=== PATIENT | female | born 2000 | race Caucasian/White ===

== ENCOUNTER 2020-02-04 19:05 | Emergency (ER) | payer SELFPAY ==
[2020-02-04 19:08] VITALS: BP 131/86; PULSE 113; RESP 16; TEMP 36.6; O2SAT 99
--- NOTE | 2020-02-04 19:27 | W.ED.GENAD ---
Discharge Plan Disposition Patient Disposition: HOME Condition: Good Discharge Details Chief Complaint: Abd Prob Clinical Impression: Constipation Primary Care Provider: Daniel Mendoza ED Provider: Tomasa Oates Home Meds and New Rx's Prescriptions: Continued levalbuterol tartrate [Xopenex HFA] 200 PUFF HFA aerosol inhaler 15 gm Inhalation Q4H PRN Qty: 1 RF: 2 loratadine 10 MG tablet 10 mg PO DAILY PRN Qty: 30 RF: 0 buprenorphine-naloxone 8-2 mg film 2 film sublingual DAILY RF: 0 buspirone 5 mg tablet 5 mg PO BID RF: 0 bupropion HCl 75 mg tablet 75 mg PO BID RF: 0 Discharge Instructions Instructions: Magnesium Citrate (By mouth), Constipation (ED) Additional Instructions: Continue to encourage water intake. You may use half a bottle to entire bottle of magnesium citrate as provided. This should produce bowel movement. I also would like for you to get on a daily regimen to help prevent constipation in the future. Please discuss your current constipation as well as prevention further with your primary care. Please call primary care tomorrow to schedule follow-up appointment. If you develop fever/chills, increased pain, vomiting or other new/worsening symptom please seek care urgently once again Referrals: Daniel Mendoza MD [Primary Care Provider] - Discharge Data Discharge Date/Time-TO BE ENTERED AT DEPARTURE: 02/04/20 21:05 Medical Decision Making Patient is a 19-year-old female, brought in by mother, chief complaint of constipation. She reports last bowel movement was 1 week ago. She reports that she has not been able to pass any flatus or stool. States that she is been using generic stool softeners without success. Did try an enema prior to arrival without success. Mother did state that she was able to pass the enema and without difficulty. No previous abdominal surgeries. Patient was started on Suboxone 2 months ago. States that she is also had difficulty with constipation for most of her adult life. Denies any fevers or chills. There is nausea but no vomiting. On exam, she appears nontoxic. She endorses fairly generalized abdominal discomfort with palpation but no peritoneal findings are noted. No CVA tenderness. Will obtain upright abdominal film to evaluate for obstruction based on patient's history. XR reviewed by radiologist. No evidence of obstruction. Mild colonic stool burden. Discussed with the patient and her mother. We discussed treatment options. Her XR and history does not suggest large stool burden in the rectal vault. We discussed treatment options and she would prefer to cntinue her treatment at home. Seems relieved that she is not obstructed. We discussed treatment options. As stores are closed at this time, will discharge home with magnesium citrate. We discussed further treatment options. We discussed that, as this is likely linked to her recent start of suboxone, anahi davis need a preventative method moving forward. She was given return precautions. Advised close f/u with PCP. All questions and concerns were addressed, she is in agreement with this plan. HPI General Mode of arrival: ambulatory. Date/Time Provider Initiated Documentation: 02/04/20 19:27. Limitations to Documentation: no limitations. Information obtained by: patient, family (mother) and RN notes reviewed. History of Present Illness 19 year old F presents to the emergency department with the chief complaint of diffuse abdominal pain, described as severe and similar to prior episodes (reports long history of recurrent constipation), with intensity rated at 10. Quality is described as aching, and is localized to the abdomen. Patient reports no radiation. Patient started experiencing this week(s) (1) and it has been constant. No relieving factors improve symptom(s), No exacerbating factors reported . Patient notes no other symptoms.. Patient did receive the following treatments prior to arrival, other (OTC stool softener) Related Data Home Medications Medication Instructions Recorded Confirmed levalbuterol tartrate [Xopenex HFA] 15 gm INHALATION Q4H PRN #1 inh 09/12/13 02/04/20 loratadine 10 mg PO DAILY PRN #30 tablet 04/03/14 02/04/20 buprenorphine-naloxone 2 film SUBLINGUAL DAILY 02/04/20 02/04/20 bupropion HCl 75 mg PO BID 02/04/20 02/04/20 buspirone 5 mg PO BID 02/04/20 02/04/20 Previous Rx's Medication Instructions Recorded levalbuterol tartrate [Xopenex HFA] 15 gm INHALATION Q4H PRN #1 inh 09/12/13 loratadine 10 mg PO DAILY PRN #30 tablet 04/03/14 Allergies Allergy/AdvReac Type Severity Reaction Status Date / Time No Known Allergies Allergy Unverified 02/04/20 19:13 General Stated Complaint: Abd Prob ADENIKE: 3 Review of Systems Constitutional Constitutional: Reports as per HPI, Denies chills, Denies fatigue, Denies fever(s) and Denies headache(s) ENT Ears, Nose, Mouth, and Throat: Denies headache(s) Cardiovascular Cardiovascular: Reports as per HPI, Denies chest pain and Denies dyspnea Respiratory Respiratory: Reports as per HPI, Denies cough and Denies dyspnea Gastrointestinal Gastrointestinal: Reports as per HPI Musculoskeletal Musculoskeletal: Reports as per HPI and Denies back pain Integumentary/Breasts Skin/Breast: Reports as per HPI and Denies rash Neurologic Neurologic: Reports as per HPI and Denies headache(s) Endocrine Endocrine: Denies fatigue [facility] Medical History (Updated 02/04/20 @ 20:55 by YUE Pascual) Dysmenorrhea in adolescent onset of sx 12yo. Started OCPs with improvement. 10/2015 wants Mirena IUD for ease of compliance. 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 Surgical History ear surgery L ear. Social History Smoking/Tobacco Use Status: Current every day Alcohol Intake: never Drug use: Daily Substance use type: marijuana Details: smokes marijuana before bed each night Do you feel safe at home: Yes Do you feel safe in your relationship?: Yes Exam Const General: cooperative, healthy appearing, comfortable, no acute distress and well developed Nutritional Appearance: average body habitus and well nourished Orientation: alert and awake HENPA Head: normal to inspection Mouth: moist mucous membranes Resp Effort & Inspection: normal respiratory effort, able to speak in complete sentences and no respiratory distress Auscultation: clear to auscultation bilaterally, no rales, no rhonchi and no wheezes Cardio Rate: regular rate Rhythm: regular rhythm Heart Sounds: S1 normal and S2 normal GI Inspection: normal to inspection, no abdominal wall ecchymosis, non-distended and no visible herniation Palpation: soft, no hepatosplenomegaly, not firm, no guarding, no masses and tender (diffusely tender with no peritoneal findings) Percussion: normal to percussion Auscultation: normal bowel sounds Back/Spine/Pelvis Back: no CVA tenderness Skin General skin exam: no rashes or lesions noted Trauma: no lacerations or abrasions Neuro General: patient alert and patient awake Cognition: normal cognition Speech: speech normal Gait: normal gait Psych Appearance: grossly normal and well kempt Mental Status: mental status grossly normal Speech and Movement: speech and movement normal Course Vital Signs Vital signs: Vital Signs Temperature 36.6 C 02/04/20 19:08 Pulse 113 H 02/04/20 19:08 Respiratory Rate 16 02/04/20 19:08 Blood Pressure 131/86 02/04/20 19:08 Pulse Oximetry 99 02/04/20 19:08 Temperature 36.6 C 02/04/20 19:08 Temperature Source Skin 02/04/20 19:08 Pulse 113 H 02/04/20 19:08 Respiratory Rate 16 02/04/20 19:08 Respiratory Effort 02/04/20 19:16 Blood Pressure 131/86 02/04/20 19:08 Blood Pressure Position Standing 02/04/20 19:08 Pulse Oximetry 99 02/04/20 19:08 Oxygen Delivery Method Room Air 02/04/20 19:08 Oxygen Flow Rate 0 02/04/20 19:08 Pain Level 10 02/04/20 19:08
--- NOTE | 2020-02-04 19:30 | DI.RAD_ITS ---
EXAM: XR ABDOMEN FLAT UPRIGHT CLINICAL HISTORY: abdominal pain, no BM x 1 week, no flatus TECHNIQUE: COMPARISON: CR ABD FLAT UPRIGHT PA CHEST from 04/12/2010 FINDINGS: Three views were obtained. Normal bowel gas pattern noted. No gross organomegaly. IUD noted in kayy ce just to the right of midline in the pelvis. IMPRESSION: No evidence of acute process. RADIATION DOSE DELIVERED: Total DLP
--- NOTE | 2020-02-04 20:13 | DI.VRAD_ITS ---
PROCEDURE INFORMATION: Exam: XR Abdomen, 2 Views Exam date and time: 02/04/2020 7:58 PM Age: 19 years old Clinical indication: Generalized; Patient HX: Abdominal pain, no bm x 1 week, no flatus TECHNIQUE: Imaging protocol: XR of the abdomen. Views: 2 Views. COMPARISON: No relevant prior studies available. FINDINGS: Lungs: Lung bases are clear. Gastrointestinal tract: There is mild gaseous distention of the splenic flexure with remainder of colon otherwise nondistended with air and stool scattered throughout the colon and within the rectum. There is mild stool burden throughout the colon. No focal dilation or scattered air-fluid levels to suggest obstruction. Intraperitoneal space: Normal. No free air. Organs: IUD noted within the pelvis, slightly right of midline. Bones/joints: Unremarkable for age. IMPRESSION: Nonobstructive bowel gas pattern with mild colonic stool burden. Dictated and Authenticated by: Jasbir Lorenz MD. Ordering:JANNET Randolph MD
[2020-02-04 20:51] VITALS: BP 122/66; PULSE 75; RESP 16; TEMP 36.6; O2SAT 99
[2020-02-04] MEDS: Magnesium Citrate 300 ML BTL PO (21:00)
== END 2020-02-04 21:05 | disposition home or self-care (01) ==
PROVIDERS: Emergency Provider Physician Assistant; PCP Internal Medicine
DX: K59.00 Constipation, unspecified (principal); T50.7X5A Adverse effect of analeptics and opioid receptor antagonists, initial encounter; R11.0 Nausea
CPT/HCPCS: 99283; 74019

== ENCOUNTER 2022-04-05 18:32 | Emergency (ER) | payer MEDICAID, SELFPAY ==
[2022-04-05 18:39] VITALS: BP 110/66; PULSE 72; RESP 16; TEMP 36.6; O2SAT 99
--- NOTE | 2022-04-05 18:49 | ED.GENADUL_ITS ---
Discharge Plan Disposition Patient Disposition: HOME Condition: Improving Discharge Details Clinical Impression: Acute bronchitis with bronchospasm Primary Care Provider: Daniel Mendoza ED Provider: Jeremy Doran Home Meds and New Rx's Prescriptions: New amoxicillin-pot clavulanate 875-125 mg tablet 1 tab PO BID 9 Days Qty: 18 0RF No Action levalbuterol tartrate [Xopenex HFA] 200 PUFF HFA aerosol inhaler 15 gm Inhalation Q4H PRN Qty: 1 2RF loratadine 10 MG tablet 10 mg PO DAILY PRN Qty: 30 0RF buprenorphine-naloxone 8-2 mg film 2 film sublingual DAILY Label Comments: PLACE 1 FILM UNT AND ALLOW TO DISSOLVE BID Discharge Instructions Instructions: Acute Bronchitis (ED) Additional Instructions: Continue efforts to decrease tobacco and other inhaled products. Take antibiotics as prescribed. Albuterol as needed every 2-4 hours while ill. Return to the emergency department for any acute concerns. Medical Decision Making This is a 21-year-old female smoker who presents with 10 days of persistent cough. She has run out of her inhaler and continues to smoke. She is oxygenating normally and afebrile. Slight wheeze present on exam. Most consistent with bronchitis and bronchospasm. We will treat with a course of antibiotic and repeat start her inhaler. She is stable for outpatient management will continue to decrease her use of cigarettes. [facility] General Mode of arrival: ambulatory . Date/Time Provider Initiated Documentation: 04/05/22 18:35 . Limitations to Documentation: no limitations . Information obtained by: patient . History of Present Illness 21 year old F presents to the emergency department with the chief complaint of Cough, wheezing, described as moderate and similar to prior episodes, and is lo calized to the chest. Patient reports no radiation. Patient started experiencing this day(s) and it has been intermittent. No relieving factors improve symptom(s), No exacerbating factors reported . Patient notes cough and fever/chills; denies chest pain, shortness of breath and syncope. Patient did receive the following treatments prior to arrival, none Related Data Home Medications Medication Instructions Recorded Confirmed levalbuterol tartrate 45 15 gm inhalation Q4H PRN #1 inh 09/12/13 04/05/22 mcg/actuation aerosol inhaler (Xopenex HFA) loratadine 10 mg tablet 10 mg PO DAILY PRN ##30 04/03/14 02/04/20 buprenorphine 8 mg-naloxone 2 mg 2 film sublingual DAILY 02/04/20 04/05/22 sublingual film amoxicillin 875 mg-potassium 1 tab PO BID 9 days #18 tabs 04/05/22 clavulanate 125 mg tablet Previous Rx's Medication Instructions Recorded levalbuterol tartrate 45 15 gm inhalation Q4H PRN #1 inh 09/12/13 mcg/actuation aerosol inhaler (Xopenex HFA) loratadine 10 mg tablet 10 mg PO DAILY PRN ##30 04/03/14 amoxicillin 875 mg-potassium 1 tab PO BID 9 days #18 tabs 04/05/22 clavulanate 125 mg tablet Allergies Allergy/AdvReac Type Severity Reaction Status Date / Time No Known Allergies Allergy Unverified 04/05/22 18:42 General Stated Complaint: RespSymp ADENIKE: 4 Review of Systems Narrative: No chest pain, no difficulty breathing. Ran out of her inhaler, continues to smoke half pack of cigarettes per day. PFSH All Active Problems (Updated 04/05/22 @ 18:54 by Jeremy Doran MD) Ear pain, right (Acute) Acute bronchitis with bronchospasm (Acute) Medical History Dysmenorrhea in adolescent onset of sx 12yo. Started OCPs with improvement. 10/2015 wants Mirena IUD for ease of compliance. 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 Surgical History ear surgery L ear. Social History Smoking/Tobacco Use Status: Current every day Tobacco Type: cigarettes Smoking packs per day: 0.5 Smoking cigarettes per day: 10.0 Smoking risk assessment performed?: Yes Alcohol Intake: never Drug use: Daily Substance use type: marijuana Details: smokes marijuana before bed each night Do you feel safe at home: Yes Do you feel safe in your relationship?: Yes Exam Narrative Exam Narrative: GEN: awake, alert, oriented 3. Pleasant, well groomed, interactive. HEAD: Normocephalic, atraumatic ENT: Mucous membranes moist, oropharynx unremarkable, External ear exam unremarkable EYES: PERRL, EOMI NECK: Full ROM, no JACLYN, no menigismus CHEST/RESP: Nontender, subtle end expiratory wheeze bilaterally CARDIOVASCULAR: RRR, no murmur, rub kenneth. 2+ Rad pulse bilateral ABDOMEN: Soft, nontender, no mass. +Bowel sounds EXT: Full ROM, no edema, no rash Neuro: Grossly normal neurologic exam, conversant, interactive. Psych: Speech fluent, thoughts congruent, affect normal Course Vital Signs Vital signs: Vital Signs Temperature 36.6 C 04/05/22 18:39 Pulse 72 04/05/22 18:39 Respiratory Rate 16 04/05/22 18:39 Blood Pressure 110/66 04/05/22 18:39 Pulse Oximetry 99 04/05/22 18:39 Temperature 36.6 C 04/05/22 18:39 Temperature Source Tympanic 04/05/22 18:39 Pulse 72 04/05/22 18:39 Respiratory Rate 16 04/05/22 18:39 Respiratory Effort 04/05/22 18:39 Blood Pressure 110/66 04/05/22 18:39 Blood Pressure Position Sitting 04/05/22 18:39 Pulse Oximetry 99 04/05/22 18:39 Oxygen Delivery Method Room Air 04/05/22 18:39 Oxygen Flow Rate 0 04/05/22 18:39 Pain Level 0 04/05/22 18:39
[2022-04-05] MEDS: Albuterol HFA 8 GM 60 PUFF INH IH (19:00)
[2022-04-05] MEDS: Inhaler, Assist Device 1 EACH MC (19:00)
[2022-04-05] MEDS: Amox. 875/Clav. 125, 2 TABS/BTL 1 TAB PO (19:00)
== END 2022-04-05 18:59 | disposition home or self-care (01) ==
PROVIDERS: Emergency Provider Emergency Medicine; PCP Internal Medicine
DX: J20.9 Acute bronchitis, unspecified (principal); F17.210 Nicotine dependence, cigarettes, uncomplicated
CPT/HCPCS: 99283

== ENCOUNTER 2022-05-17 00:17 | Emergency (ER) | payer MEDICAID, SELFPAY ==
--- NOTE | 2022-05-17 00:15 | RT.EKG_ITS ---
APPROVED REPORT Exam: Resting ECG Reason for Exam: chest pain Patient Location: E HR:69 bpm ECG Measurements Heart Rate 69 AXIS OR 157 P 54 QRSd 74 QRS 68 QT 374 T 52 QTc 401 Conclusion Sinus rhythm...normal P axis, V-rate 60- 99 Physician: no stemi
[2022-05-17 00:21] VITALS: BP 165/76; PULSE 85; RESP 18; TEMP 36.6; O2SAT 96
[2022-05-17 00:45] LABS: Abs Immature Grans 0.06 10^3/uL (0.0-0.06); Absolute Basophil Count 0.03 10^3/uL (0.0-0.2); Absolute Eosinophil Count 0.12 10^3/uL (0.0-0.7); Absolute Lymphocyte Count 2.18 10^3/uL (1.2-3.4); Absolute Monocyte Count 0.84 10^3/uL (0.1-0.8); Absolute Neutrophil Count 6.05 10^3/uL (1.2-6.7); Basophils % 0.3; Eosinophils % 1.3; HCT 37.9 % (36.0-46.0); HGB 12.3 g/dL (11.2-15.7); Immature Grans % 0.6; Lymphocytes % 23.5; MCH 28.7 pg (27.0-33.0); MCHC 32.5 % (32.0-36.0); MCV 89 fL (80-95); MPV 8.3 fL (8.0-11.0); Monocytes % 9.1; Neutrophils % 65.2; Platelet Count 396 10^3/uL (130-400); RBC 4.28 10^6/uL (3.93-5.22); RDW 12.7 % (11.7-14.6); RDW-SD 41.1 fL; WBC 9.28 10^3/uL (4.4-10.8)
[2022-05-17 00:46] LABS: ESR 35 mm/hr (0-20)
--- NOTE | 2022-05-17 00:54 | W.ED.GENAD ---
Discharge Plan Disposition Patient Disposition: Home Condition: Good Discharge Details Clinical Impression: Chest pain, Withdrawal from opioids, Cellulitis of arm, right Primary Care Provider: Daniel Mendoza ED Provider: Akil Bryant Home Meds and New Rx's Prescriptions: New clindamycin HCl 150 mg capsule 450 mg PO Q6H 7 Days Qty: 84 0RF No Action levalbuterol tartrate [Xopenex HFA] 200 PUFF HFA aerosol inhaler 15 gm Inhalation Q4H PRN Qty: 1 2RF loratadine 10 MG tablet 10 mg PO DAILY PRN Qty: 30 0RF buprenorphine-naloxone 8-2 mg film 2 film sublingual DAILY Label Comments: PLACE 1 FILM UNT AND ALLOW TO DISSOLVE BID Discharge Instructions Instructions: Chest Pain (ED) Additional Instructions: Please take the antibiotics for your cellulitis. I have been sent to your pharmacy on file. At this time your CAT scan shows no evidence of blood clot or problems with your major vessels. Your laboratory work-up shows no major problems with your heart. Your symptoms may be related to mild pericarditis or withdrawal. Please do not take heroin or opiate related substances. Please take Tylenol and Motrin and follow-up closely with your primary care provider at your appointment this afternoon. If you notice any worsening of your symptoms, or any new symptoms such as vomiting, diarrhea, fever, chills, shortness of breath, chest pain, numbness, weakness, or fainting , please return immediately to the emergency department for reevaluation. Please follow up with your primary care provider as soon as possible for reassessment and reevaluation. As always, it was a pleasure participating in your medical care today. Referrals: Daniel Mendoza MD [Primary Care Provider] - Medical Decision Making This is a 21-year-old female with a past medical history of IV drug abuse, including recent heroin use who presents today for chest pain. Patient states that she has been using for the last few weeks, last time she used was about 10 hours ago. Since then she has developed mild chest achiness for the last 2 hours. She states that this is how she felt last time she was withdrawing. She denies fever or chills. She does admit to some redness on her right arm. She denies pleuritic chest pain. She denies any history of blood clots. Grandparents did have blood clots but she has never had any. She denies any other complaints. Symptoms are made worse when she lies flat, improves when she sits upright comparatively. No other modifying factors. Exam demonstrates well-appearing female, no reproducible chest wall tenderness. No murmur on auscultation. Mild redness on right arm. Differential is highest for mild pericarditis, ACS is unlikely. Screening EKG is unremarkable. Differential also does include PE. We will get a D-dimer. Myocarditis and endocarditis less likely with the absence of any murmur, or fever or chills. Will give Toradol to help with the pain, give clonidine patch to help with the withdrawal symptoms, monitor closely and reassess. 3 AM CTA shows no evidence of pulmonary embolism. Laboratory work-up shows no white count or bandemia. D-dimer elevated but CTA was negative for PE. ESR minimally elevated, CRP mildly elevated. Renal function excellent. Patient does demonstrate cellulitis for right upper extremity. Clindamycin was given here and a prescription will be given for home use. Repeat auscultation shows no evidence of cardiac murmur whatsoever. Janeway lesions or Osler nodes are not present. Symptoms inconsistent with acute myocarditis. Symptoms inconsistent with dissection or PE. Suspect mild pericarditis. Patient had minimal improvement with Toradol and Ofirmev. Clonidine was given. Did offer additional help for counseling for the patient but it was refused. Patient states that she does have resources already and has a follow-up appointment with her PCP for Suboxone/methadone at noon. Patient's symptoms are inconsistent with ACS. Patient stable for discharge. I have extensively reviewed the treatment plan and discharge instructions with the patient. I have addressed all patient concerns at this time. The patient was made aware of what symptoms to monitor for that would warrant a return to the emergency department. Discussed the plan with the patient, they demonstrate verbal understanding and agreement with our assessment and plan at this time. The documentation in this chart was dictated using [employer] dictation software. Please excuse any dictation errors. FINDINGS: Pulmonary arteries: No pulmonary emboli. Aorta: Unremarkable. No aortic aneurysm. No aortic dissection. Lungs: Unremarkable. No consolidation. No masses. Pleural spaces: Unremarkable. No pneumothorax. No pleural effusion. Heart: Unremarkable. No cardiomegaly. No pericardial effusion. Lymph nodes: Unremarkable. No enlarged lymph nodes. Bones/joints: Unremarkable. No acute fracture. Soft tissues: Unremarkable. IMPRESSION No acute findings. No pulmonary emboli observed Thank you for allowing us to participate in the care of your patient. Dictated and Authenticated by: Abraham Bashir MD 05/17/2022 2:44 AM Eastern Time ([place] & [place]) Sign Out No HPI General Date/Time Provider Initiated Documentation: 05/17/22 00:18. HPI Narrative: This is a 21-year-old female with a past medical history of IV drug abuse, including recent heroin use who presents today for chest pain. Patient states that she has been using for the last few weeks, last time she used was about 10 hours ago. Since then she has developed mild chest achiness for the last 2 hours. She states that this is how she felt last time she was withdrawing. She denies fever or chills. She does admit to some redness on her right arm. She denies pleuritic chest pain. She denies any history of blood clots. Grandparents did have blood clots but she has never had any. She denies any other complaints. Symptoms are made worse when she lies flat, improves when she sits upright comparatively. No other modifying factors. Related Data Home Medications Medication Instructions Recorded Confirmed levalbuterol tartrate 45 15 gm inhalation Q4H PRN #1 inh 09/12/13 04/05/22 mcg/actuation aerosol inhaler (Xopenex HFA) loratadine 10 mg tablet 10 mg PO DAILY PRN ##30 04/03/14 02/04/20 buprenorphine 8 mg-naloxone 2 mg 2 film sublingual DAILY 02/04/20 04/05/22 sublingual film clindamycin HCl 150 mg capsule 450 mg PO Q6H 7 days #84 caps 05/17/22 Previous Rx's Medication Instructions Recorded levalbuterol tartrate 45 15 gm inhalation Q4H PRN #1 inh 09/12/13 mcg/actuation aerosol inhaler (Xopenex HFA) loratadine 10 mg tablet 10 mg PO DAILY PRN ##30 04/03/14 clindamycin HCl 150 mg capsule 450 mg PO Q6H 7 days #84 caps 05/17/22 Allergies Allergy/AdvReac Type Severity Reaction Status Date / Time No Known Allergies Allergy Unverified 04/05/22 18:42 General Stated Complaint: Chest Pain ADENIKE: 3 Review of Systems All systems reviewed & are unremarkable except as noted in HPI and below PFSH All Active Problems (Updated 05/17/22 @ 03:06 by Akil Bryant DO) Ear pain, right (Acute) Chest pain (Acute) Withdrawal from opioids (Acute) Cellulitis of arm, right (Acute) Medical History Dysmenorrhea in adolescent onset of sx 12yo. Started OCPs with improvement. 10/2015 wants Mirena IUD for ease of compliance. 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 Surgical History ear surgery L ear. Social History Smoking/Tobacco Use Status: Current every day Tobacco Type: cigarettes Smoking packs per day: 0.5 Smoking cigarettes per day: 10.0 Smoking risk assessment performed?: Yes Alcohol Intake: never Drug use: Daily Substance use type: marijuana and heroin Details: smokes marijuana before bed each night Do you feel safe at home: Yes Do you feel safe in your relationship?: Yes Exam Narrative Exam Narrative: 1.Const: Well-nourished, Well-developed, appearing stated age 2.Eyes: PERRL, no conjunctival injection, and symmetrical lids. 3.ENT: Atraumatic external nose and ears. Moist MM. Neck: Symmetric, trachea midline, No thyromegaly. 4.CVS: +S1/S2, No murmurs or gallops. Peripheral pulses 2+ and equal in all extremities. Brisk capillary refill in all extremities. 5.RESP: Unlabored respiratory effort. Clear to auscultation bilaterally. No wheezes rales or rhonchi 6.GI: Soft, Nontender/Nondistended, No hepatosplenomegaly. No guarding or rebound. 7.MSK: Normocephalic/Atraumatic, Extremities w/o deformity or ttp No cyanosis or clubbing, Normal movement of all extremities 8.Skin: Warm, Dry. No rashes or lesions. Right arm demonstrates some mild area of light light erythema over the antecubital region. No palpable abscess. 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 Sensation grossly intact, no focal neurologic deficits. 10.Psych: (AAO) x3. Appropriate mood and affect Course Vital Signs Vital signs: Vital Signs Temperature 36.6 C 05/17/22 00:21 Pulse 85 05/17/22 00:21 Respiratory Rate 18 05/17/22 00:21 Blood Pressure 165/76 H 05/17/22 00:21 Pulse Oximetry 96 05/17/22 00:21 Temperature 36.6 C 05/17/22 00:21 Pulse 85 05/17/22 00:21 Respiratory Rate 18 05/17/22 00:21 Respiratory Effort 05/17/22 00:25 Blood Pressure 165/76 H 05/17/22 00:21 Blood Pressure Position Sitting 05/17/22 00:21 Pulse Oximetry 96 05/17/22 00:21 Oxygen Delivery Method Room Air 05/17/22 00:21 Oxygen Flow Rate 0 05/17/22 00:21 Pain Level 7 05/17/22 00:21 Lab/Test Results Lab/Test Results: Laboratory Tests Range/Units 05/17/22 05/17/22 00:36 00:36 WBC (4.4-10.8) 10^3/uL 9.28 RBC (3.93-5.22) 10^6/uL 4.28 Hgb (11.2-15.7) g/dL 12.3 Hct (36.0-46.0) % 37.9 MCV (80-95) fL 89 MCH (27.0-33.0) pg 28.7 MCHC (32.0-36.0) % 32.5 RDW (11.7-14.6) % 12.7 Plt Count (130-400) 10^3/uL 396 MPV (8.0-11.0) fL 8.3 Immature Gran % 0.6 Neutrophils % 65.2 Lymphocytes % 23.5 Monocytes % 9.1 Eosinophils % 1.3 Basophils % 0.3 Nucleated RBC % (0.0-0.3) % 0.0 Absolute Neutrophils (1.2-6.7) 10^3/uL 6.05 Absolute Lymphocytes (1.2-3.4) 10^3/uL 2.18 Absolute Monocytes (0.1-0.8) 10^3/uL 0.84 H Absolute Eosinophils (0.0-0.7) 10^3/uL 0.12 Absolute Basophils (0.0-0.2) 10^3/uL 0.03 ESR (0-20) mm/hr 35 H
[2022-05-17] MEDS: CLINDAMYCIN 600 MG/50 ML BAG 100 MG IVPB (01:02)
[2022-05-17 01:03] LABS: ALT 15 U/L (14-59); AST 10 U/L (15-37); Albumin 3.3 g/dL (3.4-5.0); Alkaline Phosphatase 55 U/L (46-116); Anion Gap 8.7 mmol/L (3-11); BUN 10 mg/dL (7-18); Bilirubin, Total 0.4 mg/dL (0.2-1.0); CO2 29.3 mmol/L (21.0-32.0); CREATININE 0.8 mg/dL (0.55-1.02); Calcium 9.5 mg/dL (8.5-10.1); Chloride 105 mmol/L (98-107); Estimated GFR 106.11 (mL/min/1.73m2); Glucose 109 mg/dL (74-106); Sodium 143 mmol/L (136-145); Total Protein 7.3 g/dL (6.4-8.2); Troponin I < 50 ng/L (<or=60)
[2022-05-17] MEDS: Ketorolac 15 MG/ML VIAL IVP (01:03)
[2022-05-17] MEDS: Normal Saline 1,000 ML 1000 ML IV (01:04)
[2022-05-17 01:15] LABS: D-Dimer 587 ng/mlFEU (<500)
--- NOTE | 2022-05-17 01:30 | DI.CT_ITS ---
Exam(s) CT CHEST PE CTA EXAM: CT CHEST PE CTA CLINICAL HISTORY: IVDU, CP, SOB, elevated dimer, r/o clot. TECHNIQUE: Imaging Protocol: Axial CT angiography was performed with multi-slice acquisition and mu lti-planar reconstructions as well as axial, coronal and sagittal MIP reconstructions. CONTRAST MATERIAL: Intravenous: Omnipaque 350 Contrast volume:65 ml COMPARISON: No exams were available for comparison FINDINGS: Pulmonary Arteries: No evidence of filling defect to suggest pulmonary emboli. Tracheobronchial tree: Patent where visualized. Mediastinum and Lillian: No dominant adenopathy or fluid collection. Pulmonary parenchyma: No consolidation or dominant measurable mass. Pleura: No effusion or pneumothorax. Heart: The heart is not dilated. No coronary artery calcifications are seen. Aorta: Thoracic aorta non-dilated. No aneurysm. No dissection. Upper abdomen: Unremarkable. Bones: Unremarkable for age. IMPRESSION: No evidence of pulmonary embolism or other acute abnormality.. RADIATION DOSE DELIVERED: 295.6mGy.cm Total DLP DATA REPOSITORY: All CT scans at this facility are submitted to the National Radiology Data Registry (NRDR) Dose Index Registry (DIR) with the [employer] (ACR). RADIATION OPTIMIZATION: All CT scans at this facility use at least one of these dose optimization te chniques: automated exposure control; mA and/or kV adjustment per patient size (includes targeted exa ms where dose is matched to clinical indication); or iterative reconstruction.
[2022-05-17] MEDS: Normal Saline - Diluent 50 ML VIAL IJ (01:44)
[2022-05-17] MEDS: Omnipaque 350 MG/ML 100 ML BTL IJ (01:44)
[2022-05-17] MEDS: Normal Saline Flush 10 ML SYR IVP (01:44)
[2022-05-17 01:51] VITALS: BP 116/81
[2022-05-17] MEDS: ACETAMINOPHEN 1,000 MG/100 ML BTL 400 MG IVPB (02:19)
--- NOTE | 2022-05-17 02:44 | DI.VRAD_ITS ---
PROCEDURE INFORMATION: Exam: CTA Chest With Contrast Exam date and time: 05/17/2022 1:56 AM Age: 21 years old Clinical indication: Pain; Chest pressure; Patient HX: Ivdu, cp, SOB, elevated d-dimer, R/O clot TECHNIQUE: Imaging protocol: Computed tomographic angiography of the chest with contrast. 3D rendering (Not supervised by radiologist): MIP and/or 3D reconstructed images were created by the technologist. Radiation optimization: All CT scans at this facility use at least one of these dose optimization techniques: automated exposure control; mA and/or kV adjustment per patient size (includes targeted exams where dose is matched to clinical indication); or iterative reconstruction. Contrast material: OMNIPAQUE 350; Contrast volume: 65 ml; Contrast route: INTRAVENOUS (IV); COMPARISON: CR CHEST 2 VIEWS PA,LAT 09/19/2016 8:03 PM FINDINGS: Pulmonary arteries: No pulmonary emboli. Aorta: Unremarkable. No aortic aneurysm. No aortic dissection. Lungs: Unremarkable. No consolidation. No masses. Pleural spaces: Unremarkable. No pneumothorax. No pleural effusion. Heart: Unremarkable. No cardiomegaly. No pericardial effusion. Lymph nodes: Unremarkable. No enlarged lymph nodes. Bones/joints: Unremarkable. No acute fracture. Soft tissues: Unremarkable. IMPRESSION: No acute findings. No pulmonary emboli observed Dictated and Authenticated by: Abraham Bashir MD. Ordering:JURGEN Barnard MD
[2022-05-17] MEDS: Lidocaine 5% Patch 1 PATCH TP (03:42)
[2022-05-17 03:43] VITALS: BP 124/76; PULSE 91
== END 2022-05-17 03:46 | disposition home or self-care (01) ==
PROVIDERS: Emergency Provider Student in an Organized Health Care Education/Training Program; PCP Internal Medicine
DX: F11.23 Opioid dependence with withdrawal (principal); R07.9 Chest pain, unspecified; L03.113 Cellulitis of right upper limb; R79.89 Other specified abnormal findings of blood chemistry; R70.0 Elevated erythrocyte sedimentation rate; R79.82 Elevated C-reactive protein (CRP)
CPT/HCPCS: 71275; 80053; 81025; 85652; 93005; 96361; 96365; 96375; 99285; 84484; 85025; 85379; 86140; 93010; J0131; J1885; J3490

== ENCOUNTER 2022-05-23 07:26 | Emergency (ER) | payer MEDICAID, SELFPAY ==
[2022-05-23 07:30] VITALS: BP 110/70; PULSE 86; RESP 16; TEMP 36.2; O2SAT 100
--- NOTE | 2022-05-23 08:25 | ED.GENADUL_ITS ---
Discharge Plan Disposition Patient Disposition: Home Condition: Serious Discharge Details Clinical Impression: Cellulitis of skin with lymphangitis, History of intravenous drug abuse Primary Care Provider: Daniel Mendoza ED Provider: Fern Matta Home Meds and New Rx's Prescriptions: New cefdinir 300 mg capsule 300 mg PO BID Qty: 20 0RF Saccharomyces boulardii [Florastor] 250 mg capsule 250 mg PO BID Qty: 20 0RF Continued levalbuterol tartrate [Xopenex HFA] 200 PUFF HFA aerosol inhaler 15 gm Inhalation Q4H PRN Qty: 1 2RF loratadine 10 MG tablet 10 mg PO DAILY PRN Qty: 30 0RF Discharge Instructions Instructions: Cellulitis (ED) Additional Instructions: Take antibiotic as prescribed Yogurt daily while on antibiotic Take the Florastor as prescribed Am recommending admission to the hospital for IV antibiotics at this time, you have declined I recommend 24 to 48-hour recheck Take both the clindamycin and cefdinir, begin the cefdinir today, have sent it to your pharmacy Elevate your hand is much as possible and apply warm compresses 10 minutes/hr Please call recovery: Stand Alone Forms: Work Release Referrals: Daniel Mendoza MD [Primary Care Provider] - 1 day Discharge Data Discharge Date/Time-TO BE ENTERED AT DEPARTURE: 05/23/22 08:40 Medical Decision Making This 21-year-old female IV drug user presents for return visit secondary to worsening of cellulitis on current antibiotics Concern is that patient has failed outpatient treatments, recommendation for admission, patient has declined, she is alert, oriented, of decisional capacity and her mother is in the room I spoke with the pharmacist regarding appropriate management outpatient and she recommended adding a third generation cephalosporin to her clindamycin which I added cefdinir to her regimen I recommended [facility] cholo, to talk to patient, she has adamantly declined as they are searching for detox today With splint was applied, will continue on clindamycin and cefdinir Recheck in 48 hours recommended and early return at her earliest availability Medical Records Medical records reviewed: Yes I reviewed the patient's medical records. Sign Out No HPI General Date/Time Provider Initiated Documentation: 05/23/22 07:30 . HPI Narrative: 21-year-old female presents with recurrent infection on her right arm. She states she has been on antibiotics for the past 6 days and was initially improving but now worse. She states she does use IV drugs, she last used this morning. Denies known fever or chills. Denies chance of . Related Data Home Medications Medication Instructions Recorded Confirmed levalbuterol tartrate 45 15 gm inhalation Q4H PRN #1 inh 09/12/13 05/23/22 mcg/actuation aerosol inhaler (Xopenex HFA) loratadine 10 mg tablet 10 mg PO DAILY PRN ##30 04/03/14 05/23/22 Saccharomyces boulardii 250 mg 250 mg PO BID #20 caps 05/23/22 capsule (Florastor) cefdinir 300 mg capsule 300 mg PO BID #20 caps 05/23/22 Previous Rx's Medication Instructions Recorded levalbuterol tartrate 45 15 gm inhalation Q4H PRN #1 inh 09/12/13 mcg/actuation aerosol inhaler (Xopenex HFA) loratadine 10 mg tablet 10 mg PO DAILY PRN ##30 04/03/14 Saccharomyces boulardii 250 mg 250 mg PO BID #20 caps 05/23/22 capsule (Florastor) cefdinir 300 mg capsule 300 mg PO BID #20 caps 05/23/22 Allergies Allergy/AdvReac Type Severity Reaction Status Date / Time No Known Allergies Allergy Unverified 05/23/22 07:35 General Stated Complaint: RashLesion ADENIKE: 4 Review of Systems All systems reviewed & are unremarkable except as noted in HPI and below PFSH All Active Problems Ear pain, right (Acute) Chest pain (Acute) Withdrawal from opioids (Acute) Cellulitis of arm, right (Acute) Cellulitis of skin with lymphangitis (Acute) History of intravenous drug abuse (Acute) Medical History Dysmenorrhea in adolescent onset of sx 12yo. Started OCPs with improvement. 10/2015 wants Mirena IUD for ease of compliance. 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 Surgical History ear surgery L ear. Social History Smoking/Tobacco Use Status: Current every day Tobacco Type: cigarettes Smoking packs per day: 0.5 Smoking cigarettes per day: 10.0 Smoking risk assessment performed?: Yes Alcohol Intake: never Drug use: Daily Substance use type: marijuana and heroin Details: smokes marijuana before bed each night Do you feel safe at home: Yes Do you feel safe in your relationship?: Yes Exam Const General: cooperative, comfortable and no acute distress Resp Effort & Inspection: normal respiratory effort Cardio Rate: regular rate Skin Full body images: 1. Cellulitis noted, no obvious abscess palpated, lymphangitis noted 2. Neuro General: patient alert and patient oriented x3 Course Vital Signs Vital signs: Vital Signs Temperature 36.2 C L 05/23/22 07:30 Pulse 86 05/23/22 07:30 Respiratory Rate 16 05/23/22 07:30 Blood Pressure 110/70 05/23/22 07:30 Pulse Oximetry 100 05/23/22 07:30 Temperature 36.2 C L 05/23/22 07:30 Temperature Source Temporal Artery Scan 05/23/22 07:30 Pulse 86 05/23/22 07:30 Respiratory Rate 16 05/23/22 07:30 Respiratory Effort Non-Labored 05/23/22 07:33 Blood Pressure 110/70 05/23/22 07:30 Blood Pressure Position Sitting 05/23/22 07:30 Pulse Oximetry 100 05/23/22 07:30 Oxygen Delivery Method Nasal Cannula 05/23/22 07:30 Pain Level 7 05/23/22 07:30
--- NOTE | 2022-05-23 12:32 | NUR.NOTE ---
Nursing Note: Referral faxed to PCP for IV drug abuse, cellulitis for TuesdayMay 24
== END 2022-05-23 08:40 | disposition home or self-care (01) ==
PROVIDERS: Emergency Provider Physician Assistant; PCP Internal Medicine
DX: L03.113 Cellulitis of right upper limb (principal); L03.123 Acute lymphangitis of right upper limb
CPT/HCPCS: 99283

== ENCOUNTER 2022-07-15 16:10 | Outpatient (REF) | payer MEDICAID, SELFPAY ==
[2022-07-15 14:53] LABS: TSH (W/Ref FT4) 0.83 uIU/mL (0.36-3.74)
== END 2022-07-15 16:11 | disposition home or self-care (01) ==
LOC: NCHCN 16:10
PROVIDERS: PCP Internal Medicine; Visit Provider Family Medicine
DX: G47.00 Insomnia, unspecified (principal); F11.21 Opioid dependence, in remission; F41.9 Anxiety disorder, unspecified; M79.642 Pain in left hand
CPT/HCPCS: 84443

== ENCOUNTER 2022-09-23 10:55 | Outpatient (REF) | payer MEDICAID, SELFPAY ==
--- NOTE | 2022-09-23 10:10 | PAPFT_PTH ---
PATIENT: Rosaura Ingram LOC: [facility]#:[id number] AGE/SX: 22/F ROOM: RE09/23/[address]: Elyssa Lynn : 2000 BED: DIS: 09/23/2022 SPEC #: [id number] RECD: 09/23/22 18:35 STATUS: MARGA REQ #: [id number] JOSELO: 09/23/22 10:[address]: Elyssa Lynn DEPT: [facility] Cytology RECD BY: Fern Castro ENTERED: 09/23/22 18:36 SP TYPE: PAPFT OTHR DR: Daniel Mendoza Tissues: 1 - CX/ENDOCX FOR PAP SMEARS Procedures: PAP THIN PREP/[facility] Screening Comments: [id number] (CHLAMYDIA/GC)
--- OUTSIDE RECORDS SUMMARY | 2022-09-23 10:58 | XMS_ITS ---
Author Name Sebastián Connell Address [address], [place] [id number] Organization [facility] Address [address], [place] [id number] Care Team Providers Care Surveyor Helper Rod Name Role Phone Sebastián Connell Unavailable [phone] PROBLEMS Type Condition ICD9-CM Code KRK79-CF Code Onset Dates Condition Status SNOMED Code Problem Major depressive disorder, recurrent episode, mild with anxious distress F33.0 Active 28488659 Problem JORGE (generalized anxiety disorder) F41.1 Active 87033594 Problem Opioid dependence F11.20 Active 870958 00 Problem Cannabis use disorder, mild, abuse F12.10 Active 95466293 Problem Opioid dependence, uncomplicated F11.20 Active Problem Moderately severe recurrent major depression F33.2 Active 436976114 Problem Nicotine use disorder F17.200 Active 979697573 Problem Opioid use disorder, moderate, in early remission, on maintenance therapy F11.21 Active 610965596 Problem Major depressive disorder, recurrent, in full remission with anxious distress F33.42 Active 20206734 ALLERGIES No Known Allergies ENCOUNTERS Encounter Location Date Diagnosis [facility] [address] [id number] Mar, [facility] [address] [id number] Feb, Opioid dependence, uncomplicated F11.20 [facility] [address] [id number] Jan, Opioid dependence, uncomplicated F11.20 [facility] [address] [id number] Jan,2 Opioid use disorder, moderate, in early remission, on maintenance therapy F11.21 ; Cannabis use disorder, mild, abuse F12.10 ; JORGE (generalized anxiety disorder) F41.1 and Nicotine use disorder F17.200 [facility] [address] [id number] 08 Jan, 2022 Opioid dependence, uncomplicated F11.[address] [place] [address] [id number] 12 Dec, 2021 [facility] [address] [id number] 11 Dec, 2021 Opioid dependence, uncomplicated F11.20 [facility] [address] [id number] 13 Nov, 2021 Opioid use disorder, moderate, in early remission, on maintenance therapy F11.21 ; Cannabis use disorder, mild, abuse F12.10 ; Nicotine use disorder F17.200 and JORGE (generalized anxiety disorder) F41.1 [facility] [address] [id number] 13 Nov, 2021 Opioid dependence, uncomplicated F11.20 [facility] [address] [place] [address] [id number] 07 Nov, 2021 [facility] [address] [id number] October, Opioid dependence, uncomplicated F11.20 [facility] [address] [id number] Sep, Opioid dependence, uncomplicated F11.20 [facility] [address] [id number] Aug, Opioid dependence, uncomplicated F11.20 [facility] [address] [id number] Aug, Opioid use disorder, moderate, in early remission, on maintenance therapy F11.21 ; Cannabis use disorder, mild, abuse F12.10 ; JORGE (generalized anxiety disorder) F41.1 and Nicotine use disorder F17.200 [facility] [address] [id number] Aug, Opioid dependence, uncomplicated F11.20 [address] [address] [place] [address] [id number] Jul, [facility] [address] [id number] Jul, Opioid use disorder, moderate, in early remission, on maintenance therapy F11.21 ; Cannabis use disorder, mild, abuse F12.10 ; Nicotine use disorder F17.200 and JORGE (generalized anxiety disorder) F41.1 [facility] [address] [id number] Jul, Opioid dependence, uncomplicated F11.20 [facility] [address] [id number] Jul, Opioid dependence, uncomplicated F11.20 [facility] [address] [id number] Jun, [facility] [address] [id number] Jun, Gastroenterology [address] [place] [address] [id number] Jun, [facility] [address] [id number] Jun, Opioid dependence, uncomplicated F11.20 [facility] [address] [id number] Jun, Opioid use disorder, moderate, in early remission, on maintenance therapy F11.21 ; JORGE (generalized anxiety disorder) F41.1 ; Cannabis use disorder, mild, abuse F12.10 and Nicotine use disorder F17.200 [facility] [address] [id number] 27 May, 2021 Opioid dependence, uncomplicated F11.20 [facility] [address] [place] [address] [id number] 22 May, 2021 [facility] [address] [id number] 14 May, 2021 [facility] [address] [id number] 14 May, 2021 Opioid dependence, uncomplicated F11.20 [facility] [address] [place] [address] [id number] 14 May, 2021 [facility] [address] [id number] 13 May, [address] [place] [address] [id number] 08 May, 2021 [facility] [address] [id number] 15 Apr, 2021 Opioid use disorder, moderate, in early remission, on maintenance therapy F11.21 ; Cannabis use disorder, mild, abuse F12.10 ; Nicotine use disorder F17.200 and JORGE (generalized anxiety disorder) F41.1 [facility] [address] [id number] 15 Apr, 2021 Opioid dependence, uncomplicated F11.20 and Opioid dependence F11.20 [facility] [address] [id number] Mar, Opioid dependence, uncomplicated F11.20 and Opioid dependence F11.20 [facility] [address] [id number] Mar, [facility] [address] [id number] Mar, Opioid dependence, uncomplicated F11.20 and Opioid dependence F11.20 [facility] [address] [id number] 20 Feb, 2021 Opioid use disorder, moderate, in early remission, on maintenance therapy F11.21 ; Cannabis use disorder, mild, abuse F12.10 and Nicotine use disorder F17.200 [facility] [address] [id number] 20 Feb, 2021 Opioid dependence, uncomplicated F11.20 and Opioid dependence F11.20 [facility] [address] [id number] Feb, [facility] [address] [id number] Feb, Opioid dependence, uncomplicated F11.20 [facility] [address] [id number] Jan, [facility] [address] [id number] Jan, Opioid dependence, uncomplicated F11.20 and Opioid dependence F11.20 [facility] [address] [id number] Jan, [facility] [address] [id number] Jan, [facility] [address] [id number] Dec, Opioid dependence, uncomplicated F11.20 and Opioid dependence F11.20 [facility] [address] [id number] Dec, Opioid dependence F11.20 and Opioid dependence, uncomplicated F11.20 [facility] [address] [id number] 06 Dec, 2020 Hepatitis C virus infection without hepatic coma, unspecified chronicity B19.20 [facility] [address] [id number] 29 Nov, 2020 Hepatitis C virus infection without hepatic coma, unspecified chronicity B19.20 and Non-intractable vomiting with nausea, unspecified vomiting type R11.2 [facility] [address] [id number] 22 Nov, 2020 [facility] [address] [id number] 15 Nov, 2020 [facility] [address] [id number] 14 Nov, 2020 Opioid use disorder, moderate, in early remission, on maintenance therapy F11.21 ; Cannabis use disorder, mild, abuse F12.10 and Nicotine use disorder F17.200 [facility] [address] [id number] 14 Nov, 2020 Opioid dependence, uncomplicated F11.20 [facility] [address] [id number] 17 Oct, 2020 Opioid dependence, uncomplicated F11.20 [facility] [address] [id number] 03 Oct, 2020 Opioid dependence, uncomplicated F11.20 [facility] [address] [id number] 12 Sep, 2020 Opioid dependence, uncomplicated F11.20 [facility] [address] [id number] 15 Aug, 2020 Opioid use disorder, moderate, in early remission, on maintenance therapy F11.21 ; Cannabis use disorder, mild, abuse F12.10 and Nicotine use disorder F17.200 [facility] [address] [id number] 15 Aug, 2020 Opioid dependence, uncomplicated F11.20 [facility] [address] [id number] 22 Jul, 2020 Opioid dependence, uncomplicated F11.20 [facility] [address] [id number] 22 Jul, 2020 Opioid dependence, uncomplicated F11.20 [facility] [address] [id number] 03 Jul, 2020 Opioid dependence, uncomplicated F11.20 [facility] [address] [id number] Jul, Opioid dependence, uncomplicated F11.20 [facility] [address] [id number] 18 Jun, 2020 Opioid dependence, uncomplicated F11.20 [facility] [address] [id number] 14 Jun, 2020 [facility] [address] [id number] 13 Jun, 2020 Opioid dependence, uncomplicated F11.20 [facility] [address] [id number] 13 Jun, 2020 [facility] [address] [id number] 13 Jun, 2020 Opioid use disorder, moderate, in early remission, on maintenance therapy F11.21 ; Cannabis use disorder, mild, abuse F12.10 and Nicotine use disorder F17.200 [facility] [address] [id number] Jun, Major depressive disorder, recurrent episode, mild with anxious distress F33.0 [facility] [address] [id number] Jun, Opioid dependence, uncomplicated F11.20 [facility] [address] [id number] May, Opioid dependence, uncomplicated F11.20 [facility] [address] [id number] May, Opioid dependence, uncomplicated F11.20 [facility] [address] [id number] May, [facility] [address] [id number] May, Major depressive disorder, recurrent episode, mild with anxious distress F33.0 [facility] [address] [id number] May, Opioid use disorder, moderate, in early remission, on maintenance therapy F11.21 ; Cannabis use disorder, mild, abuse F12.10 and Nicotine use disorder F17.200 [facility] [address] [id number] 16 May, 2020 Opioid dependence, uncomplicated F11.20 and Major depressive disorder, recurrent episode, mild with anxious distress F33.0 [facility] [address] [id number] 16 May, 2020 Opioid dependence, uncomplicated F11.20 [facility] [address] [id number] May, Opioid dependence, uncomplicated F11.20 and Major depressive disorder, recurrent episode, mild with anxious distress F33.0 [facility] [address] [id number] May, Opioid dependence, uncomplicated F11.20 [facility] [address] [id number] Apr, Major depressive disorder, recurrent episode, mild with anxious distress F33.0 [facility] [address] [id number] 18 Apr, 2020 Opioid dependence, uncomplicated F11.20 [facility] [address] [id number] 18 Apr, 2020 Major depressive disorder, recurrent episode, mild with anxious distress F33.0 and Opioid dependence, uncomplicated F11.20 [facility] [address] [id number] 18 Apr, 2020 Opioid use disorder, moderate, in early remission, on maintenance therapy F11.21 ; Cannabis use disorder, mild, abuse F12.10 and Nicotine use disorder F17.200 [facility] [address] [id number] Mar, Opioid dependence, uncomplicated F11.20 and Major depressive disorder, recurrent episode, mild with anxious distress F33.0 [facility] [address] [id number] Mar, Opioid use disorder, moderate, in early remission, on maintenance therapy F11.21 ; Cannabis use disorder, mild, abuse F12.10 and Nicotine use disorder F17.200 [facility] [address] [id number] Mar, Opioid use disorder, moderate, in early remission, on maintenance therapy F11.21 [facility] [address] [id number] Mar, Opioid use disorder, moderate, in early remission, on maintenance therapy F11.21 ; Cannabis use disorder, mild, abuse F12.10 and Nicotine use disorder F17.200 [facility] [address] [id number] 16 Feb, 2020 Opioid use disorder, moderate, in early remission, on maintenance therapy F11.21 and Major depressive disorder, recurrent episode, mild with anxious distress F33.0 [facility] [address] [id number] 16 Feb, 2020 Opioid use disorder, moderate, in early remission, on maintenance therapy F11.21 ; Nicotine use disorder F17.200 and Cannabis use disorder, mild, abuse F12.10 [facility] [address] [id number] Feb, Opioid use disorder, moderate, in early remission, on maintenance therapy F11.21 ; Nicotine use disorder F17.200 and Cannabis use disorder, mild, abuse F12.10 [facility] [address] [id number] Feb, Opioid dependence F11.20 and Major depressive disorder, recurrent episode, mild with anxious distress F33.[address] [id number] Jan, [facility] [address] [id number] Jan, Opioid use disorder, moderate, in early remission, on maintenance therapy, dependence F11.21 and Nicotine use disorder F17.200 [facility] [address] [id number] Jan, Opioid use disorder, moderate, in early remission, on maintenance therapy F11.21 and Major depressive disorder, recurrent episode, mild with anxious distress F33.0 [facility] [address] [id number] Jan, Opioid dependence F11.20 and Major depressive disorder, recurrent episode, mild with anxious distress F33.0 [facility] [address] [id number] Dec, Opioid dependence F11.20 and Nicotine use disorder F17.200 [facility] [address] [id number] Dec, Opioid use disorder, moderate, in early remission, on maintenance therapy, dependence F11.21 [facility] [address] [id number] Dec, Opioid use disorder, moderate, in early remission, on maintenance therapy, dependence F11.21 and Moderately severe recurrent major depression F33.2 [facility] [address] [id number] 14 Dec, 2019 Opioid use disorder, moderate, in early remission, on maintenance therapy, dependence F11.21 and Major depressive disorder, recurrent episode, mild with anxious distress F33.0 [facility] [address] [id number] 07 Dec, 2019 Opioid dependence F11.20 and JORGE (generalized anxiety disorder) F41.1 IMMUNIZATIONS Vaccine Route Administration Date Status Flu (adult) IM Intramuscular May 26, 2021 Administere d Twinrix IM Intramuscular May 26, 2021 Administere d Twinrix IM Intramuscular December 22, 2020 Administer ed Twinrix IM Intramuscular November 24, 2020 Administer ed Tdap - Adult IM Intramuscular November 24, 2020 Administer ed SOCIAL HISTORY Qualifiers Date Current Smoker REASON FOR REFERRAL FUNCTIONAL STATUS PLAN OF CARE Activity Details VITAL SIGNS Height 67 in 2022-02-08 Height 67 in 2022-01-18 Height 67 in 2021-12-21 Height 67 in 2021-11-23 Height 67 in 2021-09-28 Height 67 in 2021-09-07 Height 67 in 2021-08-31 Height 67 in 2021-07-15 Height 67 in 2021-07-06 Height 67 in 2021-06-08 Height 67 in 2021-04-27 Height 67 in 2021-04-06 Height 67 in 2021-03-23 Height 67 in 2021-03-02 Height 67 in 2021-02-17 Height 67 in 2021-02-02 Height 67 in 2021-01-05 Height 67 in 2020-12-22 Height 67 in 2020-12-09 Height 67 in 2020-11-24 Height 67 in 2020-10-27 Height 67 in 2020-09-22 Height 67 in 2020-08-25 Height 67 in 2020-08-04 Height 67 in 2020-07-14 Height 67 in 2020-06-30 Height 67 in 2020-03-19 Height 67 in 2020-02-27 Height 67 in 2020-02-12 Height 67 in 2020-01-29 Height 67 in 2020-01-15 Height 67 in 2020-01-08 Height 67 in 2020-01-01 Height 67 in 2019-12-25 Weight 169 lb 6 oz lbs 2022-02-08 Weight 175 lb 6 oz lbs 2022-01-18 Weight 178 lb 4 oz lbs 2021-12-21 Weight 176 lbs 2021-11-23 Weight 176.8 lbs 2021-09-28 Weight 178.8 lbs 2021-09-07 Weight 172.2 lbs 2021-08-31 Weight 186.8 lbs 2021-07-06 Weight 189.6 lbs 2021-06-08 Weight 186.6 lbs 2021-04-27 Weight 184.8 lbs 2021-04-06 Weight 178.4 lbs 2021-03-23 Weight 177.0 lbs 2021-03-02 Weight 181.2 lbs 2021-02-17 Weight 171.2 lbs 2021-02-02 Weight 181.2 lbs 2021-01-05 Weight 184.0 lbs 2020-12-22 Weight 193.0 lbs 2020-12-09 Weight 194.0 lbs 2020-11-24 Weight 191.8 lbs 2020-10-27 Weight 193.0 lbs 2020-09-22 Weight 189.0 lbs 2020-08-25 Weight 188.4 lbs 2020-08-04 Weight 187.8 lbs 2020-07-14 Weight 186.0 lbs 2020-06-30 Weight 189.2 lbs 2020-02-27 Weight 179.6 lbs 2020-02-12 Weight 183 lbs 2020-01-29 Weight 188 lbs 2020-01-15 Weight 181 lbs 2020-01-08 Weight 182 lbs 2020-01-01 Weight 184 lbs 2019-12-25 Temperature 97.4 degrees Fahrenheit Temperature 97.0 degrees Fahrenheit Temperature 97.5 degrees Fahrenheit Temperature 97.4 degrees Fahrenheit Temperature 97.3 degrees Fahrenheit Temperature 97.4 degrees Fahrenheit Temperature 97.3 degrees Fahrenheit Temperature 97.9 degrees Fahrenheit Temperature 97.4 degrees Fahrenheit Temperature 97.2 degrees Fahrenheit Temperature 97.8 degrees Fahrenheit Temperature 98.5 degrees Fahrenheit Temperature 98.5 degrees Fahrenheit Temperature 98.4 degrees Fahrenheit Temperature 98.1 degrees Fahrenheit Temperature 97.9 degrees Fahrenheit Temperature 98.2 degrees Fahrenheit Heart Rate 79 /min 2022-02-08 Heart Rate 104 /min 2022-01-18 Heart Rate 107 /min 2021-12-21 Heart Rate 105 /min 2021-11-23 Heart Rate 64 /min 2021-09-28 Heart Rate 107 /min 2021-09-07 Heart Rate 107 /min 2021-08-31 Heart Rate 109 /min 2021-07-06 Heart Rate 93 /min 2021-06-08 Heart Rate 82 /min 2021-04-27 Heart Rate 78 /min 2021-04-06 Heart Rate 101 /min 2021-03-23 Heart Rate 99 /min 2021-03-02 Heart Rate 105 /min 2021-02-17 Heart Rate 113 /min 2021-02-02 Heart Rate 110 /min 2021-01-05 Heart Rate 122 /min 2020-12-22 Heart Rate 74 /min 2020-12-09 Heart Rate 66 /min 2020-11-24 Heart Rate 105 /min 2020-10-27 Heart Rate 110 /min 2020-09-22 Heart Rate 91 /min 2020-08-25 Heart Rate 110 /min 2020-08-04 Heart Rate 118 /min 2020-07-14 Heart Rate 97 /min 2020-06-30 Heart Rate 75 /min 2020-03-19 Heart Rate 105 /min 2020-02-27 Heart Rate 88 /min 2020-02-12 Heart Rate 85 /min 2020-01-29 Heart Rate 95 /min 2020-01-15 Heart Rate 63 /min 2020-01-08 Heart Rate 88 /min 2020-01-01 Heart Rate 90 /min 2019-12-25 Oximetry 99 2022-02-08 Oximetry 99 2022-01-18 Oximetry 95 2021-12-21 Oximetry 98 2021-11-23 Oximetry 97 2021-09-28 Oximetry 98 2021-09-07 Oximetry 98 2021-08-31 Oximetry 98 2021-07-06 Oximetry 99 2021-06-08 Oximetry 98 2021-04-27 Oximetry 98 2021-04-06 Oximetry 99 2021-03-23 Oximetry 99 2021-03-02 Oximetry 99 2021-02-17 Oximetry 99 2021-02-02 Oximetry 99 2021-01-05 Oximetry 99 2020-12-22 Oximetry 99 2020-12-09 Oximetry 98 2020-11-24 Oximetry 98 2020-10-27 Oximetry 98 2020-09-22 Oximetry 99 2020-08-25 Oximetry 98 2020-08-04 Oximetry 98 2020-07-14 Oximetry 98 2020-03-19 Oximetry 98 2020-02-27 Oximetry 98 2020-02-12 Oximetry 94 2020-01-29 Oximetry 97 2020-01-15 Oximetry 96 2020-01-08 Oximetry 98 2020-01-01 Oximetry 99 2019-12-25 BMI 27.69 kg/m2 2021-09-28 BMI 28.00 kg/m2 2021-09-07 BMI 26.97 kg/m2 2021-08-31 BMI 29.25 kg/m2 2021-07-06 BMI 29.69 kg/m2 2021-06-08 BMI 29.22 kg/m2 2021-04-27 BMI 28.94 kg/m2 2021-04-06 BMI 27.94 kg/m2 2021-03-23 BMI 27.72 kg/m2 2021-03-02 BMI 28.38 kg/m2 2021-02-17 BMI 26.81 kg/m2 2021-02-02 BMI 28.38 kg/m2 2021-01-05 BMI 28.82 kg/m2 2020-12-22 BMI 30.22 kg/m2 2020-12-09 BMI 30.38 kg/m2 2020-11-24 BMI 30.04 kg/m2 2020-10-27 BMI 30.22 kg/m2 2020-09-22 BMI 29.60 kg/m2 2020-08-25 BMI 29.50 kg/m2 2020-08-04 BMI 29.41 kg/m2 2020-07-14 BMI 29.13 kg/m2 2020-06-30 BMI 29.63 kg/m2 2020-02-27 BMI 28.13 kg/m2 2020-02-12 BMI 28.66 kg/m2 2020-01-29 BMI 29.44 kg/m2 2020-01-15 BMI 28.35 kg/m2 2020-01-08 BMI 28.50 kg/m2 2020-01-01 BMI 28.82 kg/m2 2019-12-25 Blood pressure systolic 121 mm Hg Blood pressure diastolic 71 mm Hg 2022-01 MEDICATIONS Medication Instructions Dosage Frequency Start Date End Date Duration Status Suboxone 8-2 MG Sublingual BID 1 film under the tongue and allow to dissolve 12h 21 Feb, 2022 Active PROCEDURES Procedure Date Ordered Result Body Site DW - DRUG TEST PRSMV DIR OPT OBS Apr 06, 2021 DW - URINALYSIS AUTO W/O SCOPE August 25, 2020 State Supplied HEP A/HEP B VACC ADULT IM December 22, 2020 DW - DRUG TEST PRSMV DIR OPT OBS Mar 02, 2021 State Supplied HEP A/HEP B VACC ADULT IM May 26, 2021 DW - DRUG TEST PRSMV DIR OPT OBS Feb 08, 2022 DW - DRUG TEST PRSMV DIR OPT OBS August 31, 2021 DW - URINALYSIS AUTO W/O SCOPE Jul 14, 2020 DW - URINALYSIS AUTO W/O SCOPE Jun 25, 2020 DW - DRUG TEST PRSMV DIR OPT OBS January 05, 2021 DW - DRUG TEST PRSMV DIR OPT OBS Aug 04, 2020 DW - Alcohol / Drug counseling 45 min Jun 11, 2020 DW - DRUG TEST PRSMV DIR OPT OBS December 25, 2019 DW - DRUG TEST PRSMV DIR OPT OBS May 14, 2020 DW - URINALYSIS AUTO W/O SCOPE May 28, 2020 DW - DRUG TEST PRSMV DIR OPT OBS September 07, 2021 DW - Alcohol / Drug counseling 30 min Apr 09, 2020 DW - Alcohol / Drug counseling 45 min November 23, 2021 DW - DRUG TEST PRSMV DIR OPT OBS August 25, 2020 DW - DRUG TEST PRSMV DIR OPT OBS October 27, 2020 DW - DRUG TEST PRSMV DIR OPT OBS Feb 27, 2020 DW - DRUG TEST PRSMV DIR OPT OBS Feb 02, 2021 DW - DRUG TEST PRSMV DIR OPT OBS November 24, 2020 DW - DRUG TEST PRSMV DIR OPT OBS Feb 17, 2021 DW - DRUG TEST PRSMV DIR OPT OBS Jun 30, 2020 DW - DRUG TEST PRSMV DIR OPT OBS Feb 12, 2020 DW - Alcohol / Drug counseling 30 min Feb 27, 2020 DW - DRUG TEST PRSMV DIR OPT OBS Aug 03, 2021 DW - Alcohol / Drug counseling 30 min Apr 27, 2021 DW - URINALYSIS AUTO W/O SCOPE September 22, 2020 IMMUNIZATION ADMINISTRATION November 24, 2020 IMMUNIZATION ADMINISTRATION December 22, 2020 IMMUNIZATION ADMINISTRATION May 26, 2021 Flu VACC 6 MONTHS > May 26, 2021 State Supplied HEP A/HEP B VACC ADULT IM November 24, 2020 DW - DRUG TEST PRSMV DIR OPT OBS Mar 23, 2021 DW - DRUG TEST PRSMV DIR OPT OBS September 22, 2020 DW - URINALYSIS AUTO W/O SCOPE Jun 30, 2020 DW - URINALYSIS AUTO W/O SCOPE Aug 04, 2020 DW - URINALYSIS AUTO W/O SCOPE May 14, 2020 DW - DRUG TEST PRSMV DIR OPT OBS May 28, 2020 DW - DRUG TEST PRSMV DIR OPT OBS September 28, 2021 DW - Alcohol / Drug counseling 30 min January 08, 2020 DW - DRUG TEST PRSMV DIR OPT OBS Jul 14, 2020 DW - URINALYSIS AUTO W/O SCOPE Apr 30, 2020 DW - DRUG TEST PRSMV DIR OPT OBS Jul 15, 2021 DW - Alcohol / Drug counseling 30 min August 25, 2020 DW - Alcohol / Drug counseling 45 min Aug 03, 2021 DW - Alcohol / Drug counseling 60 min Mar 02, 2021 DW - DRUG TEST PRSMV DIR OPT OBS Jun 11, 2020 DW - DRUG TEST PRSMV DIR OPT OBS October 26, 2021 DW - DRUG TEST PRSMV DIR OPT OBS January 01, 2020 DW - DRUG TEST PRSMV DIR OPT OBS Jun 25, 2020 DW - URINALYSIS AUTO W/O SCOPE Jun 11, 2020 DW - URINALYSIS AUTO W/O SCOPE Jun 18, 2020 DW - DRUG TEST PRSMV DIR OPT OBS May 26, 2021 DW - URINALYSIS AUTO W/O SCOPE Apr 09, 2020 DW - Alcohol / Drug counseling 45 min Jul 06, 2021 DW - DRUG TEST PRSMV DIR OPT OBS November 23, 2021 DW - DRUG TEST PRSMV DIR OPT OBS January 08, 2020 State Supplied TDAP VACCINE 7 YRS/>IM November 24, 2020 DW - Alcohol / Drug counseling 30 min Mar 19, 2020 DW - Alcohol / Drug counseling 30 min Feb 12, 2020 DW - DRUG TEST PRSMV DIR OPT OBS Jun 08, 2021 DW - Alcohol / Drug counseling 30 min Jan 29, 2020 DW - DRUG TEST PRSMV DIR OPT OBS Jul 06, 2021 DW - Alcohol / Drug counseling 30 min November 24, 2020 DW - DRUG TEST PRSMV DIR OPT OBS Apr 30, 2020 DW - DRUG TEST PRSMV DIR OPT OBS Jan 15, 2020 DW - DRUG TEST PRSMV DIR OPT OBS Jan 18, 2022 DW - DRUG TEST PRSMV DIR OPT OBS Jun 18, 2020 DW - DRUG TEST PRSMV DIR OPT OBS December 21, 2021 DW - DRUG TEST PRSMV DIR OPT OBS Apr 09, 2020 DW - Alcohol / Drug counseling 45 min Jan 18, 2022 DW - Alcohol / Drug counseling 30 min Apr 30, 2020 DW - DRUG TEST PRSMV DIR OPT OBS Jan 29, 2020 DW - DRUG TEST PRSMV DIR OPT OBS December 18, 2019 DW - Alcohol / Drug counseling 30 min August 31, 2021 DW - DRUG TEST PRSMV DIR OPT OBS Apr 27, 2021 DW - Alcohol / Drug counseling 45 min Jun 25, 2020 DW - DRUG TEST PRSMV DIR OPT OBS December 22, 2020 RESULTS Name Result Date Reference Range DRUGS OF ABUSE SCREEN (URINE) 2022-02-08 THC POS BUP POS BAR NEG BZO NEG MTD NEG AMP NEG MOP NEG OXY NEG MDMA NEG CAROLYN NEG PCP NEG MET NEG DRUGS OF ABUSE SCREEN (URINE) 2022-01-18 THC POS BUP POS BAR NEG BZO NEG MTD NEG AMP NEG MOP NEG OXY NEG MDMA NEG CAROLYN NEG PCP NEG MET NEG DRUGS OF ABUSE SCREEN (URINE) 2021-12-21 THC POS BUP POS BAR NEG BZO NEG MTD NEG AMP NEG MOP NEG OXY NEG MDMA NEG CAROLYN NEG PCP NEG MET NEG DRUGS OF ABUSE SCREEN (URINE) 2021-11-23 THC POS BUP POS BAR NEG BZO NEG MTD NEG AMP NEG MOP NEG OXY NEG MDMA NEG CAROLYN NEG PCP NEG MET NEG DRUGS OF ABUSE SCREEN (URINE) 2021-10-26 THC POS BUP POS BAR NEG BZO NEG MTD NEG AMP NEG MOP NEG OXY NEG MDMA NEG CAROLYN NEG PCP NEG MET NEG DRUGS OF ABUSE SCREEN (URINE) 2021-09-28 THC NEG BUP POS BAR NEG BZO NEG MTD NEG AMP NEG MOP NEG OXY NEG MDMA NEG CAROLYN NEG PCP NEG MET NEG DRUGS OF ABUSE SCREEN (URINE) 2021-09-07 THC POS BUP POS BAR NEG BZO NEG MTD NEG AMP NEG MOP NEG OXY NEG MDMA NEG CAROLYN NEG PCP NEG MET NEG DRUGS OF ABUSE SCREEN (URINE) 2021-08-31 THC POS BUP POS BAR NEG BZO NEG MTD NEG AMP NEG MOP NEG OXY NEG MDMA NEG CAROLYN NEG PCP NEG MET NEG DRUGS OF ABUSE SCREEN (URINE) 2021-08-03 THC POS BUP POS BAR NEG BZO NEG MTD NEG AMP NEG MOP NEG OXY NEG MDMA NEG CAROLYN NEG PCP NEG MET NEG DRUGS OF ABUSE SCREEN (URINE) THC POS BUP POS BAR NEG BZO NEG MTD NEG AMP NEG MOP NEG OXY NEG MDMA NEG CAROLYN NEG PCP NEG MET NEG DRUGS OF ABUSE SCREEN (URINE) THC POS BUP POS BAR NEG BZO NEG MTD NEG AMP NEG MOP NEG OXY NEG MDMA NEG CAROLYN NEG PCP NEG MET NEG DRUGS OF ABUSE SCREEN (URINE) THC POS BUP POS BAR NEG BZO NEG MTD NEG AMP NEG MOP NEG OXY NEG MDMA NEG CAROLYN NEG PCP NEG MET NEG DRUGS OF ABUSE SCREEN (URINE) THC POS BUP POS BAR NEG BZO NEG MTD NEG AMP NEG MOP NEG OXY NEG MDMA NEG CAROLYN NEG PCP NEG MET NEG DRUGS OF ABUSE SCREEN (URINE) THC POS BUP POS BAR NEG BZO NEG MTD NEG AMP NEG MOP NEG OXY NEG MDMA NEG CAROLYN NEG PCP NEG MET NEG DRUGS OF ABUSE SCREEN (URINE) THC POS BUP POS BAR NEG BZO NEG MTD NEG AMP NEG MOP NEG OXY NEG MDMA NEG CAROLYN NEG PCP NEG MET NEG HCG SCREEN, SERUM 2021-03-23 HCG SERUM NEGATIVE NEGATIVE DRUGS OF ABUSE SCREEN (URINE) THC POS BUP POS BAR NEG BZO NEG MTD NEG AMP NEG MOP NEG OXY NEG MDMA NEG CAROLYN NEG PCP NEG MET NEG DRUGS OF ABUSE SCREEN (URINE) THC POS BUP POS BAR NEG BZO NEG MTD NEG AMP NEG MOP NEG OXY NEG MDMA NEG CAROLYN NEG PCP NEG MET NEG DRUGS OF ABUSE SCREEN (URINE) THC POS BUP POS BAR NEG BZO NEG MTD NEG AMP NEG MOP NEG OXY NEG MDMA NEG CAROLYN NEG PCP NEG MET NEG FENTANYL URINE CONFIRMATION ([id number]) 2020 Fentanyl/Norfentanyl Positive Fentanyl Positive Fentanyl Confirm [id number] Sdvtkk=197 Norfentanyl Positive Norfentanyl Confirm >[id number] Cutoff=5 00 Please note: Comment BENZODIAZEPINES CONFIRMATION UR-OCCUPATIONAL ([id number]) 2021-02-02 DRUGS OF ABUSE SCREEN (URINE) THC POS BUP POS BAR NEG BZO NEG MTD NEG AMP NEG MOP NEG OXY NEG MDMA NEG CAROLYN NEG PCP NEG MET NEG DRUGS OF ABUSE SCREEN (URINE) THC POS BUP POS BAR NEG BZO NEG MTD NEG AMP NEG MOP NEG OXY NEG MDMA NEG CAROLYN NEG PCP NEG MET NEG DRUGS OF ABUSE SCREEN (URINE) THC POS BUP POS BAR NEG BZO NEG MTD NEG AMP NEG MOP NEG OXY NEG MDMA NEG CAROLYN NEG PCP NEG MET NEG HCV GENOTYPE ([id number]) 2020-12-09 Hepatitis C Genotype 3 Please note: Comment HCV FIBROSURE ([id number]) 2020-12-09 Fibrosis Score 0.16 0.00-0.21 Fibrosis Stage Comment Necroinflammat Activity Score 0.07 0.00-0.17 Necroinflammat Activity Grade A0-No activity Alpha 2-Macroglobulins, Qn 326 1 10-276 Haptoglobin 126 33-278 Apolipoprotein A-1 124 116-209 Bilirubin, Total 0.4 0.0-1.2 GGT 12 0-60 ALT (SGPT) P5P 21 0-40 Interpretations: Comment Fibrosis Scoring: Comment Necroinflamm Activity Scoring: Comment Limitations: Comment Comment Comment CBC, NO DIFF 2020-11-24 WBC 8.5 4.8-10.8 RBC 4.96 4.20-5.40 HGB 14.5 12.0-16.0 HCT 44.4 37.0-47.0 MCV 89.5 81.0-99.0 MCH 29.2 27.0-31.0 MCHC 32.7 32.0-37.0 RDW-CV 12.4 11.5-14.5 PLT 263 130-400 COMPREHENSIVE METABOLIC PROFILE 2020-11-11 4 SODIUM 136 134-143 POTASSIUM 4.3 3.5-5.1 CHLORIDE 100 98-111 CO2 28 22-32 CALCIUM 9.7 8.9-10.3 BUN 13 8-26 CREATININE 0.72 0.44-1.00 TOTAL BILIRUBIN 0.5 0.3-1.2 TOTAL PROTEIN 7.3 6.5-8.1 ALBUMIN 4.4 3.5-5.0 ALKALINE PHOS 39 32-92 AST 25 15-41 ALT 30 14-54 A/GAP 8.0 3.0-12.0 B/CR 18.1 8.0-20.0 OSMOLARITY 272 275-295 GLOBULIN 2.9 2.3-3.5 A/G 1.5 1.0-2.5 HEPATITIS PANEL (Hep C Ab, B Ag, B Core IGM, A IGM) 2020-11-24 HEP A IGM ANTIBODY NON-REACTIVE NON-REACT RAMSEY HEP B CORE IgM Ab NON-REACTIVE NON-REACTI VE HEP C IgG ANTIBODY REACTIVE NON-REACT RAMSEY HEP B SURFACE AG NON-REACTIVE NON-REACTIV E HIV 1/0/2 ANTIBODIES 2020-11-24 HIV1/O/2 Abs,P24Ag NON-REACTIVE NON-REACT RAMSEY FENTANYL URINE CONFIRMATION ([id number]) 2020 Fentanyl/Norfentanyl Negative Cutoff= 500 Please note: Comment DRUGS OF ABUSE SCREEN (URINE) THC POS BUP POS BAR NEG BZO NEG MTD NEG AMP NEG MOP NEG OXY NEG MDMA NEG CAROLYN NEG PCP NEG MET NEG HCV RT-PCR, QUANT (NON GRAPH) ([id number]) 01-12-13 Hepatitis C Quantitation 820 HCV log10 2.914 FENTANYL URINE CONFIRMATION ([id number]) 2020 Fentanyl/Norfentanyl Negative Cutoff= 500 Please note: Comment DRUGS OF ABUSE SCREEN (URINE) 2020-10-27 THC POS BUP POS BAR NEG BZO NEG MTD NEG AMP NEG MOP NEG OXY NEG MDMA NEG CAROLYN NEG PCP NEG MET NEG FENTANYL URINE DIP 2020-09-22 Fentanyl NEG DRUGS OF ABUSE SCREEN (URINE) 2020-09-22 THC POS BUP POS BAR NEG BZO NEG MTD NEG AMP NEG MOP NEG OXY NEG MDMA NEG CAROLYN NEG PCP NEG MET NEG FENTANYL URINE DIP 2020-08-25 Fentanyl NEG DRUGS OF ABUSE SCREEN (URINE) 2020-08-25 THC POS BUP POS BAR NEG BZO NEG MTD NEG AMP NEG MOP NEG OXY NEG MDMA NEG CAROLYN NEG PCP NEG MET NEG BUPRENORPHINE CONFIRM, URINE ([id number]) 06-14-21 Buprenorphine Positive Buprenorphine Negative Cutoff=10 Norbuprenorphine Positive Norbuprenorphine Confirm 18 Cut off=10 FENTANYL URINE DIP 2020-08-04 Fentanyl NEG DRUGS OF ABUSE SCREEN (URINE) 2020-08-04 THC POS BUP NEG BAR NEG BZO NEG MTD NEG AMP NEG MOP NEG OXY NEG MDMA NEG CAROLYN NEG PCP NEG MET NEG FENTANYL URINE DIP 2020-07-14 Fentanyl neg DRUGS OF ABUSE SCREEN (URINE) 2020-07-14 THC POS BUP POS BAR neg BZO neg MTD neg AMP neg MOP neg OXY neg MDMA neg CAROLYN neg PCP neg MET neg FENTANYL URINE DIP 2020-06-30 Fentanyl NEG DRUGS OF ABUSE SCREEN (URINE) 2020-06-30 THC POS BUP POS BAR NEG BZO NEG MTD NEG AMP NEG MOP NEG OXY NEG MDMA NEG CAROLYN NEG PCP NEG MET NEG FENTANYL URINE DIP 2020-06-25 Fentanyl NEG DRUGS OF ABUSE SCREEN (URINE) 2020-06-25 THC POS BUP POS BAR NEG BZO NEG MTD NEG AMP NEG MOP NEG OXY NEG MDMA NEG CAROLYN NEG PCP NEG MET NEG FENTANYL URINE DIP 2020-06-18 Fentanyl NEG DRUGS OF ABUSE SCREEN (URINE) 2020-06-18 THC POS BUP POS BAR NEG BZO NEG MTD NEG AMP NEG MOP NEG OXY NEG MDMA NEG CAROLYN NEG PCP NEG MET NEG FENTANYL URINE CONFIRMATION ([id number]) 2019 Fentanyl/Norfentanyl Positive Fentanyl Positive Fentanyl Confirm 4180 Fztbia=209 Norfentanyl Positive Norfentanyl Confirm >65100 Cutoff=5 00 Please note: Comment FENTANYL URINE DIP 2020-06-11 Fentanyl POS DRUGS OF ABUSE SCREEN (URINE) 2020-06-11 THC POS BUP POS BAR NEG BZO NEG MTD NEG AMP NEG MOP NEG OXY NEG MDMA NEG CAROLYN NEG PCP NEG MET NEG FENTANYL URINE DIP 2020-05-28 Fentanyl NEG DRUGS OF ABUSE SCREEN (URINE) 2020-05-28 THC POS BUP POS BAR NEG BZO NEG MTD NEG AMP NEG MOP NEG OXY NEG MDMA NEG CAROLYN NEG PCP NEG MET NEG FENTANYL URINE DIP 2020-05-14 Fentanyl POS DRUGS OF ABUSE SCREEN (URINE) 2020-05-14 THC POS BUP POS BAR NEG BZO NEG MTD NEG AMP NEG MOP NEG OXY NEG MDMA NEG CAROLYN NEG PCP NEG MET NEG FENTANYL URINE DIP 2020-04-30 Fentanyl POS DRUGS OF ABUSE SCREEN (URINE) 2020-04-30 THC POS BUP POS BAR NEG BZO NEG MTD NEG AMP NEG MOP NEG OXY NEG MDMA NEG CAROLYN NEG PCP NEG MET NEG FENTANYL URINE DIP 2020-04-09 Fentanyl POS DRUGS OF ABUSE SCREEN (URINE) 2020-04-09 THC POS BUP POS BAR NEG BZO NEG MTD NEG AMP NEG MOP NEG OXY NEG MDMA NEG CAROLYN NEG PCP NEG MET POS FENTANYL URINE DIP 2020-02-27 Fentanyl NEG DRUGS OF ABUSE SCREEN (URINE) 2020-02-27 THC POS BUP POS BAR NEG BZO NEG MTD NEG AMP NEG MOP NEG OXY NEG MDMA NEG CAROLYN NEG PCP NEG MET NEG FENTANYL URINE DIP 2020-02-12 Fentanyl neg DRUGS OF ABUSE SCREEN (URINE) 2020-02-12 THC POS BUP POS BAR neg BZO neg MTD neg AMP neg MOP neg OXY neg MDMA neg CAROLYN neg PCP neg MET POS FENTANYL URINE DIP 2020-01-29 Fentanyl neg DRUGS OF ABUSE SCREEN (URINE) 2020-01-29 THC POS BUP POS BAR neg BZO neg MTD neg AMP neg MOP neg OXY neg MDMA neg CAROLYN neg PCP neg MET neg FENTANYL URINE DIP 2020-01-15 Fentanyl neg DRUGS OF ABUSE SCREEN (URINE) 2020-01-15 THC POS BUP POS BAR neg BZO neg MTD neg AMP neg MOP neg OXY neg MDMA neg CAROLYN neg PCP neg MET neg FENTANYL URINE DIP 2020-01-08 Fentanyl neg DRUGS OF ABUSE SCREEN (URINE) 2020-01-08 THC POS BUP POS BAR neg BZO neg MTD neg AMP neg MOP neg OXY neg MDMA neg CAROLYN neg PCP neg MET POS FENTANYL URINE DIP 2020-01-01 Fentanyl neg DRUGS OF ABUSE SCREEN (URINE) 2020-01-01 THC pos BUP pos BAR neg BZO neg MTD neg AMP neg MOP neg OXY neg MDMA neg CAROLYN neg PCP neg MET neg FENTANYL URINE DIP 2019-12-25 Fentanyl pos DRUGS OF ABUSE SCREEN (URINE) 2019-12-25 THC pos BUP pos BAR neg BZO neg MTD neg AMP neg MOP neg OXY neg MDMA neg CAROLYN neg PCP neg MET neg FENTANYL URINE DIP 2019-12-18 Fentanyl pos DRUGS OF ABUSE SCREEN (URINE) 2019-12-18 THC pos BUP pos BAR neg BZO neg MTD neg AMP neg MOP neg OXY neg MDMA neg CAROLYN neg PCP neg MET neg REASON FOR VISIT DW P- Week 1 MAT Follow Up, DW P- Week 1 Therapy Follow Up, RESCHEDULE, DW P- Week 1 MAT Follow Up,DW P- Week 1 Therapy Follow Up, DW P- Week 1 MAT Follow Up, DW P- Week 1 MAT Follow Up, P- Week 1 MAT Follow Up, Sched F/u// VM Full 11/18, GI-f/u, DW P- Week 1 Therapy Follow Up, DW P- Week 1 MATFollow Up, DW P- Week 1 MAT Follow Up, DW P- Week 1 Therapy Follow Up, DW P- Week 1 MAT Follow Up, DW P- Week 1 Therapy Follow Up, DW P- Week 1 MAT Follow Up, Sched 2 mos f/u, DW P- Week 1 Therapy Follow Up, DW P- Week 1 MAT Follow Up, Random UDS Per Dr. Connell, lock encounter, [facility] Approved, DW P- Week 1 MAT Follow Up, DW P- Week 1 MAT Follow Up, DW P- Week 1 Therapy Follow Up, DW P- Week 1 MAT Follow Up, Visit took place during Covid 19 pandemic, via telephone. Total time 15 minutes, including pre-visit prep, greater than 50% counseling, [facility] pharmacy, DW P- Opiod related, UDS & Twinrix, Follow up , Minnie TURNER, Missed appt, DW P- Week 1 Therapy Follow Up, DW P- Opiod related, Twinrix # 3, YUE- Susi, SYED P- Opiod related, 1 month f/u, DW P- Week 1 MAT Follow Up, DW P- Week 1 Therapy Follow Up, DW P- Week 1 MAT Follow Up, S, DW P- Week 1 MAT Follow Up, DW P- Week 1 Therapy Follow Up, DW P- Week 1 MAT Follow Up, DW P- Week 1 MAT Follow Up, DW P- Week 1 MAT Follow Up, DW P- Week 1 MAT Follow Up, [facility], DW P- Week 1 Therapy Follow Up, DW P- Week 1 MAT Follow Up, Missed appt, DW P- Week 1 Therapy Follow Up, UDS missed on 01/05, DW P- Week 1 MAT Follow Up, [facility], DW P- Week 1 Therapy Follow Up, DW P- Week 1 MAT Follow Up & Twinrix#2, [facility], PA Hep C treatment, GI- HEP C, DW P- Week 1 MAT Follow Up, DW P- Week 1Therapy Follow Up, DW P- Week 1 MAT Follow Up, DW P- Week 1 Therapy Follow Up, DW P- Week 1 MAT Follow Up, [facility], DW P- Week 1 MAT Follow Up, [facility], DW P- Week 1 Therapy Follow Up, DW P- Week 1 MAT Follow Up, [facility], UA confirmation, DW P- Week 1 MAT Follow Up, [facility], Refill Request, DW P- Week 1 MAT Follow Up, [facility], DW UA / [facility] Script, DW P- Week 1 Therapy Follow Up, DW P- MAT Intake, [facility], question regarding bridge, DW UA / [facility] Script, [facility], Bridge, DW P- Week 1 Therapy Follow Up, Bridge, DW UA / [facility] Script, [facility], Lab order, DW UA / [facility] Script, [facility], Treatment planning, [facility] Script and Refills, DW P- Week 1 Therapy Follow Up, [facility], Treatment planning, DW UA / [facility] Script, [facility], [facility], Treatment Planning, DW UA / [facility] Script, [facility], DW P- Week 1 MAT Follow Up, Med refill,DW CM Insurance, [facility] Script , DW P- Week 1 MAT Follow Up, DW P- Week 1 Therapy Follow Up, DW Week 1 MAT Follow Up, DW Week 1 Therapy Follow Up, DW Week 1 MAT Follow Up, DW Week 1 Therapy Follow Up, DW Week 1 MAT Follow Up, DW P- Week 1 Therapy Follow Up, DW Week 1 Therapy Follow Up, DW Week 1 MAT Follow Up, DW Week 1 Therapy Follow Up, DW Week 1 MAT Follow Up, DW Week 1 MAT Follow Up, DW Therap y Intake, DW Week 1 MAT Follow Up, DW Week 1 MAT Follow Up, Needs housing; mom broke up with boyfriend and they need to move , feeling blah; like there is a hole , DW Therapy Intake, DW Week 1 MAT Follow Up, DW MAT Intake, DW CM UA / [facility] Script, DW CM Intake, [employer] new patient/ control options, [employer] new patient/ control options Insurance Providers Health Insurance Type Health Plan Insurance Address Health Plan Insurance Phone Health Plan Insurance Name Health Plan Coverage Dates Member ID Patient Relationship to Subscriber Patient Address Patient Phone Patient Name Patient Date of Subscriber ID Subscriber Name Subscriber Date of Group No [place] [address] [facility] [id number] [place] self Rosaura Juan Jose [id number]
[2022-09-24 13:24] LABS: Chlamydia Result Negative (Negative); GC Result Negative (Negative)
[2022-09-27 11:04] LABS: HBs Antibody, Quant 14.6 mIU/mL (See Note); Hepatitis B Surface Ab Positive (See Note)
[2022-09-27 11:15] LABS: Hepatitis B Surface Ag Negative (Negative)
[2022-09-27 11:57] LABS: Hep B Core Antibody Negative (Negative)
[2022-09-27 12:10] LABS: HIV-1/2 Ag & Ab Screen Negative (Negative)
== END 2022-09-23 10:56 | disposition home or self-care (01) ==
LOC: NCHCN 10:55
PROVIDERS: PCP Internal Medicine; Visit Provider Family Medicine
DX: B19.20 Unspecified viral hepatitis C without hepatic coma (principal); N91.0 Primary amenorrhea; Z11.4 Encounter for screening for human immunodeficiency virus [HIV]; Z12.72 Encounter for screening for malignant neoplasm of vagina
CPT/HCPCS: 86704; 86706; 86803; 87340; 87389; 87491; 87522; 87591; 88142; 87521

== ENCOUNTER 2022-09-27 15:17 | Outpatient (REF) | payer MEDICAID, SELFPAY ==
[2022-09-28 21:05] LABS: Hepatitis C Ab w Rflx HCV PCR Reactive (Negative)
[2022-09-29 17:10] LABS: HCV RNA Qualitative Undetected (Undetected)
[2022-09-30 17:55] LABS: HCV Genotype Undetected (Undetected)
[2022-10-01 09:59] LABS: ALT 11 U/L (7-45); ActiTest Grade A0; ActiTest Interpretation no activity; ActiTest Score 0.02; Alpha-2-Macroglobulin 342 mg/dL (100 - 280); Apoliprotein A1 167 mg/dL (>=140); Bilirubin, Total 0.3 mg/dL (<=1.2); FibroTest Interpretation no fibrosis; FibroTest Stage F0; GGT 10 U/L (5 - 36); Haptoglobin 92 mg/dL (30 - 200)
== END 2022-09-27 15:18 | disposition home or self-care (01) ==
LOC: NCHCN 15:17
PROVIDERS: PCP Internal Medicine; Visit Provider Family Medicine
DX: B19.20 Unspecified viral hepatitis C without hepatic coma (principal); R63.4 Abnormal weight loss; E66.8 Other obesity
CPT/HCPCS: 81596; 86803; 87522; 87521

== ENCOUNTER 2023-06-18 09:21 | Emergency (ER) | payer MEDICAID, SELFPAY ==
[2023-06-18 09:27] VITALS: BP 130/78; PULSE 101; RESP 16; TEMP 37.1; O2SAT 100
[2023-06-18 09:35] VITALS: RESP 16
[2023-06-18 09:39] VITALS: BP 130/78; PULSE 101; RESP 16; TEMP 37.1; O2SAT 100
--- NOTE | 2023-06-18 09:51 | ED.GENADUL_ITS ---
HPI General Stated Complaint: GenMedical Mode of arrival: ambulatory. ADENIKE: 3 Date/Time Provider Initiated Documentation: 06/18/23 09:30. Limitations to Documentation: no limitations. Information obtained by: patient and RN notes reviewed. History of Present Illness Cough cold body ache runny nose moderate day(s) (3) constant No relieving factors improve symptom(s), No exacerbating factors reported none Related Data Home Medications Medication Instructions Recorded Confirmed levalbuterol tartrate 45 15 gm inhalation Q4H PRN #1 inh 09/12/13 06/18/23 mcg/actuation aerosol inhaler (Xopenex HFA) loratadine 10 mg tablet 10 mg PO DAILY PRN ##30 04/03/14 06/18/23 Saccharomyces boulardii 250 mg 250 mg PO BID #20 caps 05/23/22 06/18/23 capsule (Florastor) cefdinir 300 mg capsule 300 mg PO BID #20 caps 05/23/22 06/18/23 methadone 10 mg/5 mL oral solution 130 mg PO Q3H 06/18/23 06/18/23 Previous Rx's Medication Instructions Recorded levalbuterol tartrate 45 15 gm inhalation Q4H PRN #1 inh 09/12/13 mcg/actuation aerosol inhaler (Xopenex HFA) loratadine 10 mg tablet 10 mg PO DAILY PRN ##30 04/03/14 Saccharomyces boulardii 250 mg 250 mg PO BID #20 caps 05/23/22 capsule (Florastor) cefdinir 300 mg capsule 300 mg PO BID #20 caps 05/23/22 Allergies Allergy/AdvReac Type Severity Reaction Status Date / Time No Known Allergies Allergy Unverified 06/18/23 09:30 Review of Systems Constitutional Constitutional: Reports body ache(s), Reports chills, Denies fever(s), Reports headache(s) and Reports malaise Eyes Eyes: Denies eye discharge ENT Ears, Nose, Mouth, and Throat: Reports as per HPI, Denies ear discharge, Denies otalgia, Reports headache(s), Reports nasal congestion, Reports nasal discharge, Denies neck pain, Reports sore throat and Denies throat swelling Cardiovascular Cardiovascular: Denies chest pain and Denies dyspnea Respiratory Respiratory: Reports cough and Denies dyspnea Musculoskeletal Musculoskeletal: Denies joint swelling and Denies neck pain Integumentary/Breasts Skin/Breast: Denies rash Neurologic Neurologic: Reports headache(s) Allergic/Immunologic Allergic/Immunologic: Denies throat swelling PFSH All Active Problems (Updated 06/18/23 @ 09:58 by Obinna Lopez NP) Influenza A (Acute) Ear pain, right (Acute) Medical History Hearing loss, left (10/22/15) Dysmenorrhea in adolescent onset of sx 12yo. Started OCPs with improvement. 10/2015 wants Mirena IUD for ease of compliance. 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 Surgical History ear surgery L ear. Social History Smoking/Tobacco Use Status: Current every day Tobacco Type: cigarettes Smoking packs per day: 0.5 Smoking cigarettes per day: 10.0 Smoking risk assessment performed?: Yes Alcohol Intake: never Drug use: Daily Substance use type: marijuana and heroin Details: smokes marijuana before bed each night Do you feel safe at home: Yes Do you feel safe in your relationship?: Yes Exam Const General: cooperative, comfortable and no acute distress Orientation: alert and awake [facility] Head: normal to inspection, normocephalic and atraumatic Ears: hearing grossly normal bilaterally and TM abnormal with fluid behind the TM and scarred bilaterally; not erythematous and with no loss of landmarks General nose exam: external nose normal Face and sinus: no erythema Mouth: oral mucosae normal, no drooling, no muffled voice and no trismus Throat: posterior oropharynx normal Neck Neck: normal visual inspection, full ROM, no lymphadenopathy, no meningeal signs, trachea midline and supple Resp Effort & Inspection: normal respiratory effort, able to speak in complete sen tences and cough Quality of cough: dry Auscultation: clear to auscultation bilaterally Cardio Rate: regular rate Rhythm: regular rhythm Heart Sounds: S1 normal, S2 normal, normal S1 and S2, no click, no gallops, no murmurs and no rubs Skin General skin exam: no rashes or lesions noted and dry skin (warm) Neuro General: patient alert, patient awake, patient oriented x3, gait normal and moves all extremities Cognition: normal cognition Speech: speech normal Course Vital Signs Vital signs: Vital Signs Temperature 37.1 C 06/18/23 09:27 Pulse 101 H 06/18/23 09:27 Respiratory Rate 16 06/18/23 09:27 Blood Pressure 130/78 06/18/23 09:27 Pulse Oximetry 100 06/18/23 09:27 Temperature 37.1 C 06/18/23 09:39 Temperature Source Temporal Artery Scan 06/18/23 09:39 Pulse 101 H 06/18/23 09:39 Respiratory Rate 16 06/18/23 09:39 Respiratory Effort Normal, Non-Labored 06/18/23 09:35 Respiratory Depth Normal 06/18/23 09:35 Respiratory Pattern Normal 06/18/23 09:35 Blood Pressure 130/78 06/18/23 09:39 Blood Pressure Position Sitting 06/18/23 09:39 Pulse Oximetry 100 06/18/23 09:39 Oxygen Delivery Method Room Air 06/18/23 09:39 Oxygen Flow Rate 0 06/18/23 09:39 Medical Decision Making Patient presenting to the clinic for chief complaint of cold symptoms. Patient reports symptoms have been going on for the past 3 days. reports headache, cough, nasal congestion, and sore throat. Physical exam shows normal posterior pharynx , no anterior cervical lymphadenopathy, mild tachycardia noted on checking vital signs but none during my exam appreciated, otherwise clear lung sounds and otherwise unremarkable exam. Patient has no signs of meningitis, peritonsillar abscess, retropharyngeal abscess, Shan's angina, or life- threatening Airway infection. Rapid antigen testing was performed and patient is positive for influenza A. Given patient's nontoxic appearance I do believe that conservative management is appropriate. Conservative management discussed along with follow-up and return precautions. After discussion of diagnosis and plan of care patient has no fur ther needs, questions, or concerns and states clear understanding to return to the emergency department for any worsening symptoms. This documentation was generated using [employer] dictation system, please disregard any oddities of phrase or misspellings. Lab Data Lab results reviewed: Yes I reviewed the patient's lab results. Quality:SDOH Health Related Social Needs: No Data to Display Discharge Plan Disposition Patient Disposition: Home Discharge Details Clinical Impression: Influenza A Primary Care Provider: Daniel Mendoza ED Provider: Obinna Lopez Home Meds and New Rx's Prescriptions: Continued levalbuterol tartrate [Xopenex HFA] 200 PUFF HFA aerosol inhaler 15 gm Inhalation Q4H PRN Qty: 1 2RF loratadine 10 MG tablet 10 mg PO DAILY PRN Qty: 30 0RF cefdinir 300 mg capsule 300 mg PO BID Qty: 20 0RF Saccharomyces boulardii [Florastor] 250 mg capsule 250 mg PO BID Qty: 20 0RF methadone 10 mg/5 mL solution 130 mg PO Q3H Discharge Instructions Instructions: Influenza (ED) Additional Instructions: You may continue to take [id number] medications that are appropriate for your symptoms. Please take as directed on packaging. Please stay well-hydrated and get plenty of rest during illness. Return to the emergency department or follow-up with urgent care or primary care for any new or significant worsening of symptoms. Stand Alone Forms: Work Release Referrals: Daniel Mendoza MD [Primary Care Provider] - (As needed for reassessment) Discharge Data Discharge Date/Time-TO BE ENTERED AT DEPARTURE: 06/18/23 10:09
[2023-06-18 10:07] VITALS: PULSE 71; O2SAT 98
== END 2023-06-18 10:09 | disposition home or self-care (01) ==
PROVIDERS: Emergency Provider Nurse Practitioner Family; PCP Internal Medicine
DX: J10.1 Influenza due to other identified influenza virus with other respiratory manifestations (principal); R51.9 Headache, unspecified; R07.0 Pain in throat; R05.1 Acute cough
CPT/HCPCS: 99282; 99283

== ENCOUNTER 2023-08-12 02:51 | Outpatient (CLI) | payer MEDICAID, SELFPAY ==
[2023-08-12 15:55] LABS: Abs Immature Grans 0.04 10^3/uL (0.0-0.06); Absolute Basophil Count 0.02 10^3/uL (0.0-0.2); Absolute Eosinophil Count 0.14 10^3/uL (0.0-0.7); Absolute Lymphocyte Count 2.42 10^3/uL (1.2-3.4); Absolute Monocyte Count 0.43 10^3/uL (0.1-0.8); Basophils % 0.2; Eosinophils % 1.6; Glucose,1 Hr (Glucola) 95 mg/dL (80-140); HCT 36.7 % (36.0-46.0); HGB 11.9 g/dL (11.2-15.7); Immature Grans % 0.5; MCH 28.3 pg (27.0-33.0); MCHC 32.4 % (32.0-36.0); MCV 87 fL (80-95); MPV 9.9 fL (8.0-11.0); Neutrophils % 64.7; Platelet Count 253 10^3/uL (130-400); RBC 4.21 10^6/uL (3.93-5.22); RDW 14.6 % (11.7-14.6); WBC 8.65 10^3/uL (4.4-10.8)
[2023-08-12 16:07] LABS: Panorama Kit Sent via Fed Ex
[2023-08-12 16:28] LABS: ALT 16 U/L (14-59); AST 10 U/L (15-37); Albumin 3.6 g/dL (3.4-5.0); Alkaline Phosphatase 42 U/L (46-116); Anion Gap 9.5 mmol/L (3-11); BUN 8 mg/dL (7-18); Bilirubin, Total 0.2 mg/dL (0.2-1.0); CO2 26.5 mmol/L (21.0-32.0); CREATININE 0.7 mg/dL (0.55-1.02); Calcium 9.1 mg/dL (8.5-10.1); Chloride 103 mmol/L (98-107); Estimated GFR 123.01 (mL/min/1.73m2); Glucose 92 mg/dL (74-106); Potassium 3.6 mmol/L (3.5-5.1); Sodium 139 mmol/L (136-145); Total Protein 6.7 g/dL (6.4-8.2)
[2023-08-12 22:09] LABS: Hepatitis B Surface Ag Negative (Negative)
[2023-08-12 22:51] LABS: Hepatitis C Ab w Rflx HCV PCR Reactive (Negative)
[2023-08-12 22:52] LABS: HIV-1/2 Ag & Ab Screen Negative (Negative)
[2023-08-14 15:32] LABS: Syphilis IgG w/Reflex Nonreactive (Nonreactive)
[2023-08-15 11:12] LABS: Varicella IgG Antibody Positive (See Note)
[2023-08-15 11:19] LABS: Rubella IgG Ab (UVM) Positive (See Note)
[2023-08-15 11:49] LABS: HCV RNA Qualitative Undetected (Undetected)
== END 2023-08-12 02:52 | disposition home or self-care (01) ==
LOC: LBO 02:52
PROVIDERS: Advanced Practice Midwife; PCP Family Medicine; Visit Provider Advanced Practice Midwife
DX: Z34.91 Encounter for supervision of normal pregnancy, unspecified, first trimester (principal)
CPT/HCPCS: 36415; 80053; 82950; 86787; 86803; 86850; 86900; 86901; 87340; 87389; 87522; 85025; 86762; 86780

== ENCOUNTER 2023-08-12 14:41 | Outpatient (REF) | payer MEDICAID, SELFPAY ==
[2023-08-12 20:05] LABS: *AMPHETAMINES SCREEN URINE Negative (Negative); *BARBITURATES SCREEN URINE Negative (Negative); *BENZODIAZEPINES SCREEN URINE Negative (Negative); Cannabinoids THC Positive (Negative); Cocaine Screen,Urine Negative (Negative); METHADONE URINE SCREEN Positive (Negative); OPIATES URINE SCREEN Negative (Negative)
[2023-08-12 20:08] LABS: Tricyclic Antidepressants Negative (Negative)
[2023-08-15 11:29] LABS: Fentanyl Scr w/Rfx Confirm Negative ng/mL (<1)
[2023-08-15 15:07] LABS: Chlamydia Result Negative (Negative); GC Result Negative (Negative)
[2023-08-18 16:00] LABS: Buprenorphine Negative ng/mL (Cutoff: 5.0); Norbuprenorphine Negative ng/mL (Cutoff: 2.5)
== END 2023-08-12 14:42 | disposition home or self-care (01) ==
LOC: LBN 14:41
PROVIDERS: PCP Family Medicine; Visit Provider Advanced Practice Midwife
DX: Z34.91 Encounter for supervision of normal pregnancy, unspecified, first trimester (principal)
CPT/HCPCS: 80307; 80348; 87491; 87591; 87086; 87480; 87510; 87660

== ENCOUNTER 2023-12-08 01:20 | Outpatient (CLI) | payer MEDICAID, SELFPAY ==
[2023-12-08 10:02] LABS: HCT 38.2 % (36.0-46.0); HGB 12.4 g/dL (11.2-15.7); MCH 29.4 pg (27.0-33.0); MCHC 32.5 % (32.0-36.0); MCV 91 fL (80-95); MPV 11.4 fL (8.0-11.0); Platelet Count 152 10^3/uL (130-400); RBC 4.22 10^6/uL (3.93-5.22); RDW 13.2 % (11.7-14.6); RDW-SD 43.4 fL
[2023-12-08 10:25] LABS: Glucose,1 Hr (Glucola) 84 mg/dL (80-140)
== END 2023-12-08 01:21 | disposition home or self-care (01) ==
LOC: LBO 01:20
PROVIDERS: PCP Family Medicine; Visit Provider Advanced Practice Midwife
DX: Z34.92 Encounter for supervision of normal pregnancy, unspecified, second trimester (principal)
CPT/HCPCS: 36415; 82950; 85027

== ENCOUNTER 2023-12-26 15:06 | Outpatient (REF) | payer MEDICAID, SELFPAY ==
[2023-12-26 17:49] LABS: *AMPHETAMINES SCREEN URINE Negative (Negative); *BARBITURATES SCREEN URINE Negative (Negative); *BENZODIAZEPINES SCREEN URINE Negative (Negative); Cannabinoids THC Positive (Negative); Cocaine Screen,Urine Negative (Negative); METHADONE URINE SCREEN Positive (Negative); OPIATES URINE SCREEN Negative (Negative)
[2023-12-26 17:51] LABS: Tricyclic Antidepressants Negative (Negative)
[2023-12-28 12:12] LABS: Fentanyl Scr w/Rfx Confirm Negative ng/mL (<1)
[2024-01-03 12:38] LABS: Buprenorphine Negative ng/mL (Cutoff: 5.0); Norbuprenorphine Negative ng/mL (Cutoff: 2.5)
== END 2023-12-26 15:07 | disposition home or self-care (01) ==
LOC: LBN 15:06
PROVIDERS: PCP Family Medicine; Visit Provider Advanced Practice Midwife
DX: Z34.90 Encounter for supervision of normal pregnancy, unspecified, unspecified trimester (principal)
CPT/HCPCS: 80307; 80348

== ENCOUNTER → 2024-01-05 00:11 | Outpatient (CLI) | payer MEDICAID, SELFPAY ==
--- OUTSIDE RECORDS SUMMARY | 2024-01-05 00:13 | XMS_ITS | Encounter Summary ---
Author Organization Formerly [facility], [facility] Address [facility] [place] [address] Care Team Providers Care Industrial Tractor Driver Name Role Phone Annamaria Pedraza MD Primary Care Provider [phone] Encounter Details Date Type Department Care Team (Latest Contact Info) Description 10/28/2023 8:30 AM EDT - 10/28/2023 11:59 PM EDT Hospital [place] [phone] John De La Paz MD [facility] DR OBSTETRICS [place] [address] Obesity affecting in second trimester, unspecified obesity type; Short cervix during in second trimester Discharge Disposition: Home Social History Tobacco Use Types Packs/Day Years Used Date Smoking Tobacco: Every Day Cigarettes Smokeless Tobacco: Never Estimated Date of Delivery Comme nts Yes 02/27/2024 Sex and Gender Information Value Date Recorded Sex Assigned at Not on file Gender Identity Not on file Sexual Orientation Not on file documented as of this encounter Medications at Time of Discharge Medication Sig Dispensed Refills Start Date End Date albuteroL (Ventolin HFA) 90 mcg/actuation inhaler (HFA) Inhale 2 puffs into the lungs Every 6 hours as needed. aspirin EC 81 mg EC (DR) tablet TAKE ONE TABLET BY MOUTH EVERY OTHER DAY; ALTERNATE WITH 2 TABLETS EVERY OTHER DAY 08/13/2023 FeroSuL 325 mg (65 mg iron) tablet Take 1 tablet by mouth Daily at Noon. 08/13/2023 ondansetron (Zofran) 4 mg tablet take 1 tablet by mouth every 6 hours as needed for nausea and vomiting 09/19/2023 M- Plus 27 mg iron- 1 mg Tablet Take 1 tablet by mouth Daily at Noon. 08/13/2023 methadone (Dolophine) 10 mg/mL oral concentrate Take 140 mg by mouth. proGESTerone (Prometrium) 100 mg capsule Take 1 capsule by mouth daily. 30 capsule 6 10/11/2023 documented as of this encounter Plan of Treatment Not on file documented as of this encounter Procedures Procedure Name Priority Date/Time Associated Diagnosis Comments US OB FOLLOW UP Routine 10/28/2023 9:31 AM EDT Obesity affecting in second trimester, unspecified obesity type Short cervix during in second trimester documented in this encounter Results * US OB Follow Up (10/28/2023 9:31 AM EDT) Photo[employer] WORKSTATION ID [id number] DH RAD Anatomical Region Laterality Modality Pelvis, Abdomen Ultrasound 10/28/2023 9:08 AM EDT Impressions 10/28/2023 10:07 AM EDT 2nd Trimester Summary Single intrauterine with a gestational age of 22w 4d based on Early Ultrasound ??(07/15/23) Composite age based on the current ultrasound alone is 22w 4d. Current growth parameters are consistent with prior dating indicating normal growth Amniotic fluid volume is subjectively normal for gestational age. Transvaginal ultrasound done for cervical length. Cervix is 3.1 cm, no change with pressure. anatomic evaluation was performed to complete anatomical survey. Stomach appears small on today's exam but was previously seen. Thank you for letting us participate in the care of this patient. If you are a health care provider and have any questions regarding this report, please contact the number above. For patients who have questions, please contact the health rn progressive care unit that requested your imaging first. ?Tamia Mackay, Staff Physician Electronically Signed Final Report ?? 10/28/2023 10:06 am Narrative 10/28/2023 10:07 AM EDT OBSTETRICS REPORT ?(Signed Final 10/28/2023 10:06 am) PATIENT INFO: ID #: ? [id number] ?: ??[birth year] (23 yrs)(F) Name: ? DANNA INGRAM ?Visit Date: 10/28/2023 09:08 am PERFORMED BY: Performed By: ? Daisy Bourne RDMS Attending: ?Thompson GAMA, aTmia Arndt Referred By: ?John DE LA PAZ Location: ? [place] SERVICE(S) PROVIDED: UOBFOL - Efw - Growth ??- Mancuso - [id number] ?[id number] UOBTVCER - Transvaginal ??2nd Trimester - ?25857 Cervical Length - [id number] INDICATIONS: 22 weeks gestation of ?Z3A.22 anatomy completion; short cervix; cervical length TECHNIQUE/SCAN QUALITY: Technique: ?? Transducer ID#:1 VITAL SIGNS: Weight (lb): 202.0 Height: ?5'6 ? BMI: ? 32.6 EVALUATION: Num Of Fetuses: ? 1 Heart Rate(bpm): ??125 Cardiac Activity: ? Observed, normal rhythm Presentation: ? Breech Placenta: ? Posterior P. Cord Insertion: ?Within Normal Limits Amniotic Fluid DANIEL FV: ?Subjectively normal for gestational age --------- BIOMETRY: --------- BPD: ?51.7 ??mm ? G.Age: ?? 21w 5d OFD: ?71.7 ??mm HC: ?198.0 ??mm ? G.Age: ?? 22w 0d AC: ?187.7 ??mm ? G.Age: ?? 23w 4d FL: ? 40.1 ??mm ? G.Age: ?? 23w 0d HUM: ?39.5 ??mm ? G.Age: ?? 24w 1d CER: ?23.3 ??mm ? G.Age: ?? 21w 5d LV: ?6.1 ??mm CM: ?6.3 ??mm CI: ?72.1 ??% ? 70 - 86 FL/HC: ? 20.3 ??% ? 19.2 - 20.8 HC/AC: ? 1.05 ?1.05 - 1.21 FL/BPD: ?77.6 ??% ? 71 - 87 FL/AC: ? 21.4 ??% ? Est. FW: ? 560 ??gm ?1 lb 4 oz OB HISTORY: : ?1 GESTATIONAL AGE: LMP: ? 23w 3d ?Date: ??05/17/23 ? KAUR: ?? 02/21/24 U/S Today: ? 22w 4d ?KAUR: ?? 02/27/24 Best: ?22w 4d ?? Det. By: ??Early ?KAUR: ?? 02/27/24 ? Ultrasound ? (07/15/23) TARGETED ANATOMY: Spine Cervical: ?Visualized Thoracic: ?Visualized Lumbar: ?Visualized Sacral: ?Visualized Shape/Curvature: ? Visualized Thorax 4 Chamber View: ?4- chamber view nikki Cardiac Activity: ?Observed, normal rh Rt Outflow Tract: ?Visualized Lt Outflow Tract: ?Visualized Aortic Arch: ? Visualized Ductal Arch: ? Visualized SVC: ? Visualized 3 Vessel View: ? Visualized 3 V Trachea View: ?Visualized IVC: ? Visualized Crossing: ?Visualized Extremities Lt Foot: ? Visualized Rt Foot: ? Visualized CERVIX UTERUS ADNEXA: Cervix Length: ?3.1 ??cm. No change with fundal pressure Right Ovary Not visualized Left Ovary Not visualized Procedure Note Tamia Mackay MD - 10/28/2023 OBSTETRICS REPORT (Signed Final 10/28/2023 10:06 am) PATIENT INFO: ID #: [id number] : [birth year] (23 yrs)(F) Name: DANNA INGRAM Visit Date: 10/28/2023 09:08 am PERFORMED BY: Performed By: Daisy Bourne RDMS Attending: Tamia Mackay MD Referred By: John GAN PSCHIRRER Location: [place] SERVICE(S) PROVIDED: UOBFOL - Efw - Growth - Mancuso - [id number] UOBTVCER - Transvaginal 2nd Trimester - 58670 Cervical Length - [id number] INDICATIONS: 22 weeks gestation of Z3A.22 anatomy completion; short cervix; cervical length TECHNIQUE/SCAN QUALITY: Technique: Transducer ID#:1 VITAL SIGNS: Weight (lb): 202.0 Height: 5'6 BMI: 32.6 EVALUATION: Num Of Fetuses: 1 Heart Rate(bpm): 125 Cardiac Activity: Observed, normal rhythm Presentation: Breech Placenta: Posterior P. Cord Insertion: Within Normal Limits Amniotic Fluid DANIEL FV: Subjectively normal for gestational age --------- BIOMETRY: --------- BPD: 51.7 mm G.Age: 21w 5d OFD: 71.7 mm HC: 198.0 mm G.Age: 22w 0d AC: 187.7 mm G.Age: 23w 4d FL: 40.1 mm G.Age: 23w 0d HUM: 39.5 mm G.Age: 24w 1d CER: 23.3 mm G.Age: 21w 5d LV: 6.1 mm CM: 6.3 mm CI: 72.1 % 70 - 86 FL/HC: 20.3 % 19.2 - 20.8 HC/AC: 1.05 1.05 - 1.21 FL/BPD: 77.6 % 71 - 87 FL/AC: 21.4 % - Est. FW: 560 gm 1 lb 4 oz OB HISTORY: : 1 GESTATIONAL AGE: LMP: 23w 3d Date: 05/17/23 KAUR: 02/21/24 U/S Today: 22w 4d KAUR: 02/27/24 Best: 22w 4d Det. By: Early KAUR: 02/27/24 Ultrasound (07/15/23) TARGETED ANATOMY: Spine Cervical: Visualized Thoracic: Visualized Lumbar: Visualized Sacral: Visualized Shape/Curvature: Visualized Thorax 4 Chamber View: 4- chamber view nikki Cardiac Activity: Observed, normal rh Rt Outflow Tract: Visualized Lt Outflow Tract: Visualized Aortic Arch: Visualized Ductal Arch: Visualized SVC: Visualized 3 Vessel View: Visualized 3 V Trachea View: Visualized IVC: Visualized Crossing: Visualized Extremities Lt Foot: Visualized Rt Foot: Visualized CERVIX UTERUS ADNEXA: Cervix Length: 3.1 cm. No change with fundal pressure Right Ovary Not visualized Left Ovary Not visualized IMPRESSION 2nd Trimester Summary Single intrauterine with a gestational age of 22w 4d based on Early Ultrasound (07/15/23) Composite age based on the current ultrasound alone is 22w 4d. Current growth parameters are consistent with prior dating indicating normal growth Amniotic fluid volume is subjectively normal for gestational age. Transvaginal ultrasound done for cervical length. Cervix is 3.1 cm, no change with pressure. anatomic evaluation was performed to complete anatomical survey. Stomach appears small on today's exam but was previously seen. Thank you for letting us participate in the care of this patient. If you are a health care provider and have any questions regarding this report, please contact the number above. For patients who have questions, please contact the health rn progressive care unit that requested your imaging first. Tamia Mackay, Staff Physician Electronically Signed Final Report 10/28/2023 10:06 am E Yeimy De La Paz MD IMG OB ORDERAB LES documented in this encounter Visit Diagnoses Diagnosis Obesity affecting in second trimester, unspecified obesity type Short cervix during in second trimester documented in this encounter Care Teams Industrial Tractor Driver Relationship Specialty Start Date End Date Annamaria Pedraza MD [address] [place] [address] PCP - General Family Medicine 09/06/23 documented as of this encounter
--- OUTSIDE RECORDS SUMMARY | 2024-01-05 00:13 | XMS_ITS | Encounter Summary ---
[place] [address] Care Team Providers Care Web Ui Designer Name Role Phone Annamaria Pedraza MD Primary Care Provider [phone] Encounter Details Date Type Department Care Team (Latest Contact Info) Description 10/28/2023 Travel Social History Tobacco Use Types Packs/Day Years Used Date Smoking Tobacco: Every Day Cigarettes Smokeless Tobacco: Never Estimated Date of Delivery Comme nts Yes 02/27/2024 Sex and Gender Information Value Date Recorded Sex Assigned at Not on file Gender Identity Not on file Sexual Orientation Not on file documented as of this encounter Plan of Treatment Not on file documented as of this encounter Visit Diagnoses Not on filedocumented in this encounter Care Teams Web Ui Designer Relationship Specialty Start Date End Date Annamaria ePdraza MD [address] [place] [address] PCP - General Family Medicine 09/06/23 documented as of this encounter
--- OUTSIDE RECORDS SUMMARY | 2024-01-05 00:13 | XMS_ITS | Encounter Summary ---
Author Organization [facility] Address [address] [place] [address] Care Team Providers Care Raymond Mill Operator Name Role Phone Daniel Mendoza MD Primary Care Provider Reason for Visit * Reason Comments Other keloid eval Encounter Details Date Type Department Care Team (Late st Contact Info) Description 09/18/2015 11:15 EDT Office Visit [facility] ENT- [address] [id number] Ninfa Arroyo MD [address] [facility], [address] [place] [address] Incisional pain (Primary Dx) Discharge Disposition: Auto Discharge Social History Tobacco Use Types Packs/Day Years Used Date Smoking Tobacco: Never Sex and Gender Information Value Date Recorded Sex Assigned at Not on file Gender Identity Not on file Sexual Orientation Not on file documented as of this encounter Discharge Diagnoses Diagnosis H72.91 Unspecified perforation of tympanic membrane, right ear-H72.91[ICD-10-CM] documented in this encounter Discharge Disposition Disposition Code Departure Means Destination Auto Discharge documented in this encounter Progress Notes * Ninfa Arroyo MD - 09/18/2015 1132 EDT Rosaura is a 15-year-old young woman who is a patient of Dr Pablo who has had previous surgery with him. She had left ear surgery, tympanoplasty in 01/2014. She had an uneventful postoperative course. She noted pain in the superior part of her postauricular incision, which has persisted up untilnow. She has discomfort in the superior part of the incision only when it is touched or palpated. Other than that, it does not bother her. She has had no other problems. It does cause some difficultywearing glasses. She has not had any drainage from the area. She has not had any crusting. Dr Pablo had recently seen her and did a Kenalog injection 0.2 mL of Kenalog 10 without any change. PHYSICAL EXAM: Generally, she is in no distress. She is well groomed. She is here today with her mom. Her ears are examined. First looking at the right ear, she has a small superior incision above her auricle from, I would assume, obtaining a graft for surgery. This has healed up well. She has no problems with it. On the left side, she has a standard postauricular incision. To inspection it is totally normal appearing. There is no hypertrophic scar. There is no drainage. There is no crusting orother problems. She feels some discomfort or tenderness when I palpate the superior part, but it ismild. There are no palpable abnormalities in this area. I do not palpate anything unusual. ASSESSMENT: I am suspicious that she has some nerve inflammation that has caused some prolonged postoperative incisional discomfort in the left ear. I have seen this in other areas. I think with timethis will gradually get better for her. It is a minor inconvenience at this point. I would not recommend any other medical treatment. She has been massaging the area, which seems reasonable to do. She will continue with that. She will be seeing Dr Pablo in followup in 6 months. documented in this encounter Plan of Treatment Not on file documented as of this encounter Visit Diagnoses Diagnosis Incisional pain- Primary Disturbance of skin sensation documented in this encounter Discontinued Medications Medication Sig Discontinue Reason Start Date End Da te ofloxacin (FLOXIN) 0.3 % otic solution Use for any sign of ear discharge by placing 5 drops into the affected ear(s) twice daily for seven days. 01/27/2015 09/18/2015 documented as of this encounter Care Teams Raymond Mill Operator Relationship Specialty Start Date End Date Daniel Mendoza MD [address] [place] [address] PCP - General 12/12/08 documented as of this encounter
--- OUTSIDE RECORDS SUMMARY | 2024-01-05 00:13 | XMS_ITS | Encounter Summary ---
[place] [address] Care Team Providers Care Sail Lay Out Worker Name Role Phone Annamaria Pedraza MD Primary Care Provider Reason for Visit * Reason Comments Establish Care * Consultation (Routine) - Authorized Specialty Diagnoses / Procedures Referred By Contac t Referred To Contact Obstetrics and Gynecology Diagnoses Hepatitis C virus infection without hepatic coma, unspecified chronicity Family history of genetic disorder Prisca Manuel, [facility] [address] [place] [address] [place] [address] [facility] Suggestion Clerk [address] [place] [address] Referral ID Status Reason Start Date Expiration Date Visits Requested Visits Authorized [id number] Authorized Consult, Test & Treat PCP Updated and/or Approved 09/06/2023 09/05/2024 6 6 Encounter Details Date Type Department Care Team (Late st Contact Info) Description 10/11/2023 3:00 PM EDT Office Visit Obstetrics [place] [address] Yuniel De La Paz MD [facility] DR OBSTETRICS & [place] [address] Obesity affecting in second trimester, unspecified obesity type; Short cervix during in second trimester Social History Tobacco Use Types Packs/Day Years Used Date Smoking Tobacco: Every Day Cigarettes Smokeless Tobacco: Never Tobacco Cessation:Ready to Q uit: Not Asked; Counseling Given: Not Answered Estimated Date of Delivery Comme nts Yes 02/27/2024 Sex and Gender Information Value Date Recorded Sex Assigned at Not on file Gender Identity Not on file Sexual Orientation Not on file documented as of this encounter Last Filed Vital Signs Vital Sign Reading Time Taken Comments Blood Pressure 114/57 10/11/2023 1:40 PM EDT Pulse 67 10/11/2023 1:40 PM EDT Temperature 36.3 ??C (97.3 ??F) 10/11/2023 1:40 PM ED T Respiratory Rate 16 10/11/2023 1:40 PM EDT Oxygen Saturation 100% 10/11/2023 1:40 PM EDT Inhaled Oxygen Concentration - - Weight 91.9 kg (202 lb 11.2 oz) 10/11/2023 1:40 PM EDT Height 167.6 cm (5' 6) 10/11/2023 1:40 PM EDT Body Mass Index 32.72 10/11/2023 1:40 PM EDT documented in this encounter Progress Notes * Yuniel De La Paz MD - 10/11/2023 3:00 PM EDT Diagnosis/Maternal Medicine Consult Note Danna Ingram is a 23 y.o. year old female who is at 20w1d gestation. She is seen in consultation at the request of Prisca Manuel CNM for evaluation of anatomy due to family history of gene variant in the FOB's child with a different partner. She was seen today for maternal-fetalmedicine consultation, ultrasound evaluation and genetic counseling with Van Ball MS. Review of Systems Constitutional:feels well Movement: normal Contractions: none Leaking: None Bleeding: None Patient Active Problem List Diagnosis Date Noted Obesity affecting in second trimester 10/11/2023 Conductive hearing loss, middle ear 09/03/2010 Past Medical History: Diagnosis Date Asthma Hepatitis C antibody test positive IVDU (intravenous drug user) Obesity (BMI 30-39.9) Poor dentition Substance use disorder Tobacco use Past Surgical History: Procedure Laterality Date TYMPANOPLASTY TYMPANOSTOMY TUBE PLACEMENT No family history on file. Social History Occupational History Not on file Tobacco Use Smoking status: Every Day Types: Cigarettes Smokeless tobacco: Never Vaping Use Vaping Use: Never used Substance and Sexual Activity Alcohol use: Not on file Drug use: Not on file Sexual activity: Not on file OB History 1 Para Term AB Living SAB IAB Ectopic Multiple Live Births # Outc Date GA Lbr Kavon/2nd Wgt Sex Del Anes PTL Lv 1 Current Current Outpatient Medications Medication Sig Dispense Refill albuteroL (Ventolin HFA) 90 mcg/actuation inhaler (HFA) Inhale 2 puffs into the lungs Every 6 hoursas needed. aspirin EC 81 mg EC (DR) tablet TAKE ONE TABLET BY MOUTH EVERY OTHER DAY; ALTERNATE WITH 2 TABLETS EVERY OTHER DAY FeroSuL 325 mg (65 mg iron) tablet Take 1 tablet by mouth Daily at Noon. ondansetron (Zofran) 4 mg tablet take 1 tablet by mouth every 6 hours as needed for nausea and vomiting M-Sasha Plus 27 mg iron- 1 mg Tablet Take 1 tablet by mouth Daily at Noon. methadone (Dolophine) 10 mg/mL oral concentrate Take 140 mg by mouth. proGESTerone (Prometrium) 100 mg capsule Take 1 capsule by mouth daily. 30 capsule 6 No current facility-administered medications for this visit. No Known Allergies Ultrasound Date: 10/11/2023 Amniotic fluid volume normal Presentation breech Placenta posterior, Growth appropriate for gestational age anatomy limited by position; no anomalies appreciated however survey is not complete. Cervix: 2.4cm; no dynamic change; no funneling Physical Exam BP 114/57 Pulse 67 Temp 36.3 ??C (97.3 ??F) (Temporal) Resp 16 Ht 167.6 cm (5' 6) Wt 91.9 kg (202 lb 11.2 oz) LMP 05/17/2023 SpO2 100% BMI 32.72 kg/m?? General: alert, well appearing, in no apparent distress, oriented to person, place and time HEENT: normocephalic, atraumatic Abdomen: Soft, gravid, non-tender Neurologic:alert, oriented, normal speech, no focal findings or movement disorder noted Psychiatric: Affect is Appropriate. Assessment and Recommendations: 23 y.o. year old female at 20w1d weeks gestation, referred for counseling regarding anatomy, which was limited by position. Incidental finding of a short cervix (<2.5cm) without history of prior delivery. Vaginal progesterone has been shown to decrease the likelihood of a delivery, which in turn decreases the likelihood of morbidity and mortality, decreased NICU admission. I recommend daily progesterone suppository, from now until 34 - 36 weeks. I also recommend f/u ultrasound in 2 weeks, both to complete the anatomy evaluation, as well as to measure cervical length again. I appreciate the opportunity to be involved in this patients care, and am available if further questions should arise. Yuniel DE LA PAZ MD 10/11/2023 Cc: Prisca Manuel, [address] [place] [address] , with copy of ultrasound report 45 minutes were spent on date of visit, including non-face to face time. documented in this encounter Plan of Treatment Not on file documented as of this encounter Results * US OB Follow Up (10/28/2023 9:31 AM EDT) WORKSTATION ID [id number] DH RAD Anatomical Region Laterality Modality [...] who have questions, please contact the health home health care case manager that requested your imaging first. ?Tamia Mackay, Staff Physician Electronically Signed Final Report ?? 10/28/2023 10:06 am Narrative 10/28/2023 10:07 AM EDT OBSTETRICS REPORT ?(Signed Final 10/28/2023 10:06 am) PATIENT INFO: ID #: ? [id number] ?: ??[birth year] (23 yrs)(F) Name: ? DANNAAVELINO INGRAM ?Visit Date: 10/28/2023 09:08 am PERFORMED BY: Performed By: ? Daisy Bourne RDMS Attending: ?Thompson GAMA, Tamia Arndt Referred By: ?Yuniel DE LA PAZ Location: ? [place] SERVICE(S) PROVIDED: UOBFOL - Efw - Growth ??- [place]ancuso - [id number] ?[id number] UOBTVCER - Transvaginal ??2nd Trimester - ?61586 Cervical Length - [id number] INDICATIONS: 22 weeks gestation of ?Z3A.22 anatomy [...] 10/28/2023 10:06 am) PATIENT INFO: ID #: [id number] : [birth year] (23 yrs)(F) Name: DANNA INGRAM Visit Date: 10/28/2023 09:08 am PERFORMED BY: Performed By: Daisy Bourne RDMS Attending: Tamia Mackay MD Referred By: Yuniel DE LA PAZ Location: [place] SERVICE(S) PROVIDED: UOBFOL - Efw - Growth - Mancuso - [id number] UOBTVCER - Transvaginal 2nd Trimester - [id number] Cervical Length - [id number] INDICATIONS: 22 weeks gestation of Z3A.22 anatomy [...] % 71 - 87 FL/AC: 21.4 % 20 - 24 Est. FW: 560 gm 1 lb 4 [...] who have questions, please contact the health home health care case manager that requested your imaging first. Tamia Mackay, Staff Physician Electronically Signed Final Report 10/28/2023 10:06 am E Yeimy De La Paz MD IMG OB ORDERAB LES documented in this encounter Visit Diagnoses Diagnosis Obesity affecting in second trimester, unspecified obesity type Short cervix during in second trimester Obesity affecting in second trimester, unspecified obesity type Short cervix during in second trimester documented in this encounter Care Teams Sail Lay Out Worker Relationship Specialty Start Date End Date Annamaria Pedraza MD [address] [place] [id number] PCP - General Family Medicine 09/06/23 documented as of this encounter
--- OUTSIDE RECORDS SUMMARY | 2024-01-05 00:13 | XMS_ITS | Encounter Summary ---
Author Organization [facility] Address [address] [place] [address] Care Team Providers Care Calcine Furnace Loader Name Role Phone Daniel Mendoza MD Primary Care Provider [phone] Encounter Details Date Type Department Care Team (Late st Contact Info) Description 08/13/2023 Lab Requisition [facility]ology & Laboratory Medicine - [address] [id number] Outr Resulting Lab, Provider Social History Tobacco Use Types Packs/Day Years Used Date Smoking Tobacco: Never Sex and Gender Information Value Date Recorded Sex Assigned at Not on file Gender Identity Not on file Sexual Orientation Not on file documented as of this encounter Plan of Treatment Not on file documented as of this encounter Procedures Procedure Name Priority Date/Time Associated Diagnosis Comments FENTANYL SCREEN WITH REFLEX TO CONFIRMATION, U Routine 08/12/2023 14:30 EST documented in this encounter Results * FENTANYL SCREEN WITH REFLEX TO CONFIRMATION, U (08/12/2023 14:30 EST) Fentanyl Screen with Reflex to Confirmation, U Negative <1 ng/mL 08/15/2023 11:24 EST [facility] Urine URINE / Unknown 08/12/2023 1 4:30 EST 08/13/2023 21:12 EST Narrative [facility] - 08/15/2023 11:24 EST Testing performed by: [facility] [address] [place] [address], [address] [address] Medical Record Technician: Bubba Mesa MD; CLIA # [id number] Provider Outr Resulting Lab URINALYSIS O RDERABLES [facility] [address] [facility], [address] [place] [address], [facility] [phone] documented in this encounter Visit Diagnoses Not on filedocumented in this encounter Care Teams Calcine Furnace Loader Relationship Specialty Start Date End Date Daniel Mendoza MD [address] [place] [address] PCP - General 12/12/08 documented as of this encounter
--- OUTSIDE RECORDS SUMMARY | 2024-01-05 00:13 | XMS_ITS | Clinical Summary ---
Author Organization [facility] Address [facility] [place] [address] Care Team Providers Care Tenant Relations Coordinator Name Role Phone Annamaria Pedraza MD Primary Care Provider [phone] Allergies No known active allergies Medications Medication Sig Dispensed Refills Start Date End Date Status albuteroL (Ventolin HFA) 90 mcg/actuation inhaler (HFA) Inhale 2 puffs into the lungs Every 6 hours as needed. Active aspirin EC 81 mg EC (DR) tablet TAKE ONE TABLET BY MOUTH EVERY OTHER DAY; ALTERNATE WITH 2 TABLETS EVERY OTHER DAY 08/13/2023 Active FeroSuL 325 mg (65 mg iron) tablet Take 1 tablet by mouth Daily at Noon. 08/13/2023 Active ondansetron (Zofran) 4 mg tablet take 1 tablet by mouth every 6 hours as needed for nausea and vomiting 09/19/2023 Active M- Plus 27 mg iron- 1 mg Tablet Take 1 tablet by mouth Daily at Noon. 08/13/2023 Active methadone (Dolophine) 10 mg/mL oral concentrate Take 140 mg by mouth. Active proGESTerone (Prometrium) 100 mg capsule Take 1 capsule by mouth daily. 30 capsule 6 10/11/2023 Active Active Problems Problem Noted Date Diagnosed Date Short cervix affecting 11/11/2023 Obesity affecting in second trimester 10/11/2023 Conductive hearing loss, middle ear 09/03/2010 Estimated Date of Delivery Comme nts Yes 02/27/2024 Encounters Date Type Department Care Team Description 10/28/2023 10:00 AM EDT Office Visit Obstetrics [place] [address] Tamia Mackay MD Short cervix during in second trimester 10/28/2023 8:30 AM EDT - 10/28/2023 11:59 PM EDT Hospital Encounter Radiology at [place] [id number] Yuniel De La Paz MD Obesity affecting in second trimester, unspecified obesity type; Short cervix during in second trimester Discharge Disposition: Home 10/28/2023 Travel 10/11/2023 3:00 PM EDT Office Visit Obstetrics [place] [address] Yuniel De La Paz MD Obesity affecting in second trimester, unspecified obesity type; Short cervix during in second trimester 10/11/2023 1:00 PM EDT Office Visit Obstetrics [place] [address] [place], [facility] 10/11/2023 12:19 PM EDT - 10/11/2023 11:59 PM EDT Hospital Encounter Radiology at [place] [id number] Prisca Manuel CNM Family hx-allergic disease; , unspecified gestational age; Antepartum drug dependence; Hepatitis C virus infection without hepatic coma, unspecified chronicity; Marijuana smoker; Tobacco use disorder; Body mass index 32.0-32.9, adult Discharge Disposition: Home 10/11/2023 Travel from Last 3 Months Social History Tobacco Use Types Packs/Day Years Used Date Smoking Tobacco: Every Day Cigarettes Smokeless Tobacco: Never Tobacco Cessation:Ready to Q uit: Not Asked; Counseling Given: Not Answered Estimated Date of Delivery Comme nts Yes 02/27/2024 Sex and Gender Information Value Date Recorded Sex Assigned at Not on file Gender Identity Not on file Sexual Orientation Not on file Last Filed Vital Signs Vital Sign Reading Time Taken Comments Blood Pressure 108/66 10/28/2023 10:13 AM EDT Pulse 67 10/11/2023 1:40 PM EDT Temperature 36.3 ??C (97.3 ??F) 10/11/2023 1:40 PM ED T Respiratory Rate 16 10/11/2023 1:40 PM EDT Oxygen Saturation 100% 10/11/2023 1:40 PM EDT Inhaled Oxygen Concentration - - Weight 92.9 kg (204 lb 11.2 oz) 024 10:13 AM EDT Height 167.6 cm (5' 6) 10/11/2023 1:40 PM EDT Body Mass Index 33.04 10/11/2023 1:40 PM EDT Plan of Treatment Health Maintenance Due Date Last Done Comments Pneumococcal Vaccine: At-Risk 5-64yrs (1 of 2 - PCV) 0 2004 Chlamydia Screening 2013 HPV vaccine (1 - 3-dose series) 2013 HIV screen 2016 Hepatitis C Screening 2016 Lipid Screening 2016 Hepatitis B vaccine (0-59 yrs) (1) 2017 Tdap adult 2017 Tetanus vaccine 2017 PAP Smear 2019 Covid-19 Vaccine ( - 2022-24 season) 2023 Influenza (Flu) vaccine (1 o f 1 - Influenza standard series) 02/12/2024 Procedures Procedure Name Priority Date/Time Associated Diagnosis Comments US OB FOLLOW UP Routine 10/28/2023 9:31 AM EDT Obesity affecting in second trimester, unspecified obesity type Short cervix during in second trimester US OB DETAILED MORPHOLOGY Routine 10/11/2023 2:58 PM EDT Family hx-allergic disease , unspecified gestational age Antepartum drug dependence Hepatitis C virus infection without hepatic coma, unspecified chronicity Marijuana smoker Tobacco use disorder Body mass index 32.0-32.9, adult from Last 3 Months Results * US OB Follow Up (10/28/2023 9:31 AM EDT) Enhan[employer] Signature WORKSTATION ID [id number] RAD Anatomical Region Laterality Modality [...] who have questions, please contact the health intensive care unit registered nurse that requested your imaging first. ?Tamia Mackay, Staff Physician Electronically Signed Final Report ?? 10/28/2023 10:06 am Narrative 10/28/2023 10:07 AM EDT OBSTETRICS REPORT ?(Signed Final 10/28/2023 10:06 am) PATIENT INFO: ID #: ? [id number] ?: ??[birth year] (23 yrs)(F) Name: ? DANNA INGRAM ?Visit Date: 10/28/2023 09:08 am PERFORMED BY: Performed By: ? Daisy Bourne RDMS Attending: ?Thompson GAMA, Tamia Arndt Referred By: ?Yuniel DE LA PAZ Location: ? [place] SERVICE(S) PROVIDED: UOBFOL - Efw - Growth ??- [place] - [id number] ?[id number] UOBTVCER - Transvaginal ??2nd Trimester - ?55538 Cervical Length - [id number] INDICATIONS: 22 weeks gestation of ?Z3A.22 anatomy [...] - 87 FL/AC: ? 21.4 ??% ? 20 - 24 Est. FW: ? 560 ??gm ?1 lb [...] 10/28/2023 10:06 am) PATIENT INFO: ID #: [id number] : [birth year] (23 yrs)(F) Name: DANNA INGRAM Visit Date: 10/28/2023 09:08 am PERFORMED BY: Performed By: Daisy Bourne RDMS Attending: Tamia Mackay MD Referred By: Yuniel DE LA PAZ Location: [place] SERVICE(S) PROVIDED: UOBFOL - Efw - Growth - [place] - [id number] UOBTVCER - Transvaginal 2nd Trimester - 04074 Cervical Length - [id number] INDICATIONS: 22 weeks gestation of Z3A.22 anatomy [...] 3d Date: 05/17/23 KAUR: 02/21/24 U/S Today: w 4d KAUR: 02/27/24 Best: 22w 4d Det. [...] who have questions, please contact the health intensive care unit registered nurse that requested your imaging first. Tamia Mackay, Staff Physician Electronically Signed Final Report 10/28/2023 10:06 am E Yeimy De La Paz MD IMG US OB ORDERAB LES * US OB Detailed Morphology (10/11/2023 2:58 PM EDT) [employer] WORKSTATION ID [id number] RAD Anatomical Region Laterality Modality Pelvis, Abdomen Ultrasound 10/11/2023 2:45 PM EDT Impressions 10/11/2023 3:15 PM EDT 2nd Trimester - Detailed Morphology - Summary Single intrauterine with a gestational age of 20w 1d based on Early Ultrasound ??(07/15/23) Composite age based on the current ultrasound alone is 20w 1d. Current growth parameters are consistent with prior dating indicating normal growth. Amniotic fluid volume is subjectively normal for gestational age Transvaginal ultrasound done to evaluate anatomy not seen abdominally and for cervical length. Cervix is short measuring 2.4 cm. No changes with fundal pressure. ??Detailed anatomic evaluation was performed and no structural abnormalities are noted where visualized. Limited exam due to position. Thank you for letting us participate in the care of this patient. If you are a health care provider and have any questions regarding this report, please contact the number above. For patients who have questions, please contact the health intensive care unit registered nurse that requested your imaging first. ? Chadwick De La Paz, Staff Physician Electronically Signed Final Report ?? 10/11/2023 03:15 pm Narrative 10/11/2023 3:15 PM EDT OBSTETRICS REPORT ?(Signed Final 10/11/2023 03:15 pm) PATIENT INFO: ID #: ? [id number] ?: ??[birth year] (23 yrs)(F) Name: ? DANNA INGRAM ?Visit Date: 10/11/2023 02:45 pm PERFORMED BY: Performed By: ? Daisy Bourne RDMS Attending: ?Chadwick De La Paz MD Referred By: ?PRISCA MANUEL Location: ? [place] SERVICE(S) PROVIDED: [facility] - Detailed Morphology - [id number] ? [id number] UOBTVCER - Transvaginal ??2nd Trimester - ?13058 Cervical Length - [id number] INDICATIONS: 20 weeks gestation of ?Z3A.20 Fob MYT1L - Daughter, undetectable level TECHNIQUE/SCAN QUALITY: Technique: ?? Transducer ID#[id number] Scan ? Challenging due to position Quality: VITAL SIGNS: Weight (lb): 203.0 Height: ?5'6 ? BMI: ? 32.76 EVALUATION: Num Of Fetuses: ? 1 Heart Rate(bpm): ??137 Cardiac Activity: ? Observed, normal rhythm Presentation: ? Breech Placenta: ? Posterior P. Cord Insertion: ?Eccentric Amniotic Fluid DANIEL FV: ?Subjectively normal for gestational age --------- BIOMETRY: --------- BPD: ?43.3 ??mm ? G.Age: ?? 19w 1d OFD: ?61.4 ??mm HC: ?169.2 ??mm ? G.Age: ?? 19w 4d AC: ?158.3 ??mm ? G.Age: ?? 21w 0d FL: ? 34.0 ??mm ? G.Age: ?? 20w 5d HUM: ?34.0 ??mm ? G.Age: ?? 21w 4d CER: ?21.7 ??mm ? G.Age: ?? 20w 5d NFT: ?3.98 ??mm NB: ?4.5 ??mm LV: ?6.6 ??mm CM: ?4.6 ??mm CI: ?70.5 ??% ? 70 - 86 FL/HC: ? 20.1 ??% ? 16.8 - 19.8 HC/AC: ? 1.07 ?1. - .39 FL/BPD: ?78.5 ??% FL/AC: ? 21.5 ??% ? Est. FW: ? 367 ??gm ?0 lb 13 oz OB HISTORY: : ?1 GESTATIONAL AGE: LMP: ? 21w 0d ?Date: ??05/17/23 ? KAUR: ?? 02/21/24 U/S Today: ? 20w 1d ?KAUR: ?? 02/27/24 Best: ?20w 1d ?? Det. By: ??Early ?KAUR: ?? 02/27/24 ? Ultrasound ? (07/15/23) TARGETED ANATOMY: Central Nervous System Calvarium/Cranial V.: ??Within Normal Limits Intracranial Pratibha: ? Within Normal Limits Cavum: ? Within Normal Limits Parenchyma: ?Within Normal Limits Lateral Ventricles: ?Within Normal Limits Choroid Plexus: ?Within Normal Limits Cereb./Vermis: ? Within Normal Limits Cisterna Magna: ?Within Normal Limits Midline Falx: ?Within Normal Limits Spine Cervical: ?Limited Views Thoracic: ?Limited Views Lumbar: ?Limited Views Sacral: ?Limited Views Shape/Curvature: ? Limited Views Head/Neck Face: ?Within Normal Limits Lips: ?Within Normal Limits Neck: ?Within Normal Limits Nuchal Fold: ? Within Normal Limits Nasal Bone: ?Present Profile: ? Visualized Orbits/Eyes: ? Visualized Mandible: ?Visualized Maxilla: ? Visualized Thorax Thoracic Contour: ?Within Normal Limits Lungs: ? Visualized 4 Chamber View: ?Within Normal Limits Cardiac Activity: ?Normal Rhythm Rt Outflow Tract: ?Not Visualized Lt Outflow Tract: ?Not Visualized Aortic Arch: ? Not Visualized Ductal Arch: ? Not Visualized SVC: ? Not Visualized Cardiac Clinton: ?Visualized Diaphragm: ? Visualized 3 Vessel View: ? Visualized 3 V Trachea View: ?Not Visualized IVC: ? Not Visualized Crossing: ?Not Visualized Abdomen Ventral Wall: ?Visualized Cord Insertion: ?Visualized Situs: ? Not visualized Stomach: ? Visualized Liver: ? Visualized Lt Kidney: ? Visualized Rt Kidney: ? Visualized Bladder: ? Visualized Bowel: ? Visualized Extremities Lt Humerus: ?Within Nomal Limits Rt Humerus: ?Within Normal Limits Lt Forearm: ?Within Normal Limits Rt Forearm: ?Within Normal Limits Lt Hand: ? Within Normal Limits Rt Hand: ? Within Normal Limits Lt Femur: ?Within Normal Limits Rt Femur: ?Within Normal Limits Lt Lower Leg: ?Within Normal Limits Rt Lower Leg: ?Within Normal Limits Lt Foot: ? Limited Views Rt Foot: ? Limited Views Other Umbilical Cord: ?3 vessel cord Genitalia: ? Male CERVIX UTERUS ADNEXA: Cervix Length: ?2.4 ??cm. Shortened- See Comments Below Right Ovary Size(cm) ? 2.6 ??x ?? 2.0 ?x ??1.7 ? Vol(ml): 4.6 Visualized Left Ovary Not visualized Procedure Note Yuniel De La Paz MD - 10/11/2023 OBSTETRICS REPORT (Signed Final 10/11/2023 03:15 pm) PATIENT INFO: ID #: [id number] : [birth year] (23 yrs)(F) Name: DANNA INGRAM Visit Date: 10/11/2023 02:45 pm PERFORMED BY: Performed By: Daisy Bourne RDMS Attending: Chadwick De La Paz MD Referred By: PRISCA MANUEL Location: [place] SERVICE(S) PROVIDED: [facility] - Detailed Morphology - [id number] UOBTVCER - Transvaginal 2nd Trimester - 79116 Cervical Length - [id number] INDICATIONS: 20 weeks gestation of Z3A.20 Fob MYT1L - Daughter, undetectable level TECHNIQUE/SCAN QUALITY: Technique: Transducer ID#[id number] Scan Challenging due to position Quality: VITAL SIGNS: Weight (lb): 203.0 Height: 5'6 BMI: 32.76 EVALUATION: Num Of Fetuses: 1 Heart Rate(bpm): 137 Cardiac Activity: Observed, normal rhythm Presentation: Breech Placenta: Posterior P. Cord Insertion: Eccentric Amniotic Fluid DANIEL FV: Subjectively normal for gestational age --------- BIOMETRY: --------- BPD: 43.3 mm G.Age: 19w 1d OFD: 61.4 mm HC: 169.2 mm G.Age: 19w 4d AC: 158.3 mm G.Age: 21w 0d FL: 34.0 mm G.Age: 20w 5d HUM: 34.0 mm G.Age: 21w 4d CER: 21.7 mm G.Age: 20w 5d NFT: 3.98 mm NB: 4.5 mm LV: 6.6 mm CM: 4.6 mm CI: 70.5 % 70 - 86 FL/HC: 20.1 % 16.8 - 19.8 HC/AC: 1.07 1.09 - 1.39 FL/BPD: 78.5 % FL/AC: 21.5 % 20 - 24 Est. FW: 367 gm 0 lb 13 oz OB HISTORY: : 1 GESTATIONAL AGE: LMP: 21w 0d Date: 05/17/23 KAUR: 02/21/24 U/S Today: 20w 1d KAUR: 02/27/24 Best: 20w 1d Det. By: Early KAUR: 02/27/24 Ultrasound (07/15/23) TARGETED ANATOMY: Central Nervous System Calvarium/Cranial V.: Within Normal Limits Intracranial Pratibha: Within Normal Limits Cavum: Within Normal Limits Parenchyma: Within Normal Limits Lateral Ventricles: Within Normal Limits Choroid Plexus: Within Normal Limits Cereb./Vermis: Within Normal Limits Cisterna Magna: Within Normal Limits Midline Falx: Within Normal Limits Spine Cervical: Limited Views Thoracic: Limited Views Lumbar: Limited Views Sacral: Limited Views Shape/Curvature: Limited Views Head/Neck Face: Within Normal Limits Lips: Within Normal Limits Neck: Within Normal Limits Nuchal Fold: Within Normal Limits Nasal Bone: Present Profile: Visualized Orbits/Eyes: Visualized Mandible: Visualized Maxilla: Visualized Thorax Thoracic Contour: Within Normal Limits Lungs: Visualized 4 Chamber View: Within Normal Limits Cardiac Activity: Normal Rhythm Rt Outflow Tract: Not Visualized Lt Outflow Tract: Not Visualized Aortic Arch: Not Visualized Ductal Arch: Not Visualized SVC: Not Visualized Cardiac Clinton: Visualized Diaphragm: Visualized 3 Vessel View: Visualized 3 V Trachea View: Not Visualized IVC: Not Visualized Crossing: Not Visualized Abdomen Ventral Wall: Visualized Cord Insertion: Visualized Situs: Not visualized Stomach: Visualized Liver: Visualized Lt Kidney: Visualized Rt Kidney: Visualized Bladder: Visualized Bowel: Visualized Extremities Lt Humerus: Within Nomal Limits Rt Humerus: Within Normal Limits Lt Forearm: Within Normal Limits Rt Forearm: Within Normal Limits Lt Hand: Within Normal Limits Rt Hand: Within Normal Limits Lt Femur: Within Normal Limits Rt Femur: Within Normal Limits Lt Lower Leg: Within Normal Limits Rt Lower Leg: Within Normal Limits Lt Foot: Limited Views Rt Foot: Limited Views Other Umbilical Cord: 3 vessel cord Genitalia: Male CERVIX UTERUS ADNEXA: Cervix Length: 2.4 cm. Shortened- See Comments Below Right Ovary Size(cm) 2.6 x 2.0 x 1.7 Vol(ml): 4.6 Visualized Left Ovary Not visualized IMPRESSION 2nd Trimester - Detailed Morphology - Summary Single intrauterine with a gestational age of 20w 1d based on Early Ultrasound (07/15/23) Composite age based on the current ultrasound alone is 20w 1d. Current growth parameters are consistent with prior dating indicating normal growth. Amniotic fluid volume is subjectively normal for gestational age Transvaginal ultrasound done to evaluate anatomy not seen abdominally and for cervical length. Cervix is short measuring 2.4 cm. No changes with fundal pressure. Detailed anatomic evaluation was performed and no structural abnormalities are noted where visualized. Limited exam due to position. Thank you for letting us participate in the care of this patient. If you are a health care provider and have any questions regarding this report, please contact the number above. For patients who have questions, please contact the health intensive care unit registered nurse that requested your imaging first. Chadwick De La Paz, Staff Physician Electronically Signed Final Report 10/11/2023 03:15 pm Prisca Manuel CNM IM US OB ORDERABLE S from Last 3 Months Care Teams Tenant Relations Coordinator Relationship Specialty Start Date End Date Annamaria Pedraza MD [address] [place] [address] PCP - General Family Medicine 09/06/23
--- OUTSIDE RECORDS SUMMARY | 2024-01-05 00:13 | XMS_ITS | Encounter Summary ---
Author Organization [facility] Address [address] [place] [address] Care Team Providers Care Marriage Counselor Name Role Phone Daniel Mendoza MD Primary Care Provider [phone] Encounter Details Date Type Department Care Team (Late st Contact Info) Description 01/27/2015 5:35 EDT - 01/27/2015 8:52 EDT Hospital Encounter [facility] Perioperative Services- [address] [address] Kirk Pablo MD [address] [place] [address] [place] [phone] Discharge Disposition: Home or Self Care Social History Tobacco Use Types Packs/Day Years Used Date Smoking Tobacco: Never Sex and Gender Information Value Date Recorded Sex Assigned at Not on file Gender Identity Not on file Sexual Orientation Not on file documented as of this encounter Last Filed Vital Signs Vital Sign Reading Time Taken Comments Blood Pressure 115/74 01/27/2015 0845 EDT Pulse - - Temperature 36.4 ??C (97.5 ??F) 01/27/2015 0845 EDT Respiratory Rate 16 01/27/2015 0845 EDT Oxygen Saturation 94% 01/27/2015 0845 EDT Inhaled Oxygen Concentration - - Weight 108.9 kg (240 lb) 01/20/2015 1626 EDT Height 170.2 cm (5' 7) 01/20/2015 1626 EDT Body Mass Index 37.59 01/20/2015 1626 EDT Body Mass Index Percentile 98.93% 01/20/2015 162 6 EDT Growth Chart: CDC (Girls, 2- 20 Years) documented in this encounter Medications at Time of Discharge Medication Sig Dispensed Refills Start Date End Date albuterol (PROVENTIL, VENTOLIN) 90 mcg/Actuation inhaler Inhale 2 Puffs as directed every 6 hours as needed. Multivitamins with Minerals tablet Take 1 Tab by mouth daily ofloxacin (FLOXIN) 0.3 % otic solution Use for any sign of ear discharge by placing 5 drops into the affected ear(s) twice daily for seven days. 1 Bottle 11 01/27/2015 09/18/2015 documented as of this encounter Ordered Prescriptions Prescription Sig Dispensed Refills Start Date End Da te ofloxacin (FLOXIN) 0.3 % otic solution Use for any sign of ear discharge by placing 5 drops into the affected ear(s) twice daily for seven days. 1 Bottle 11 01/27/2015 09/18/2015 documented in this encounter Discharge Disposition Disposition Code Departure Means Destination Home or Self Care documented in this encounter Progress Notes * Deja Kent RN - 01/20/2015 1626 EDT Rosaura Lin Juan Jose has been instructed as follows regarding medication administration for the day ofthe scheduled procedure. Date of Surgery: 01/27/15 Instructions for Taking Medications Day of Surgery Medication Sig Last Dose Hold DOS Take DOS albuterol (PROVENTIL, VENTOLIN) 90 mcg/Actuation inhaler Inhale 2 Puffs as directed every 6 hours as needed. Yes/prn Multivitamins with Minerals tablet Take 1 Tab by mouth daily 01/20/15 yes No asa/nsaids preop/ is aware may have tylenol po prn. documented in this encounter H&P Notes * Angel Magana MD - 01/27/2015 0658 EDT The preoperative history and physical which was performed within 30 days of this procedure has been reviewed and the clinically appropriate elements of the physical examination have been repeated. There are no changes to the documented history and physical or if so such changes are documented below Angel Magana MD 01/27/2015 6:59 Source Note - Kirk Pablo MD - 01/07/2015 19:52 EDT DIVISION OF OTOLARYNGOLOGY H/P 01/07/2015 CHIEF COMPLAINT: recurring right ear infections. HPI: The patient is a 14-year-old white female, who is status post bilateral tympanoplasties, who was last seen by myself in April 2014 for a steroid injection into the left postauricular incisional keloid. The patient reports having 8 episodes of acute otitis media manifested by right-sided pain since June of this year. She has been treated with oral antibiotics on 8 occasions, generally eitheramoxicillin or Augmentin. The most recent course of antibiotics was finished 2 days ago. She continues to report that the right ear feels blocked. Past Medical History Diagnosis Date ??? Depression ??? RAD (reactive airway disease) ??? Obesity ??? Seizure 1998 Past Surgical History Procedure Laterality Date ??? Tympanoplasty Right 02/26/2011 transcanal underlay ??? Tympanoplasty Left 12/25/2012 postauricular underlay graft ??? Tympanoplasty Left 01/25/2014 lateral graft tympanoplasty, removal of hypertrophic scar BMT, Adenoidectomy Current Outpatient Prescriptions Medication Sig Dispense Refill ??? albuterol (PROVENTIL, VENTOLIN) 90 mcg/Actuation inhaler Inhale 2 Puffs as directed every 6 hours as needed. ??? FA NON-FORMULARY MEDICATION, DO NOT ORDER, bcp ??? sertraline (ZOLOFT) 50 mg tablet Take 50 mg by mouth daily. No current facility-administered medications for this visit. No Known Allergies History reviewed. No pertinent family history. History Social History ??? Marital Status: Single Spouse Name: N/A Number of Children: N/A ??? Years of Education: N/A Occupational History ??? student Social History Main Topics ??? Smoking status: Never Smoker ??? Smokeless tobacco: Not on file ??? Alcohol Use: Not on file ??? Drug Use: Not on file ??? Sexual Activity: Not on file Review of systems: Negative for heart, liver, kidney, GI, bleeding disorder. Department of Otolaryngology PHYSICAL EXAMINATION CONSTITUTIONAL: APPEARANCE: The patient appears alert, cooperative, and comfortable. ABILITY TO COMMUNICATE / VOICE: Normal HEAD AND FACE: FACIAL STRENGTH: Intact and symmetrical bilaterally EARS, NOSE, MOUTH AND THROAT: OTOSCOPY: Right external auditory canal: patent and non-inflamed Left external auditory canal: patent and non-inflamed Right tympanic membrane: retracted with effusion. Left tympanic membrane: intact but thickened Left postauricular incision without evidence of keloid. Heart: RRR, no murmur Lungs: CTA, no wheeze AUDIOGRAM: I have reviewed the audiogram performed today by our audiology staff on Rosaura Ingram and it demonstrates: On the right, there is a borderline normal flat hearing loss with word recognition score of 100 %. On the left, there is a mild flat conductive hearing loss with word recognition score of 96 %. Right MYRINGOTOMY Pre-procedure diagnosis: right Chronic serous OM Post-procedure diagnosis: same. Anesthesia: Topical Phenol. Procedure: right Myringotomy. Narrative: After informed consent was obtained and the proper patient and ear were verified, the right tympanic membrane was anesthetized using topical anesthesia. After an adequate time a(n) malia-inferior myringotomy was made. Thin fluid was suctioned from the middle ear space(s). The tympanic membrane was retracted. No PE tube was placed. Disposition: The patient tolerated the procedure well, there were no complications, the patient experienced no change in hearing after the procedure. ASSESSMENT: Encounter Diagnoses Name Primary? OME (otitis media with effusion), right Yes ??? CHL (conductive hearing loss) History of bilateral tympanoplasties. PLAN: The examination findings and audiometric test results were reviewed with the patient and her mother. I attempted to place a Right myringotomy tube today, however, I was unable to place the tube due topatient discomfort. I recommended Right T-tube placement in light of the recurring Right AOM. Consent has been obtained. If she develops another infection prior to tube placement, I will prescribe Omnicef for 10-14 days. Kirk Pablo MD CC: Daniel Mendoza MD (General) documented in this encounter OR Notes * OR Surgeon - Kirk Pablo MD - 01/27/2015 0659 EDT PROCEDURE REPORT PT TYPE: OPPROC SERVICE DATE: 01/27/2015 SURGEON: Kirk Pablo MD GENERATOR MAN: Angel Magana MD PREOPERATIVE DIAGNOSIS Recurrent otitis media POSTOPERATIVE DIAGNOSIS Recurrent otitis media PROCEDURE Right pressure equalization tube(T-tube) placement. ANESTHESIA General. FINDINGS Right anterior-inferior 1-2mm TM perforation with surrounding crusting, no evidence of cholesteatoma. NARRATIVE After induction of adequate general anesthesia with LMA, the patient's right ear was examined underthe operating microscope and an appropriate sized speculum. Cerumen was debrided from the external auditory canal. The tympanic membrane was visualized and a right anterior-inferior 2mm TM perforation with surrounding crusting was noted. After removal of crusting, there was no evidence of cholesteatoma. The existing perforation was freshened with a myringotomy blade and a Estephanie-T PE tube was placed. A small amount of bleeding was caused on the anterior canal wall, therefore, floxin drops were placed to prevent crusting and a cotton ball was placed in the external canal. The patient was awakened by anesthesia and returned to the recovery room in stable condition. There were no complications to the case. Dr Pablo was present throughout the entire procedure. Unless otherwise noted, there were no complications, no blood loss, cultures obtained, specimens removed, or drains retained. ESTIMATED BLOOD LOSS None. FLUIDS 400cc LR. URINE OUTPUT Not recorded. SPECIMENS None. CULTURES None. DRAINS/PACKS/FOREIGN MATERIALS Right Ugrsx-[id number]-[id number] pressure equalization tubes. COMPLICATIONS None. CONDITION Good to PACU. documented in this encounter Miscellaneous Notes * Anesthesia Post-Amaya Cruz - 01/27/2015 0854 EDT Post Anesthesia Evaluation Note Date of Service: 01/27/2015 Rosaura Ingram, a 14 y.o. year old female has received General Anesthesia today. She has been evaluated, assessed and discharged from anesthesia care with stable cardiorespiratory function and alert mental status. The last set of recorded vital signs and pain rating were reviewed: Temp: 37.3 ??C (99.1 ??F) (01/27/15806), Heart Rate: 62 BPM (01/27/1515), BP: 104/60 mmHg (08/17/15 0830), Resp: 17 (01/27/15 0815), SpO2: 96 % (01/27/15 0830),Numeric Pain Level (Scale 1-10): 0 Rosaura Ingram participated in this evaluation unless otherwise noted. Her pain, nausea and vomiting have been managed and her body temperature and fluid balance have been restored. Additional monitoring and assessment needs have been addressed. If present, any postoperative events are documented below. Amaya Lawson DO 01/27/2015 8:54 documented in this encounter Plan of Treatment Not on file documented as of this encounter Procedures Procedure Name Priority Date/Time Associated Diagnosis Comments IMPLANT RECORD - SCANNED 01/30/2015 8:05 EDT ECG REPORT - SCANNED 01/30/2015 8:05 EDT TEST, URINE STAT 01/27/2015 6:10 EDT documented in this encounter Results * ECG REPORT - SCANNED (01/30/2015 8:05 EDT) 01/30/2015 8:05 EDT Scan 2 Testing Machine Operator PROCEDURE/MINOR BEBA GICAL ORDERABLES * IMPLANT RECORD - SCANNED (01/30/2015 8:05 EDT) 01/30/2015 8:05 EDT Scan 2 Testing Machine Operator PROCEDURE/MINOR BEBA GICAL ORDERABLES * TEST, URINE (01/27/2015 6:10 EDT) Result- Test, Ur Neg Neg 01/27/2015 6:59 EDT [facility] Comment: NOTE: False negative results may occur in women who are beyond 5-8 weeks gestation. Diagnosis of should be based on a correlation of test results with typical clinical signs and symptoms. Urine specimen (specimen) URINE / Unknown 01/27/2015 6:10 EDT 01/27/2015 6:44 EDT Donell Segal MD URINALYSIS ORDERABLE S [facility] [address] [place] [address] documented in this encounter Visit Diagnoses Not on filedocumented in this encounter Administered Medications Inactive Administered Medications - up to 3 most recent administrations Medication Order MAR Action Action Date Dose Rate Site lactated ringers (LR) infusion at 25 mL/hr, intravenous, CONTINUOUS, Starting on Tue01/27/15 at 0715, Until Tue01/27/15 at 1058, Routine, Pre Op Day of Surgery New Bag 01/27/2015 6:53 EDT 25 mL/hr lactated ringers (LR) infusion at 75 mL/hr, intravenous, CONTINUOUS, Starting on Tue01/27/15 at 0830, Until Tue01/27/15 at 1058, Routine, Recovery (only) Rate Documented 01/27/2015 8:24 EDT 75 mL/hr documented in this encounter Discontinued Medications Medication Sig Discontinue Reason Start Date End Da te sertraline (ZOLOFT) 50 mg tablet Take 50 mg by mouth daily. Therapy completed 01/20/2015 FA NON-FORMULARY MEDICATION, DO NOT ORDER, bcp Therapy completed 01/11 documented as of this encounter Historical Medications * This list may reflect changes made after this encounter. Medication Sig Dispensed Refills Start Date End Date Multivitamins with Minerals tablet Take 1 Tab by mouth daily added in this encounter Active and Recently Administered Medications Times are shown in EDT. Continuous Medication Order 01/25/2015 01/26/2015 01/27/2015 lactated ringers (LR) infusion (CANCELED) at 25 mL/hr, intravenous, CONTINUOUS, Starting on Tue01/27/15 at 0715, Until Tue01/27/15 at 1058, Routine, Pre Op Day of Surgery 0653 (New Bag - Prov ider: Marti Gonsales RN) lactated ringers (LR) infusion (CANCELED) at 75 mL/hr, intravenous, CONTINUOUS, Starting on Tue01/27/15 at 0830, Until Tue01/27/15 at 1058, Routine, Recovery (only) 0824 (Rate Documente d - Provider: Luz Angulo RN)0830 (Canceled Entry - Provider: Batch Job User Admin - Comment: Automatically canceled at discontinue of medication order) documented in this encounter Orders Medications Ordered That Jose A ht Not Have Been Administered Count Last Ordered Date First Ordered Date acetaminophen (TYLENOL) tablet 325 mg 1 atropine 0.1 mg/mL syringe 0.5 mg 1 015 diphenhydrAMINE (BENADRYL) i njection 6.25 mg 1 01/27/2015 nalOXone (NARCAN) injection 0.2 mg 1 2014 Diet Count Last Ordered Date First Orde red Date DISCHARGE DIET 1 01/27/2015 Nursing Count Last Ordered Date First Orde red Date INSERT PERIPHERAL IV 1 01/27/2015 Transfer Count Last Ordered Date First Orde red Date NOTIFY PPS PACU PATIENT DISCHARGE 1 015 NOTIFY PPS PATIENT ARRIVAL IN PACU 1 2014 Discharge Count Last Ordered Date First Orde red Date DISCHARGE PATIENT 1 01/27/2015 Legal Count Last Ordered Date First Orde red Date MISCELLANEOUS DISCHARGE INSTRUCTIONS 6 01/11 documented in this encounter Care Teams Marriage Counselor Relationship Specialty Start Date End Date Daniel Mendoza MD [address] [place] [address] PCP - General 12/12/08 documented as of this encounter
--- OUTSIDE RECORDS SUMMARY | 2024-01-05 00:13 | XMS_ITS | Encounter Summary ---
Author Organization [facility] Address [address] [place] [address] Care Team Providers Care Probation Counselor Name Role Phone Daniel Mendoza MD Primary Care Provider [phone] Encounter Details Date Type Department Care Team (Late st Contact Info) Description 12/27/2023 Lab Requisition [facility] Pathology & Laboratory Medicine - [address] [phone] Outr Resulting Lab, Provider Social History Tobacco [...] SCREEN WITH REFLEX TO CONFIRMATION, U Routine 12/26/2023 15:15 EDT documented in this encounter Results * FENTANYL SCREEN WITH REFLEX TO CONFIRMATION, U (12/26/2023 15:15 EDT) Fentanyl Screen with Reflex to Confirmation, U Negative <1 ng/mL 12/28/2023 12:[address] [facility] Urine URINE / Unknown 12/26/2023 1 5:15 EDT 12/27/2023 17:26 EDT Narrative [facility] - 12/28/2023 12:07 EDT Testing performed by: [facility] [address] [place] [address], [address], [place] [address] Draw Bench Operator Helper: Bubba Mesa MD; CLIA # [id number] Provider Outr Resulting Lab URINALYSIS O RDERABLES [facility] [address] [facility] [address], [address] [place] [address], [facility] [phone] documented in this encounter Visit Diagnoses Not on filedocumented in this encounter Care Teams Probation Counselor Relationship Specialty Start Date End Date Daniel Mendoza MD [address] [place] [id number] PCP - General 12/12/08 documented as of this encounter
--- OUTSIDE RECORDS SUMMARY | 2024-01-05 00:13 | XMS_ITS | Encounter Summary ---
[place] [address] Care Team Providers Care Timber Framer Helper Name Role Phone Annamaria Pedraza MD Primary Care Provider [phone] Reason for Referral * Consultation (Routine) - Authorized Specialty Diagnoses / Procedures Referred By Vipin figueredo Referred To Contact Obstetrics and Gynecology Diagnoses Hepatitis C virus infection without hepatic coma, unspecified chronicity Family history of genetic disorder [facility] [address] [place] [address] [facility] [employer] [address] [address] Referral ID Status Reason Start Date Expiration Date Visits Requested Visits Authorized [id number] Authorized Consult, Test & Treat PCP Updated and/or Approved 09/06/2023 09/05/2024 6 6 Encounter Details Date Type Department Care Team (Late st Contact Info) Description 09/06/2023 Transcribe Orders eDH Incoming Referrals [phone] [facility] [address] [place], [place] [phone] Hepatitis C virus infection without hepatic coma, unspecified chronicity; Family history of genetic disorder Social History Tobacco Use Types Packs/Day Years Used Date Smoking Tobacco: Never Assessed Sex and Gender Information Value Date Recorded Sex Assigned at Not on file Gender Identity Not on file Sexual Orientation Not on file documented as of this encounter Plan of Treatment Scheduled Referrals Name Type Priority Associated Diagnoses Orde r Schedule Referral to Maternal Medicine Outpatient Referral Routine Hepatitis C virus infection without hepatic coma, unspecified chronicity Family history of genetic disorder Ordered: 09/06/2023 documented as of this encounter Visit Diagnoses Diagnosis Hepatitis C virus infection without hepatic coma, unspecified chronicity Family history of genetic disorder Family history of other condition documented in this encounter Care Teams Timber Framer Helper Relationship Specialty Start Date End Date Annamaria Pedraza MD [address] [place] [id number] PCP - General Family Medicine 09/06/23 documented as of this encounter
--- OUTSIDE RECORDS SUMMARY | 2024-01-05 00:13 | XMS_ITS | Encounter Summary ---
Author Organization [facility] Address [address] [place] [address] Care Team Providers Care Burr Bench Hand Name Role Phone Daniel Mendoza MD Primary Care Provider [phone] Encounter Details Date Type Department Care Team (Late st Contact Info) Description 08/12/2023 Lab Requisition [facility] Pathology & Laboratory Medicine - [address] [phone] Outr Resulting Lab, Provider Social History Tobacco Use Types Packs/Day Years Used Date Smoking Tobacco: Never Sex and Gender Information Value Date Recorded Sex Assigned at Not on file Gender Identity Not on file Sexual Orientation Not on file documented as of this encounter Plan of Treatment Not on file documented as of this encounter Procedures Procedure Name Priority Date/Time Associated Diagnosis Comments HIV 1/2 ANTIGEN AND ANTIBODY, 4TH GENERATION Routine 08/12/2023 15:25 EST documented in this encounter Results * HIV 1/2 ANTIGEN AND ANTIBODY, 4TH GENERATION (08/12/2023 15:25 EST) HIV 1 and 2 Antibody/p24 Antigen, 4th Generation Negative Negative 08/12/2023 22:48 EST [facility] Comment:If acute HIV-1 infec tion is suspected in a high risk patient, submit plasma specimen for HIV-1 RNA quantitation test. Blood VENOUS BLOOD / Unknown 08/12/2023 15:25 EST 08/12/2023 21:03 EST Narrative [facility] - 08/12/2023 22:48 EST Fourth Generation assay performed on the Siemens Centaur XPT. Provider Outr Resulting Lab IMMUNOLOGY A ND SEROLOGY ORDERABLES [facility] [address] [place], [place] [phone] documented in this encounter Visit Diagnoses Not on filedocumented in this encounter Care Teams Burr Bench Hand Relationship Specialty Start Date End Date Daniel Mendoza MD [address] [place] [id number] PCP - General 12/12/08 documented as of this encounter
--- OUTSIDE RECORDS SUMMARY | 2024-01-05 00:13 | XMS_ITS | Encounter Summary ---
Author Organization [facility] Address [address] [place] [address] Care Team Providers Care Teaching Aide Name Role Phone Daniel Mendoza MD Primary Care Provider [phone] Reason for Visit * Reason Onset Date Comments Requesting Sooner Appointment 05/21/2016 Ear Problem 05/21/2016 Encounter Details Date Type Department Care Team (Late st Contact Info) Description 05/21/2016 Telephone [facility] ENT- [address] [address] Kirk Pablo MD [address] [place] [address] [place] [phone] Requesting Sooner Appointment; Ear Problem Social History Tobacco Use Types Packs/Day Years Used Date Smoking Tobacco: Never Sex and Gender Information Value Date Recorded Sex Assigned at Not on file Gender Identity Not on file Sexual Orientation Not on file documented as of this encounter Miscellaneous Notes * Telephone Encounter - Donell Connell RN - 05/21/2016 1025 EST Per discussion with Dr. Pablo he will see her while patient is actively having sx, apt made for Tuesday * Telephone Encounter - Donell Connell RN - 05/21/2016 1012 EST One week of pressure causing pain, not recently or currently sick, no drainage no aggravating exposures or traumas. Will discuss with Dr. Pablo. * Telephone Encounter - Mckenna Narvaez - 05/21/2016 1000 EST Mom would like to speak with a nurse about Rosaura's ears. She said Dr. Pablo hasn't wanted her to take antiobiotics in the past. She is scheduled for 07/[address] Barone and there isn't a sooner appointment. Please advise. She's been been having a lot of ear pain in the right ear. documented in this encounter Plan of Treatment Not on file documented as of this encounter Visit Diagnoses Not on filedocumented in this encounter Care Teams Teaching Aide Relationship Specialty Start Date End Date Daniel Mendoza MD [address] [place] [address] PCP - General 12/12/08 documented as of this encounter
--- OUTSIDE RECORDS SUMMARY | 2024-01-05 00:13 | XMS_ITS | Encounter Summary ---
Author Organization [facility] Address [address] [place] [id number] Care Team Providers Care Repair Specialist Name Role Phone Daniel Mendoza MD Primary Care Provider [phone] Encounter Details Date Type Department Care Team (Late st Contact Info) Description 08/13/2023 Lab Requisition [facility] Pathology & Laboratory Medicine - [address] [phone] Outr Resulting Lab, Provider Social History Tobacco Use Types Packs/Day Years Used Date Smoking Tobacco: Never Sex and Gender Information Value Date Recorded Sex Assigned at Not on file Gender Identity Not on file Sexual Orientation Not on file documented as of this encounter Plan of Treatment Not on file documented as of this encounter Procedures Procedure Name Priority Date/Time Associated Diagnosis Comments CHLAMYDIA/N. GONORRHOEAE AMPLIFIED NUCLEIC ACID Routine 08/12/2023 14:30 EST documented in this encounter Results * CHLAMYDIA/N. GONORRHOEAE AMPLIFIED RNA (08/12/2023 14:30 EST) Neisseria gonorrhoeae Result Negative Negative 08/15/2023 15:03 EST [facility] Chlamydia trachomatis Result Negative Negative 08/15/2023 15:03 EST [facility] Swab ENDOCERVICAL STRUCTURE / Unknown 08/12/2023 14:30 EST 08/14/2023 16:53 EST Provider Outr Resulting Lab MICROBIOLOGY - GENERAL ORDERABLES [facility] [address] [place], [place] [phone] documented in this encounter Visit Diagnoses Not on filedocumented in this encounter Care Teams Repair Specialist Relationship Specialty Start Date End Date Daniel Mendoza MD [address] [place] [address] PCP - General 12/12/08 documented as of this encounter
--- OUTSIDE RECORDS SUMMARY | 2024-01-05 00:13 | XMS_ITS | Encounter Summary ---
Author Organization [facility] Address [address] [place] [address] Care Team Providers Care Census Enumerator Name Role Phone Daniel Mendoza MD Primary Care Provider [phone] Encounter Details Date Type Department Care Team (Late st Contact Info) Description 09/28/2022 Lab Requisition [facility] Pathology & Laboratory Medicine - [address] [id number] Outr Resulting Lab, Provider Social History Tobacco Use Types Packs/Day Years Used Date Smoking Tobacco: Never Sex and Gender Information Value Date Recorded Sex Assigned at Not on file Gender Identity Not on file Sexual Orientation Not on file documented as of this encounter Plan of Treatment Not on file documented as of this encounter Procedures Procedure Name Priority Date/Time Associated Diagnosis Comments HCV RNA DETECT QUANT Today 09/27/2022 14:20 EDT HEPATITIS C AB W REFLEX TO HCV RNA BY PCR Routine 09/27/2022 14:20 EDT documented in this encounter Results * HCV RNA DETECT QUANT (09/27/2022 14:20 EDT) HCV RNA Qualitative Undetected Undetected 09/29/2022 12:03 EDT [facility] Blood VENOUS BLOOD / Unknown 09/27/2022 14:20 EDT 09/28/2022 17:36 EDT Narrative [facility] - 09/29/2022 12:03 EDT The quantification range of this assay is 15 IU/mL to 100,000,000 IU/mL. Testing was performed using the Vanessa HCV test ([employer] with the vanessa [id number] System. Provider Outr Resulting Lab CHEMISTRY & BLOOD GAS ORDERABLES Performing Organization Address [facility] Co de Phone Number [facility] [address] [place] [address] * (ABNORMAL) HEPATITIS C AB W REFLEX TO HCV RNA BY PCR (09/27/2022 14:20 EDT) Hep C Antibody Reactive(A ) Negative 09/28/2022 21:00 EDT [facility] Comment: Supplemental testing for HCV RNA is ordered to rule out active HCV infection. Blood VENOUS BLOOD / Unknown 09/27/2022 14:20 EDT 09/28/2022 17:36 EDT Provider Outr Resulting Lab CHEMISTRY & BLOOD GAS ORDERABLES Performing Organization Address [facility] Co de Phone Number [facility] [address] [place] [address] documented in this encounter Visit Diagnoses Not on filedocumented in this encounter Care Teams Census Enumerator Relationship Specialty Start Date End Date Daniel Mendoza MD [address] [place] [id number] PCP - General 12/12/08 documented as of this encounter
--- OUTSIDE RECORDS SUMMARY | 2024-01-05 00:13 | XMS_ITS | Encounter Summary ---
Author Organization [facility] Address [facility] [place] [address] Care Team Providers Care Drafting Teacher Name Role Phone Annamaria Pedraza MD Primary Care Provider [phone] Reason for Visit * Reason Comments Follow-up Encounter Details Date Type Department Care Team (Late st Contact Info) Description 10/28/2023 10:00 AM EDT Office Visit Obstetrics [place] [address] Larry Collins MD [facility] OBSTETRICS & [place] [address] Short cervix during in second trimester Social [...] Pressure 108/66 10/28/2023 10:13 AM EDT Pulse - - Temperature - - Respiratory Rate - - Oxygen Saturation - - Inhaled Oxygen Concentration - - Weight 92.9 kg (204 lb 11.2 oz) 024 10:13 AM EDT Height - - Body Mass Index 33.04 10/11/2023 1:40 PM EDT documented in this encounter Progress Notes * Larry Collins MD - 10/28/2023 10:00 AM EDT Gestational age: 22w4d, returns for follow-up ultrasound and limited MFM consult for follow incomplete anatomy and short cervix. US normal anatomy and cervix length. FM felt, no LOF, no bleeding or ron. On vaginal progesterone with out concern. Patient Active Problem List Diagnosis Date Noted Obesity affecting in second trimester 10/11/2023 Conductive hearing loss, middle ear 09/03/2010 Resolved Hospital Problems No resolved problems to display. Ultrasound Date: 10/28/2023 Growth not assessed Amniotic fluid volume normal Presentation breech Placenta posterior anatomy unremarakable TVCL 3.1cm Physical Exam BP 108/66 Wt 92.9 kg (204 lb 11.2 oz) LMP 05/17/2023 BMI 33.04 kg/m?? General: alert, well appearing, in no apparent distress HEENT: normocephalic, atraumatic Abdomen: Gravid, soft, nontender Neurologic:alert, oriented, normal speech, no focal findings or movement disorder noted Psychiatric: Affect is Appropriate. Assessment and Recommendations: 23 y.o. year old female at 22w4d weeks gestation short cervix and incomplete morphology We reviewed the ultrasound findings and limitations of ultrasound in detecting anomalies and aneuploidy. The anatomy appears unremarkable. The TVCL measures 3.1cm and appears normal. Given the previous short cervix and the increased risk for delivery, I recommend continuing the the vaginal progesterone. I appreciate the opportunity to be involved in this patients care, and am available if further questions should arise. LARRY COLLINS MD 10/28/2023 Cc: No ref. provider found, with copy of ultrasound report documented in this encounter Plan of Treatment Not on file documented as of this encounter Visit Diagnoses Diagnosis Short cervix during in second trimester documented in this encounter Care Teams Drafting Teacher Relationship Specialty Start Date End Date Annamaria Pedraza MD [address] [place] [address] PCP - General Family Medicine 09/06/23 documented as of this encounter
--- OUTSIDE RECORDS SUMMARY | 2024-01-05 00:13 | XMS_ITS | Encounter Summary ---
Author Organization [facility] Address [address] [place] [address] Care Team Providers Care Bowling Pin Refinisher Name Role Phone Daniel Mendoza MD Primary Care Provider [phone] Reason for Visit * Reason Comments Follow-up Encounter Details Date Type Department Care Team (Late st Contact Info) Description 07/03/2015 9:00 EST Office Visit [facility] ENT- Main [place] [address] [place] [phone] Kirk Pablo MD [address] [place] [address] [place]UE KIRK [phone] Keloid (Primary Dx); Perforation of tympanic membrane, right Social History Tobacco Use Types Packs/Day Years Used Date Smoking Tobacco: Never Sex and Gender Information Value Date Recorded Sex Assigned at Not on file Gender Identity Not on file Sexual Orientation Not on file documented as of this encounter Progress Notes * Kirk Pablo MD - 07/03/2015 0922 EST Otolaryngology Progress note 07/03/2015 CC: HPI: The patient is a 14 y.o. white female who is seen in follow up s/p Right myringotomy and T-tube placement. She has noted occasional pain in the Right ear. There is no c/o otorrhea. She also has noted Left post-auricular incisional pain. Past Surgical History Procedure Laterality Date ??? Tympanoplasty Right 02/26/2011 transcanal underlay ??? Tympanoplasty Left 12/25/2012 postauricular underlay graft ??? Tympanoplasty Left 01/25/2014 lateral graft tympanoplasty, removal of hypertrophic scar PE: General: pleasant cooperative female in no distress EARS: OTOSCOPY: Right external auditory canal: patent and non-inflamed Left external auditory canal: patent and non-inflamed Right tympanic membrane: tympanostomy tube patent and in proper position, there is no evidence of retraction, there is no granulation, thereis a 3-4 mm perforation noted inferior to the tube. The middle ear mucosa is healthy. Left tympanic membrane: Intact but thickened. and crinkles with pneumatic otoscopy Facial nerve function is normal and symmetric. The Left post-auricular incision is well healed. There are no visible keloids, however, there is tenderness to palpation along the mid portion of the incision. AUDIOGRAM: I have reviewed the audiogram performed today by our audiology staff on Rosaura Ingram and it demonstrates: On the right, there is a mild flat conductive hearing loss with word recognition score of 100 %. On the left, there is a mild to moderate flat conductive hearing loss with word recognition score of 100 %. Steroid injection ?? Title of Procedure: Steroid injection into Left postauricular incisional keloid ?? Date Performed: 07/03/2015 Performed By: Kirk Pablo MD ?? Indications and/or Provisional Diagnosis: Left postauricular incisional keloid. ?? Consent: Consent was obtained from the patient following discussion of the risks, benefits, and alternatives. ?? Local anesthesia: None ?? Unless otherwise noted, there were no complications, no blood loss, cultures obtained, or drains retained. ?? Time Out: A time-out was completed prior to the procedure verifying correct patient, procedure, site, positioning, and special equipment if applicable. ?? Procedure Technique/Description of Procedure: The site was prepped with alcohol. The keloid was injected with 0. 2 mL of Kenalog 10. ( in the superior portion and mid-portion of the incision.) ?? Post Procedure Diagnosis and Preliminary Findings: Same as pre-procedure diagnosis. ?? Imp: S/p Right T-tube placed 01/27/2015 which removed today due to a surrounding perforation and history of intermittent otalgia. Left OME History of bilateral tympanoplasties Left post-auricular keloid treated surgically and with subsequent Kenalog injections. Plan: The examination findings and audiometric test results were reviewed with the patient. The Right myringotomy tube was removed today due to a surrounding perforation and history of intermittent otalgia. The evidence of a perforation was discussed. I would like to allow time for possible spontaneous closure. The Left post-auricular incision was injected with Kenalog today. RTC [address] Arroyo for discussion regarding the Left post- auricular keloid. She may require tube insertion on the Left for OME. This may be performed in clinic. A swim mold was fashioned for the Right ear previously Kirk Pablo MD 07/03/2015 9:22 CC: Daniel Mendoza documented in this encounter Plan of Treatment Scheduled Orders Name Type Priority Associated Diagnoses Orde r Schedule HEARING EVALUATION Audiology Routine Keloid Perforation of tympanic membrane, right Ordered: 07/03/2015 documented as of this encounter Procedures Procedure Name Priority Date/Time Associated Diagnosis Comments AUDIOGRAM - SCANNED 07/08/2015 14:18 EST documented in this encounter Results * AUDIOGRAM - SCANNED (07/08/2015 14:18 EST) 07/08/2015 14:1 8 EST Scan 2 Electronic Page Makeup System Operator PROCEDURE/MINOR BEBA GICAL ORDERABLES documented in this encounter Visit Diagnoses Diagnosis Keloid- Primary Keloid scar Perforation of tympanic membrane, right documented in this encounter Care Teams Bowling Pin Refinisher Relationship Specialty Start Date End Date Daniel Mendoza MD [address] [place] [address] PCP - General 12/12/08 documented as of this encounter
--- OUTSIDE RECORDS SUMMARY | 2024-01-05 00:13 | XMS_ITS | Encounter Summary ---
Author Organization [facility] Address [address] [place] [address] Care Team Providers Care Histopath Tech Name Role Phone Daniel Mendoza MD Primary Care Provider [phone] Encounter Details Date Type Department Care Team (Late st Contact Info) Description 08/12/2023 Lab Requisition [facility] Pathology & Laboratory Medicine - [address] [phone] Outr Resulting Lab, Provider Social History Tobacco [...] Diagnosis Comments HCV RNA DETECT QUANT Today 08/12/2023 15:25 EST HEPATITIS C AB W REFLEX TO HCV RNA BY PCR Routine 08/12/2023 15:25 EST HEPATITIS B SURFACE ANTIGEN Routine 08/12/2023 15:25 EST documented in this encounter Results * HCV RNA DETECT QUANT (08/12/2023 15:25 EST) HCV RNA Qualitative Undetected Undetected 08/15/2023 11:44 EST [facility] Blood VENOUS BLOOD / Unknown 08/12/2023 15:25 EST 08/12/2023 21:03 EST Narrative [facility] - 08/15/2023 11:44 EST The quantification range of this assay is 15 IU/mL to 100,000,000 IU/mL. Testing was performed using the Vanessa HCV test ([employer] with the vanessa [id number] System. Provider Outr Resulting Lab CHEMISTRY & BLOOD GAS ORDERABLES Performing Organization Address [facility] Co de Phone Number [facility] [address] [place], [place] [phone] * HEPATITIS B SURFACE ANTIGEN (08/12/2023 15:25 EST) Hep B Surface Ag Negative Negative 08/12/2023 22:04 EST [facility] Blood VENOUS BLOOD / Unknown 08/12/2023 15:25 EST 08/12/2023 21:03 EST Provider Outr Resulting Lab CHEMISTRY & BLOOD GAS ORDERABLES Performing Organization Address [facility] Co de Phone Number [facility] [address] [place] [phone] * (ABNORMAL) HEPATITIS C AB W REFLEX TO HCV RNA BY PCR (08/12/2023 15:25 EST) Hep C Antibody Reactive(A ) Negative 08/12/2023 22:46 EST [facility] Comment: Supplemental testing for HCV RNA is ordered to rule out active HCV infection. Blood VENOUS BLOOD / Unknown 08/12/2023 15:25 EST 08/12/2023 21:03 EST Provider Outr Resulting Lab CHEMISTRY & BLOOD GAS ORDERABLES Performing Organization Address [facility] Co de Phone Number [facility] [address] [place] [phone] documented in this encounter Visit Diagnoses Not on filedocumented in this encounter Care Teams Histopath Tech Relationship Specialty Start Date End Date Daniel Mendoza MD [address] [place] [address] PCP - General 12/12/08 documented as of this encounter
--- OUTSIDE RECORDS SUMMARY | 2024-01-05 00:13 | XMS_ITS | Encounter Summary ---
Author Organization [facility] Address [address] [place] [address] Care Team Providers Care Core Baker Name Role Phone Daniel Mendoza MD Primary Care Provider [phone] Encounter Details Date Type Department Care Team (Late st Contact Info) Description 09/24/2022 Lab Requisition [facility] Pathology & Laboratory Medicine - [address] [phone] Outr Resulting Lab, Provider Social History Tobacco [...] Procedure Name Priority Date/Time Associated Diagnosis Comments HEPATITIS B CORE ANTIBODY (TOTAL) Routine 09/23/2022 10:10 EDT HEPATITIS B SURFACE ANTIBODY Routine 09/23/2022 10:10 EDT HEPATITIS B SURFACE ANTIGEN Routine 09/23/2022 10:10 EDT documented in this encounter Results * HEPATITIS B SURFACE ANTIBODY (09/23/2022 10:10 EDT) Hep B Surface Ab, Quantitative 14.6 See Note mIU/mL 09/27/2022 10:59 EDT [facility] Comment: Reference Range for Hep B Surface Ab, Quant: Positive: >= 10.0 mIU/mL Negative: ??< 10.0 mIU/mL Patient is presumed to be immune to infection with Hepatitis B Virus. Hep B Surface Ab, Qualitative Positive See Note 09/27/2022 10:59 EDT [facility] Comment: Reference Range for Hep B Surface Ab, Qual: Unvaccinated: ??Negative Vaccinated: ??Positive Blood VENOUS BLOOD / Unknown 09/23/2022 10:10 EDT 09/24/2022 17:58 EDT Provider Outr Resulting Lab CHEMISTRY & BLOOD GAS ORDERABLES Performing Organization Address [facility] Co de Phone Number [facility] [address] [place] [address] * HEPATITIS B CORE ANTIBODY (TOTAL) (09/23/2022 10:10 EDT) Hepatitis B Core Ab, Total Negative Negative 09/27/2022 11:52 EDT [facility] Blood VENOUS BLOOD / Unknown 09/23/2022 10:10 EDT 09/24/2022 17:58 EDT Provider Outr Resulting Lab CHEMISTRY & BLOOD GAS ORDERABLES Performing Organization Address City/[facility] Co de Phone Number [facility] [address] [place] [phone] * HEPATITIS B SURFACE ANTIGEN (09/23/2022 10:10 EDT) Hep B Surface Ag Negative Negative 09/27/2022 11:10 EDT [facility] Blood VENOUS BLOOD / Unknown 09/23/2022 10:10 EDT 09/24/2022 17:58 EDT Provider Outr Resulting Lab CHEMISTRY & BLOOD GAS ORDERABLES Performing Organization Address [facility] Co de Phone Number [facility] [address] [place] [address] documented in this encounter Visit Diagnoses Not on filedocumented in this encounter Care Teams Core Baker Relationship Specialty Start Date End Date Daniel Mendoza MD [address] [place] [address] PCP - General 12/12/08 documented as of this encounter
--- OUTSIDE RECORDS SUMMARY | 2024-01-05 00:13 | XMS_ITS | Encounter Summary ---
Author Organization [facility] Address [address] [place] [address] Care Team Providers Care Flat Bed Operator Name Role Phone Daniel Mendoza MD Primary Care Provider [phone] Reason for Visit * Reason Comments Post-OP Follow Up Encounter Details Date Type Department Care Team (Late st Contact Info) Description 03/20/2015 15:15 EDT Office Visit [facility] ENT- Main [address] [phone] Kirk Pablo MD [address] [place] [address] [place] [phone] OME (otitis media with effusion), right (Primary Dx) Discharge Disposition: Auto Discharge Social History Tobacco Use Types Packs/Day Years Used Date Smoking Tobacco: Never Sex and Gender Information Value Date Recorded Sex Assigned at Not on file Gender Identity Not on file Sexual Orientation Not on file documented as of this encounter Discharge Diagnoses Diagnosis H65.91 Unspecified nonsuppurative otitis media, right ear-H65.91[ICD-10-CM] documented in this encounter Discharge Disposition Disposition Code Departure Means Destination Auto Discharge documented in this encounter Progress Notes * Kirk Pablo MD - 03/20/2015 8918 EDT Otolaryngology Progress note 03/20/2015 CC: HPI: The patient is a 14 y.o. white female who is seen in follow up s/p Right myringotomy and T-tube placement. She was seen in the local ER two nights ago for bloody otorrhea. She was provided a prescription for PO antibiotics, however, has deferred taking them until this visit. She has had URI symptoms over the past 2-3 days and has also noted Right ear pain. The right ear continues to feel blocked. Past Surgical History Procedure Laterality Date ??? [...] retraction, there is no granulation, thereis a 3mm perforation noted inferior to the tube. The middleear mucosa is healthy. Left tympanic membrane: Intact but thickened. Facial nerve function is normal and symmetric. Imp: S/p Right T-tube placed 01/27/2015 Resolved recent bloody otorrhea. Recent Right otalgia related to either dry crusts of blood or recent URI, there is no current evidence of infection History of bilateral tympanoplasties Plan: The examination findings were reviewed with the patient. I recommedned use of mineral oil for the Right ear pain. There is no current need for antibiotics, however, I recommended use of antibiotic gtts if the bloody drainage recurs. The evidence of a perforation just inferior to the PE tube was discussed. This may be contributing to the blocked sensation on the Right. RTC 3 months with plans to obtain audiometric testing at that time. A swim mold was fashioned for the Right ear today. Kirk Pablo MD 03/20/2015 14:45 CC: Daniel Mendoza documented in this encounter Plan of Treatment Not on file documented as of this encounter Visit Diagnoses Diagnosis OME (otitis media with effusion), right- Primary documented in this encounter Care Teams Flat Bed Operator Relationship Specialty Start Date End Date Daniel Mendoza MD [address] [place] [phone] PCP - General 12/12/08 documented as of this encounter
--- OUTSIDE RECORDS SUMMARY | 2024-01-05 00:13 | XMS_ITS | Encounter Summary ---
Author Organization [facility] Address [address] [place] [address] Care Team Providers Care Pipe Fitter Ammonia Name Role Phone Daniel Mendoza MD Primary Care Provider [phone] Reason for Visit * Reason Comments Follow-up Encounter Details Date Type Department Care Team (Late st Contact Info) Description 09/18/2015 10:30 EDT Office Visit [facility] ENT- Main [place] [address] [place] [phone] Kirk Pablo MD [address] [place] [address] [place] [phone] Perforation of tympanic membrane, right (Primary Dx) Social History Tobacco Use Types Packs/Day Years Used Date Smoking Tobacco: Never Sex and Gender Information Value Date Recorded Sex Assigned at Not on file Gender Identity Not on file Sexual Orientation Not on file documented as of this encounter Progress Notes * Kirk Pablo MD - 09/18/2015 1023 EDT Otolaryngology Progress note 09/18/2015 CC: Left incisional pain and right otalgia HPI: The patient is a 15 y.o. white female who is seen in follow up s/p Right T-tube removal. She has noted occasional pain in the Right ear. There is no c/o otorrhea. She also has noted continued to report Left post-auricular incisional pain. There was no change in the Left incisional pain after steroid injection. Past Surgical History Procedure Laterality Date ??? Tympanoplasty Right 02/26/2011 transcanal underlay ??? Tympanoplasty Left 12/25/2012 postauricular underlay graft ??? Tympanoplasty Left 01/25/2014 lateral graft tympanoplasty, removal of hypertrophic scar PE: General: pleasant cooperative female in no distress EARS: OTOSCOPY: Right external auditory canal: patent and non-inflamed, thin crusts noted on the posterior superiorcanal Left external auditory canal: patent and non-inflamed Right tympanic membrane: there is no evidence of retraction, there is no granulation, there is a 30% anterior and inferior perforation. The middle ear mucosa is healthy. Left tympanic membrane: Intact but thickened. there is no evidence of effusion. Facial nerve function is normal and symmetric. The Left post-auricular incision is well healed. There are no visible keloids, however, there is tenderness to palpation along the mid portion of the incision. Imp: S/p Right T-tube placed 01/27/2015 which removed 07/03/2015 due to a surrounding perforation and history of intermittent otalgia. Resolved Left OME History of bilateral tympanoplasties Left post-auricular keloid treated surgically and with subsequent Kenalog injections. Plan: The examination findings were reviewed with the patient. Use of mineral oil for the intermittent right ear pain was recommended. The evidence of the persistent right perforation was discussed. I would like to allow time for possible spontaneous closure. RTC 6 months Kirk Pablo MD 09/18/2015 10:24 documented in this encounter Plan of Treatment Not on file documented as of this encounter Visit Diagnoses Diagnosis Perforation of tympanic membrane, right- Primary documented in this encounter Care Teams Pipe Fitter Ammonia Relationship Specialty Start Date End Date Daniel Mendoza MD [address] [place] [address] PCP - General 12/12/08 documented as of this encounter
--- OUTSIDE RECORDS SUMMARY | 2024-01-05 00:13 | XMS_ITS | Encounter Summary ---
[place] [address] Care Team Providers Care Muffler Hand Name Role Phone Annamaria Pedraza MD Primary Care Provider [phone] Encounter Details Date Type Department Care Team (Latest Contact Info) Description 10/11/2023 Travel Social History Tobacco Use Types Packs/Day [...] on filedocumented in this encounter Care Teams Muffler Hand Relationship Specialty Start Date End Date Annamaria Pedraza MD [address] [place] [address] PCP - General Family Medicine 09/06/23 documented as of this encounter
--- OUTSIDE RECORDS SUMMARY | 2024-01-05 00:13 | XMS_ITS | Encounter Summary ---
Author Organization [facility] Address [address] [place] [address] Care Team Providers Care Bow Stapler Name Role Phone Daniel Mendoza MD Primary Care Provider [phone] Reason for Visit * Reason Onset Date Comments Ear Drainage 04/07/2015 Otalgia 04/07/2015 Encounter Details Date Type Department Care Team (Late st Contact Info) Description 04/07/2015 Telephone [facility] ENT- Main [address] [address] Kirk Pablo MD [address] [place] [address] [place] [id number] Ear Drainage; Otalgia Social History Tobacco Use Types Packs/Day Years Used Date Smoking Tobacco: Never Sex and Gender Information Value Date Recorded Sex Assigned at Not on file Gender Identity Not on file Sexual Orientation Not on file documented as of this encounter Miscellaneous Notes * Telephone Encounter - Donell Connell RN - 04/07/2015 1224 EDT Started drops yesterday but has only had one dose, will use BID for 7 to 10 days and let me know ifno improvement after 3 full days. * Telephone Encounter - Mckenna Narvaez - 04/07/2015 1111 EDT Mom wants to talk to someone about Rosaura's recent ear drainage and severe ear pain. documented in this encounter Plan of Treatment Not on file documented as of this encounter Visit Diagnoses Not on filedocumented in this encounter Care Teams Bow Stapler Relationship Specialty Start Date End Date Daniel Mendoza MD [address] [place] [address] PCP - General 12/12/08 documented as of this encounter
--- OUTSIDE RECORDS SUMMARY | 2024-01-05 00:13 | XMS_ITS | Encounter Summary ---
Author Organization [facility] Address [address] [place] [address] Care Team Providers Care Feeder/Folder Name Role Phone Daniel Mendoza MD Primary Care Provider [phone] Reason for Visit * Reason Comments Follow-up Encounter Details Date Type Department Care Team (Late st Contact Info) Description 03/18/2016 9:[address] [facility] ENT- Main [place] [address] [place] [id number] Kirk Pablo MD [address] [place] [address] [place] [phone] Perforation of tympanic membrane, right (Primary Dx) Social History Tobacco Use Types Packs/Day Years Used Date Smoking Tobacco: Never Sex and Gender Information Value Date Recorded Sex Assigned at Not on file Gender Identity Not on file Sexual Orientation Not on file documented as of this encounter Progress Notes * Kirk Pablo MD - 03/18/2016 0900 EDT Otolaryngology Progress note 03/18/2016 CC: Left incisional pain and right otalgia HPI: The patient is a 15 y.o. white female who is seen in follow up s/p Right T-tube removal. She has noted pain in the Right ear over the past two weeks related to coughing/ URI. There is no c/o otorrhea. Past Surgical History Procedure Laterality Date ??? [...] Imp: S/p Right T-tube placed 01/27/2015 which was removed 07/03/2015 due to a surrounding perforation and history of intermittent otalgia. Resolved Left OME History of bilateral tympanoplasties Left post-auricular keloid treated surgically and with subsequent Kenalog injections. Plan: The examination findings were reviewed with the patient and her mother. The right tympanic membraneperforation is clean and dry. She is in the process of seeking an oral surgeon for third molar extractions, which may help alleviate her right otalgia. The family inquired regarding lateral graft tympanoplasty for the right ear as this helped resolve recurring infections on the left side. I am hesitant to recommend surgery as she developed a right serous otitis after the underlay graft tympanoplasty which required a PE tube which then led to a recurrent perforation. The patient is strongly interested in pursuing lateral graft tympanoplasty for the right ear, however. I recommended delaying any surgical intervention in order to determine how she does this winter. She had recurring infectionslast winter and I recommended reevaluation this winter without a myringotomy tube present. The patient is tentatively scheduled for followup in 4 months and will be seen earlier as needed. Kirk Pablo MD 03/18/2016 10:06 documented in this encounter Plan of Treatment Not on file documented as of this encounter Visit Diagnoses Diagnosis Perforation of tympanic membrane, right- Primary documented in this encounter Care Teams Feeder/Folder Relationship Specialty Start Date End Date Daniel Mendoza MD [address] [place] [address] PCP - General 12/12/08 documented as of this encounter
--- OUTSIDE RECORDS SUMMARY | 2024-01-05 00:13 | XMS_ITS | Encounter Summary ---
Author Organization [facility] Address [address] [place] [address] Care Team Providers Care Public Health Aides Teacher Name Role Phone Daniel Mendoza MD Primary Care Provider [phone] Encounter Details Date Type Department Care Team (Late st Contact Info) Description 09/24/2022 Lab Requisition [facility] Pathology & Laboratory Medicine - [address] [phone] Outr Resulting Lab, Provider Social History Tobacco [...] 1/2 ANTIGEN AND ANTIBODY, 4TH GENERATION Routine 09/23/2022 10:10 EDT documented in this encounter Results * HIV 1/2 ANTIGEN AND ANTIBODY, 4TH GENERATION (09/23/2022 10:10 EDT) HIV 1 and 2 Antibody/p24 Antigen, 4th Generation Negative Negative 09/27/2022 12:05 EDT [facility] Comment:If acute HIV-1 infec tion is suspected in a high risk patient, submit plasma specimen for HIV-1 RNA quantitation test. Blood VENOUS BLOOD / Unknown 09/23/2022 10:10 EDT 09/24/2022 17:41 EDT Narrative [facility] - 09/27/2022 12:05 EDT Fourth Generation assay performed on the Siemens Centaur XPT. Provider Outr Resulting Lab IMMUNOLOGY A ND SEROLOGY ORDERABLES [facility] [address] [place] [address] documented in this encounter Visit Diagnoses Not on filedocumented in this encounter Care Teams Public Health Aides Teacher Relationship Specialty Start Date End Date Daniel Mendoza MD [address] [place] [id number] PCP - General 12/12/08 documented as of this encounter
--- OUTSIDE RECORDS SUMMARY | 2024-01-05 00:13 | XMS_ITS | Clinical Summary ---
Author Organization [facility] Address [address] [place] [address] Care Team Providers Care Horticultural Manager Name Role Phone Daniel Mendoza MD Primary Care Provider [phone] Allergies No known active allergies Medications Medication Sig Dispensed Refills Start Date End Date Status albuterol (PROVENTIL, VENTOLIN) 90 mcg/Actuation inhaler Inhale 2 Puffs as directed every 6 hours as needed. Active Multivitamins with Minerals tablet Take 1 Tab by mouth daily Active Active Problems Problem Noted Date Diagnosed Date Conductive hearing loss, middle ear 09/03/2010 Simple chronic serous otitis media 07/23/2010 Overview: ICD10 Update Auto Replacement Otitis media 08/21/2009 Resolved Problems Problem Noted Date Diagnosed Date Resolved Date Hypertrophy of tonsils alone 12/16/2011 02/22/2012 Obstructive sleep apnea 12/16/201102/11 Overview: ICD10 Update Auto Replacement Encounters Date Type Department Care Team Description 12/27/2023 Lab Requisition [facility] Pathology & Laboratory Medicine - [facility] [address] [place] [address] Outr Resulting Lab, Provider from Last 3 Months Surgical History Surgery Date Site/Laterality Comments TYMPANOPLASTY 02/26/2011 Right transcanal underlay TYMPANOPLASTY 12/25/2012 Left postauricular underlay graft TYMPANOPLASTY 01/25/2014 Left lateral graft tympanoplasty, removal of hypertrophic scar Medical History Medical History Date Comments Asthma Depression RAD (reactive airway disease) Obesity Seizure ([facility]) Seizure ([facility]) 1998 Social History Tobacco Use Types Packs/Day Years Used Date Smoking Tobacco: Never Sex and Gender Information Value Date Recorded Sex Assigned at Not on file Gender Identity Not on file Sexual Orientation Not on file Obstetrics History Last Filed Vital Signs Vital Sign Reading Time Taken Comments Blood Pressure 115/74 01/27/2015 0845 EDT Pulse 98 01/24/2009 1515 EDT Temperature 36.4 ??C (97.5 ??F) 01/27/2015 0845 EDT Respiratory Rate 16 01/27/2015 0845 EDT Oxygen Saturation 94% 01/27/2015 0845 EDT Inhaled Oxygen Concentration - - Weight 108.9 kg (240 lb) 01/20/2015 1626 EDT Height 170.2 cm (5' 7) 01/20/2015 1626 EDT Body Mass Index 37.59 01/20/2015 1626 EDT Plan of Treatment Health Maintenance Due Date Last Done Comments Hepatitis B Vaccine (1 of 3 - 19+ 3-dose series) 2017 COVID-19 Vaccine (2022-2 4 season) 2023 Hepatitis C Screen Completed 08/12/2023, 0 08/12/2023, 09/27/2022, Additional history exists Procedures Procedure Name Priority Date/Time Associated Diagnosis Comments FENTANYL SCREEN WITH REFLEX TO CONFIRMATION, U Routine 12/26/2023 15:15 EDT HEPATITIS C AB W REFLEX TO HCV RNA BY PCR Routine 08/12/2023 15:25 EST from Last 3 Months or Most Recently Relevant to Health Maintenance Results * FENTANYL SCREEN WITH REFLEX TO CONFIRMATION, U (12/26/2023 15:15 EDT) Fentanyl Screen with Reflex to Confirmation, U Negative <1 ng/mL 12/28/2023 12:[address] [facility] Urine URINE / Unknown 12/26/2023 1 5:15 EDT 12/27/2023 17:26 EDT Narrative [facility] - 12/28/2023 12:07 EDT [facility] performed [facility]: [facility] [address] [place] [address], [address] [address] Aircraft Electronics Technical Officer: Bubba Mesa MD; CLIA # [id number] Provider Outr Resulting Lab URINALYSIS O RDERABLES [facility] [address] [place] [address], [address] [phone] * (ABNORMAL) HEPATITIS C AB W REFLEX TO HCV RNA BY PCR (08/12/2023 15:25 EST) Hep C Antibody Reactive(A ) Negative 08/12/2023 22:46 EST [facility] Comment: Supplemental testing for HCV RNA is ordered to rule out active HCV infection. Blood VENOUS BLOOD / Unknown 08/12/2023 15:25 EST 08/12/2023 21:03 EST Provider Outr Resulting Lab CHEMISTRY & BLOOD GAS ORDERABLES [facility] [address] [place] [id number] from Last 3 Months or Most Recently Relevant to Health Maintenance Care Teams Horticultural Manager Relationship Specialty Start Date End Date Daniel Mendoza MD [address] [place] [address] PCP - General 12/12/08
--- OUTSIDE RECORDS SUMMARY | 2024-01-05 00:13 | XMS_ITS | Encounter Summary ---
[place] [address] Care Team Providers Care National Recruiter Name Role Phone Annamaria Pedraza MD Primary Care Provider [phone] Reason for Visit * Reason Comments Family History Milad (the father of Mile's fetus) has a child with [id number] developmental disorder. * Consultation (Routine) - Authorized Specialty Diagnoses / Procedures Referred By Contwhitney t Referred To Contact Obstetrics and Gynecology Diagnoses Hepatitis C virus infection without hepatic coma, unspecified chronicity Family history of genetic disorder Prisca Manuel, [employer] [address] [place] [address] [place] [address] [facility] Broommaking Supervisor [address] [place] [address] Referral ID Status Reason Start Date Expiration Date Visits Requested Visits Authorized [id number] Authorized Consult, Test & Treat PCP Updated and/or Approved 09/06/2023 09/05/2024 6 6 Encounter Details Date Type Department Care Team (Late st Contact Info) Description 10/11/2023 1:00 PM EDT Office Visit Obstetrics [place] [address] [place], [facility] OBSTETRICS [place] [address] Social History Tobacco Use Types Packs/Day Years [...] on filedocumented in this encounter Care Teams National Recruiter Relationship Specialty Start Date End Date Annamaria Pedraza MD [address] [place] [address] PCP - General Family Medicine 09/06/23 documented as of this encounter
--- OUTSIDE RECORDS SUMMARY | 2024-01-05 00:13 | XMS_ITS | Referral Summary ---
Author Organization [facility] Address [address] [place] [address] Care Team Providers Care Auto Body Painter Name Role Phone Daniel Mendoza MD Primary Care Provider [phone] Encounters Date Type Department Care Team Description 12/27/2023 Lab Requisition [facility] Pathology & Laboratory Medicine - [address] [address] Outr Resulting Lab, Provider from Last 3 Months Allergies No known active allergies Medications Medication [...] apnea 12/16/201102/11 Overview: ICD10 Update Auto Replacement Social History Tobacco Use Types Packs/Day Years [...] 37.59 01/20/2015 1626 EDT Plan of Treatment Not on file Procedures Procedure Name Priority Date/Time Associated Diagnosis [...] U Negative <1 ng/mL 12/28/2023 12:07 EDT [facility] Urine URINE / Unknown 12/26/2023 1 5:15 EDT 12/27/2023 17:26 EDT Narrative [facility] - 12/28/2023 12:07 EDT [facility] performed by: [facility] [address] [place] [address], [address], [place] [address] Veterinarian: Bubba Mesa MD; CLIA # [id number] Provider Outr Resulting Lab URINALYSIS O RDERABLES [facility] [address] [place] [address], [address] [place] [address], [facility] [phone] * (ABNORMAL) HEPATITIS C AB W REFLEX TO HCV RNA BY PCR (08/12/2023 15:25 EST) Hep C Antibody Reactive(A ) Negative 08/12/2023 22:46 EST [facility] Comment: Supplemental testing for HCV RNA is ordered to rule out active HCV infection. Blood VENOUS BLOOD / Unknown 08/12/2023 15:25 EST 08/12/2023 21:03 EST Provider Outr Resulting Lab CHEMISTRY & BLOOD GAS ORDERABLES [facility] [address] [place] [address] from Last 3 Months or Most Recently Relevant to Health Maintenance Care Teams Auto Body Painter Relationship Specialty Start Date End Date Daniel Mendoza MD [address] [place] [id number] PCP - General 12/12/08
--- OUTSIDE RECORDS SUMMARY | 2024-01-05 00:13 | XMS_ITS | Encounter Summary ---
Author Organization [facility] Address [address] [place] [address] Care Team Providers Care Maintenance Custodian Name Role Phone Daniel Mendoza MD Primary Care Provider [phone] Encounter Details Date Type Department Care Team (Late st Contact Info) Description 09/23/2022 Lab Requisition [facility] Pathology & Laboratory Medicine - [address] [address] Elyssa Lynn MD [address] [place] [phone] Amenorrhea, unspecified Social History Tobacco Use Types Packs/Day Years Used Date Smoking Tobacco: Never Assessed Sex and Gender Information Value Date Recorded Sex Assigned at Not on file Gender Identity Not on file Sexual Orientation Not on file documented as of this encounter Plan of Treatment Not on file documented as of this encounter Procedures Procedure Name Priority Date/Time Associated Diagnosis Comments PAP TEST Today 09/23/2022 10:10 EDT Amenorrhea, unspecified CHLAMYDIA/N. GONORRHOEAE AMPLIFIED NUCLEIC ACID, THINPREP Today 09/23/2022 10:10 EDT documented in this encounter Results * PAP TEST (09/23/2022 10:10 EDT) Specimens A. Vagina , ThinPrep Imaging System with Manual Evaluation 10/04/2022 15:[address] [facility] Specimen Adequacy Satisfactory for Evaluation - transformation zone component present 10/04/2022 15:[address] [facility] General Categorization Negative for intraepithelial lesion or malignancy 10/04/2022 15:[address] [facility] Descriptive Diagnosis Shift in nigel present suggestive of bacterial vaginosis. 10/04/2022 15:[address] [facility] Attestation . 10/04/2022 15:[address] [facility] at 1512 Clinical History See below 10/05/19 15:[address] [facility] Performing Lab [facility] 10/04/2022 15:[address] [facility] Scanned Images 10/04/2022 15:[address] [facility] Papanicolaou smear specimen (specimen) ENTIRE VAGINA / Unknown 09/23/2022 10:10 EDT 09/24/2022 14:26 EDT Elyssa Lynn MD PATHOLOGY ORDERABLES [facility] [address] [place] [address] * CHLAMYDIA/N. GONORRHOEAE AMPLIFIED RNA, THINPREP (09/23/2022 10:10 EDT) Neisseria gonorrhoeae Result Negative Negative 09/24/2022 13:[address] [facility] Chlamydia trachomatis Result Negative Negative 09/24/2022 13:[address] [facility] Papanicolaou smear specimen (specimen) CERVIX UTERI STRUCTURE / Unknown 09/23/2022 10:10 EDT 09/24/2022 7:37 EDT Elyssa Lynn MD MICROBIOLOGY - GENER AL ORDERABLES [facility] [address] [place] [address] documented in this encounter Visit Diagnoses Diagnosis Amenorrhea, unspecified documented in this encounter Care Teams Maintenance Custodian Relationship Specialty Start Date End Date Daniel Mendoza MD [address] [place] [address] PCP - General 12/12/08 documented as of this encounter
--- OUTSIDE RECORDS SUMMARY | 2024-01-05 00:13 | XMS_ITS | Encounter Summary ---
Author Organization [facility] Address [address] [place] [address] Care Team Providers Care Med Surg Nurse Name Role Phone Daniel Mendoza MD Primary Care Provider [phone] Encounter Details Date Type Department Care Team (Late st Contact Info) Description 08/12/2023 Lab Requisition [facility] Pathology & Laboratory Medicine - [address] [phone] Outr Resulting Lab, Provider Social History Tobacco Use Types Packs/Day Years Used Date Smoking Tobacco: Never Sex and Gender Information Value Date Recorded Sex Assigned at Not on file Gender Identity Not on file Sexual Orientation Not on file documented as of this encounter Plan of Treatment Not on file documented as of this encounter Procedures Procedure Name Priority Date/Time Associated Diagnosis Comments RUBELLA IGG ANTIBODY Routine 08/12/2023 15:25 EST VARICELLA IGG ANTIBODY Routine 08/12/2023 15:25 EST documented in this encounter Results * VARICELLA IGG ANTIBODY (08/12/2023 15:25 EST) Varicella IgG Ab Positive See Note 08/15/2023 11:07 EST [facility] Comment:Presence of detectab le Varicella Zoster virus IgG antibodies. Blood VENOUS BLOOD / Unknown 08/12/2023 15:25 EST 08/12/2023 21:03 EST Provider Outr Resulting Lab IMMUNOLOGY A ND SEROLOGY ORDERABLES Performing Organization Address [facility] Co de Phone Number [facility] [address] [place], [place] [phone] * RUBELLA IGG ANTIBODY (08/12/2023 15:25 EST) Rubella IgG Ab Positive See Note 08/15/2023 11:14 EST [facility] Comment:Positive for IgG ant ibodies to Rubella virus. Blood VENOUS BLOOD / Unknown 08/12/2023 15:25 EST 08/12/2023 21:03 EST Provider Outr Resulting Lab CHEMISTRY & BLOOD GAS ORDERABLES Performing Organization Address [facility] de Phone Number [facility] [address] [place] [address] documented in this encounter Visit Diagnoses Not on filedocumented in this encounter Care Teams Med Surg Nurse Relationship Specialty Start Date End Date Daniel Mendoza MD [address] [place] [id number] PCP - General 12/12/08 documented as of this encounter
--- OUTSIDE RECORDS SUMMARY | 2024-01-05 00:13 | XMS_ITS | Encounter Summary ---
[place] [address] Care Team Providers Care Rubber Goods Cutter Finisher Name Role Phone Annamaria Pedraza MD Primary Care Provider [phone] Reason for Referral * Diagnostic Test (Routine) - Closed Specialty Diagnoses / Procedures Referred By Contac t Referred To Contact Radiology Diagnoses Family hx-allergic disease , unspecified gestational age Antepartum drug dependence Hepatitis C virus infection without hepatic coma, unspecified chronicity Marijuana smoker Tobacco use disorder Body mass index 32.0-32.9, adult Procedures US OB Detailed Morphology Prisca Manuel CNM [address] [place] [address] [address] [place] [address] [place] [address] Referral ID Status Reason Start Date Expiration Date V isits Requested Visits Authorized [id number] Closed Specialty Service Requested 09/07/2023 03/09/2025 1 1 Reason for Visit * Diagnostic Test (Routine) - Closed Specialty Diagnoses / Procedures Referred By Contac t Referred To Contact Radiology Diagnoses Family hx-allergic disease , unspecified gestational age Antepartum drug dependence Hepatitis C virus infection without hepatic coma, unspecified chronicity Marijuana smoker Tobacco use disorder Body mass index 32.0-32.9, adult Procedures US OB Detailed Morphology Prisca Manuel CNM [address] [place] [address] [address] [place] [address] [facility] [place] [address] Referral ID Status Reason Start Date Expiration Date V isits Requested Visits Authorized [id number] Closed Specialty Service Requested 09/07/2023 03/09/2025 1 1 Encounter Details Date Type Department Care Team (Latest Contact Info) Description 10/11/2023 12:19 PM EDT - 10/11/2023 11:59 PM EDT Hospital En[place] [address] Prisca Manuel [address] [place], [place] [id number] Family hx-allergic disease; , unspecified gestational age; Antepartum drug dependence; Hepatitis C virus infection without hepatic coma, unspecified chronicity; Marijuana smoker; Tobacco use disorder; Body mass index 32.0-32.9, adult Discharge Disposition: Home Social History Tobacco Use [...] Priority Date/Time Associated Diagnosis Comments US OB DETAILED MORPHOLOGY Routine 10/11/2023 2:58 PM EDT Family hx-allergic disease , unspecified gestational age Antepartum drug dependence Hepatitis C virus infection without hepatic coma, unspecified chronicity Marijuana smoker Tobacco use disorder Body mass index 32.0-32.9, adult documented in this encounter Results * US OB Detailed Morphology (10/11/2023 2:58 PM EDT) WORKSTATION ID [id number] RAD Anatomical Region Laterality Modality Pelvis, Abdomen [...] who have questions, please contact the health manager long term care that requested your imaging first. ? Chadwick De La Paz, Staff Physician Electronically Signed Final Report ?? 10/11/2023 03:15 pm Narrative 10/11/2023 3:15 PM EDT OBSTETRICS REPORT ?(Signed Final 10/11/2023 03:15 pm) PATIENT INFO: ID #: ? [id number] ?: ??[id number] (23 yrs)(F) Name: ? DANNA Riley CHOUT ?Visit Date: 10/11/2023 02:45 pm PERFORMED BY: Performed By: ? Daisy Bourne RDMS Attending: ?Chadwick De La Paz MD Referred By: ?PRISCA MANUEL Location: ? [place] SERVICE(S) PROVIDED: [facility] - Detailed Morphology - [id number] ? 92321 UOBTVCER - Transvaginal ??2nd Trimester - ?27755 Cervical Length - [id number] INDICATIONS: 20 weeks gestation of ?Z3A.20 Fob [...] ? 16.8 - 19.8 HC/AC: ? 1.07 ?1.09 - 1.39 FL/BPD: ?78.5 ??% FL/AC: ? 21.5 ??% [...] Not Visualized SVC: ? Not Visualized Cardiac [place]: ?Visualized Diaphragm: ? Visualized 3 Vessel View: [...] 10/11/2023 03:15 pm) PATIENT INFO: ID #: [id number] : [id number] (23 yrs)(F) Name: DANNA INGRAM Visit Date: 10/11/2023 02:45 pm PERFORMED BY: Performed By: Daisy Bourne RDMS Attending: Chadwick De La Paz MD Referred By: PRISCA MANUEL Location: [place] SERVICE(S) PROVIDED: [facility] - Detailed Morphology - [id number] UOBTVCER - Transvaginal 2nd Trimester - 67535 Cervical Length - [id number] INDICATIONS: 20 weeks gestation of Z3A.20 Fob [...] Arch: Not Visualized SVC: Not Visualized Cardiac [place]: Visualized Diaphragm: Visualized 3 Vessel View: Visualized [...] who have questions, please contact the health manager long term care that requested your imaging first. Chadwick De La Paz, Staff Physician Electronically Signed Final Report 10/11/2023 03:15 pm Prisca Manuel CNM IMG US OB ORDERABLE S documented in this encounter Visit Diagnoses Diagnosis Family hx-allergic disease Family history of allergic disorders , unspecified gestational age Antepartum drug dependence Drug dependence, antepartum Hepatitis C virus infection without hepatic coma, unspecified chronicity Marijuana smoker Cannabis abuse, unspecified Tobacco use disorder Body mass index 32.0-32.9, adult Body Mass Index 32.0-32.9, adult documented in this encounter Care Teams Rubber Goods Cutter Finisher Relationship Specialty Start Date End Date Annamaria Pedraza MD [address] [place] [address] PCP - General Family Medicine 09/06/23 documented as of this encounter
--- OUTSIDE RECORDS SUMMARY | 2024-01-05 00:14 | XMS_ITS | Encounter Summary ---
Author Organization [facility] Address [address] [place] [address] Care Team Providers Care Straddle Buggy Operator Name Role Phone Dainel Mendoza MD Primary Care Provider [phone] Encounter Details Date Type Department Care Team (Late st Contact Info) Description 04/04/2008 Before PRISM Converted Visit (Maple) [facility] - Maple conversion [address], [place] [address] Jeremy Walker MD [address] [facility], [address] [place] [address] Social History Tobacco Use Types Packs/Day Years Used Date Smoking Tobacco: Never Assessed Sex and Gender Information Value Date Recorded Sex Assigned at Not on file Gender Identity Not on file Sexual Orientation Not on file documented as of this encounter Progress Notes * Jeremy Walker MD - 01/02/2009 1912 EDT DIVISION OF OTOLARYNGOLOGY PROGRESS/FOLLOWUP NOTE - 04/04/2008 CHIEF COMPLAINT Recurrent otitis media, serous otitis media. SUBJECTIVE Mother reports that Rosaura is hearing better. She has had no more ear infections. In good health otherwise. OBJECTIVE Healthy, alert, cooperative female in no distress. There is fluid in both middle ear spaces. Tympanograms flat on the right, minus 295 on the left. Oral cavity reveals 3+ cryptic tonsils. Palpation of the neck reveals no adenopathy. Nasal exam is normal today; midline septum, normal turbinates without discharge. ASSESSMENT Serous otitis media with mother reports normal hearing. PLAN Follow up six weeks. Signed by Jeremy Walker MD 04/08/2008 15:24 Jeremy Walker MD - Jeremy Walker MD - [facility] Job ID: [id number] Doc ID: [id number] cc: Daniel Mendoza MD documented in this encounter Plan of Treatment Not on file documented as of this encounter Visit Diagnoses Not on filedocumented in this encounter Care Teams Straddle Buggy Operator Relationship Specialty Start Date End Date Daniel Mendoza MD [address] [place] [address] PCP - General 12/12/08 documented as of this encounter
--- OUTSIDE RECORDS SUMMARY | 2024-01-05 00:14 | XMS_ITS | Encounter Summary ---
Author Organization [facility] Address [address] [place] [address] Care Team Providers Care Team Physician Name Role Phone Daniel Mendoza MD Primary Care Provider [phone] Reason for Visit * Reason Comments Follow-up Encounter Details Date Type Department Care Team (Late st Contact Info) Description 05/03/2014 15:15 EST Office Visit [facility] ENT- Main [place] [address] [place] [phone] Kirk Pablo MD [address] [place] [address] [place] [phone] Keloid (Primary Dx); Perforation of tympanic membrane, unspecified Social History Tobacco Use Types Packs/Day Years Used Date Smoking Tobacco: Never Assessed Sex and Gender Information Value Date Recorded Sex Assigned at Not on file Gender Identity Not on file Sexual Orientation Not on file documented as of this encounter Progress Notes * Kirk Pablo MD - 05/03/2014 1447 EST Otolaryngology Progress note 05/03/2014 CC: Recent ear infections HPI: The patient is a 13 y.o. white female who is seen in follow up s/p Left tympanoplasty. She continues to have pain over the post-auricular incision. She had 2 episodes of otitis on the right over the past month presenting with otalgia. There was noassociated otorrhea. PE: General: pleasant cooperative white female in no distress EARS: OTOSCOPY: Right external auditory canal: Patent and not inflamed Left external auditory canal: Patent and not inflamed Right tympanic membrane: Intact and mobile but mildly atrophic. Retracted onto the promontory and incus. There is no evidence of effusion. A crust is noted on the posterior superior TM. Left tympanic membrane: Intact and mobile but thickened. The Left postauricular incision has regions of hypertrophic scar. Facial nerve function is normal and symmetric. AUDIOGRAM: I have reviewed the audiogram performed today by our audiology staff on Rosaura I Juan Jose. Steroid injection Title of Procedure: Steroid injection into Left postauricular incisional keloid Date Performed: 05/03/2014 Performed By: Kirk Pablo MD Indications and/or Provisional Diagnosis: Left postauricular incisional keloid. Consent: Consent was obtained from the patient following discussion of the risks, benefits, and alternatives. Local anesthesia: None Unless otherwise noted, there were no complications, no blood loss, cultures obtained, or drains retained. Time Out: A time-out was completed prior to the procedure verifying correct patient, procedure, site, positioning, and special equipment if applicable. Procedure Technique/Description of Procedure: The site was prepped with alcohol. The keloid was injected with 0.3 mL of Kenalog 10. ( Both superiorly and in the inferior portion of the incision.) Post Procedure Diagnosis and Preliminary Findings: Same as pre-procedure diagnosis. RTC one month for repeat evaluation. Imp: S/p Left revision postauricular lateral graft tympanoplasty and removal of hypertrophic scar performed 01/25/2014 Kenalog injection treatment of Left post-auricular hypertrophic scar performed today s/p Left postauricular underlay graft tympanoplasty performed 12/25/2012 s/p Right transcanal underlay graft tympanoplasty performed 02-26-2011 Plan: The examination findings and audiometric test results were reviewed with the patient and her mother. Her hearing has improved compared to prior testing performed in December. Use of mineral oil on the Right in order to soften the crust was discussed( the crusting is likely contributing to the Right otalgia) RTC 4 weeks for consideration of repeat Kenalog injection. Kirk Pablo MD 05/03/2014 14:49 CC: Daniel Mendoza MD documented in this encounter Plan of Treatment Not on file documented as of this encounter Visit Diagnoses Diagnosis Keloid- Primary Keloid scar Perforation of tympanic membrane, unspecified documented in this encounter Care Teams Team Physician Relationship Specialty Start Date End Date Daniel Mendoza MD [address] [place] [address] PCP - General 12/12/08 documented as of this encounter
--- OUTSIDE RECORDS SUMMARY | 2024-01-05 00:14 | XMS_ITS | Encounter Summary ---
Author Organization [facility] Address [address] [place] [address] Care Team Providers Care Postpartum Rn Name Role Phone Unavailable Primary Care Provider Unavailabl e Encounter Details Date Type Department Care Team (Late st Contact Info) Description 05/17/2008 11:32 EST - 05/17/2008 11:59 EST Hospital Encounter [facility] Perioperative Services- [address] [address] Jeremy Walker MD [address] [facility], [address] [place] [phone] Discharge Disposition: Home or Self Care Social History Tobacco Use Types Packs/Day Years Used Date Smoking Tobacco: Never Assessed Sex and Gender Information Value Date Recorded Sex Assigned at Not on file Gender Identity Not on file Sexual Orientation Not on file documented as of this encounter Discharge Disposition Disposition Code Departure Means Destination Home or Self Care documented in this encounter Plan of Treatment Not on file documented as of this encounter Visit Diagnoses Not on filedocumented in this encounter
--- OUTSIDE RECORDS SUMMARY | 2024-01-05 00:14 | XMS_ITS | Encounter Summary ---
Author Organization [facility] Address [address] [place] [address] Care Team Providers Care Service Worker Name Role Phone Unavailable Primary Care Provider Unavailabl e Encounter Details Date Type Department Care Team (Late st Contact Info) Description 06/11/2008 16:09 [facility] Hospital Encounter [address] [address] Jeremy Walker MD [address] [place] [address], [address] [place] [phone] Discharge Disposition: Auto Discharge Social History Tobacco Use Types Packs/Day Years Used Date Smoking Tobacco: Never Assessed Sex and Gender Information Value Date Recorded Sex Assigned at Not on file Gender Identity Not on file Sexual Orientation Not on file documented as of this encounter Discharge Disposition Disposition Code Departure Means Destination Auto Discharge documented in this encounter Plan of Treatment Not on file documented as of this encounter Visit Diagnoses Not on filedocumented in this encounter
--- OUTSIDE RECORDS SUMMARY | 2024-01-05 00:14 | XMS_ITS | Encounter Summary ---
Author Organization [facility] Address [address] [place] [address] Care Team Providers Care Manager Of Medical Name Role Phone Unavailable Primary Care Provider Unavailabl e Encounter Details Date Type Department Care Team (Late st Contact Info) Description 01/25/2007 10:55 EDT Hospital Encounter [address] [address] Jeremy Walker MD [address] [place] [address], [address] [place] [address] Social History Tobacco Use Types [...]
--- OUTSIDE RECORDS SUMMARY | 2024-01-05 00:14 | XMS_ITS | Encounter Summary ---
Author Organization [facility] Address [address] [place] [address] Care Team Providers Care Installer Interior Assemblies Name Role Phone Unavailable Primary Care Provider Unavailabl e Encounter Details Date Type Department Care Team (Late st Contact Info) Description 12/22/2007 10:32 EDT Hospital Encounter [address] [address] Jeremy Walker MD [address] [place] [address], [address] [place] [address] Social History Tobacco Use Types [...]
--- OUTSIDE RECORDS SUMMARY | 2024-01-05 00:14 | XMS_ITS | Encounter Summary ---
Author Organization [facility] Address [address] [place] [address] Care Team Providers Care Construction Framer Name Role Phone Daniel Mendoza MD Primary Care Provider [phone] Reason for Visit * Reason Comments Follow-up Encounter Details Date Type Department Care Team (Late st Contact Info) Description 02/21/2014 16:15 EDT Office Visit [facility] ENT- Main [place] [address] [place] [phone] Kirk Pablo MD [address] [place] [address] [place] [phone] Perforation of tympanic membrane, unspecified (Primary Dx) Social History Tobacco Use Types Packs/Day Years Used Date Smoking Tobacco: Never Assessed Sex and Gender Information Value Date Recorded Sex Assigned at Not on file Gender Identity Not on file Sexual Orientation Not on file documented as of this encounter Progress Notes * Kirk Pablo MD - 02/21/2014 1638 EDT Otolaryngology Progress note 02/21/2014 CC: Recent ear infections HPI: The patient is a 13 y.o. white female who is seen in follow up s/p Left tympanoplasty. She has used the gtts as instructed. There is no current c/o pain. PE: General: pleasant cooperative white female in no distress EARS: OTOSCOPY: Right external auditory canal: Patent and not inflamed Left external auditory canal: Filled with moist debris medially. There is a focal area of edema on the anterior bony canal wall. Right tympanic membrane: Intact and mobile but mildly atrophic. Retracted onto the promontory and incus. There is no evidence of effusion. Left tympanic membrane: Intact and mobile but thickened. The Left postauricular incision is healing well. Facial nerve function is normal and symmetric. Imp: S/p Left revision postauricular lateral graft tympanoplasty and removal of hypertrophic scar performed 01/25/2014 s/p Left postauricular underlay graft tympanoplasty performed 12/25/2012 s/p Right transcanal underlay graft tympanoplasty performed 02-26-2011 Plan: The examination findings were reviewed with the patient and her mother. Water precautions for the Left ear were discussed. To use floxin gtts for 5 more days RTC 3-4 weeks. Kirk Pablo MD 02/21/2014 16:38 documented in this encounter Plan of Treatment Not on file documented as of this encounter Visit Diagnoses Diagnosis Perforation of tympanic membrane, unspecified- Primary documented in this encounter Discontinued Medications Medication Sig Discontinue Reason Start Date End Da te oxyCODONE (ROXICODONE) 5 mg immediate release tabletIndications:Perfor ation of tympanic membrane, unspecified Take 1 Tab by mouth every 4 hours as needed for Pain. Earliest Fill Date: 01/31/14 01/31/2014 02/21/2014 documented as of this encounter Care Teams Construction Framer Relationship Specialty Start Date End Date Daniel Mendoza MD [address] [place] [address] PCP - General 12/12/08 documented as of this encounter
--- OUTSIDE RECORDS SUMMARY | 2024-01-05 00:14 | XMS_ITS | Encounter Summary ---
Author Organization [facility] Address [address] [place] [address] Care Team Providers Care Communications Field Technician Name Role Phone Unavailable Primary Care Provider Unavailabl e Encounter Details Date Type Department Care Team (Late st Contact Info) Description 02/29/2008 13:19 EDT Hospital Encounter [address] [address] Jeremy Walker MD [address] [place] [address], [address] [place] [address] Social History Tobacco Use Types [...]
--- OUTSIDE RECORDS SUMMARY | 2024-01-05 00:14 | XMS_ITS | Encounter Summary ---
Author Organization [facility] Address [address] [place] [address] Care Team Providers Care Career Guidance Technician Name Role Phone Daniel Mendoza MD Primary Care Provider [phone] Reason for Referral * (Routine/Next Available) - Closed Specialty Diagnoses / Procedures Referred By Contac t Referred To Contact Diagnoses Perforation of tympanic membrane, unspecified Procedures HEARING EVALUATION Kirk Pablo MD [address] [place] [address] [place] [phone] Referral ID Status Reason Start Date Expiration Date Visits Re quested Visits Authorized [id number] Closed 04/26/2013 1 1 Reason for Visit * Reason Comments Follow-up Encounter Details Date Type Department Care Team (Late st Contact Info) Description 04/26/2013 16:00 EST Office Visit [facility] ENT- Main [place] [address] [place] [id number] Kirk Pablo MD [address] [place] [address] [place] [phone] Perforation of tympanic membrane, unspecified (Primary Dx) Social History Tobacco Use Types Packs/Day Years Used Date Smoking Tobacco: Never Assessed Sex and Gender Information Value Date Recorded Sex Assigned at Not on file Gender Identity Not on file Sexual Orientation Not on file documented as of this encounter Progress Notes * Kirk Pablo MD - 04/26/2013 1914 EST Otolaryngology Progress note 04/26/2013 CC: follow up Left tympanoplasty HPI: The patient is a 12 y.o. white female who is seen in follow up s/p Left tympanoplasty. She is without c/o otorrhea. She has noted tenderness to palpation over the superior aspect of the Left postauricular scar. PE: General: pleasant cooperative white female in no distress EARS: OTOSCOPY: Right external auditory canal: Patent and not inflamed Left external auditory canal: Patent and not inflamed Right tympanic membrane: Intact and mobile but mildly atrophic. There is no evidence of retraction,perforation or effusion. Left tympanic membrane: Atrophic regions noted centrally and inferiorly. There is a pinpoint perforation noted in the inferior atrophic region of the tympanic membrane. The right postauricular incision is healing well. There is a region of hypertrophic scar noted in the upper middle portion of the incision. Facial nerve function is normal and symmetric. AUDIOGRAM: I have reviewed the audiogram performed today by our audiology staff on Rosaura Riley Ingram and it demonstrates: On the right, the hearing thresholds are in the normal range with word recognition score of 100 %. On the left, there is a mild low-frequency, high-frequency hearing loss with word recognition scoreof 100 %. Imp: s/p Left postauricular underlay graft tympanoplasty performed 12/25/2012 s/p Right transcanal underlay graft tympanoplasty performed 02-26-2011 Plan: The examination findings and audiometric test results were reviewed with the patient and her father. Water precautions for the Left ear were discussed. I discussed consideration of paper patch graft if this perforation persists. I recommended use of vit E or cocoa butter to soften the hypertrophic scar. I also discussed use ofa Kenalog injection. RTC 6 months. Kirk Pablo MD 04/26/2013 19:14 CC: DANIEL MENDOZA MD documented in this encounter Plan of Treatment Scheduled Orders Name Type Priority Associated Diagnoses Orde r Schedule HEARING EVALUATION Audiology Routine Perforation of tympanic membrane, unspecified Ordered: 04/26/2013 documented as of this encounter Procedures Procedure Name Priority Date/Time Associated Diagnosis Comments AUDIOGRAM - SCANNED 05/08/2013 12:20 EST documented in this encounter Results * AUDIOGRAM - SCANNED (05/08/2013 12:20 EST) 05/08/2013 12:2 0 EST Scan 2 Pipe Liner PROCEDURE/MINOR BEBA GICAL ORDERABLES documented in this encounter Visit Diagnoses Diagnosis Perforation of tympanic membrane, unspecified- Primary documented in this encounter Care Teams Career Guidance Technician Relationship Specialty Start Date End Date Daniel Mendoza MD [address] [place] [address] PCP - General 12/12/08 documented as of this encounter
--- OUTSIDE RECORDS SUMMARY | 2024-01-05 00:14 | XMS_ITS | Encounter Summary ---
Author Organization [facility] Address [address] [place] [address] Care Team Providers Care Educational Diagnostician Name Role Phone Daniel Mendoza MD Primary Care Provider [phone] Reason for Visit * Reason Comments Otalgia Encounter Details Date Type Department Care Team (Late st Contact Info) Description 01/07/2015 15:15 EDT Office Visit [facility] ENT- [place] [address] [place] [address] [phone] Kirk Pablo MD [address] [place] [address] [place] [phone] OME (otitis media with effusion), right (Primary Dx); CHL (conductive hearing loss) Social History Tobacco Use Types Packs/Day Years Used Date Smoking Tobacco: Never Sex and Gender Information Value Date Recorded Sex Assigned at Not on file Gender Identity Not on file Sexual Orientation Not on file documented as of this encounter Progress Notes * Kirk Pablo MD - 01/07/20151951 EDT DIVISION OF OTOLARYNGOLOGY H/P 01/07/2015 CHIEF [...] Mendoza MD (General) documented in this encounter Plan of Treatment Scheduled Orders Name Type Priority Associated Diagnoses Orde r Schedule HEARING EVALUATION Audiology Routine CHL (conductive hearing loss) Ordered: 01/07/2015 documented as of this encounter Procedures Procedure Name Priority Date/Time Associated Diagnosis Comments AUDIOGRAM - SCANNED 01/09/2015 14:15 EDT documented in this encounter Results * AUDIOGRAM - SCANNED (01/09/2015 14:15 EDT) 01/09/2015 14:1 5 EDT Scan 2 Machine Shop Apprentice PROCEDURE/MINOR BEBA GICAL ORDERABLES documented in this encounter Visit Diagnoses Diagnosis OME (otitis media with effusion), right- Primary CHL (conductive hearing loss) Unspecified conductive hearing loss documented in this encounter Care Teams Educational Diagnostician Relationship Specialty Start Date End Date Daniel Mendoza MD [address] [place] [address] PCP - General 12/12/08 documented as of this encounter
--- OUTSIDE RECORDS SUMMARY | 2024-01-05 00:14 | XMS_ITS | Encounter Summary ---
Author Organization [facility] Address [address] [place] [address] Care Team Providers Care Environmental Solutions Engineer Name Role Phone Daniel Mendoza MD Primary Care Provider [phone] Encounter Details Date Type Department Care Team (Late st Contact Info) Description 12/24/2011 9:08 EDT - 12/24/2011 12:31 EDT Hospital Encounter [facility] Perioperative Services- [address] [address] Jeremy Walker MD [address] [place] [address], [address] [place] [address] Discharge Disposition: Home or Self Care Social History Tobacco Use Types Packs/Day Years Used Date Smoking Tobacco: Never Assessed Sex and Gender Information Value Date Recorded Sex Assigned at Not on file Gender Identity Not on file Sexual Orientation Not on file documented as of this encounter Last Filed Vital Signs Vital Sign Reading Time Taken Comments Blood Pressure 122/76 12/24/2011 1017 EDT Pulse - - Temperature 36.2 ??C (97.2 ??F) 12/24/2011 1215 EDT Respiratory Rate 24 12/24/2011 1145 EDT Oxygen Saturation 100% 12/24/2011 1145 EDT Inhaled Oxygen Concentration - - Weight 103.6 kg (228 lb 6.3 oz) 12/24/2011 1016 EDT Height 167.6 cm (5' 6) 12/24/2011 1016 EDT Body Mass Index 36.86 12/24/2011 1016 EDT Body Mass Index Percentile 99.64% 12/24/2011 101 6 EDT Growth Chart: [facility] (Girls, 2- 20 Years) documented in this encounter Discharge Instructions * Discharge Instructions* Jeremy Walker MD - 12/24/2011 10:59 EDT Post-operative Instructions for Tonsillectomy Most children recover from a tonsillectomy in 7-14 days. Some feel better in just a few days, but some may take as many as 14 days to recover. Most children have a great deal of pain after surgery. They may complain of throat, jaw, neck, tongue or ear pain. You may give your child Motrin or Advil every 4-6 hours as directed on the packaging for your child's weight. You will also receive a prescription for pain medication that can be used for breakthrough pain, particularly at bedtime. Children often experience nausea or vomiting after general anesthesia and sometimes when taking narcotic pain medication. This is usually limited to the first 6 hours after surgery. If nausea and vomiting persists, please call the office. A low-grade fever is possible for 72 hours after surgery and should be treated with acetaminophen or acetaminophen with codeine. You should offer your child a soft diet after surgery. If he/she is uninterested in eating solid foods, this is ok as long as he is taking fluids. Encourage fluid intake. If your child no longer has tears when he cries, has a dry mouth, or stops urinating, please call the office. You should follow-up with Dr. Walker in 3-4 weeks after surgery. To schedule an appointment or reach the clinic, please call [phone]. If you need to reach the office due to a post surgical urgent issue, please call [phone]. documented in this encounter Medications at Time of Discharge Medication Sig Dispensed Refills Start Date End Date albuterol (PROVENTIL, VENTOLIN) 90 mcg/Actuation inhaler Inhale 2 Puffs as directed every 6 hours as needed. ACETAMINOPHEN WITH CODEINE (ACETAMINOPHEN-CODEINE) 120-12 mg/5 mL solution Take 10 mL by mouth every 6 hours as needed for Pain. 240 mL 1 12/24/2011 12/20/2012 Ascorbic Acid (VITAMIN C) 500 mg Chew Take 1 Tab by mouth daily. 12/20/2012 ferrous sulfate 324 mg (65 mg iron) TbEC Take 324 mg by mouth daily with breakfast. 12/20/2012 documented as of this encounter Ordered Prescriptions Prescription Sig Dispensed Refills Start Date End Da te ACETAMINOPHEN WITH CODEINE (ACETAMINOPHEN-CODEINE) 120-12 mg/5 mL solution Take 10 mL by mouth every 6 hours as needed for Pain. 240 mL 1 12/24/2011 12/20/2012 documented in this encounter Discharge Disposition Disposition Code Departure Means Destination Home or Self Care documented in this encounter Progress Notes * Deja Kent RN - 12/23/2011 1617 EDT Rosauraadan Ingram has been instructed as follows regarding medication administration for the day ofthe scheduled procedure. Date of Surgery: 12/24/11 Instructions for Taking Medications Day of Surgery Medication Last Dose Hold DOS Take DOS ferrous sulfate 324 mg (65 mg iron) TbEC yes Ascorbic Acid (VITAMIN C) 500 mg Chew yes ciprofloxacin-dexamethasone (CIPRODEX) otic suspension Yes albuterol (PROVENTIL, VENTOLIN) 90 mcg/Actuation inhaler Yes PRn/ bring dos Will avoid motrin preop/ had one tablet 12/20/11. May use tylenol prn. documented in this encounter H&P Notes * RUG CLEANING SUPERVISOR, YUMIKO 2 - 12/29/2011 0923 EDT * Jeremy Walker MD - 12/24/2011 0927 EDT The preoperative history and physical which was performed within 30 days of this procedure has been reviewed and the clinically appropriate elements of the physical examination have been repeated. There are no changes to the documented history and physical or if so such changes are documented below JEREMY WALKER MD 12/24/2011 9:27 documented in this encounter Nursing Notes * RUG CLEANING SUPERVISOR, YUMIKO 2 - 12/29/2011 0923 EDT documented in this encounter OR Notes * OR PreOp - RUG CLEANING SUPERVISOR, SCAN 2 - 12/29/2011 0923 EDT * Anesthesia Procedure Notes - RUG CLEANING SUPERVISOR, SCAN 2 - 12/24/2011 1114 EDT * OR Surgeon - Jeremy Walker MD - 12/24/2011 1100 EDT PROCEDURE REPORT PT TYPE: OPPROC SERVICE DATE: 12/24/2011 SURGEON: Jeremy Walker MD SALES VENDOR: None PREOPERATIVE DIAGNOSIS Obstructive sleep apnea POSTOPERATIVE DIAGNOSIS Same PROCEDURE Tonsillectomy (CPT 89184 ) ANESTHESIA General. FINDINGS Cryptic hypertrophic tonsils bilaterally NARRATIVE The patient was brought to the operating room and anesthesia was induced with general anesthesia. The patient was then positioned in the Brittney position and a Mickey-Serg mouth gag was then inserted. Ared rubber catheter was then placed in the patient???s right nostril and grasped at the posterior pharynx with a pair of Kellys. A straight Allis clamp was used to grasp the patient's left tonsil andwith electrocautery set at 25 whittaker coag, the left tonsil was removed from the tonsillar fossa. Thepatient's right tonsil was then removed in a similar fashion. Hemostasis was obtained with suction cautery set at 25 whittaker. Once hemostasis was obtained, the Mickey-Serg mouth gag was then temporarily released and then re-expanded to assure adequate hemostasis. The red rubber catheter was then usedto suction the posterior pharynx as well as the nasal cavities. The Mickey-Serg mouth gag was then removed. The patient was extubated and taken to the recovery room in stable condition. There were nocomplications to the case. Unless otherwise noted, there were no complications, no blood loss, cultures obtained, specimens removed, or drains retained. ESTIMATED BLOOD LOSS < 10 ml FLUIDS 500 ml R/L URINE OUTPUT Not recorded. SPECIMENS None. CULTURES None. DRAINS/PACKS/FOREIGN MATERIALS None COMPLICATIONS None. CONDITION Good to PACU. * Anesthesia Preprocedure Evaluation - RUG CLEANING SUPERVISOR, SCAN 2 - 12/24/2011 1012 EDT documented in this encounter Miscellaneous Notes * Scanned Note-Null - RUG CLEANING SUPERVISOR, SCAN 2 - 12/29/2011 0923 EDT * Scanned Note-Null - RUG CLEANING SUPERVISOR, SCAN 2 - 12/29/2011 0923 EDT * [facility]esthesia [facility] - [facility] Caroline - 12/24/2011 1141 EDT Post Anesthesia Evaluation Note Date of Service: 12/24/2011 Rosaura Ingram, a 11 y.o. year old female has received General Anesthesia today. She has been evaluated, assessed and discharged from anesthesia care with stable cardiorespiratory function and alert mental status. The last set of recorded vital signs and pain rating were reviewed: Height: 167.6 cm (66) (12/24/11 1016), Weight : 103.6 kg (228 lb 6.3 oz) (12/24/11 1016), BSA (Calculated - sq m): 2.2 sq meters (12/24/11 1016), Temp: 36.7 ??C (98.1 ??F) (12/24/11 1112), Heart Rate: 88 BPM (12/24/11 1130), BP: (waived per Anesth) (12/24/11 1112), Resp: 20 (12/24/11 1130), SpO2: 100 % (12/24/11 1130),Numeric Pain Level (Scale 1-10): 4 Total: 2 Rosaura Ingram participated in this evaluation unless otherwise noted. Her pain, nausea and vomiting have been managed and her body temperature and fluid balance have been restored. Additional monitoring and assessment needs have been addressed. If present, any postoperative events are documented below. Caroline Dominique CRNA 12/24/2011 11:41 documented in this encounter Plan of Treatment Not on file documented as of this encounter Visit Diagnoses Not on filedocumented in this encounter Administered Medications Inactive Administered Medications - up to 3 most recent administrations Medication Order MAR Action Action Date Dose Rate Site acetaminophen-codeine 120-12 mg/5 mL solution 10 mL 10 mL, oral, ONCE PRN, 1 dose, Starting on Tue12/24/11 at 1151, Until Tue12/24/11 at 1143, Pain, Pediatric Anesthesia PACU Order, Routine, Recovery (only) Given 12/24/2011 11:43 EDT 10 mL acetaminophen-codeine 120-12 mg/5 mL solution 1 dose, Starting on Tue12/24/11 at 1136, Until Tue12/24/11 at 1143 lactated ringers (LR) infusion at 25 mL/hr, intravenous, CONTINUOUS, Starting on Tue12/24/11 at 1045, Until Tue12/24/11 at 1437, Routine, Pre-Op DOS Rx Approved Rate Documented 12/24/2011 11:30 EDT 25 mL/h r New Bag 12/24/2011 10:19 EDT 25 mL/hr metoCLOPramide (REGLAN) 5 mg/mL injection 1 dose, Starting on Tue12/24/11 at 1217, Until Tue12/24/11 at 1218 metoCLOPramide (REGLAN) injection 10 mg 10 mg, intravenous, PRN, 1 dose, Starting on Tue12/24/11 at 1215, Until Tue12/24/11 at 1218, Nausea, Routine, Recovery (only) Given 12/24/2011 12:18 EDT 10 mg documented in this encounter Discontinued Medications Medication Sig Discontinue Reason Start Date End Da te fluticasone (FLOVENT HFA) 110 mcg/Actuation inhaler Inhale as directed every 12 hours. Error 12/23/2011 documented as of this encounter Historical Medications * This list may reflect changes made after this encounter. Medication Sig Dispensed Refills Start Date End Date Ascorbic Acid (VITAMIN C) 500 mg Chew Take 1 Tab by mouth daily. 12/20/2012 ferrous sulfate 324 mg (65 mg iron) TbEC Take 324 mg by mouth daily with breakfast. 12/20/2012 added in this encounter Active and Recently Administered Medications Times are shown in EDT. Continuous Medication Order 12/22/2011 12/23/2011 12/24/2011 lactated ringers (LR) infusion (CANCELED) at 25 mL/hr, intravenous, CONTINUOUS, Starting on Tue12/24/11 at 1045, Until Tue12/24/11 at 1437, Routine, Pre-Op DOS Rx Approved 1019 (New Bag - Prov ider: Marti Gonsales RN)1130 (Rate Documented - Provider: Holly Nelson RN) PRN Medication Order 12/22/2011 12/23/2011 12/24/2011 acetaminophen-codeine 120-12 mg/5 mL solution 10 mL (COMPLETED) 10 mL, oral, ONCE PRN, 1 dose, Starting on Tue12/24/11 at 1151, Until Tue12/24/11 at 1143, Pain, Pediatric Anesthesia PACU Order, Routine, Recovery (only) 1143 (Given - Provid er: Holly Nelson RN) metoCLOPramide (REGLAN) injection 10 mg (COMPLETED) 10 mg, intravenous, PRN, 1 dose, Starting on Tue12/24/11 at 1215, Until Tue12/24/11 at 1218, Nausea, Routine, Recovery (only) 1218 (Given - Provid er: Denys Gamino RN) documented in this encounter Orders Medications Ordered That Jose A ht Not Have Been Administered Count Last Ordered Date First Ordered Date atropine 0.1 mg/mL 10 mL syringe 0.5 mg 1 0 12/24/2011 fentanyl citrate (PF) 50 mcg /mL injection 25-100 mcg 1 12/24/2011 naloxone (NARCAN) injection 0.2 mg 1 2011 Transfer Count Last Ordered Date First Orde red Date NOTIFY PPS PACU PATIENT DISCHARGE 1 012 NOTIFY PPS PATIENT ARRIVAL IN PACU 1 2011 Discharge Count Last Ordered Date First Orde red Date DISCHARGE PATIENT 1 12/24/2011 documented in this encounter Care Teams Environmental Solutions Engineer Relationship Specialty Start Date End Date Daniel Mendoza MD [address] [place] [address] PCP - General 12/12/08 documented as of this encounter
--- OUTSIDE RECORDS SUMMARY | 2024-01-05 00:14 | XMS_ITS | Encounter Summary ---
Author Organization [facility] Address [address] [place] [address] Care Team Providers Care Slice Plug Cutter Operator Name Role Phone Unavailable Primary Care Provider Unavailabl e Encounter Details Date Type Department Care Team (Late st Contact Info) Description 04/27/2006 9:23 [facility] Hospital Encounter [address] [address] Jeremy Walker MD [address] [place] [address], [address] [place] [address] Social History Tobacco Use Types [...]
--- OUTSIDE RECORDS SUMMARY | 2024-01-05 00:14 | XMS_ITS | Encounter Summary ---
Author Organization [facility] Address [address] [place] [address] Care Team Providers Care Casino Controller Name Role Phone Daniel Mendoza MD Primary Care Provider [phone] Encounter Details Date Type Department Care Team (Late st Contact Info) Description 12/22/2007 Before PRISM Converted Visit (Maple) [facility] - Maple conversion [address] [place], [place] [address] Jeremy Walker MD [address] [facility], [address] [place] [address] Social History Tobacco Use Types Packs/Day Years Used Date Smoking Tobacco: Never Assessed Sex and Gender Information Value Date Recorded Sex Assigned at Not on file Gender Identity Not on file Sexual Orientation Not on file documented as of this encounter Progress Notes * Jeremy Walker MD - 03/14/2009 1049 EDT DIVISION OF OTOLARYNGOLOGY Daniel Mendoza MD [facility] [address] [place] [address] DOS 12/22/[address] Mendoza: Rosaura Ingram was reevaluated in my office on December 22, 2007. Examination at that time revealed a normal ENT exam with normal hearing. A copy of that test is enclosed. I think right now since she isseeing some resolve of her middle-ear effusions, I would just get her back in the office as needed. Sincerely, Signed by Jeremy Walker MD 12/25/2007 13:53 Jeremy Walker MD - Jeremy Walker MD - [facility] Job ID: [id number] Doc ID: [id number] Enclosure (audio) cc: Daniel Mendoza MD* * Jeremy Walker MD - 03/14/2009 1049 EDT DIVISION OF OTOLARYNGOLOGY PROGRESS/FOLLOWUP NOTE - 12/22/2007 CHIEF COMPLAINT Serous otitis media, recurrent otitis media. SUBJECTIVE Patient has had no troubles since last visit. Hearing seems better. No ear pain or drainage. OBJECTIVE Healthy, alert, cooperative female in no distress. Both eardrums look normal. Tympanograms are -210on the right side and normal on the left side. Audiogram is normal today. Oral cavity reveals 2-3+ cryptic tonsils. Palpation of the neck reveals no adenopathy. Nasal exam is normal today with a midline septum and normal turbinates without discharge. ASSESSMENT Resolved serous otitis media. PLAN Follow up p.r.n. Signed by Jeremy Walker MD 12/25/2007 13:53 Jeremy Walker MD - Jeremy Walker MD - [facility] Job ID: [id number] Doc ID: [id number] cc: documented in this encounter Plan of Treatment Not on file documented as of this encounter Visit Diagnoses Not on filedocumented in this encounter Care Teams Casino Controller Relationship Specialty Start Date End Date Daniel Mendoza MD [address] [place] [id number] PCP - General 12/12/08 documented as of this encounter
--- OUTSIDE RECORDS SUMMARY | 2024-01-05 00:14 | XMS_ITS | Encounter Summary ---
Author Organization [facility] Address [address] [place] [address] Care Team Providers Care Mathematics Academic Chair Name Role Phone Unavailable Primary Care Provider Unavailabl e Encounter Details Date Type Department Care Team (Late st Contact Info) Description 09/12/2007 10:42 EDT Hospital Encounter [address] [address] Jeremy Walker MD [address] [place] [address], [address] [place] [address] Social History Tobacco Use Types [...]
--- OUTSIDE RECORDS SUMMARY | 2024-01-05 00:14 | XMS_ITS | Encounter Summary ---
Author Organization [facility] Address [address] [place] [address] Care Team Providers Care Netezza Developer Name Role Phone Daniel Mendoza MD Primary Care Provider [phone] Encounter Details Date Type Department Care Team (Late st Contact Info) Description 06/11/2008 Before PRISM Converted Visit (Maple) [facility] - Maple conversion [address] [place] [address] Jeremy Walker MD [address] [facility], [address] [place] [address] Social History Tobacco Use Types Packs/Day Years Used Date Smoking Tobacco: Never Assessed Sex and Gender Information Value Date Recorded Sex Assigned at Not on file Gender Identity Not on file Sexual Orientation Not on file documented as of this encounter Progress Notes * Jeremy Walker MD - 01/04/2009 0617 EDT DIVISION OF OTOLARYNGOLOGY PROGRESS/FOLLOWUP NOTE - 06/11/2008 CHIEF COMPLAINT Chronic serous otitis media, recurrent otitis media. SUBJECTIVE The patient has had no troubles since surgery. Hearing seems better. Good health otherwise. OBJECTIVE Healthy, alert, cooperative female in no distress. Both tubes are in place without infection or drainage. The ear canal is normal. Middle-ear spaces are clear. An audiogram was normal today. Speech office manager receptionist thresholds (SRT) are at 15 decibels on the right side and 10 decibels on the left side. Testing was done by Andriy Caraballo. ASSESSMENT Normal tube check, normal hearing. PLAN Follow up in six months. Signed by Jeremy Walker MD 06/20/2008 07:19 Jeremy Walker MD - Alan Walker MD - [facility] Job ID: [id number] Doc ID: [id number] cc: Daniel Mendoza MD - Jeremy Walker MD - p Job ID: [id number] Doc ID: [id number] cc: Daniel Mendoza MD documented in this encounter Plan of Treatment Not on file documented as of this encounter Visit Diagnoses Not on filedocumented in this encounter Care Teams Netezza Developer Relationship Specialty Start Date End Date Daniel Mendoza MD [address] [place] [id number] PCP - General 12/12/08 documented as of this encounter
--- OUTSIDE RECORDS SUMMARY | 2024-01-05 00:14 | XMS_ITS | Encounter Summary ---
Author Organization [facility] Address [address] [place] [address] Care Team Providers Care Gas Maker Name Role Phone Unavailable Primary Care Provider Unavailabl e Encounter Details Date Type Department Care Team (Late st Contact Info) Description 05/07/2008 14:31 [facility] Hospital Encounter [address] [address] Jeremy Walker MD [address] [place] [address], [address] [place] [id number] Discharge Disposition: Auto Discharge Social History Tobacco [...]
--- OUTSIDE RECORDS SUMMARY | 2024-01-05 00:14 | XMS_ITS | Encounter Summary ---
Author Organization [facility] Address [address] [place] [address] Care Team Providers Care Crew Mess Attendant Name Role Phone Daniel Mendoza MD Primary Care Provider [phone] Reason for Visit * Reason Comments Follow-up Encounter Details Date Type Department Care Team (Late st Contact Info) Description 12/18/2013 16:00 EDT Office Visit [facility] ENT- Main [place] [address] [place] [address] [id number] Kirk Pablo MD [address] [place] [address] [place] [phone] Perforation of tympanic membrane, unspecified (Primary Dx); SNHL (sensorineural hearing loss) Social History Tobacco Use Types Packs/Day Years Used Date Smoking Tobacco: Never Assessed Sex and Gender Information Value Date Recorded Sex Assigned at Not on file Gender Identity Not on file Sexual Orientation Not on file documented as of this encounter Progress Notes * Kirk Pablo MD - 12/18/2013 5839 EDT Otolaryngology Progress note 12/18/2013 CC: Recent ear infections HPI: The patient is a 13 y.o. white female who is seen in follow up s/p Left tympanoplasty. She was seen in the ER on 11/09 for AOM. She again had otorrhea related to a URI in November. She continues to notice tenderness to palpation over the superior aspect of the Left postauricular scar. PE: General: pleasant cooperative white female in no distress EARS: OTOSCOPY: Right external auditory canal: Patent and not inflamed Left external auditory canal: Patent and not inflamed Right tympanic membrane: Intact and mobile but mildly atrophic. There is a trail sign of a crust noted on the posterior TM, however, there is no current evidence of iperforation. Left tympanic membrane: A 4 mm perforation is noted anterior inferiorly. There is a 2 mm perforation noted in the inferior atrophic region of the tympanic membrane. The TM remnant is atrophic. The middle ear mucosa is healthy The right postauricular incision is healing well. There is a region of hypertrophic scar noted in the upper middle portion of the incision. Facial nerve function is normal and symmetric. AUDIOGRAM: I have reviewed the audiogram performed today by our audiology staff on Rosaura Ingram and it demonstrates: On the right, there is a moderate low-frequency hearing loss affecting 250 Hz only with word recognition score of 100 %. On the left, there is a mild to moderate upsloping sensorineural hearing loss with word recognitionscore of 100 %. Imp: Persistent Left TM perforation s/p Left postauricular underlay graft tympanoplasty performed 12/25/2012 s/p Right transcanal underlay graft tympanoplasty performed 02-26-2011 Plan: The examination findings and audiometric test results were reviewed with the patient and her mother. Water precautions for the Left ear were discussed. I offered Left postauricular lateral graft tympanoplasty with EUA Right ear. The options were discussed, however, the patient and her mother are interested in pursuing Left tympanoplasty. The hearing loss appears to be sensorineural on audiometric testing today, however, I suspect that the loss is a conductive loss related to the perforation. The nature of surgery and expected convalescence were reviewed. The risks of surgery including hearing loss, dizziness, change in taste, and facial nerve injury were reviewed. I discussed that surgery would be postponed if there is any evidence of infection or drainage leading up to the day of surgery. I will consider removal of portion of the hypertrophic scar. I recommended use of cocoa butter at this time in order to soften the hypertrophic scar. Kirk Pablo MD 12/18/2013 21:19 CC: Daniel Mendoza MD documented in this encounter Plan of Treatment Not on file documented as of this encounter Procedures Procedure Name Priority Date/Time Associated Diagnosis Comments AUDIOGRAM - SCANNED 01/25/2014 14:37 EDT documented in this encounter Results * AUDIOGRAM - SCANNED (01/25/2014 14:37 EDT) 01/25/2014 14:3 7 EDT Scan 2 Timber Inspector PROCEDURE/MINOR BEBA GICAL ORDERABLES documented in this encounter Visit Diagnoses Diagnosis Perforation of tympanic membrane, unspecified- Primary SNHL (sensorineural hearing loss) Sensorineural hearing loss, unspecified documented in this encounter Discontinued Medications Medication Sig Discontinue Reason Start Date End Da te acetaminophen-codeine (TYLENOL #3) 300-30 mg per tablet Take 1 Tab by mouth every 4 hours as needed for Pain. 12/25/2012 12/18/2013 documented as of this encounter Care Teams Crew Mess Attendant Relationship Specialty Start Date End Date Daniel Mendoza MD [address] [place] [address] PCP - General 12/12/08 documented as of this encounter
--- OUTSIDE RECORDS SUMMARY | 2024-01-05 00:14 | XMS_ITS | Encounter Summary ---
Author Organization [facility] Address [address] [place] [address] Care Team Providers Care Terrazzo Worker Apprentice Name Role Phone Daniel Mendoza MD Primary Care Provider [phone] Reason for Visit * Reason Comments Post-OP Follow Up Encounter Details Date Type Department Care Team (Late st Contact Info) Description 01/31/2014 10:15 EDT Office Visit [facility] ENT- Main [address] [phone] Kirk Pablo MD [address] [place] [address] [place] [phone] Perforation of tympanic membrane, unspecified (Primary Dx) Social History Tobacco Use Types Packs/Day Years Used Date Smoking Tobacco: Never Assessed Sex and Gender Information Value Date Recorded Sex Assigned at Not on file Gender Identity Not on file Sexual Orientation Not on file documented as of this encounter Ordered Prescriptions Prescription Sig Dispensed Refills Start Date End Da te ofloxacin (FLOXIN) 0.3 % otic solutionIndications:Perf oration of tympanic membrane, unspecified Place 4 Drops into the left ear 2 times daily for 7 days. 1 Bottle 3 01/31/2014 02/07/2014 oxyCODONE (ROXICODONE) 5 mg immediate release tabletIndications:Perfor ation of tympanic membrane, unspecified Take 1 Tab by mouth every 4 hours as needed for Pain. Earliest Fill Date: 01/31/14 25 Tab 0 01/31/2014 02/21/2014 documented in this encounter Progress Notes * Kirk Pablo MD - 01/31/2014 0949 EDT Otolaryngology Progress note 01/31/2014 CC: Recent ear infections HPI: The patient is a 13 y.o. white female who is seen in follow up s/p Left tympanoplasty. She finished the prescribed narcotic but continues to c/o pain which is preventing her from sleeping. There is mild otorrhea. PE: General: pleasant cooperative white female in no distress EARS: OTOSCOPY: Right external auditory canal: Patent and not inflamed Left external auditory canal: Filled with gelfoam Right tympanic membrane: Intact and mobile but mildly atrophic. Retracted onto the promontory and incus. Left tympanic membrane: Could not see The Left postauricular incision is healing well. [...] were discussed. To use floxin gtts for one week prior to follow up in three weeks. A prescription for oxycodone was provided as well as a prescription for floxin gtts. Kirk Pablo MD 01/31/2014 9:49 CC: Daniel Mendoza MD documented in this encounter Plan of Treatment Not on file documented as of this encounter Visit Diagnoses Diagnosis Perforation of tympanic membrane, unspecified- Primary documented in this encounter Discontinued Medications Medication Sig Discontinue Reason Start Date End Da te oxyCODONE (ROXICODONE) 5 mg immediate release tablet Take 1 Tab by mouth every 6 hours as needed for Pain. Earliest Fill Date: 01/25/14 Reorder 01/25/2014 01/31/2014 documented as of this encounter Care Teams Terrazzo Worker Apprentice Relationship Specialty Start Date End Date Daniel Mendoza MD [address] [place] [address] PCP - General 12/12/08 documented as of this encounter
--- OUTSIDE RECORDS SUMMARY | 2024-01-05 00:14 | XMS_ITS | Encounter Summary ---
Author Organization [facility] Address [address] [place] [address] Care Team Providers Care Jewelry Mold Maker Name Role Phone Daniel Mendoza MD Primary Care Provider [phone] Reason for Visit * Reason Comments Post-OP Follow Up Encounter Details Date Type Department Care Team (Late st Contact Info) Description 02/22/2012 8:55 EDT Office Visit [facility] ENT- [address] [phone] Jeremy Walker MD [address] [place] [address], [address] [place] [address] Hypertrophy of tonsils alone; Obstructive sleep apnea (adult) (pediatric) Social History Tobacco Use Types Packs/Day Years Used Date Smoking Tobacco: Never Assessed Sex and Gender Information Value Date Recorded Sex Assigned at Not on file Gender Identity Not on file Sexual Orientation Not on file documented as of this encounter Progress Notes * Jeremy Walker MD - 02/22/2012 0848 EDT CHIEF COMPLAINT: Obstructive sleep apnea. HISTORY OF PRESENT ILLNESS: The patient had no troubles after her surgery. She had no postop bleeding. It took her 2 weeks to get better. Her snoring seemed to resolve as has her apnea. OBJECTIVE: Alert, cooperative 11-year-old, well nourished, in no distress. The oral cavity reveals healed tonsillar fossae. ASSESSMENT: Status post adenotonsillectomy for obstructive sleep apnea, normal postop course. PLAN: Followup p.r.n. documented in this encounter Plan of Treatment Not on file documented as of this encounter Visit Diagnoses Diagnosis Hypertrophy of tonsils alone Obstructive sleep apnea (adult) (pediatric) documented in this encounter Care Teams Jewelry Mold Maker Relationship Specialty Start Date End Date Daniel Mendoza MD [address] [place] [address] PCP - General 12/12/08 documented as of this encounter
--- OUTSIDE RECORDS SUMMARY | 2024-01-05 00:14 | XMS_ITS | Encounter Summary ---
Author Organization [facility] Address [address] [place] [address] Care Team Providers Care Freight Router Name Role Phone Daniel Mendoza MD Primary Care Provider Reason for Visit * Reason Comments Follow-up Encounter Details Date Type Department Care Team (Late st Contact Info) Description 05/20/2011 11:30 EST Office Visit [facility] ENT- Main [place] [address] [place] [address] [phone] Kirk Pablo MD [address] [place] [address] [place] [phone] Perforation of tympanic membrane, unspecified (Primary Dx) Discharge Disposition: Auto Discharge Social [...] Progress Notes * Kirk Pablo MD - 05/20/2011 1044 EST Otolaryngology Progress note 05/20/2011 CC: follow up right tympanoplasty HPI: The patient is a 10 y.o. white female who is seen in follow up s/p right tympanoplasty. She is currently without otalgia or otorrhea. The right ear has felt plugged recently. PE: General: pleasant cooperative white female in no distress EARS: OTOSCOPY: Right external auditory canal: Patent and not inflamed, with hard dry crust lining the ear canal which was partially removed Left external auditory canal: Patent and not inflamed Right tympanic membrane: Intact and mobile with dry crust noted on the posterior TM. Left tympanic membrane: Large near total TM perforation with healthy middle ear mucosa. The tip of the malleus is exposed through the perforation The right supra-auricular incision is well healed. Imp: Doing well s/p right type I tympanoplasty performed 02-26-2011 Left near total TM perforation Plan: The examination findings were reviewed with the patient and her father There is no current need for water precautions for the right ear To use mineral oil 2 gtts at night over the next month RTC 3 months with plans to obtain audiogram at that time. The family prefers to delay intervention for the left ear. Kirk Pablo MD 05/20/2011 10:44 CC: Daniel Mendoza MD documented in this encounter Plan of Treatment Not on file documented as of this encounter Visit Diagnoses Diagnosis Perforation of tympanic membrane, unspecified- Primary documented in this encounter Discontinued Medications Medication Sig Discontinue Reason Start Date End Da te acetaminophen-codeine (TYLENOL #3) 300-30 mg per tablet Take 1 Tab by mouth every 4 hours as needed for Pain. 02/26/2011 05/20/2011 documented as of this encounter Care Teams Freight Router Relationship Specialty Start Date End Date Daniel Mendoza MD [address] [place] [address] PCP - General 12/12/08 documented as of this encounter
--- OUTSIDE RECORDS SUMMARY | 2024-01-05 00:14 | XMS_ITS | Encounter Summary ---
Author Organization [facility] Address [address] [place] [address] Care Team Providers Care Venue Manager Name Role Phone Daniel Mendoza MD Primary Care Provider [phone] Reason for Visit * Reason Comments Post-OP Follow Up Encounter Details Date Type Department Care Team (Late st Contact Info) Description 01/02/2013 14:30 EDT Office Visit [facility] ENT- [address] [phone] Edilma Vaz MD [address] [place] [address], [address] [place] [address] Perforation of tympanic membrane, unspecified (Primary Dx) Social History Tobacco Use Types Packs/Day Years Used Date Smoking Tobacco: Never Assessed Sex and Gender Information Value Date Recorded Sex Assigned at Not on file Gender Identity Not on file Sexual Orientation Not on file documented as of this encounter Ordered Prescriptions Prescription Sig Dispensed Refills Start Date End Da te ciprofloxacin-dexamethason e (CIPRODEX) otic suspension Place 4 Drops into the left ear 2 times daily for 7 days. 1 Bottle 0 01/02/2013 01/09/2013 documented in this encounter Progress Notes * Edilma Vaz MD - 01/02/2013 1514 EDT Progress Note Division of Otolaryngology, Head and Neck Surgery Date of Service: 01/02/2013 Provider: EDILMA VAZ MD CHIEF COMPLAINT: Chief Complaint Patient presents with ??? Post-OP Follow Up HISTORY OF PRESENT ILLNESS: SUBJECTIVE: Rosaura Ingram is a 12 y.o. year old female that comes in today in follow up after tympanoplasty for TM perforation. She has done well since surgery. She is tapering off her pain medication. OBJECTIVE: Department of Otolaryngology PHYSICAL EXAMINATION NAD Steri-strips in place post-auricularly, removed revealing healing incision without signs of infection L EAC filled with gelfoam, TM not visualized ASSESMENT: 12 yo female s/p tympanoplasty, doing well. PLAN: - f/u [address] Pablo. Use otic gtt 1 week prior to visit EDILMA VAZ MD documented in this encounter Plan of Treatment Not on file documented as of this encounter Visit Diagnoses Diagnosis Perforation of tympanic membrane, unspecified- Primary documented in this encounter Care Teams Venue Manager Relationship Specialty Start Date End Date Daniel Mendoza MD [address] [place] [address] PCP - General 12/12/08 documented as of this encounter
--- OUTSIDE RECORDS SUMMARY | 2024-01-05 00:14 | XMS_ITS | Encounter Summary ---
Author Organization [facility] Address [address] [place] [address] Care Team Providers Care Rubber Tubing Backer Name Role Phone Daniel Mendoza MD Primary Care Provider [phone] Encounter Details Date Type Department Care Team (Late st Contact Info) Description 12/25/2012 11:54 EDT - 12/25/2012 20:17 EDT Hospital Encounter [facility] Perioperative Services- [address] [address] Kirk Pablo MD [address] [place] [address] [place] [phone] Discharge Disposition: Home or Self Care Social History Tobacco Use Types Packs/Day Years Used Date Smoking Tobacco: Never Assessed Sex and Gender Information Value Date Recorded Sex Assigned at Not on file Gender Identity Not on file Sexual Orientation Not on file documented as of this encounter Last Filed Vital Signs Vital Sign Reading Time Taken Comments Blood Pressure 128/85 12/25/2012 1930 EDT Pulse - - Temperature 35.7 ??C (96.3 ??F) 12/25/2012 1930 EDT Respiratory Rate 17 12/25/2012 1930 EDT Oxygen Saturation 99% 12/25/2012 1930 EDT Inhaled Oxygen Concentration - - Weight 103.6 kg (228 lb 6.3 oz) 12/20/2012 1403 EDT Height 165.1 cm (5' 5) 12/20/2012 1403 EDT Body Mass Index 38.01 12/20/2012 1403 EDT Body Mass Index Percentile 99.59% 12/20/2012 140 3 EDT Growth Chart: [facility] (Girls, 2- 20 Years) documented in this encounter Discharge Instructions * Discharge Instructions* Haylee Mckeon MD - 12/25/2012 14:41 EDT .Post-Operative Instructions for Tympanoplasty and Mastoidectomy Surgery 1. After surgery, you will have a special gauze dressing wrapped around the operated ear and yourhead. This dressing protects the ear as well as provides gentle pressure to the surgical area. You may remove the dressing the afternoon following surgery by carefully cutting the gauze over the forehead or releasing the Velcro strap (if present). 2. A cotton ball is placed in the ear canal. Please change the cotton ball as often as necessary. When changing the cotton ball, do not remove the packing deeper within the ear canal. This will be removed by your doctor during your follow-up appointments. Expect to find some blood-tinged drainage on the cotton. This is a normal part of the healing process. 3. The incision behind your ear will be covered by strips of tape which will be removed at your post-operative visit. 4. It is important to keep the ear canal and incision dry after surgery until the first follow-up visit. You can use a cotton ball coated with Vaseline while showering or bathing to protect the ear canal from water exposure. Alternatively, you can use a crumpled wash cloth to protect the ear and incision line from water exposure. Some patients wash their hair in a sink for several days after surgery. 5. You may notice that your hearing has decreased or become muffled after surgery. This is usually caused by packing placed by the surgeon deep in the ear canal. This packing will remain in place for 4-6 weeks to allow for complete healing. Also you may notice clicking and popping sounds in your ear. This is also part of the healing process. 6. For the first week following surgery, please avoid vigorous activities that involve straining orlifting objects greater than ten pounds. Refrain from activities such as aerobics, weightlifting, running, bike riding, and horseback riding. 7. Do not blow your nose and if you have to sneeze do not hold it in, keep your mouth open. 8. Eardrops will be prescribed by your doctor in the post-operative period. You will begin using them 3 weeks after surgery as instructed. 9. Call your doctor's office when you get home to schedule your first follow-up appointment. If you experience these symptoms after surgery, you should call your doctor's office: 1) Sudden, severe drop in hearing in the operated ear. 2) An increase in dizziness or vertigo since surgery. 3) Any sign of infection in the operated ear, such as increasing pain, yellow discharge, or swelling behind the ear. To schedule an appointment or reach the clinic, please call [phone]. If you need to reach the office due to a post surgical urgent issue, please call [phone]. documented in this encounter Medications at Time of Discharge Medication Sig Dispensed Refills Start Date End Date albuterol (PROVENTIL, VENTOLIN) 90 mcg/Actuation inhaler Inhale 2 Puffs as directed every 6 hours as needed. acetaminophen-codeine (TYLENOL #3) 300-30 mg per tablet Take 1 Tab by mouth every 4 hours as needed for Pain. 40 Tab 0 12/25/2012 12/18/2013 FA NON-FORMULARY MEDICATION, DO NOT ORDER, bcp 01/20/2015 sertraline (ZOLOFT) 50 mg tablet Take 50 mg by mouth daily. 01/20/2015 documented as of this encounter Ordered Prescriptions Prescription Sig Dispensed Refills Start Date End Da te acetaminophen-codeine (TYLENOL #3) 300-30 mg per tablet Take 1 Tab by mouth every 4 hours as needed for Pain. 40 Tab 0 12/25/2012 12/18/2013 documented in this encounter Discharge Disposition Disposition Code Departure Means Destination Home or Self Care documented in this encounter Progress Notes * Maikel Thibodeaux RN - 12/25/20122019 EDT 2017 PT STATES SHE FEELS BETTER IN REFERENCE TO HER NAUSEA, STATES SHE WANTS TO GO HOME, PT D/C HOME WITH FAMILY. * Maikel Thibodeaux RN - 12/25/20122008 EDT 1950 PT GOT UP AND GOT DRESSED , AFTER 5 MINUTES WAS NAUSEATED AND VOMITTED ABOUT 20CC CLEAR LIQUID, DR Radha MCKEON CALLED AND UPDATED .AT 2004 ORDERS GIVEN FOR PHENERGAN PO . * Patrizia Rollins, ELLE - 12/20/2012 1359 EDT Rosaura Ingram has been instructed as follows regarding medication administration for the day ofthe scheduled procedure. Date of Surgery: 12/25/2012 Instructions for Taking Medications Day of Surgery Medication Last Dose Hold DOS Take DOS albuterol (PROVENTIL, VENTOLIN) 90 mcg/Actuation inhaler Yes prn Other medication instructions: documented in this encounter H&P Notes * MULTI SLIDE MACHINE TENDER, SCAN 2 - 12/28/2012 1336 EDT * Haylee Mckeon MD - 12/25/2012 1429 EDT The preoperative history and physical which was performed within 30 days of this procedure has been reviewed and the clinically appropriate elements of the physical examination have been repeated. There are no changes to the documented history and physical or if so such changes are documented below HAYLEE MCKEON MD 12/25/2012 14:29 documented in this encounter Procedure Notes * MULTI SLIDE MACHINE TENDER, SCAN 2 - 12/28/2012 1336 EDTAssociated Order(s): ECG REPORT - SCANNED documented in this encounter Nursing Notes * MULTI SLIDE MACHINE TENDER, SCAN 2 - 12/28/2012 1336 EDT documented in this encounter OR Notes * OR PreOp - MULTI SLIDE MACHINE TENDER, SCAN 2 - 12/28/2012 1336 EDT * OR Surgeon - Kirk Pablo MD - 12/26/2012 5362 EDT OPERATIVE REPORT SERVICE DATE: 12/25/2012 PREOPERATIVE DIAGNOSIS: Left tympanic membrane perforation. POSTOPERATIVE DIAGNOSIS: Left tympanic membrane perforation. SURGEON: Kirk Pablo MD COILER OPERATOR: Haylee Mckeon MD ANESTHESIA: General. ESTIMATED BLOOD LOSS: Minimal. PROCEDURE: Left tympanoplasty with postauricular approach. INDICATIONS: Please refer to outpatient notes. NARRATIVE: The patient was brought to the operating room, was identified by her armband. The procedure to be performed was confirmed. After adequate general anesthesia was provided, the left ear was prepped and draped in the usual sterile fashion. The left ear was examined with the aid of the operating microscope. There was a 50% inferior central tympanic membrane perforation noted with healthy margins and healthy middle ear mucosa. The ear canal was found to be narrow, however. The ear canal and planned postauricular incision sites were infiltrated with 2% lidocaine with 1:100,000 epinephrine. After this had adequate time to take effect, vascular strip flap incisions were created. The vascular strip flap was back elevated slightly. The postauricular incision was created. This was taken down to the level of the temporalis fascia. A piece of temporalis fascia was harvested and set aside to dry for later use. The ear was then turned forward in the usual fashion. The tympanomeatal flap incisions were completed. The tympanomeatal flap was elevated and the middle ear was entered. The chorda tympani nerve was identified and preserved. The incus and stapes were not easily visualized, however. The margins of the perforation were freshened. The fascia graft was trimmed to size and was placed in an underlay graft fashion. It was bolstered medially with Floxin-soaked Gelfoam. The tympanomeatal flap was returned to its anatomic position. The fascia graft was found to seal the perforation nicely. The ear canal was filled medially with Floxin-soaked Gelfoam. The ear was returned to its anatomic position. The vascular strip flap was draped over the posterior bony canal wall. The ear canal was filled the remainder of the way with Floxin-soaked Gelfoam medially and dried pressed Gelfoam laterally. The postauricular incision was closed in a layered fashion using 3-0 Monocryl in an interrupted fashion to reapproximate the periosteum and 4-0 Monocryl in an interrupted deep dermal fashion to reapproximate the skin. Mastisol and Steri-Strips were applied. A standard mastoid dressing was applied. The patient was awakened, extubated and taken to the recovery room having tolerated the procedure well. Unless otherwise noted, there were no complications, no blood loss, no cultures obtained, no specimens removed, and no drains retained. Kirk Pablo MD 05 26 PM / Kirk Pablo MD mn Confirmation: [id number] Dictation ID: [id number] cc:Daniel Mendoza MD * Anesthesia Procedure Notes - MULTI SLIDE MACHINE TENDER, SCAN 2 - 12/25/2012 1748 EDT * OR PreOp - MULTI SLIDE MACHINE TENDER, SCAN 2 - 12/25/2012 1748 EDT * Anesthesia Preprocedure Evaluation - MULTI SLIDE MACHINE TENDER, SCAN 2 - 12/25/2012 1601 EDT documented in this encounter Miscellaneous Notes * Scanned Note-Null - MULTI SLIDE MACHINE TENDER, SCAN 2 - 12/28/2012 1336 EDT * Scanned Note-Null - MULTI SLIDE MACHINE TENDER, SCAN 2 - 12/28/2012 1336 EDT * Brief Op Note - Haylee Mckeon MD - 12/25/2012 1430 EDT Otolaryngology, Head and Neck Surgery Brief Post-Op Note Date of Surgery: 12/25/2012 Surgeon: Kirk Pablo MD Assistants: HAYLEE MCKEON MD Pre-Op Diagnosis: Left Tympanic membrane perforaiton Post-Op Diagnosis: same Procedure(s): Left tympanoplasty Medical Problem list: Patient Active Problem List Diagnoses ??? Otitis media ??? Simple or unspecified chronic serous otitis media ??? Conductive hearing loss, middle ear Findings: 1) narrow ear canal, post-auricular approach needed 2) Corda tympani intact Anesthesia Type: General Estimated Blood Loss: Unless otherwise noted, there was no blood loss, specimens removed, cultures obtained, or drains retained. The estimated blood loss was Minimal Fluids: Rosaura Ingram received Crystalloids 1000 mL of fluid replacement. Urine Output: NR Specimens/Cultures: None Drains/Packs: None Complications: None Disposition and Condition: Rosaura Ingram was sent to PACU in Good condition. HAYLEE MCKEON MD 12/25/2012 14:30' documented in this encounter Plan of Treatment Not on file documented as of this encounter Procedures Procedure Name Priority Date/Time Associated Diagnosis Comments ECG REPORT - SCANNED 12/28/2012 13:36 EDT documented in this encounter Results * ECG REPORT - SCANNED (12/28/2012 13:36 EDT) 12/28/2012 13:3 6 EDT Narrative 12/28/2012 14:07 EDT Procedure Note MULTI SLIDE MACHINE TENDER, SCAN 2 - 12/28/2012 13:36 EDT Scan 2 [employer] PROCEDURE/MINOR BEBA GICAL ORDERABLES documented in this encounter Visit Diagnoses Not on filedocumented in this encounter Administered Medications Inactive Administered Medications - up to 3 most recent administrations Medication Order MAR Action Action Date Dose Rate Site fentaNYL citrate (PF) 50 mcg/mL injection 26-103.5 mcg 26-103.5 mcg (0.25-1 mcg/kg ? 103.6 kg), intravenous, EVERY 5 MIN PRN, Starting on Tue12/25/12 at 1720, Until Tue12/25/12 at 2227, Pain, Pediatric Anesthesia PACU Order, Routine, Recovery (only) Given 12/25/2012 18:36 EDT 50 mcg HYDROmorphone (DILAUDID) 2 mg tablet 1 dose, Starting on Tue12/25/12 at 1907, Until Tue12/25/12 at 1908 HYDROmorphone (DILAUDID) tablet 2 mg 2 mg, oral, PRN, 1 dose, Starting on Tue12/25/12 at 1905, Until Tue12/25/12 at 1908, Pain, Routine, Recovery (only) Given 12/25/2012 19:08 EDT 2 mg lactated ringers (LR) infusion at 75 mL/hr, intravenous, CONTINUOUS, Starting on Tue12/25/12 at 1415, Until Tue12/25/12 at 2227, Routine, Pre-Op DOS Rx Approved New Bag 12/25/2012 13:46 EDT 25 mL/hr ondansetron (PF) (ZOFRAN) injection 4 mg 4 mg, intravenous, ONCE PRN, 1 dose, Starting on Tue12/25/12 at 1720, Until Tue12/25/12 at 1826, Nausea, Pediatric Anesthesia PACU Order, Routine, Recovery (only) Given 12/25/2012 18:26 EDT 4 mg promethazine (PHENERGAN) 12.5 mg tablet 1 dose, Starting on Tue12/25/12 at 2006, Until Tue12/25/12 at 2007 promethazine (PHENERGAN) tablet 12.5 mg 12.5 mg, oral, NOW X1, 1 dose, On Tue12/25/12 at 2030, Routine Given 12/25/2012 20:07 EDT 12.5 mg documented in this encounter Discontinued Medications Medication Sig Discontinue Reason Start Date End Da te ACETAMINOPHEN WITH CODEINE (ACETAMINOPHEN-CODEINE ) 120-12 mg/5 mL solution Take 10 mL by mouth every 6 hours as needed for Pain. Therapy completed 12/24/2011 12/20/2012 Ascorbic Acid (VITAMIN C) 500 mg Chew Take 1 Tab by mouth daily. Patient Stopped Taking 12/20/2012 ferrous sulfate 324 mg (65 mg iron) TbEC Take 324 mg by mouth daily with breakfast. Patient Stopped Taking 12/20/2012 documented as of this encounter Historical Medications * This list may reflect changes made after this encounter. Medication Sig Dispensed Refills Start Date End Date sertraline (ZOLOFT) 50 mg tablet Take 50 mg by mouth daily. 01/20/2015 FA NON-FORMULARY MEDICATION, DO NOT ORDER, bcp added in this encounter Active and Recently Administered Medications Times are shown in EDT. Scheduled Medication Order 12/23/2012 12/24/2012 12/25/2012 promethazine (PHENERGAN) tablet 12.5 mg (COMPLETED) 12.5 mg, oral, NOW X1, 1 dose, On Tue12/25/12 at 2030, Routine 2007 (Given - Provid er: Maikel Thibodeaux RN)2030 (Due) Continuous Medication Order 12/23/2012 12/24/2012 12/25/2012 lactated ringers (LR) infusion (CANCELED) at 75 mL/hr, intravenous, CONTINUOUS, Starting on Tue12/25/12 at 1415, Until Tue12/25/12 at 2227, Routine, Pre-Op DOS Rx Approved 1346 (New Bag - Prov ider: Laisha Martinez RN)1630 (Due) PRN Medication Order 12/23/2012 12/24/2012 12/25/2012 fentaNYL citrate (PF) 50 mcg/mL injection 26-103.5 mcg (CANCELED) 26-103.5 mcg (0.25-1 mcg/kg ? 103.6 kg), intravenous, EVERY 5 MIN PRN, Starting on Tue12/25/12 at 1720, Until Tue12/25/12 at 2227, Pain, Pediatric Anesthesia PACU Order, Routine, Recovery (only) 1836 (Given - Provid er: Maikel Thibodeaux RN) HYDROmorphone (DILAUDID) tablet 2 mg (COMPLETED) 2 mg, oral, PRN, 1 dose, Starting on Tue12/25/12 at 1905, Until Tue12/25/12 at 1908, Pain, Routine, Recovery (only) 1908 (Given - Provid er: Maikel Thibodeaux RN) ondansetron (PF) (ZOFRAN) injection 4 mg (COMPLETED) 4 mg, intravenous, ONCE PRN, 1 dose, Starting on Tue12/25/12 at 1720, Until Tue12/25/12 at 1826, Nausea, Pediatric Anesthesia PACU Order, Routine, Recovery (only) 1826 (Given - Provid er: Maikel Thibodeaux RN) documented in this encounter Orders Medications Ordered That Jose A ht Not Have Been Administered Count Last Ordered Date First Ordered Date lactated ringers (LR) infusion 1 12/25/2012 Nursing Count Last Ordered Date First Orde red Date PLACE SEQUENTIAL COMPRESSION DEVICE 1 12/25 Transfer Count Last Ordered Date First Orde red Date NOTIFY PPS PACU PATIENT DISCHARGE 1 013 NOTIFY PPS PATIENT ARRIVAL IN PACU 1 2012 Discharge Count Last Ordered Date First Orde red Date DISCHARGE PATIENT 1 12/25/2012 documented in this encounter Care Teams Rubber Tubing Backer Relationship Specialty Start Date End Date Daniel Mendoza MD [address] [place] [address] PCP - General 12/12/08 documented as of this encounter
--- OUTSIDE RECORDS SUMMARY | 2024-01-05 00:14 | XMS_ITS | Encounter Summary ---
Author Organization [facility] Address [address] [place] [address] Care Team Providers Care Learning Support Teacher Name Role Phone Daniel Mendoza MD Primary Care Provider [phone] Encounter Details Date Type Department Care Team (Late st Contact Info) Description 02/26/2011 11:33 EDT - 02/26/2011 18:24 EDT Hospital Encounter [facility] Perioperative Services- [address] [address] Kirk Pablo MD [address] [place] [address] [place] [phone] Discharge Disposition: Home or Self Care Social History Tobacco Use Types Packs/Day Years Used Date Smoking Tobacco: Never Assessed Sex and Gender Information Value Date Recorded Sex Assigned at Not on file Gender Identity Not on file Sexual Orientation Not on file documented as of this encounter Last Filed Vital Signs Vital Sign Reading Time Taken Comments Blood Pressure 119/62 02/26/2011 1800 EDT Pulse - - Temperature 37.1 ??C (98.8 ??F) 02/26/2011 1800 EDT Respiratory Rate 16 02/26/2011 1800 EDT Oxygen Saturation 97% 02/26/2011 1800 EDT Inhaled Oxygen Concentration - - Weight 61 kg (134 lb 7.7 oz) 02/26/2011 1441 EDT Height - - Body Mass Index - - documented in this encounter Discharge Instructions * Discharge Instructions* Scott Blanco MD - 02/26/2011 16:06 EDT Post-Operative Instructions for Tympanoplasty 1. A cotton ball is placed in the ear canal. Please change the cotton ball as often as necessary. When changing the cotton ball, do not remove the packing deeper within the ear canal. This will be removed by your doctor during your follow-up appointments. Expect to find some blood-tinged drainage on the cotton. This is a normal part of the healing process. 2. The incision behind your ear will be covered by strips of tape which will be removed at your post-operative visit. 3. It is important to keep the ear [...] a sink for several days after surgery. 4. You may notice that your hearing has decreased or become muffled after surgery. This is usually caused by packing placed by the surgeon deep in the ear canal. This packing will remain in place for 4-6 weeks to allow for complete healing. Also you may notice clicking and popping sounds in your ear. This is also part of the healing process. 5. For the first week following surgery, please avoid vigorous activities that involve straining orlifting objects greater than ten pounds. Refrain from activities such as aerobics, weightlifting, running, bike riding, and horseback riding. 6. Do not blow your nose and if you have to sneeze do not hold it in, keep your mouth open. 7. Call your doctor's office when you get [...] appointment or reach the clinic, please call [phone]. If you need to reach the office due to a post surgical urgent issue, please call [phone]. documented in this encounter Medications at Time of Discharge Medication Sig Dispensed Refills Start Date End Date albuterol (PROVENTIL, VENTOLIN) 90 mcg/Actuation inhaler Inhale 2 Puffs as directed every 6 hours as needed. acetaminophen-codeine (TYLENOL #3) 300-30 mg per tablet Take 1 Tab by mouth every 4 hours as needed for Pain. 20 Tab 0 02/26/2011 05/20/2011 fluticasone (FLOVENT HFA) 110 mcg/Actuation inhaler Inhale as directed every 12 hours. 12/23/2011 documented as of this encounter Ordered Prescriptions Prescription Sig Dispensed Refills Start Date End Da te acetaminophen-codeine (TYLENOL #3) 300-30 mg per tablet Take 1 Tab by mouth every 4 hours as needed for Pain. 20 Tab 0 02/26/2011 05/20/2011 documented in this encounter Discharge Disposition Disposition Code Departure Means Destination Home or Self Care documented in this encounter Progress Notes * Lucía De La Torre - 02/26/2011 1258 EDT Child life services were introduced to Rosaura Treadwell and her parents and paternal grandmother. IV education and support were provided. Mile tolerated IV start well. She did not express any educational or diversional needs at this time. If future child life needs arise today, please page child life. If needs arise after 1500, please call [phone]. Lucía De La Torre CCLS Certified Boat Loader Pager: [phone] * Marti Gonsales RN - 02/19/2011 1609 EDT Rosaura Ingram has been instructed as follows regarding medication administration for the day ofthe scheduled procedure. Date of Surgery: 02/26/11 Instructions for Taking Medications Day of Surgery Medication Last Dose Hold DOS Take DOS albuterol (PROVENTIL, VENTOLIN) 90 mcg/Actuation inhaler Take if needed fluticasone (FLOVENT HFA) 110 mcg/Actuation inhaler Take if needed documented in this encounter H&P Notes * Kiln Stoker, Jose - 02/26/2011 0000 EDT documented in this encounter OR Notes * OR Surgeon - Kirk Pablo MD - 02/26/2011 1607 EDT OPERATIVE REPORT SERVICE DATE: 02/26/2011 SURGEON: Kirk Pablo MD PREOPERATIVE DIAGNOSIS: Right tympanic membrane perforation and conductive hearing loss. POSTOPERATIVE DIAGNOSIS: Right tympanic membrane perforation and conductive hearing loss with intact ossicular chain. PROCEDURE: Right transcanal underlay graft type 1 tympanoplasty. INDICATIONS: Please refer to outpatient notes. NARRATIVE: The patient was brought to the operating room, was identified by armband. The procedure to be performed was confirmed. After adequate general anesthesia was provided, a small amount of hair was shaved from just above and behind the right ear. The right ear was prepped and draped in the usual sterile fashion. The right ear was examined with the aid of operating microscope. There was a 30 to 40% inferior central perforation noted with healthy middle ear mucosa. The attic region was free of disease. The ear canal and planned supraauricular incision sites were infiltrated with 2% lidocaine with 1:100,000 epinephrine. After this had adequate time to take effect, the margins of the perforation were rimmed. At this point, the supraauricular incision was created. This was carried down to the level of the temporalis fascia. A piece of temporalis fascia was harvested and set aside to dry for later use. Hemostasis was confirmed and the wound was closed using 3-0 Vicryl in an interrupted deep dermal fashion. The tympanomeatal flap incisions were created. The tympanomeatal flap was elevated and the middle ear was entered. A moderate amount of bone was curetted along the scutum in order to provide adequate visualization of the incus and stapes. The malleus was palpated and there was good reciprocal motion of the incus and stapes. The chorda tympani nerve was found to be intact. The fascia graft was placed beneath the tympanic membrane remnant and was bolstered with Floxin-soaked Gelfoam medially. The tympanomeatal flap was returned to its anatomic position. The fascia graft was found to be in excellent position. The ear canal was then filled with Floxin-soaked Gelfoam medially and dry-pressed Gelfoam laterally. A Bacitracin-impregnated cotton ball was applied to the ear. Mastisol and Steri-Strips were applied to the supraauricular incision. The patient was awakened, extubated and taken to the recovery room having tolerated the procedure well. Unless otherwise noted, there were no complications, no blood loss, no cultures obtained, no specimens removed, and no drains retained. Kirk Pablo MD 04 07 PM / Kirk Pablo MD jose Confirmation: [id number] Dictation ID: [id number] cc: Daniel Mendoza MD * Anesthesia Procedure Notes - Kiln Stoker, Scan - 02/26/2011 0000 EDT * Anesthesia Preprocedure Evaluation - Kiln Stoker, Scan - 02/26/2011 0000 EDT * OR PreOp - Kiln Stoker, Scan - 02/26/2011 0000 EDT * OR PreOp - Kiln Stoker, Scan - 02/26/2011 0000 EDT documented in this encounter Miscellaneous Notes * Brief Op Note - Scott Blanco MD - 02/26/2011 1325 EDT Otolaryngology, Head and Neck Surgery Brief Operative Note Surgeon : Kirk Pablo MD Construction Services Technician : SCOTT BLANCO MD Preoperative Diagnosis : Right TM Perforation Postoperative Diagnosis:same Procedure : Right Tympanoplasty Anesthesia :General Endotracheal Findings : 1. Right anteroinferior perforation Fluids : IVF - 1000 cc lactated ringer's solution Urine Output -Not Recorded EBL - Minimal Retained Material / Drains : Floxin soaked gelfoam in middle ear and EAC Specimen(s) : None Complications :none Condition :stable Disposition : to PACU Patient Active Problem List Diagnoses Code ??? OM (otitis media) 382.9L ??? Simple or unspecified chronic serous otitis media 381.10 ??? Conductive hearing loss, middle ear 389.03 SCOTT BLANCO MD * Scanned Note-Null - Kiln Stoker, Scan - 02/26/2011 0000 EDT * Scanned Note-Null - Kiln Stoker, Scan - 02/26/2011 0000 EDT documented in this encounter Plan of Treatment Not on file documented as of this encounter Visit Diagnoses Not on filedocumented in this encounter Administered Medications Inactive Administered Medications - up to 3 most recent administrations Medication Order MAR Action Action Date Dose Rate Site acetaminophen-codeine (TYLENOL #3) 300-30 mg per tablet 1 Tab 1 Tablet, oral, PACU PRN, Starting on Tue02/26/11 at 1731, Until Tue02/26/11 at 2033, Pain, Routine, Recovery (only) Given 02/26/2011 17:34 EDT 1 Tablet fentanyl citrate (PF) 50 mcg/mL injection 25-100 mcg 25-100 mcg, intravenous, EVERY 5 MIN PRN, Starting on Tue02/26/11 at 1600, Until Tue02/26/11 at 2033, Pain, Routine, Recovery (only) Given 02/26/2011 16:51 EDT 25 mcg Given 02/26/2011 16:42 EDT 25 mcg lactated ringers (LR) infusion at 25 mL/hr, intravenous, CONTINUOUS, Starting on Tue02/26/11 at 1300, Until Tue02/26/11 at 2033, Routine, Pre-Op DOS Rx Approved New Bag 02/26/2011 13:09 EDT 25 mL/hr lactated ringers (LR) infusion at 125 mL/hr, intravenous, CONTINUOUS, Starting on Tue02/26/11 at 1630, Until Tue02/26/11 at 2033, Routine, Recovery (only) Restarted 02/26/2011 16:21 EDT 125 mL/hr documented in this encounter Active and Recently Administered Medications Times are shown in EDT. Continuous Medication Order 02/24/2011 02/25/2011 02/26/2011 lactated ringers (LR) infusion (CANCELED) at 25 mL/hr, intravenous, CONTINUOUS, Starting on Tue02/26/11 at 1300, Until Tue02/26/11 at 2033, Routine, Pre-Op DOS Rx Approved 1309 (New Bag - Prov ider: Shirley Manuel, RN) lactated ringers (LR) infusion (CANCELED) at 125 mL/hr, intravenous, CONTINUOUS, Starting on Tue02/26/11 at 1630, Until Tue02/26/11 at 2033, Routine, Recovery (only) 1621 (Restarted - Pr ovider: Denys Gamino RN)1819 (Completed - Provider: Denys Gamino, RN) PRN Medication Order 02/24/2011 02/25/2011 02/26/2011 acetaminophen-codeine (TYLENOL #3) 300-30 mg per tablet 1 Tab (CANCELED) 1 Tablet, oral, PACU PRN, Starting on Tue02/26/11 at 1731, Until Tue02/26/11 at 203, Pain, Routine, Recovery (only) 1734 (Given - Provid er: Denys Gamino RN) fentanyl citrate (PF) 50 mcg/mL injection 25-100 mcg (CANCELED) 25-100 mcg, intravenous, EVERY 5 MIN PRN, Starting on Tue02/26/11 at 1600, Until Tue02/26/11 at 2033, Pain, Routine, Recovery (only) 1642 (Given - Provid er: Denys Gamino RN)1651 (Given - Provider: Denys Gamino RN) documented in this encounter Orders Medications Ordered That Jose A ht Not Have Been Administered Count Last Ordered Date First Ordered Date acetaminophen-codeine (TYLEN OL #3) 300-30 mg per tablet 1 03/02/2011 acetaminophen (TYLENOL) tablet 325 mg 1 atropine 0.1 mg/mL 10 mL syringe 0.4 mg 1 0 02/26/2011 diphenhydrAMINE (BENADRYL) i njection 6.25 mg 1 02/26/2011 hydrocodone-acetaminophen (L ORTAB;VICODIN) 5-500 mg per tablet 1-2 Tab 1 02/26/2011 metoCLOPramide (REGLAN) injection 10 mg 1 0 02/26/2011 naloxone (NARCAN) injection 0.2 mg 1 2010 oxycodone (ROXICODONE) immed iate release tablet 5-10 mg 1 02/26/2011 oxycodone-acetaminophen (PER COCET) 5-325 mg per tablet 1-2 Tab 1 02/26/2011 Admission Count Last Ordered Date First Orde red Date NOTIFY PPS PATIENT ARRIVAL IN PACU 1 2010 NOTIFY PPS PATIENT DISCHARGED FROM PACU 1 0 02/26/2011 Discharge Count Last Ordered Date First Orde red Date DISCHARGE PATIENT 1 02/26/2011 documented in this encounter Care Teams Learning Support Teacher Relationship Specialty Start Date End Date Daniel Mendoza MD [address] [place] [address] PCP - General 12/12/08 documented as of this encounter
--- OUTSIDE RECORDS SUMMARY | 2024-01-05 00:14 | XMS_ITS | Encounter Summary ---
Author Organization [facility] Address [address] [place] [address] Care Team Providers Care Infrastructure Manager Name Role Phone Daniel Mendoza MD Primary Care Provider [phone] Encounter Details Date Type Department Care Team (Late st Contact Info) Description 01/25/2007 Before PRISM Converted Visit (Maple) [facility] - [facility] conversion [address] [place] [address] Jeremy Walker MD [address] [facility], [address] [place] [address] Social History Tobacco Use Types Packs/Day Years Used Date Smoking Tobacco: Never Assessed Sex and Gender Information Value Date Recorded Sex Assigned at Not on file Gender Identity Not on file Sexual Orientation Not on file documented as of this encounter Progress Notes * Jeremy Walker MD - 04/18/2009 1750 EST DIVISION OF OTOLARYNGOLOGY PROGRESS/FOLLOWUP NOTE - 01/25/2007 SUBJECTIVE Patient has had no troubles since last visit. He lost a right tube recently. Good health otherwise.No ear pain. No ear drainage. Hearing seems okay. OBJECTIVE Healthy, alert, cooperative female in no distress. The right tympanic membrane has a small pin-point perforation. The left tube is in place and functioning. Both ear canals look normal. Middle-ear spaces are clear. Oral cavity reveals 3+ cryptic tonsils. Palpation of the neck reveals no adenopathy.Nasal exam is normal with a midline septum and normal turbinates without discharge. ASSESSMENT Right TM perforation. Left PE tube. PLAN Follow up in six months. Signed by Jeremy Walker MD 01/26/2007 17:07 Mauro Manzano MD Jeremy Walker MD - Jeremy Walker MD - wlp Job ID: [id number] Doc ID: [id number] cc: - Jeremy Walker MD - wlp Job ID: [id number] Doc ID: [id number] cc: documented in this encounter Plan of Treatment Not on file documented as of this encounter Visit Diagnoses Not on filedocumented in this encounter Care Teams Infrastructure Manager Relationship Specialty Start Date End Date Daniel Mendoza MD [address] [place] [id number] PCP - General 12/12/08 documented as of this encounter
--- OUTSIDE RECORDS SUMMARY | 2024-01-05 00:14 | XMS_ITS | Encounter Summary ---
Author Organization [facility] Address [address] [place] [address] Care Team Providers Care Bronc Buster Name Role Phone Unavailable Primary Care Provider Unavailabl e Encounter Details Date Type Department Care Team (Late st Contact Info) Description 01/13/2006 15:51 EDT Hospital Encounter [address] [address] Norbert Harden MD [address] [place] [address], [address] [place] [phone] Discharge Disposition: Auto Discharge Social History Tobacco [...]
--- OUTSIDE RECORDS SUMMARY | 2024-01-05 00:14 | XMS_ITS | Encounter Summary ---
Author Organization [facility] Address [address] [place] [address] Care Team Providers Care Tracer Bullet Charging Machine Operator Name Role Phone Unavailable Primary Care Provider Unavailabl e Encounter Details Date Type Department Care Team (Late st Contact Info) Description 04/04/2008 14:21 EDT Hospital Encounter [address] [address] Jeremy Walker MD [address] [place] [address], [address] [place] [id number] Discharge Disposition: Auto Discharge Social History Tobacco [...]
--- OUTSIDE RECORDS SUMMARY | 2024-01-05 00:14 | XMS_ITS | Encounter Summary ---
Author Organization [facility] Address [address] [place] [address] Care Team Providers Care Account Maintenance Representative Name Role Phone Daniel Mendoza MD Primary Care Provider Reason for Visit * Reason Comments Follow-up Encounter Details Date Type Department Care Team (Late st Contact Info) Description 01/12/2011 14:00 EDT Office Visit [facility] [place] [address] [place] [phone] Kirk Pablo MD [address] [place] [address] [place] [phone] Conductive hearing loss, middle ear; Unspecified perforation of tympanic membrane Discharge Disposition: Auto Discharge Social History Tobacco [...] Progress Notes * Kirk Pablo MD - 01/19/2011 1804 EDT DIVISION OF OTOLARYNGOLOGY PROGRESS/FOLLOWUP NOTE - 01/12/2011 CHIEF COMPLAINT: Hearing loss. HISTORY OF PRESENT ILLNESS: The patient is a 10-year-old white female who has been followed in our department by Dr Walker. The patient has had myringotomy and tube insertion at least 5 to 6 times. The most recent set were Estephanie T-tubes placed 01/24/2009. The patient was most recently seen by Dr Walker on 09/03/2010, was found to have retained good T-tubes bilaterally, which were removed without difficulty. The patient is seen today for followup regarding possible tympanoplasty. The patient hashad bilateral conductive hearing loss; however, testing performed in 2007 revealed hearing thresholds within the normal range. There is no significant history of seasonal allergy symptoms. She deniesnasal congestion. She had adenoidectomy with one of the sets of tubes. The patient has noted problems hearing in school. She feels as though her left ear may be her slightly better hearing ear. Thereis no complaint of tinnitus. PAST MEDICAL HISTORY: Asthma. PAST SURGICAL HISTORY: Bilateral myringotomy with tube insertion times approximately 6 with most recent set placed 01/24/2009. MEDICATIONS: Albuterol and Flovent. ALLERGIES: No known drug allergies. OBJECTIVE: In general, the patient is a pleasant, cooperative white female in no apparent distress.Ear examination: The right ear canal is patent. The right tympanic membrane is noted to have 2 perforations by a thin band of tympanic membrane remnant. One perforation is noted just overlying the umbo region of the malleus. The second perforation is just posterior and inferior to that region. The smaller perforation is approximately a millimeter in diameter. The second perforation is approximately 2 mm in diameter. The attic region is free of disease. The margins of the perforation are otherwise healthy. There is patchy myringosclerosis noted. The attic region is free of disease. The middle ear mucosa is healthy. There is no current evidence of infection. The left ear canal is patent. The left tympanic membrane is noted to have a near total tympanic membrane perforation. There is a remnant anteriorly as well as posterosuperiorly. The attic region is free of disease. The middle ear mucosa is healthy. DIAGNOSTIC DATA: Tuning fork testing reveals the left ear to be the better hearing ear. Byrnes examination is nonlateralizing. Rinne examination is positive bilaterally; however, tooth held Rinne is negative bilaterally. An audiogram performed today by Ester Muller reveals a bilateral [id number] purely conductivehearing loss. Word recognition scores are 100% bilaterally. IMPRESSION: 1. Bilateral tympanic membrane perforations. 2. Bilateral [id number] conductive hearing loss. 3. History of recurring otitis media prompting the need for multiple sets of myringotomy tubes. PLAN: The examination findings and audiometric test results were reviewed with the patient and her father. I discussed right tympanoplasty with middle ear exploration as the right ear is the poorer hearing ear. I discussed the nature of surgery and expected convalescence. I would plan underlay graft tympanoplasty with evaluation of the ossicular chain in the same setting. Given her history of multiple tubes and frequent otitis, I will have CO2 laser standby for possible need for management of tympanosclerosis. The patient is found to have a much larger perforation in the left ear, which wouldrequire lateral graft tympanoplasty. The other option beside surgery would be to consider amplificat ion an FM system in the school setting. The risk of tympanoplasty is a risk of recurrent otitis media and serous effusions requiring more future tube placement. Given the severity of her hearing loss, I have recommended surgical intervention for the right ear. The patient and her father are in agreement to proceed in this fashion. The risks of surgery including persistent perforation, hearing loss, dizziness, and change in taste were all reviewed. Consent has been obtained. The patient's fatherwas asked to call if any questions arise in the interim. Electronically Signed by Kirk Pablo MD 01/19/2011 18:04 Kirk Pablo MD - Kirk Pablo MD - ERIN Job ID: SM Doc ID: [id number] Ext Doc ID: [id number] cc: Daniel Mendoza MD * Kirk Pablo MD - 01/12/2011 1614 EDT This office note has been dictated. # [id number] documented in this encounter Procedure Notes * Channel Supervisor, Jose - 02/12/2011 1245 EDTAssociated Order(s): PROCEDURE REPORTS - SCANNED documented in this encounter Plan of Treatment Scheduled Orders Name Type Priority Associated Diagnoses Orde r Schedule HEARING EVALUATION Audiology Routine Unspecified Perforation of Tympanic Membrane Ordered: 01/12/2011 documented as of this encounter Procedures Procedure Name Priority Date/Time Associated Diagnosis Comments PROCEDURE REPORTS - SCANNED 02/12/2011 12:45 EDT documented in this encounter Results * PROCEDURE REPORTS - SCANNED (02/12/2011 12:45 EDT) 02/12/2011 12:4 5 EDT Narrative Procedure Note Channel Supervisor, Scan - 02/12/2011 12:45 EDT Scan Channel Supervisor PROCEDURE/MINOR SURG ICAL ORDERABLES documented in this encounter Visit Diagnoses Diagnosis Conductive hearing loss, middle ear Perforation of tympanic membrane, unspecified documented in this encounter Care Teams Account Maintenance Representative Relationship Specialty Start Date End Date Daniel Mendoza MD [address] [place] [address] PCP - General 12/12/08 documented as of this encounter
--- OUTSIDE RECORDS SUMMARY | 2024-01-05 00:14 | XMS_ITS | Encounter Summary ---
Author Organization [facility] Address [address] [place] [address] Care Team Providers Care Relay Telegrapher Name Role Phone Daniel Mendoza MD Primary Care Provider [phone] Reason for Visit * Reason Comments Follow-up Encounter Details Date Type Department Care Team (Late st Contact Info) Description 04/01/2011 11:30 EDT Office Visit [facility] ENT- Main [place] [address] [place] [address] [phone] Kirk Pablo MD [address] [place] [address] [place] [phone] Perforation of tympanic membrane, unspecified (Primary Dx) Social History Tobacco Use Types Packs/Day Years Used Date Smoking Tobacco: Never Assessed Sex and Gender Information Value Date Recorded Sex Assigned at Not on file Gender Identity Not on file Sexual Orientation Not on file documented as of this encounter Progress Notes * Kirk Pablo MD - 04/01/2011 1247 EDT Otolaryngology Progress note 04/01/2011 CC: follow up right tympanoplasty HPI: The patient is a 10 y.o. white female who is seen in follow up s/p right tympanoplasty. She is currently without otalgia or otorrhea. There was not problem with use of gtts over the past week. PE: EARS: OTOSCOPY: Right external auditory canal: Patent and not inflamed Left external auditory canal: Patent and not inflamed Right tympanic membrane: Intact and mobile with moist debris on the surface. Left tympanic membrane: Large near total TM perforation with healthy middle ear mucosa. The right supra-auricular incision is healing well with one extruding suture noted anteriorly. Tuning fork testing with 512 Hz tuning fork reveals the right ear to be the better hearing ear. Rinne was positive bilaterally. Imp: Doing well s/p right type I tympanoplasty performed 02-26-2011 Left near total TM perforation Plan: The examination findings were reviewed with the patient and her parents There is no current need for water precautions for the right ear Boric acid powder insufflated on the right RTC 6 weeks with plans to obtain audiogram at that time. The family prefers to delay intervention for the left ear. Kirk Pablo MD 04/01/2011 12:47 CC: Daniel Mendoza MD documented in this encounter Plan of Treatment Not on file documented as of this encounter Visit Diagnoses Diagnosis Perforation of tympanic membrane, unspecified- Primary documented in this encounter Care Teams Relay Telegrapher Relationship Specialty Start Date End Date Daniel Mendoza MD [address] [place] [id number] PCP - General 12/12/08 documented as of this encounter
--- OUTSIDE RECORDS SUMMARY | 2024-01-05 00:14 | XMS_ITS | Encounter Summary ---
Author Organization [facility] Address [address] [place] [address] Care Team Providers Care Neon Sign Mechanic Name Role Phone Daniel Mendoza MD Primary Care Provider [phone] Reason for Visit * Reason Comments Follow-up Encounter Details Date Type Department Care Team (Late st Contact Info) Description 08/18/2011 11:30 EST Office Visit [facility] ENT- Main [place] [address] [place] [phone] Kirk Pablo MD [address] [place] [address] [place] [phone] Perforation of tympanic membrane, unspecified (Primary Dx) Social History Tobacco Use Types Packs/Day Years Used Date Smoking Tobacco: Never Assessed Sex and Gender Information Value Date Recorded Sex Assigned at Not on file Gender Identity Not on file Sexual Orientation Not on file documented as of this encounter Progress Notes * Kirk Pablo MD - 08/18/2011 1237 EST Otolaryngology Progress note 08/18/2011 CC: follow up right tympanoplasty HPI: The patient is a 11 y.o. white female who is seen in follow up s/p right tympanoplasty. She has noted recent right sided otorrhea and plugged sensation after URI. There are no current left ear complaints. PE: General: pleasant cooperative white female in no distress EARS: OTOSCOPY: Right external auditory canal: Patent and not inflamed, with thin dry crust lining the ear canal which [...] use mineral oil 2 gtts at night twice a month RTC 4 months with plans to obtain audiogram at that time. The family prefers to delay intervention for the left ear. Kirk Pablo MD 08/18/2011 12:37 CC: Daniel Mendoza MD documented in this encounter Plan of Treatment Not on file documented as of this encounter Visit Diagnoses Diagnosis Perforation of tympanic membrane, unspecified- Primary documented in this encounter Care Teams Neon Sign Mechanic Relationship Specialty Start Date End Date Daniel Mendoza MD [address] [place] [id number] PCP - General 12/12/08 documented as of this encounter
--- OUTSIDE RECORDS SUMMARY | 2024-01-05 00:14 | XMS_ITS | Encounter Summary ---
Author Organization [facility] Address [address] [place] [address] Care Team Providers Care Marine Safety Officer Name Role Phone Daniel Mendoza MD Primary Care Provider [phone] Reason for Visit * Reason Comments Follow-up Encounter Details Date Type Department Care Team (Late st Contact Info) Description 09/03/2010 13:35 EDT Office Visit [facility] ENT- [address] [phone] Jeremy Walker MD [address] [facility], [address] [place] [address] Simple or unspecified chronic serous otitis media; Conductive hearing loss, middle ear Social History Tobacco Use Types Packs/Day Years Used Date Smoking Tobacco: Never Assessed Sex and Gender Information Value Date Recorded Sex Assigned at Not on file Gender Identity Not on file Sexual Orientation Not on file documented as of this encounter Progress Notes * Jeremy Walker MD - 09/07/2010 1511 EDT DIVISION OF OTOLARYNGOLOGY PROGRESS/FOLLOWUP NOTE - 09/03/2010 SUBJECTIVE: The patient has had no troubles since last visit. She is doing well in school. No ear pain, no ear drainage, no ear infections. OBJECTIVE:, Alert, cooperative young lady in no distress. Under the microscope a retained Estephanie T-tube was removed bilaterally without complication, leaving perforations bilaterally. DIAGNOSTIC DATA: Audiogram today shows a persistent conductive hearing loss 30 to 40 decibels. SRT at 35 decibels. Testing by Andriy Caraballo. ASSESSMENT: Bilateral tympanic membrane perforations. PLAN: Follow up with her brother on his postop check with Dr Pablo for a second opinion concerning tympanoplasty. Electronically Signed by Jeremy Walker MD 09/07/2010 15:11 Jeremy Walker MD - Jeremy Walker MD - [facility] Job ID: SM Doc ID: [id number] [facility] Doc ID: [id number] cc: Daniel Mendoza MD * Jeremy Walker MD - 09/03/2010 1853 EDT This office note has been dictated. documented in this encounter Procedure Notes * Inpatient, Physician - 09/23/2010 1531 EDTAssociated Order(s): PROCEDURE REPORTS - SCANNED documented in this encounter Plan of Treatment Not on file documented as of this encounter Procedures Procedure Name Priority Date/Time Associated Diagnosis Comments PROCEDURE REPORTS - SCANNED 09/23/2010 15:31 EDT documented in this encounter Results * PROCEDURE REPORTS - SCANNED (09/23/2010 15:31 EDT) 09/23/2010 15:3 1 EDT Narrative Procedure Note Inpatient, Physician - 09/23/2010 15:31 EDT Physician Inpatient MD PROCEDURE/MINOR S URGICAL ORDERABLES documented in this encounter Visit Diagnoses Diagnosis Simple or unspecified chronic serous otitis media Conductive hearing loss, middle ear documented in this encounter Care Teams Marine Safety Officer Relationship Specialty Start Date End Date Daniel Mendoza MD [address] [place] [address] PCP - General 12/12/08 documented as of this encounter
--- OUTSIDE RECORDS SUMMARY | 2024-01-05 00:14 | XMS_ITS | Encounter Summary ---
Author Organization [facility] Address [address] [place] [address] Care Team Providers Care Supervisor Pumping Station Name Role Phone Daniel Mendoza MD Primary Care Provider [phone] Encounter Details Date Type Department Care Team (Late st Contact Info) Description 09/25/2009 Abstract Used for ABSTRACTING Data [phone] Daniel Mendoza MD [address] [place] [address] OM (otitis media) Social History Tobacco Use Types Packs/Day Years Used Date Smoking Tobacco: Never Assessed Sex and Gender Information Value Date Recorded Sex Assigned at Not on file Gender Identity Not on file Sexual Orientation Not on file documented as of this encounter Plan of Treatment Not on file documented as of this encounter Visit Diagnoses Diagnosis OM (otitis media) Unspecified otitis media documented in this encounter Care Teams Supervisor Pumping Station Relationship Specialty Start Date End Date Daniel Mendoza MD [address] [place] [address] PCP - General 12/12/08 documented as of this encounter
--- OUTSIDE RECORDS SUMMARY | 2024-01-05 00:14 | XMS_ITS | Encounter Summary ---
Author Organization [facility] Address [address] [place] [address] Care Team Providers Care Cable Assembler Name Role Phone Daniel Mendoza MD Primary Care Provider [phone] Reason for Visit * Reason Comments Follow-up Encounter Details Date Type Department Care Team (Late st Contact Info) Description 12/16/2011 11:00 EDT Office Visit [facility] ENT- Main [place] [address] [place], [place] [phone] Kirk Pablo MD [address] [place] [address] [place] [phone] Perforation of tympanic membrane, [...] End Da te ciprofloxacin-dexamethason e (CIPRODEX) otic suspensionIndications:Perf oration of tympanic membrane, unspecified Place 4 Drops into the left ear 2 times daily for 7 days. 1 Bottle 2 12/16/2011 12/23/2011 documented in this encounter Progress Notes * Kirk Pablo MD - 12/16/2011 1311 EDT Otolaryngology Progress note 12/16/2011 CC: follow up Right tympanoplasty HPI: The patient is a 11 y.o. white female who is seen in follow up s/p right tympanoplasty. She is without right ear complaints. She is unaware of any asymmetric nature to her hearing. She has had left otorrhea related to water exposure. PE: General: pleasant cooperative white female in no distress EARS: OTOSCOPY: Right external auditory canal: Patent and not inflamed Left external auditory canal: Patent and not inflamed Right tympanic membrane: Intact and mobile with retraction onto the promontory. There is no evidence of perforation or effusion. Left tympanic membrane: Large near total TM perforation with healthy middle ear mucosa. The tip of the malleus is exposed through the perforation and there is slight inflammation on the tip of the malleus. AUDIOGRAM: I have reviewed the audiogram performed today by our audiology staff on Rosaura Ingram and it demonstrates: On the right, there is a mild low-frequency conductive hearing loss with word recognition score of 100 %. On the left, there is a mild to moderate flat conductive hearing loss with word recognition score of 96 %. Imp: Doing well s/p Right type I tympanoplasty performed 02-26-2011 Left near total TM perforation Plan: The examination findings and audiometric test results were reviewed with the patient and her mother There is no current need for water precautions for the right ear Water precautions for the left ear were reviewed. A swim mold was fashioned for the left ear A prescription for ciprodex was provided for the left ear for prn use. RTC one year The family prefers to delay intervention for the left ear. Kirk Pablo MD 12/16/2011 13:11 CC: DANIEL MENDOZA MD documented in this encounter Procedure Notes * NETWORK SECURITY ARCHITECT, SCAN 2 - 12/30/2011 1029 EDTAssociated Order(s): PROCEDURE REPORTS - SCANNED documented in this encounter Plan of Treatment Not on file documented as of this encounter Procedures Procedure Name Priority Date/Time Associated Diagnosis Comments PROCEDURE REPORTS - SCANNED 12/30/2011 10:29 EDT documented in this encounter Results * PROCEDURE REPORTS - SCANNED (12/30/2011 10:29 EDT) 12/30/2011 10:2 9 EDT Narrative Transcriptions NETWORK SECURITY ARCHITECT, SCAN 2 - 12/30/2011 10:29 EDT Scan 2 Heater Tender PROCEDURE/MINOR BEBA GICAL ORDERABLES documented in this encounter Visit Diagnoses Diagnosis Perforation of tympanic membrane, unspecified- Primary documented in this encounter Care Teams Cable Assembler Relationship Specialty Start Date End Date Daniel Mendoza MD [address] [place] [id number] PCP - General 12/12/08 documented as of this encounter
--- OUTSIDE RECORDS SUMMARY | 2024-01-05 00:14 | XMS_ITS | Encounter Summary ---
Author Organization [facility] Address [address] [place] [address] Care Team Providers Care Welt Drawer Name Role Phone Daniel Mendoza MD Primary Care Provider [phone] Reason for Visit * Reason Comments Other consult Encounter Details Date Type Department Care Team (Late st Contact Info) Description 12/16/2011 10:40 EDT Office Visit [facility] ENT- [facility] [address] [place], [place] [phone] Jeremy Walker MD [address] [facility], [address] [place] [address] Obstructive sleep apnea (adult) (pediatric) (Primary Dx); Hypertrophy of tonsils alone Social History Tobacco Use Types Packs/Day Years Used Date Smoking Tobacco: Never Assessed Sex and Gender Information Value Date Recorded Sex Assigned at Not on file Gender Identity Not on file Sexual Orientation Not on file documented as of this encounter Progress Notes * Jeremy Walker MD - 12/16/2011 0766 EDT CHIEF COMPLAINT: Obstructive sleep apnea. HISTORY OF PRESENT ILLNESS: The patient is a horrible snorer at nighttime, mom has noticed some apneic episodes. She had a recent sleep study showing greater than 10 episodes of apnea hypopnea per hour. She feels tired during the day. She is worse when she has an upper respiratory infection with her snoring and apnea. She is in good health otherwise. She had a tympanoplasty on the right side with Dr Pablo and she continues to have some decreased hearing on that side and some drainage. REVIEW OF SYSTEMS: General: Overweight. Respiratory: No cough. GI: No diarrhea. Neuro: No seizures.Cardiovascular: Normal. : Normal. Endocrine: Normal growth. Hematology: No bleeding disorders. OBJECTIVE: Alert, cooperative overweight female, well nourished, in no distress. Voice is normal today. Head and face inspection and palpation are both normal. Salivary glands are normal today. Facial strength is normal today. External ear and nose all normal today. Eyes are normal today. Otoscopy:Both ear canals are normal. There is fluid in the right middle ear space. The left eardrum has a mid drum perforation without infection or drainage today. Nose: Midline septum, normal turbinates without discharge. Lips, teeth and gums all normal for her age. Oral cavity, oropharynx is normal with 3+ tonsils. Palpation of the neck reveals no adenopathy or masses. The thyroid is normal today. Heartregular rate and rhythm. Lungs clear all lung contreras. Abdomen is soft, benign and active bowel sounds. ASSESSMENT: Obstructive sleep apnea with positive sleep study. PLAN: Recommended outpatient tonsillectomy and possible re adenoidectomy. Surgery explained, consent obtained, and risk and complications discussed and she will see Dr Pablo this morning. CC: Daniel Mendoza MD documented in this encounter Plan of Treatment Not on file documented as of this encounter Visit Diagnoses Diagnosis Obstructive sleep apnea (adult) (pediatric)- Primary Hypertrophy of tonsils alone documented in this encounter Discontinued Medications Medication Sig Discontinue Reason Start Date End Da te predniSONE (DELTASONE) 20 mg tablet 40 mg daily for 5 days 11/04/2011 12/16/2011 documented as of this encounter Care Teams Welt Drawer Relationship Specialty Start Date End Date Daniel Mendoza MD [address] [place] [address] PCP - General 12/12/08 documented as of this encounter
--- OUTSIDE RECORDS SUMMARY | 2024-01-05 00:14 | XMS_ITS | Encounter Summary ---
Author Organization [facility] Address [address] [place] [address] Care Team Providers Care Accounts Payable Clerk Name Role Phone Daniel Mendoza MD Primary Care Provider [phone] Reason for Referral * (Routine/Next Available) - Closed Specialty Diagnoses / Procedures Referred By Contwhitney t Referred To Contact Diagnoses Perforation of tympanic membrane, unspecified Procedures HEARING EVALUATION Kirk Pablo MD [address] [place] [address] [place] [phone] Referral ID Status Reason Start Date Expiration Date Visits Re quested Visits Authorized [id number] Closed 11/20/2012 1 1 Reason for Visit * Reason Comments Tympanic Membrane Perforation Otalgia Encounter Details Date Type Department Care Team (Late st Contact Info) Description 11/20/2012 14:30 EDT Office Visit [facility] ENT- Main [place] [address] [place] [phone] Kirk Pablo MD [address] [place] [address] [place] [phone] Perforation of tympanic membrane, unspecified (Primary Dx); Otalgia, unspecified Discharge Disposition: Auto Discharge Social History Tobacco Use Types Packs/Day Years Used Date Smoking Tobacco: Never Assessed Sex and Gender Information Value Date Recorded Sex Assigned at Not on file Gender Identity Not on file Sexual Orientation Not on file documented as of this encounter Ordered Prescriptions Prescription Sig Dispensed Refills Start Date End Da te dexamethasone (MAXIDEX) 0.1 % ophthalmic suspensionIndications:Perf oration of tympanic membrane, unspecified Apply 3 gtts to Left ear BID for one week 1 Bottle 1 11/20/2012 11/27/2012 documented in this encounter Discharge Disposition Disposition Code Departure Means Destination Auto Discharge documented in this encounter Progress Notes * Kirk Pablo MD - 11/20/2012 1504 EDT Otolaryngology Progress note 11/20/2012 CC: follow up Right tympanoplasty Left otalgia present for three weeks after water exposure HPI: The patient is a 12 y.o. white female who is seen in follow up s/p Right tympanoplasty. She is without Right ear complaints. She has had left otalgia related to water exposure three weeks ago which has persisted. She denies otorrhea. She describes ongoing Left dull ache. There is no provocation of the pain with chewing or with neck movement. There is no history of GERD. PE: General: pleasant cooperative white female in no distress EARS: OTOSCOPY: Right external auditory canal: Patent and not inflamed Left external auditory canal: Patent and not inflamed Right tympanic membrane: Intact and mobile but mildly atrophic. There is no evidence of retraction,perforation or effusion. Left tympanic membrane: Large near total TM perforation with healthy middle ear mucosa. The tip of the malleus is exposed through the perforation. Facial nerve function is normal and symmetric. AUDIOGRAM: I have reviewed the audiogram performed today by our audiology staff on [facility] and it demonstrates: On the right, the hearing thresholds are in the normal range with word recognition score of 100 %. On the left, there is a mild to moderate flat conductive hearing loss with word recognition score of 100 %. Imp: Doing well s/p Right transcanal underlay graft tympanoplasty performed 02-26-2011 Left near total TM perforation Left otalgia present for three weeks precipitated by water exposure Plan: The examination findings and audiometric test results were reviewed with the patient and her parents. I recommended the use of mineral oil in order to help ease the right ear ache. If this does not provide benefit in 4 or 5 days, I recommended use of Decadron ophthalmic drops in the left ear for 1 week twice a day. There is no evidence of infection and no reason for continued use of antibiotics drops. The patient and her father are actively interested in pursuing surgery for the left ear as she has noted significant improvement of her hearing in the right ear. I discussed the likely need for a postauricular approach as well as likely need for a lateral graft tympanoplasty as the tip of the malleolus is exposed through the perforation. I discussed transcanal underlay graft technique which is not favored at this point. The nature of surgery and expected convalescence were reviewed. The risks of surgery including hearing loss, dizziness, change in taste, facial nerve injury, and persistent tympanic membrane performed were reviewed. Consent has been obtained. Water precautions for the left ear were reviewed. Kirk Pablo MD 11/20/2012 15:04 CC: DANIEL MENDOZA MD documented in this encounter Procedure Notes * LEARNING SUPPORT AIDE, SCAN 2 - 12/18/2012 0916 EDTAssociated Order(s): AUDIOGRAM - SCANNED documented in this encounter Plan of Treatment Scheduled Orders Name Type Priority Associated Diagnoses Orde r Schedule HEARING EVALUATION Audiology Routine Perforation of tympanic membrane, unspecified Ordered: 11/20/2012 documented as of this encounter Procedures Procedure Name Priority Date/Time Associated Diagnosis Comments AUDIOGRAM - SCANNED 12/18/2012 9:16 EDT documented in this encounter Results * AUDIOGRAM - SCANNED (12/18/2012 9:16 EDT) 12/18/2012 9:16 EDT Narrative 12/18/2012 10:33 EDT Procedure Note LEARNING SUPPORT AIDE, YUMIKO 2 - 12/18/2012 9:16 EDT Scan 2 Collector Of Aquarium Specimens PROCEDURE/MINOR BEBA GICAL ORDERABLES documented in this encounter Visit Diagnoses Diagnosis Perforation of tympanic membrane, unspecified- Primary Otalgia, unspecified documented in this encounter Care Teams Accounts Payable Clerk Relationship Specialty Start Date End Date Daniel Mendoza MD [address] [place] [id number] PCP - General 12/12/08 documented as of this encounter
--- OUTSIDE RECORDS SUMMARY | 2024-01-05 00:14 | XMS_ITS | Encounter Summary ---
Author Organization [facility] Address [address] [place] [address] Care Team Providers Care Public Information Director Name Role Phone Daniel Mendoza MD Primary Care Provider [phone] Reason for Visit * Reason Comments Post-OP Follow Up Encounter Details Date Type Department Care Team (Late st Contact Info) Description 03/09/2011 16:00 EDT Office Visit [facility] ENT- Main [address] [phone] Kirk Pablo MD [address] [place] [address] [place] [phone] Unspecified perforation of tympanic membrane (Primary Dx) Discharge Disposition: Auto Discharge Social [...] Progress Notes * Kirk Pablo MD - 03/09/2011 1907 EDT Otolaryngology Progress note 03/09/2011 CC: follow up right tympanoplasty HPI: The patient is a 10 y.o. white female who is seen in follow up s/p right tympanoplasty. She is currently without otalgia or otorrhea. The parents report that there was ongoing drainage from the supra-auricular wound for several days after the dressing was removed. PE: EARS: OTOSCOPY: Right external auditory canal: Patent with a small amount of gelfoam along the incision. Left external auditory canal: not examined Right tympanic membrane: intact with moist debris on the surface. Left tympanic membrane: not examined The supra-auricular incision is healing well. Imp: Doing well s/p right type I tympanoplasty performed 02-26-2011 Plan: The examination findings were reviewed with the patient and her parents Use of bacitracin on the supra-auricular incision was discussed. Water precautions reviewed RTC three weeks with plans to use gtts for one week prior to follow up. Kirk Pablo MD 03/09/2011 19:03 CC: DANIEL MENDOZA MD documented in this encounter Plan of Treatment Not on file documented as of this encounter Visit Diagnoses Diagnosis Perforation of tympanic membrane, unspecified- Primary documented in this encounter Care Teams Public Information Director Relationship Specialty Start Date End Date Daniel Mendoza MD [address] [place] [address] PCP - General 12/12/08 documented as of this encounter
--- OUTSIDE RECORDS SUMMARY | 2024-01-05 00:14 | XMS_ITS | Encounter Summary ---
Author Organization [facility] Address [address] [place] [address] Care Team Providers Care Mat Machine Operator Name Role Phone Daniel Mendzoa MD Primary Care Provider [phone] Reason for Visit * Reason Comments Follow-up hearing issues Encounter Details Date Type Department Care Team (Late st Contact Info) Description 07/23/2010 13:35 EST Office Visit [facility]- [address] [id number] Jeremy Walker MD [address] [place] [address], [address] [place] [address] Simple or unspecified chronic serous otitis media (Primary Dx) Social History Tobacco Use Types Packs/Day Years Used Date Smoking Tobacco: Never Assessed Sex and Gender Information Value Date Recorded Sex Assigned at Not on file Gender Identity Not on file Sexual Orientation Not on file documented as of this encounter Progress Notes * Jeremy Walker MD - 07/27/2010 1058 EST DIVISION OF OTOLARYNGOLOGY PROGRESS/FOLLOWUP NOTE - 07/23/2010 CHIEF COMPLAINT: Recurrent otitis media, chronic serous otitis media. SUBJECTIVE: The patient has had some decreased hearing over the past 2 to 3 months. She has had a recent sort of upper respiratory congestion. She has been using her inhalers. School is going okay. OBJECTIVE: Alert, cooperative female, well nourished, in no distress. Ear canals are normal bilaterally. Both eardrums are normal with what looks like perforations with Estephanie-T tubes in the center ofthe perforations bilaterally. There is no infection or drainage. Audiogram shows decreased hearing down to 30 to 40 dB with high volume flat tympanograms. Testing by Andriy Caraballo. ASSESSMENT: Recurrent otitis media, chronic serous otitis media, bilateral TM perforations with Estephanie-T tube sitting in the middle of them. PLAN: Follow up 6 weeks, repeat audiogram, possible tube removal. Electronically Signed by Jeremy Walker MD 07/27/2010 10:57 Jeremy Walker MD - Jeremy Walker MD - DSP Job ID: SM Doc ID: [id number] Ext Doc ID: [id number] cc: Daniel Mendoza MD * Jeremy Walker MD - 07/23/2010 1432 EST This office note has been dictated. documented in this encounter Procedure Notes * Inpatient, Physician - 08/13/2010 1338 ESTAssociated Order(s): PROCEDURE REPORTS - SCANNED documented in this encounter Plan of Treatment Scheduled Orders Name Type Priority Associated Diagnoses Orde r Schedule HEARING EVALUATION Audiology Routine Simple or Unspecified Chronic Serous Otitis Media Ordered: 07/23/2010 documented as of this encounter Procedures Procedure Name Priority Date/Time Associated Diagnosis Comments PROCEDURE REPORTS - SCANNED 08/13/2010 13:38 EST documented in this encounter Results * PROCEDURE REPORTS - SCANNED (08/13/2010 13:38 EST) 08/13/2010 13:3 8 EST Narrative Procedure Note Inpatient, Physician - 08/13/2010 13:38 EST Physician Inpatient MD PROCEDURE/MINOR S URGICAL ORDERABLES documented in this encounter Visit Diagnoses Diagnosis Simple or unspecified chronic serous otitis media- Primary documented in this encounter Discontinued Medications Medication Sig Discontinue Reason Start Date End Da te ciprofloxacin-dexametha sone (CIPRODEX) otic suspension Place 4 Drops in ear(s) 2 times daily as needed. for ear drainage 01/24/2009 07/23/2010 documented as of this encounter Historical Medications * This list may reflect changes made after this encounter. Medication Sig Dispensed Refills Start Date End Date albuterol (PROVENTIL, VENTOLIN) 90 mcg/Actuation inhaler Inhale 2 Puffs as directed every 6 hours as needed. fluticasone (FLOVENT HFA) 110 mcg/Actuation inhaler Inhale as directed every 12 hours. 12/23/2011 added in this encounter Care Teams Mat Machine Operator Relationship Specialty Start Date End Date Daniel Mendoza MD [address] [place] [address] PCP - General 12/12/08 documented as of this encounter
--- OUTSIDE RECORDS SUMMARY | 2024-01-05 00:14 | XMS_ITS | Encounter Summary ---
Author Organization [facility] Address [address] [place] [address] Care Team Providers Care Wet Wheeler Name Role Phone Daniel Mendoza MD Primary Care Provider [phone] Encounter Details Date Type Department Care Team (Late st Contact Info) Description 01/25/2014 5:41 EDT - 01/25/2014 13:56 EDT Hospital Encounter [facility] Perioperative Services- [address] [address] Kirk Pablo MD [address] [place] [address] [place] [phone] Discharge Disposition: Home or Self Care Social History Tobacco Use Types Packs/Day Years Used Date Smoking Tobacco: Never Assessed Sex and Gender Information Value Date Recorded Sex Assigned at Not on file Gender Identity Not on file Sexual Orientation Not on file documented as of this encounter Last Filed Vital Signs Vital Sign Reading Time Taken Comments Blood Pressure 108/63 01/25/2014 1345 EDT Pulse - - Temperature 36.4 ??C (97.5 ??F) 01/25/2014 1345 EDT Respiratory Rate 15 01/25/2014 1345 EDT Oxygen Saturation 97% 01/25/2014 1345 EDT Inhaled Oxygen Concentration - - Weight 68 kg (150 lb) 01/22/2014 1010 EDT Height 167.6 cm (5' 6) 01/22/2014 1010 EDT Body Mass Index 24.21 01/22/2014 1010 EDT Body Mass Index Percentile 84.28% 01/22/2014 101 0 EDT Growth Chart: CDC (Girls, 2- 20 Years) documented in this encounter Medications at Time of Discharge Medication Sig Dispensed Refills Start Date End Date albuterol (PROVENTIL, VENTOLIN) 90 mcg/Actuation inhaler Inhale 2 Puffs as directed every 6 hours as needed. FA NON-FORMULARY MEDICATION, DO NOT ORDER, bcp 01/20/2015 oxyCODONE (ROXICODONE) 5 mg immediate release tablet Take 1 Tab by mouth every 6 hours as needed for Pain. Earliest Fill Date: 01/25/14 15 Tab 0 01/25/2014 01/31/2014 sertraline (ZOLOFT) 50 mg tablet Take 50 mg by mouth daily. 01/20/2015 documented as of this encounter Ordered Prescriptions Prescription Sig Dispensed Refills Start Date End Da te oxyCODONE (ROXICODONE) 5 mg immediate release tablet Take 1 Tab by mouth every 6 hours as needed for Pain. Earliest Fill Date: 01/25/14 15 Tab 0 01/25/2014 01/31/2014 documented in this encounter Discharge Disposition Disposition Code Departure Means Destination Home or Self Care documented in this encounter Progress Notes * Pily Mcmanus RN - 01/25/2014 1135 EDT 1125 Pt admitted to PACU post left tympaoplasty. Pt sleeping, stable, anesthesia at bedside. Name/MRN bracelet and allergy bracelet present on arrival. Side rails up both sides for pt safety post anesthesia. Pt belongings at bedside.-djp 1250 Report given to Franck for lunch relief.-djp * Earline Alex RN - 01/22/2014 1023 EDT Rosaura Ingram has been instructed as follows regarding medication administration for the day ofthe scheduled procedure. Date of Surgery: 01/25/2014 Instructions for Taking Medications Day of Surgery Medication Last Dose Hold DOS Take DOS albuterol (PROVENTIL, VENTOLIN) 90 mcg/Actuation inhaler x FA NON-FORMULARY MEDICATION, DO NOT ORDER, x sertraline (ZOLOFT) 50 mg tablet x UNKNOWN TO PATIENT No nsaids, vitamins or supplements until after surgery documented in this encounter H&P Notes * Angel Magana MD - 01/21/2014 1506 EDT The preoperative history and physical which was performed within 30 days of this procedure has been reviewed and the clinically appropriate elements of the physical examination have been repeated. There are no changes to the documented history and physical or if so such changes are documented below Angel Magana MD 01/25/2014 6:58 documented in this encounter Nursing Notes * TERRITORY SALES EXECUTIVE, SCAN 2 - 01/30/2014 1217 EDT documented in this encounter OR Notes * OR PreOp - TERRITORY SALES EXECUTIVE, SCAN 2 - 01/30/2014 1217 EDT * Anesthesia Procedure Notes - TERRITORY SALES EXECUTIVE, SCAN 2 - 01/25/2014 1409 EDT * OR PreOp - TERRITORY SALES EXECUTIVE, SCAN 2 - 01/25/2014 1245 EDT * OR Surgeon - Kirk Pablo MD - 01/25/2014 1104 EDT OPERATIVE REPORT SERVICE DATE: 01/25/2014 PREOPERATIVE DIAGNOSIS: Left tympanic membrane perforation. POSTOPERATIVE DIAGNOSIS: Left tympanic membrane perforation. SURGEON: Kirk Pablo MD SVP RESEARCH AND STRATEGIC ANALYSIS: Angel Magana MD ANESTHESIA: General. ESTIMATED BLOOD LOSS: Minimal. PROCEDURE: 1. Left postauricular lateral graft tympanoplasty. 2. Right ear examination under anesthesia. INDICATIONS: Please refer to outpatient notes. NARRATIVE: The patient was brought to the operating room, was identified by armband. The procedure to be performed was confirmed. After adequate general anesthesia was provided, the left ear was prepped and draped in the usual sterile fashion. The left ear was examined with the aid of the operating microscope. The ear canal was found to be patent. There were 2 separate inferior perforations notedwith evidence of squamous tissue in the middle ear banding between the 2 perforations. The perforation extended anterior superiorly so that only an anterior superior tympanic membrane remnant was noted. Posterior superiorly there was scar tissue. The pars flaccida was not retracted. The ear canal and planned postauricular incision sites were infiltrated with 2% lidocaine with 1:100,000 epinephrine. After this had adequate time to take effect, vascular strip flap incisions were created. The postauricular incision was created. Of note, special attention was made to the hypertrophic scar, which was excised. Dissection was carried down to the level of the temporalis fascia. A piece of temporalis fascia was harvested and set aside to dry for later use. The ear was then turned forward in the usual fashion exposing the ear canal. An anterior lateral canal incision was created. The anterior canal skin was harvested and set aside in a moist gauze for later use. A canaloplasty was then performed in the usual fashion with drilling and continuous suction irrigation. This afforded excellent visualization of the anterior fibrous annulus. All remaining layers of squamous tissue were removed fromthe tympanic membrane. The tympanic membrane remnant was removed. The anterior fibrous annulus was intact. There was scar tissue noted in the posterior mesotympanum. The chorda tympani nerve was identified and preserved. The malleus was palpated and there was good reciprocal motion of the incus. The fascia graft was trimmed to size and a slit was created to accommodate the malleus handle. The anterior canal skin was trimmed of any frayed edges and 3 small slits were created in order to prevent h ematoma formation. The fascia graft was placed under the malleus handle, up onto the anterior fibrous annulus, and up onto the posterior bony canal wall. The skin graft was then draped over the anterior canal wall, overlapping the anterior aspect of the fascia by a few millimeters. The skin graft was bolstered in place using Floxin-soaked Gelfoam. The ear was returned to its anatomic position. The vascular strip flap was draped over the posterior bony canal wall. The ear canal was then filled with Floxin-soaked Gelfoam medially and dried pressed Gelfoam laterally. The postauricular incision was closed using 3-0 Vicryl in an interrupted fashion to reapproximate the periosteum, and 4-0 Vicryl in an interrupted deep dermal fashion to reapproximate the skin. Mastisol and Steri-Strips were applied. A bacitracin-impregnated cotton ball was applied to the ear. A standard mastoid dressing was applied. The right ear was examined with the aid of the operating microscope. The tympanic membrane was found to be intact with myringosclerosis and without effusion. Unless otherwise noted, there were no complications, no blood loss, no cultures obtained, no specimens removed, and no drains retained. Kirk Pablo MD 10 51 AM / Kirk Pablo MD cn Confirmation: [id number] Dictation ID: [id number] cc: Daniel Mendoza MD * Anesthesia Preprocedure Evaluation - TERRITORY SALES EXECUTIVE, SCAN 2 - 01/25/2014 0737 EDT documented in this encounter Miscellaneous Notes * Brief Op Note - Angel Magana MD - 01/25/2014 0712 EDT Otolaryngology, Head & Neck Surgery BRIEF OPERATIVE NOTE Surgeon: Kirk Pablo MD Passenger Tire Builder: Angel Magana MD Pre-Op Diagnosis: Persistent Left TM Perforation Post-Op Diagnosis: Persistent Left TM Perforation Procedure: Left lateral graft tympanoplasty, canaloplasty Left postauricular scar revision Right ear exam Anesth: General with ETT EBL: Minimal IVF: 700 mL LR UOP: NR Findings: 1. 4 mm perforation in left anterior inferior TM 2. 2 mm perforation in left inferior TM 3. Atrophic left TM remnant 4. Chorda tympani identified and preserved 5. Facial nerve identified and preserved anatomically 6. Hypertrophy of left postauricular scar 7. Right TM mildly atrophic with no evidence of perforation Specimen: None Cultures: None Foreign Material Retained: Gelfoam Complications: None Dispo: To PACU in stable condition Billie Oh MSIV 01/25/2014, 7:12 #[id number] documented in this encounter Plan of Treatment Not on file documented as of this encounter Procedures Procedure Name Priority Date/Time Associated Diagnosis Comments ECG REPORT - SCANNED 01/30/2014 12:17 EDT TEST, URINE STAT 01/25/2014 6:01 EDT documented in this encounter Results * ECG REPORT - SCANNED (01/30/2014 12:17 EDT) 01/30/2014 12:1 7 EDT Scan 2 Program Production Specialist PROCEDURE/MINOR BEBA GICAL ORDERABLES * TEST, URINE (01/25/2014 6:01 EDT) Result- Test, Ur Negative [facility] Comment: NOTE: False negative results may occur in women who are beyond 5-8 weeks gestation. Diagnosis of should be based on a correlation of test results with typical clinical signs and symptoms. Urine specimen (specimen) URINE / Unknown 01/25/2014 6:01 EDT 01/25/2014 6:36 EDT Donell Segal MD URINALYSIS ORDERABLE S [facility] [address] [place] [address] documented in this encounter Visit Diagnoses Not on filedocumented in this encounter Administered Medications Inactive Administered Medications - up to 3 most recent administrations Medication Order MAR Action Action Date Dose Rate Site fentaNYL citrate (PF) 50 mcg/mL injection 25-100 mcg 25-100 mcg, intravenous, EVERY 5 MIN PRN, Starting on Tue01/25/14 at 1054, Until Tue01/25/14 at 1603, Pain, Routine, Recovery (only) Given 01/25/2014 12:09 EDT 25 mcg lactated ringers (LR) infusion at 25 mL/hr, intravenous, CONTINUOUS, Starting on Tue01/25/14 at 0630, Until Tue01/25/14 at 1603, Routine, Pre Op Day of Surgery New Bag 01/25/2014 6:18 EDT 25 mL/hr lactated ringers (LR) infusion at 75 mL/hr, intravenous, CONTINUOUS, Starting on Tue01/25/14 at 1115, Until Tue01/25/14 at 1603, Routine, Recovery (only) Rate Documented 01/25/2014 11:25 EDT 75 mL/hr metoCLOPramide (REGLAN) injection 10 mg 10 mg, intravenous, PRN, 1 dose, Starting on Tue01/25/14 at 1054, Until Tue01/25/14 at 1202, Nausea, Routine, Recovery (only) Given 01/25/2014 12:02 EDT 10 mg ondansetron (PF) (ZOFRAN) injection 2 mg 2 mg, intravenous, PRN, 1 dose, Starting on Tue01/25/14 at 1054, Until Tue01/25/14 at 1203, Nausea, Vomiting, Routine, Recovery (only) Given 01/25/2014 12:03 EDT 2 mg oxyCODONE (ROXICODONE) immediate release tablet 5 mg 5 mg, oral, PRN, 2 doses, Starting on Tue01/25/14 at 1054, Until Tue01/25/14 at 1208, Pain, x 2 doses, Routine, Recovery (only) Given 01/25/2014 12:08 EDT 5 mg Given 01/25/2014 11:43 EDT 5 mg documented in this encounter Discontinued Medications Medication Sig Discontinue Reason Start Date End Da te UNKNOWN TO PATIENT BCP . Duplicate Therapy 01/22/2014 documented as of this encounter Historical Medications * This list may reflect changes made after this encounter. Medication Sig Dispensed Refills Start Date End Date UNKNOWN TO PATIENT BCP . 4 added in this encounter Active and Recently Administered Medications Times are shown in EDT. Continuous Medication Order 01/23/2014 01/24/2014 01/25/2014 lactated ringers (LR) infusion (CANCELED) at 25 mL/hr, intravenous, CONTINUOUS, Starting on Tue01/25/14 at 0630, Until Tue01/25/14 at 1603, Routine, Pre Op Day of Surgery 0618 (New Bag - Prov ider: Pati Alexander-Quian, RN)1125 (Completed - Provider: Pily Mcmanus RN) lactated ringers (LR) infusion (CANCELED) at 75 mL/hr, intravenous, CONTINUOUS, Starting on Tue01/25/14 at 1115, Until Tue01/25/14 at 1603, Routine, Recovery (only) 1125 (Rate Documente d - Provider: Pily Mcmanus RN) PRN Medication Order 01/23/2014 01/24/2014 01/25/2014 fentaNYL citrate (PF) 50 mcg/mL injection 25-100 mcg (CANCELED) 25-100 mcg, intravenous, EVERY 5 MIN PRN, Starting on Tue01/25/14 at 1054, Until Tue01/25/14 at 1603, Pain, Routine, Recovery (only) 1209 (Given - Provid er: Pily Mcmanus RN) metoCLOPramide (REGLAN) injection 10 mg (COMPLETED) 10 mg, intravenous, PRN, 1 dose, Starting on Tue01/25/14 at 1054, Until Tue01/25/14 at 1202, Nausea, Routine, Recovery (only) 1202 (Given - Provid er: Pily Mcmanus RN) ondansetron (PF) (ZOFRAN) injection 2 mg (COMPLETED) 2 mg, intravenous, PRN, 1 dose, Starting on Tue01/25/14 at 1054, Until Tue01/25/14 at 1203, Nausea, Vomiting, Routine, Recovery (only) 1203 (Given - Provid er: Pily Mcmanus RN) oxyCODONE (ROXICODONE) immediate release tablet 5 mg (COMPLETED) 5 mg, oral, PRN, 2 doses, Starting on Tue01/25/14 at 1054, Until Tue01/25/14 at 1208, Pain, x 2 doses, Routine, Recovery (only) 1143 (Given - Provid er: Pily Mcmanus RN)1208 (Given - Provider: Pily Mcmanus RN) documented in this encounter Orders Medications Ordered That Jose A ht Not Have Been Administered Count Last Ordered Date First Ordered Date atropine 0.1 mg/mL syringe 0.4 mg 1 014 diphenhydrAMINE (BENADRYL) i njection 6.25 mg 1 01/25/2014 HYDROmorphone (DILAUDID) tablet 2 mg 1 01/11 nalOXone (NARCAN) injection 0.2 mg 1 2013 Nursing Count Last Ordered Date First Orde red Date ACTIVITY INSTRUCTIONS 1 01/25/2014 BATHING INSTRUCTIONS 1 01/25/2014 Transfer Count Last Ordered Date First Orde red Date NOTIFY PPS OF DISCHARGE COMPLETE 1 01/26/20 14 NOTIFY PPS PATIENT ARRIVAL IN PACU 1 2013 Discharge Count Last Ordered Date First Orde red Date DISCHARGE PATIENT 1 01/25/2014 Legal Count Last Ordered Date First Orde red Date MISCELLANEOUS DISCHARGE INSTRUCTIONS 4 01/11 documented in this encounter Care Teams Wet Wheeler Relationship Specialty Start Date End Date Daniel Mendoza MD [address] [place] [address] PCP - General 12/12/08 documented as of this encounter
--- OUTSIDE RECORDS SUMMARY | 2024-01-05 00:14 | XMS_ITS | Encounter Summary ---
Author Organization [facility] Address [address] [place] [address] Care Team Providers Care Communications Project Lead Name Role Phone Daniel Mendoza MD Primary Care Provider [phone] Reason for Visit * Reason Comments Follow-up Encounter Details Date Type Department Care Team (Late st Contact Info) Description 02/01/2013 13:00 EDT Office Visit [facility]- [facility] [place] [address] [place] [id number] Kirk Pablo MD [address] [place] [address] [place] [phone] Perforation of tympanic membrane, unspecified (Primary Dx) Social History Tobacco Use Types Packs/Day Years Used Date Smoking Tobacco: Never Assessed Sex and Gender Information Value Date Recorded Sex Assigned at Not on file Gender Identity Not on file Sexual Orientation Not on file documented as of this encounter Progress Notes * Kirk Pablo MD - 02/01/2013 1300 EDT Otolaryngology Progress note 02/01/2013 CC: follow up Left tympanoplasty HPI: The patient is a 12 y.o. white female who is seen in follow up s/p Left tympanoplasty. She is without c/o otalgia or otorrhea. She has noted improvement of her hearing, however, the Right ear current remains to be the better hearing ear. PE: General: pleasant cooperative white female in no distress EARS: OTOSCOPY: Right external auditory canal: Patent and not inflamed Left external auditory canal: Patent and not inflamed Right tympanic membrane: Intact and mobile but mildly atrophic. There is no evidence of retraction,perforation or effusion. Left tympanic membrane: Intact and mobile. There is a thin crust overlying the posterior superior TM. The right postauricular incision is healing well. Facial nerve function is normal and symmetric. Imp: Doing well s/p Left postauricular underlay graft tympanoplasty performed 12/25/2012 s/p Right transcanal underlay graft tympanoplasty performed 02-26-2011 Plan: The examination findings were reviewed with the patient and her parents. There is no current need for water precautions. RTC 2-3 months for follow up with plans to obtain audiometric testing at that time. Kirk Pablo MD 02/01/2013 13:01 CC: DANIEL MENDOZA MD documented in this encounter Plan of Treatment Not on file documented as of this encounter Visit Diagnoses Diagnosis Perforation of tympanic membrane, unspecified- Primary documented in this encounter Care Teams Communications Project Lead Relationship Specialty Start Date End Date Daniel Mendoza MD [address] [place] [address] PCP - General 12/12/08 documented as of this encounter
--- OUTSIDE RECORDS SUMMARY | 2024-01-05 00:14 | XMS_ITS | Encounter Summary ---
Author Organization [facility] Address [address] [place] [address] Care Team Providers Care Tig Welder Name Role Phone Daniel Mendoza MD Primary Care Provider [phone] Encounter Details Date Type Department Care Team (Late st Contact Info) Description 04/27/2006 Before PRISM Converted Visit ([facility]) [facility] - [facility] conversion [address] [place], [place] [id number] Jeremy Walker MD [address] [facility], [address] [place] [address] Social History Tobacco Use Types Packs/Day Years Used Date Smoking Tobacco: Never Assessed Sex and Gender Information Value Date Recorded Sex Assigned at Not on file Gender Identity Not on file Sexual Orientation Not on file documented as of this encounter Progress Notes * Jeremy Walker MD - 06/19/2009 1337 EST DIVISION OF OTOLARYNGOLOGY PROGRESS/FOLLOWUP NOTE - 04/27/2006 S:patient has had no troubles since last visit, no hearing concerns, no ear pain, no ear drainage. Speech and language are normal. O: Healthy alert cooperative female in no distress. Both tubes are in place. There is no infection or drainage. Tympanograms show high volume and flat bilaterally. Audiogram today is normal. Speech dental receptionist threshold at 10 decibels in both ears. Oral cavity reveals 2 plus tonsils. Palpation of theneck reveals no adenopathy. Nasal exam is normal today, midline septum, normal turbinates. Extraocular movements are full. A: Recurrent otitis media, serous otitis media, normal tube check, normal hearing. P: Followup 6 months. Signed by Jeremy Walker MD 04/29/2006 12:55 Mauro Manzano MD Jeremy Walker MD - Jeremy Walker MD P - kmb Job ID: [id number] Document ID: [id number] cc: Daniel Mendoza MD [phone] Document ID: [id number] cc: Daniel Mendoza MD documented in this encounter Plan of Treatment Not on file documented as of this encounter Visit Diagnoses Not on filedocumented in this encounter Care Teams Tig Welder Relationship Specialty Start Date End Date Daniel Mendoza MD [address] [place] [address] PCP - General 12/12/08 documented as of this encounter
--- OUTSIDE RECORDS SUMMARY | 2024-01-05 00:14 | XMS_ITS | Encounter Summary ---
Author Organization [facility] Address [address] [place] [address] Care Team Providers Care District Wildlife Manager Name Role Phone Daniel Mendoza MD Primary Care Provider [phone] Reason for Visit * Reason Onset Date Comments Tympanic Membrane Perforation 11/15/2012 Otalgia 11/15/2012 Encounter Details Date Type Department Care Team (Late st Contact Info) Description 11/15/2012 Telephone [facility] ENT- [address] [id number] Kirk Pablo MD [address] [place] [address] [place] [phone] Tympanic Membrane Perforation; Otalgia Social History Tobacco Use Types Packs/Day Years Used Date Smoking Tobacco: Never Assessed Sex and Gender Information Value Date Recorded Sex Assigned at Not on file Gender Identity Not on file Sexual Orientation Not on file documented as of this encounter Miscellaneous Notes * Telephone Encounter - Billie Garcia - 11/15/2012 0959 EDT Pt offered and accepted an appointment for 6.10 at 2:30. * Telephone Encounter - Billie Garcia - 11/15/2012 0827 EDT Pt step mother calling because Rosaura was referred back to Dr. Pablo for a TM Perf. Over the weekend she got water in her ear and is complaining of a lot of pain. They are scheduled to see Dr. Pablo on 12.28.12 and are on the cancellation list. They are hoping to be seen sooner. She has a history of ear surgery with Dr. Pablo. I explained to her that we would need to speak with Dr. Pablo to see if he feels that she needs to be seen urgently for this issue. documented in this encounter Plan of Treatment Not on file documented as of this encounter Visit Diagnoses Not on filedocumented in this encounter Care Teams District Wildlife Manager Relationship Specialty Start Date End Date Daniel Mendoza MD [address] [place] [address] PCP - General 12/12/08 documented as of this encounter
--- OUTSIDE RECORDS SUMMARY | 2024-01-05 00:14 | XMS_ITS | Encounter Summary ---
Author Organization [facility] Address [address] [place] [address] Care Team Providers Care Lumber Checker Name Role Phone Daniel Mendoza MD Primary Care Provider [phone] Encounter Details Date Type Department Care Team (Late st Contact Info) Description 09/12/2007 Before PRISM Converted Visit (Maple) [facility] - Maple conversion [address] [place], [place] [address] Jeremy Walker MD [address] [facility], [address] [place] [address] Social History Tobacco Use Types Packs/Day Years Used Date Smoking Tobacco: Never Assessed Sex and Gender Information Value Date Recorded Sex Assigned at Not on file Gender Identity Not on file Sexual Orientation Not on file documented as of this encounter Progress Notes * Jeremy Walker MD - 03/06/2009 0152 EDT DIVISION OF OTOLARYNGOLOGY PROGRESS/FOLLOWUP NOTE - 09/12/2007 SUBJECTIVE Patient had left ear pain about a month ago and was placed on amoxicillin. Has been doing pretty well, otherwise. Speech and language are normal. She has no ear complaints today and no hearing concerns. OBJECTIVE Healthy, alert, cooperative female in no distress. There is fluid in the left middle-ear space and small volume and flat tympanogram with a conductive loss on the left side down to 30 decibels. The right eardrum looks normal with normal hearing. Oral cavity reveals 2-3+ cryptic tonsils. Palpation of the neck reveals no adenopathy. Nasal exam is normal today with a midline septum and normal turbinates without discharge. ASSESSMENT Left serous otitis media, conductive hearing loss. PLAN Follow up in the summer 2007. Signed by Jeremy Walker MD 09/15/2007 13:50 Jeremy Walker MD - Jeremy Walker MD - PAUL Job ID: [id number] Doc ID: [id number] cc: Daniel Mendoza MD documented in this encounter Plan of Treatment Not on file documented as of this encounter Visit Diagnoses Not on filedocumented in this encounter Care Teams Lumber Checker Relationship Specialty Start Date End Date Daniel Mendoza MD [address] [place] [address] PCP - General 12/12/08 documented as of this encounter
--- OUTSIDE RECORDS SUMMARY | 2024-01-05 00:14 | XMS_ITS | Encounter Summary ---
Author Organization [facility] Address [address] [place] [address] Care Team Providers Care Senior Marketing Data Analyst Name Role Phone Daniel Mendoza MD Primary Care Provider [phone] Encounter Details Date Type Department Care Team (Late st Contact Info) Description 01/24/2009 12:50 EDT - 01/24/2009 15:34 EDT Hospital Encounter [facility] Perioperative Services- [address] [address] Jeremy Walker MD [address] [facility], [address] [place] [address] Discharge Disposition: Home or Self Care Social History Tobacco Use Types Packs/Day Years Used Date Smoking Tobacco: Never Assessed Sex and Gender Information Value Date Recorded Sex Assigned at Not on file Gender Identity Not on file Sexual Orientation Not on file documented as of this encounter Last Filed Vital Signs Vital Sign Reading Time Taken Comments Blood Pressure - - Pulse 98 01/24/2009 1515 EDT Temperature 36.5 ??C (97.7 ??F) 01/24/2009 1500 EDT Respiratory Rate 20 01/24/2009 1515 EDT Oxygen Saturation 99% 01/24/2009 1515 EDT Inhaled Oxygen Concentration - - Weight 62 kg (136 lb 11 oz) 01/24/2009 1317 EDT Height - - Body Mass Index - - documented in this encounter Discharge Instructions * Discharge Instructions* Holly Nelson RN - 01/24/2009 14:41 EDT Pressure Equalization Tube Post-Operative Instructions The Surgery: When the tube is placed in the eardrum, any fluid or debris in the middle ear space isremoved. An immediate improvement in hearing is noticed in most cases. Occasionally, particularly in children, this improvement is such that the child may become frightened of what may seem to be normal sounds. This will go away as the child becomes more accustomed to hearing normal sound volumes. If the fluid in the middle ear is infected, or if it is particularly thick, ear drops will have to be placed in the operating room. If this is the case, you will receive a prescription for drops to use at home. Postoperative Care: Even if you were not instructed to use drops post- operatively, you will receivea prescription for Ciprodex drops. You should fill this prescription and have it on hand. If your child develops drainage from his ears in the future, this means that his ears are infected and you will use these drops. Ear Infections: Many children continue to pull at their ears after surgery. This does not necessarily mean infection. Infection will manifest as drainage from the ear. This may occur at any time after surgery in approximately 10-15% of patients. This drainage may be clear, green/yellow, reddish, orbloody. Once this drainage is seen, start the Ciprodex. If drainage continues 3 or 4 days after starting the drops, call the office for an appointment. Your child may need to have excess drainage suctioned from the ear canal. Oral antibiotics are generally not needed once tubes are in place. Water Precautions: No ear protection is needed unless the patient has pain or recurring infections after water exposure. Various earplugs are available through the office if needed. Nausea/Vomiting: The general anesthetic may cause some fatigue, lightheadedness, and nausea for several hours. If vomiting continues beyond 6 hours, then notify the office. Diet: Your child may resume his regular diet after surgery. Follow Up: Your child will need to be seen 1-2 weeks after surgery and then every six months after that. Most tubes stay in place 6 mos-1 year. Most children will outgrow their need for tubes in thattime period; however, approximately 20% may need a second set of tubes. An adenoidectomy in addition to the pressure equalization tube placement may be considered at that time. documented in this encounter Medications at Time of Discharge Medication Sig Dispensed Refills Start Date End Date ciprofloxacin-dexamethas one (CIPRODEX) otic suspension Place 4 Drops in ear(s) 2 times daily as needed. for ear drainage 7.5 ml 10 01/24/2009 07/23/2010 documented as of this encounter Ordered Prescriptions Prescription Sig Dispensed Refills Start Date End Da te ciprofloxacin-dexamethaso ne (CIPRODEX) otic suspension Place 4 Drops in ear(s) 2 times daily as needed. for ear drainage 7.5 ml 10 01/24/2009 07/23/2010 documented in this encounter Discharge Disposition Disposition Code Departure Means Destination Home or Self Care documented in this encounter Progress Notes * Holly Nelson RN - 01/24/2009 1457 EDT Dad @ bedside. D/C instructions & prescription given & reviewed c verbal comprehension demonstrated. * Holly Nelson RN - 01/24/2009 1442 EDT 1442- Pt arrived in PACU via stretcher. Asleep, VS stable documented in this encounter H&P Notes * Inpatient, Physician - 01/30/2009 1254 EDT * Inpatient, Physician - 01/30/2009 1251 EDT documented in this encounter OR Notes * OR PreOp - Inpatient, Physician - 01/30/2009 1254 EDT * OR PreOp - Inpatient, Physician - 01/30/2009 1254 EDT * OR PreOp - Inpatient, Physician - 01/30/2009 1251 EDT * OR PreOp - Inpatient, Physician - 01/30/2009 1251 EDT * Anesthesia Procedure Notes - Inpatient, Physician - 01/24/2009 1447 EDT * OR PreOp - Inpatient, Physician - 01/24/2009 1429 EDT * OR Surgeon - Jeremy Walker MD - 01/24/2009 1351 EDT PROCEDURE REPORT PT TYPE: OPPROC SERVICE DATE: 01/24/2009 SURGEON: Jeremy Walker MD DELICATESSEN GOODS STOCK CLERK: None PREOPERATIVE DIAGNOSIS Recurrent otitis media, chronic serous otitis media POSTOPERATIVE DIAGNOSIS Recurrent otitis media, chronic serous otitis media PROCEDURE Bilateral pressure equalization tube placements. ANESTHESIA General. FINDINGS Bilateral serous otitis media. NARRATIVE After induction of adequate general mask anesthesia, the patient's ears were examined under the operating microscope and an appropriate sized speculum. Cerumen was debrided from each ear bilaterally.Tympanic membrane was visualized and an anterior midposition myringotomy was made bilaterally. The middle ear space was suctioned and a PE tube was placed bilaterally. After assuring that there was no bleeding at the myringotomy sites, the patient was awakened by anesthesia and returned to the recovery room in stable condition. There were no complications to the case. Unless otherwise noted, there were no complications, no blood loss, cultures obtained, specimens removed, or drains retained. ESTIMATED BLOOD LOSS None. FLUIDS None. URINE OUTPUT Not recorded. SPECIMENS None. CULTURES None. DRAINS/PACKS/FOREIGN MATERIALS Two Estephanie-type pressure equalization tubes. COMPLICATIONS None. CONDITION Good to PACU. * Anesthesia Preprocedure Evaluation - Inpatient, Physician - 01/24/2009 1339 EDT documented in this encounter Miscellaneous Notes * Scanned Note-Null - Inpatient, Physician - 01/30/2009 1254 EDT * Scanned Note-Null - Inpatient, Physician - 01/30/2009 1254 EDT * Scanned Note-Null - Inpatient, Physician - 01/30/2009 1251 EDT * Scanned Note-Null - Inpatient, Physician - 01/30/2009 1251 EDT documented in this encounter Plan of Treatment Not on file documented as of this encounter Visit Diagnoses Not on filedocumented in this encounter Administered Medications Inactive Administered Medications - up to 3 most recent administrations Medication Order MAR Action Action Date Dose Rate Site acetaminophen (TYLENOL) solution 625 mg 625 mg, oral, Once (Without Time Specified), 1 dose, Starting on Tue01/24/09 at 1332, Until Tue01/24/09 at 1333, Routine Given 01/24/2009 13:33 EDT 625 mg documented in this encounter Active and Recently Administered Medications Times are shown in EDT. Scheduled Medication Order 01/22/2009 01/23/2009 01/24/2009 acetaminophen (TYLENOL) solution 625 mg (COMPLETED) 625 mg, oral, Once (Without Time Specified), 1 dose, Starting on Tue01/24/09 at 1332, Until Tue01/24/09 at 1333, Routine 1333 (Given - Provid er: Tamia Romero RN) documented in this encounter Orders Medications Ordered That Jose A ht Not Have Been Administered Count Last Ordered Date First Ordered Date acetaminophen (TYLENOL) solution 625 mg 1 0 01/24/2009 ibuprofen (ADVIL;MOTRIN) suspension 620 mg 1 01/24/2009 Nursing Count Last Ordered Date First Orde red Date MONITOR AIRWAY 1 01/24/2009 NOTIFY SERVICE 1 01/24/2009 PULSE OXIMETRY 1 01/24/2009 VITAL SIGNS 1 01/24/2009 Admission Count Last Ordered Date First Orde red Date NOTIFY PPS PATIENT ARRIVAL IN PACU 1 2008 NOTIFY PPS PATIENT DISCHARGED FROM PACU 1 0 01/24/2009 documented in this encounter Care Teams Senior Marketing Data Analyst Relationship Specialty Start Date End Date Daniel Mendoza MD [address] [place] [address] PCP - General 12/12/08 documented as of this encounter
--- OUTSIDE RECORDS SUMMARY | 2024-01-05 00:14 | XMS_ITS | Encounter Summary ---
Author Organization [facility] Address [address] [place] [address] Care Team Providers Care Licensed Mental Health Counselor Name Role Phone Daniel Mendoza MD Primary Care Provider [phone] Encounter Details Date Type Department Care Team (Late st Contact Info) Description 01/13/2006 Before PRISM Converted Visit (Maple) [facility] - Maple conversion [address] [place], [place] [phone] Norbert Harden MD [address] [facility], [address] [place] [address] Social History Tobacco Use Types Packs/Day Years Used Date Smoking Tobacco: Never Assessed Sex and Gender Information Value Date Recorded Sex Assigned at Not on file Gender Identity Not on file Sexual Orientation Not on file documented as of this encounter Progress Notes * Norbert Harden MD - 06/17/2009 0037 EST DIVISION OF OTOLARYNGOLOGY PROGRESS/FOLLOWUP NOTE - 01/13/2006 S: Rosaura is a patient of Dr. Darvin baer. Her mom reports painful drainage from her left ear for the past several days. This has not gotten better on a day or two of drops. O: On examination, Rosaura is alert, appearscomfortable. The left ear canal is minimally swollen and there is drainage coming from the tube. This was suctioned clear. Manipulation of the ear was donewithout discomfort. A: Left otitis media with tube with mild secondary external otitis. P: Continue on her drops and call to be seen by Dr. Walker next week if things dont improve. Signed by Norbert Harden MD 01/19/2006 07:58 Haja Cormier MD Norbert Harden MD - Lorena Harden MD A - [facility]lp Job ID: [id number] Document ID: [id number] cc: documented in this encounter Plan of Treatment Not on file documented as of this encounter Visit Diagnoses Not on filedocumented in this encounter Care Teams Licensed Mental Health Counselor Relationship Specialty Start Date End Date Daniel Mendoza MD [address] [place] [address] PCP - General 12/12/08 documented as of this encounter
--- OUTSIDE RECORDS SUMMARY | 2024-01-05 00:14 | XMS_ITS | Encounter Summary ---
Author Organization [facility] Address [address] [place] [address] Care Team Providers Care Prepress Technician Name Role Phone Daniel Mendoza MD Primary Care Provider [phone] Encounter Details Date Type Department Care Team (Late st Contact Info) Description 02/29/2008 Before PRISM Converted Visit (Maple) [facility] - Maple conversion [address] [place], [place] [address] Jeremy Walker MD [address] [facility], [address] [place] [address] Social History Tobacco Use Types Packs/Day Years Used Date Smoking Tobacco: Never Assessed Sex and Gender Information Value Date Recorded Sex Assigned at Not on file Gender Identity Not on file Sexual Orientation Not on file documented as of this encounter Progress Notes * Jeremy Walker MD - 01/04/2009 0528 EDT DIVISION OF OTOLARYNGOLOGY PROGRESS/FOLLOWUP NOTE - 02/29/2008 CHIEF COMPLAINT Recurrent otitis media. SUBJECTIVE The patient has had some decreased hearing for about a month or so. She has now been complaining ofright ear pain. She has some allergies. Her regular doctor has seen some fluid in her ears. Doing well otherwise. OBJECTIVE Healthy, alert, cooperative female in no distress. The right ear isbulging. She has drainage from the right ear. The left ear has got fluid in the middle ear space. The left ear canal is normal. Oralcavity is normal. Palpation of the neck reveals no adenopathy. Nasal exam is normal today; midline septum, normal turbinates without discharge. Tympanograms today were flat bilaterally and this was performed by Mildred Blackwell. ASSESSMENT Acute otitis media of the right ear. PLAN Amoxicillin 1000 milligrams p.o. b.i.d. times 10 days. Follow up here six to eight weeks. Signed by Jeremy Walker MD 03/07/2008 17:29 Jeremy Walker MD - Alan Walker MD - [facility] Job ID: [id number] Doc ID: [id number] cc: documented in this encounter Consult Notes * Jeremy Walker MD - 01/04/2009 0528 EDT DIVISION OF OTOLARYNGOLOGY CONSULTATION - 02/29/2008 Daniel Mendoza MD [facility] [address] [place] [address] Mendoza: Rosaura was seen back in the office on February 29, 2008. She had an acute ear infection on the right side, fluid in the left middle ear space. Tympanograms today are flat, and I have placed her on some amoxicillin. We will get her back in six to eight weeks. Sincerely, Signed by Jeremy Walker MD 03/07/2008 17:29 Jeremy Walker MD - Alan Walker MD - [facility] Job ID: [id number] Doc ID: [id number] cc: Daniel Mendoza MD cc: Daniel Mendoza MD documented in this encounter Plan of Treatment Not on file documented as of this encounter Visit Diagnoses Not on filedocumented in this encounter Care Teams Prepress Technician Relationship Specialty Start Date End [place] [address] PCP - General 12/12/08 documented as of this encounter
--- OUTSIDE RECORDS SUMMARY | 2024-01-05 00:14 | XMS_ITS | Encounter Summary ---
Author Organization [facility] Address [address] [place] [address] Care Team Providers Care Storage Management Architect Name Role Phone Daniel Mendoza MD Primary Care Provider [phone] Reason for Visit * Reason Onset Date Comments Ear Infection (Otitis Media) 11/03/2011 not responding to medication Encounter Details Date Type Department Care Team (Late st Contact Info) Description 11/03/2011 Telephone [facility] ENT- Main [address] [id number] Kirk Pablo MD [address] [place] [address] [place] [phone] Ear Infection (Otitis Media) (not responding to medication) Social History Tobacco Use Types Packs/Day Years Used Date Smoking Tobacco: Never Assessed Sex and Gender Information Value Date Recorded Sex Assigned at Not on file Gender Identity Not on file Sexual Orientation Not on file documented as of this encounter Ordered Prescriptions Prescription Sig Dispensed Refills Start Date End Da te predniSONE (DELTASONE) 20 mg tablet 40 mg daily for 5 days 10 Tab 0 11/04/2011 12/16/2011 documented in this encounter Miscellaneous Notes * Telephone Encounter - Donell Connell RN - 11/04/2011 0911 EDT 5 day prednisone burst per Dr. Pablo to open ETD, mom aware. * Telephone Encounter - Donell Connell RN - 11/03/2011 1452 EDT Started on amox 10/25 has now finished and still very plugged and pcp still sees fluid bubbles behind right drum. * Telephone Encounter - Samantha Taylor - 11/03/2011 1400 EDT PCP wants to patient to be seen. documented in this encounter Plan of Treatment Not on file documented as of this encounter Visit Diagnoses Not on filedocumented in this encounter Care Teams Storage Management Architect Relationship Specialty Start Date End Date Daniel Mendoza MD [address] [place] [address] PCP - General 12/12/08 documented as of this encounter
--- OUTSIDE RECORDS SUMMARY | 2024-01-05 00:15 | XMS_ITS | Encounter Summary ---
Author Organization [facility] Address [address] [place] [address] Care Team Providers Care Post Office Manager Name Role Phone Unavailable Primary Care Provider Unavailabl e Encounter Details Date Type Department Care Team (Latest Contact Info) Description 06/14/2001 9:01 EST - 06/14/2001 11:59 EST Hospital Encounter [facility] - Maple conversion [address] [place] [address] Scott Hirsch MD [address] [place] [phone] Discharge Disposition: Auto Discharge Social History Tobacco [...] Procedure Name Priority Date/Time Associated Diagnosis Comments TIBIA FIBULA 2 VIEWS Routine 06/14/2001 9:56 EST ANKLE 3 OR MORE VIEWS Routine 06/14/2001 9:09 EST documented in this encounter Results * TIBIA FIBULA 2 VIEWS (06/14/2001 9:56 EST) Anatomical Region Laterality Modality Other 06/14/2001 9:56 EST Narrative 05/02/2009 3:51 EST LEG PAIN, 06-04-01 R/O ASSESS HEALING RIGHT LOWER LEG 06/14/01 COMPARISON: 04/01/01 FINDINGS: AP and lateral views of the lower leg. There is progressive healing and near complete remodeling of the non-displaced distal tibia metaphysis fracture. No other fracture or dislocation is seen. D 06/16/01 T 06/19/01 /domonique Procedure Note Faraz Wong MD - 05/02/2009 LEG PAIN, 06-04-01 R/O ASSESS HEALING RIGHT LOWER LEG 06/14/01 COMPARISON: 04/01/01 FINDINGS: AP and lateral views of the lower leg. There is progressive healing and near complete remodeling of the non-displaced distal tibia metaphysis fracture. No other fracture or dislocation is seen. D 06/16/01 T 06/19/01 /domonique Scott Hirsch MD [facility] DIAGNOSTIC I MAGING ORDERABLES * ANKLE 3 OR MORE VIEWS (06/14/2001 9:09 EST) Anatomical Region Laterality Modality Other 06/14/2001 9:09 EST Narrative 05/02/2009 3:51 EST LT DISTAL TIB FX , DOI 03-31-01 R/O ASSESS HEALING LEFT ANKLE: 06/14/01 0900 HOURS COMPARISON: 04/19/01. AP, oblique and lateral views. The distal tibia metaphysis fracture demonstrates progressive healing and remodeling. No new displaced fracture is identified. Bone density is normal. dw Procedure Note Faraz Wong MD - 05/02/2009 LT DISTAL TIB FX , DOI 03-31-01 R/O ASSESS HEALING LEFT ANKLE: 06/14/01 0900 HOURS COMPARISON: 04/19/01. AP, oblique and lateral views. The distal tibia metaphysis fracture demonstrates progressive healing and remodeling. No new displaced fracture is identified. Bone density is normal. dw Scott ALVAREZ DIAGNOSTIC I MAGING ORDERABLES documented in this encounter Visit Diagnoses Not on filedocumented in this encounter
--- OUTSIDE RECORDS SUMMARY | 2024-01-05 00:15 | XMS_ITS | Encounter Summary ---
Author Organization [facility] Address [address] [place] [address] Care Team Providers Care Software Packaging Engineer Name Role Phone Unavailable Primary Care Provider Unavailabl e Encounter Details Date Type Department Care Team (Latest Contact Info) Description 04/19/2001 9:18 EST - 04/19/2001 11:59 EST Hospital Encounter [facility] - Maple conversion [address] [place] [address] Scott Hirsch MD [address] [place] [phone] Discharge Disposition: Auto Discharge Social History [...]
--- OUTSIDE RECORDS SUMMARY | 2024-01-05 00:15 | XMS_ITS | Encounter Summary ---
Author Organization [facility] Address [address] [place] [address] Care Team Providers Care Streetcar Starter Name Role Phone Unavailable Primary Care Provider Unavailabl e Encounter Details Date Type Department Care Team (Late st Contact Info) Description 12/21/2002 11:34 EDT - 12/21/2002 11:59 EDT Hospital Encounter [facility] - Other [address] [place] [address] Jeremy Walker MD [address] [facility], [address] [place] [address] Discharge Disposition: Auto Discharge Social History Tobacco [...]
--- OUTSIDE RECORDS SUMMARY | 2024-01-05 00:15 | XMS_ITS | Encounter Summary ---
Author Organization [facility] Address [address] [place] [address] Care Team Providers Care Meat Process Worker Name Role Phone Unavailable Primary Care Provider Unavailabl e Encounter Details Date Type Department Care Team (Late st Contact Info) Description 07/23/2005 11:17 [facility] Hospital Encounter [address] [address] Jeremy Walker MD [address] [place] [address], [address] [place] [address] Social History Tobacco Use Types [...]
--- OUTSIDE RECORDS SUMMARY | 2024-01-05 00:15 | XMS_ITS | Encounter Summary ---
Author Organization [facility] Address [address] [place] [address] Care Team Providers Care Weapons System Instrument Mechanic Name Role Phone Daniel Mendoza MD Primary Care Provider [phone] Encounter Details Date Type Department Care Team (Late st Contact Info) Description 10/20/2005 Before PRISM Converted Visit (Maple) [facility] - Maple conversion [address] [place] [address] Jeremy Walker MD [address] [facility], [address] [place] [address] Social History Tobacco Use Types Packs/Day Years Used Date Smoking Tobacco: Never Assessed Sex and Gender Information Value Date Recorded Sex Assigned at Not on file Gender Identity Not on file Sexual Orientation Not on file documented as of this encounter Progress Notes * Jeremy Walker MD - 05/23/2009 1226 EST DIVISION OF OTOLARYNGOLOGY PROGRESS/FOLLOWUP NOTE - 10/20/2005 S: Patient has had no troubles after surgery. Her hearing seems better. Shehad no ear pain and no ear drainage. O: Healthy, alert, cooperative female in no distress today. Both tubes are in place. There is no infection or drainage. Both ear canals look normal. Tympanograms show high volume and flat bilaterallywith normal hearing today. Speech administrative receptionist threshold is 15 decibels on the right side and 10 decibels on the left side. A: Serous otitis media, recurrent otitis media. Normal tube check and normal hearing. P: Follow up in six months. Signed by Jeremy Walker MD 10/20/2005 17:06 Mauro Manzano MD Jeremy Walker MD - Jeremy Walker MD P - [facility] Job ID: [id number] Document ID: [id number] cc: documented in this encounter Plan of Treatment Not on file documented as of this encounter Visit Diagnoses Not on filedocumented in this encounter Care Teams Weapons System Instrument Mechanic Relationship Specialty Start Date End Date Daniel Mendoza MD [address] [place] [address] PCP - General 12/12/08 documented as of this encounter
--- OUTSIDE RECORDS SUMMARY | 2024-01-05 00:15 | XMS_ITS | Encounter Summary ---
Author Organization [facility] Address [address] [place] [address] Care Team Providers Care Hops Farmworker Name Role Phone Unavailable Primary Care Provider Unavailabl e Encounter Details Date Type Department Care Team (Late st Contact Info) Description 09/24/2005 8:21 EDT Hospital Encounter [address] [address] Jeremy Walker MD [address] [place] [address], [address] 4 [place] [id number] Social History Tobacco Use Types Packs/Day Years [...]
--- OUTSIDE RECORDS SUMMARY | 2024-01-05 00:15 | XMS_ITS | Encounter Summary ---
Author Organization [facility] Address [address] [place] [address] Care Team Providers Care Sisal Picker Name Role Phone Unavailable Primary Care Provider Unavailabl e Encounter Details Date Type Department Care Team (Latest Contact Info) Description 04/01/2001 8:38 EDT - 04/01/2001 11:59 EDT Hospital Encounter [facility] Emergency Department - [address] [address] Ronda Campos MD [address] [place] [phone] Discharge Disposition: Home or Self Care Social [...] Procedure Name Priority Date/Time Associated Diagnosis Comments ANKLE 3 OR MORE VIEWS Routine 04/19/2001 9:07 EST TIBIA FIBULA 2 VIEWS Routine 04/01/2001 9:45 EDT documented in this encounter Results * ANKLE 3 OR MORE VIEWS (04/19/2001 9:07 EST) Anatomical Region Laterality Modality Other 04/19/2001 9:07 EST Narrative 05/02/2009 3:59 EST LT ANK FX , DOI 03-31-01 R/O ASSESS HEALING LEFT ANKLE: 04/19/01. FINDINGS: AP, lateral, and oblique views of the left ankle demonstrate sclerosis of the distal medial tibial metaphysis adjacent to the growth plate, consistent with healing fracture. Alignment is anatomic and unchanged. /tns Procedure Note Wilver Trujillo PT - 05/02/2009 LT ANK FX , DOI 03-31-01 R/O ASSESS HEALING LEFT ANKLE: 04/19/01. FINDINGS: AP, lateral, and oblique views of the left ankle demonstrate sclerosis of the distal medial tibial metaphysis adjacent to the growth plate, consistent with healing fracture. Alignment is anatomic and unchanged. /tns Scott ALVAREZ DIAGNOSTIC I MAGING ORDERABLES * TIBIA FIBULA 2 VIEWS (04/01/2001 9:45 EDT) Anatomical Region Laterality Modality Other 04/01/2001 9:45 EDT Narrative 04/23/2009 4:46 EST H/O FELL 10-19, WON'T BEAR WT ON LEFT LEG-TENDER MID-SHAFT TIBIA R/O FX AP AND LATERAL TIBIA AND FIBULA 04/01/2001 09:45 FINDINGS: There is a small, nondisplaced Salter II fracture at the medial aspect of the distal tibia. The bones and soft tissues are otherwise unremarkable. /rml Procedure Note Daniel Talavera MD / Fatmata Vanegas MD - 04/23/2009 H/O FELL 10-19, WON'T BEAR WT ON LEFT LEG-TENDER MID-SHAFT TIBIA R/O FX AP AND LATERAL TIBIA AND FIBULA 04/01/2001 09:45 FINDINGS: There is a small, nondisplaced Salter II fracture at the medial aspect of the distal tibia. The bones and soft tissues are otherwise unremarkable. /rml Ronda Campos MD IMG DIAGNOSTIC IMAG ING ORDERABLES documented in this encounter Visit Diagnoses Not on filedocumented in this encounter
--- OUTSIDE RECORDS SUMMARY | 2024-01-05 00:15 | XMS_ITS | Encounter Summary ---
Author Organization [facility] Address [address] [place] [address] Care Team Providers Care Glazing Machine Operator Name Role Phone Unavailable Primary Care Provider Unavailabl e Encounter Details Date Type Department Care Team (Latest Contact Info) Description 06/11/1999 0:34 EST - 06/12/1999 11:59 EST Hospital Encounter [facility] Nursery Unit [address] [place] [address] Christy Roach MD [address] [place] [address] Discharge Disposition: Home or Self Care Social [...]
--- OUTSIDE RECORDS SUMMARY | 2024-01-05 00:15 | XMS_ITS | Encounter Summary ---
Author Organization [facility] Address [address] [place] [address] Care Team Providers Care Torch Heater Name Role Phone Daniel Mendoza MD Primary Care Provider [phone] Encounter Details Date Type Department Care Team (Late st Contact Info) Description 07/23/2005 Before PRISM Converted Visit (Maple) [facility] - Maple conversion [address] [place], [place] [address] Jeremy Walker MD [address] [facility], [address] [place] [address] Social History Tobacco Use Types Packs/Day Years Used Date Smoking Tobacco: Never Assessed Sex and Gender Information Value Date Recorded Sex Assigned at Not on file Gender Identity Not on file Sexual Orientation Not on file documented as of this encounter Progress Notes * Jeremy Walker MD - 08/13/20092032 EST DIVISION OF OTOLARYNGOLOGY July 27, 2005 Daniel Mendoza MD [facility] [address], [place] [address] RE DOS 07/23/[address] Mendoza: very much for your note on Rosaura. She was evaluated in my office on July 23, 2005. Examination at that time revealed a functioning right tube. Examination of the left ear reveals a tube sittingin the canal which was removed revealing fluid and retraction in the left middle ear space. A copy of her audiogram is enclosed. This reveals normal hearing on the right side and a conductive hearingloss down to 40 decibels on the left side. She has a flat tympanogram. I think with her history andexam, we should check her back in a couple months to make sure that the left middle ear fluid resolves, although Im not convinced. If it doesnresolve, she probably needs a new tube in the left ear. Thanks for the consultation. Signed by Jeremy Walker MD 07/27/2005 12:33 Mauro Manzano MD Jeremy Walker MD - Jeremy Walker MD A - [facility] Job ID: [id number] Document ID: [id number] cc: Daniel Mendoza MD * Jeremy Walker MD - 08/13/20092032 EST DIVISION OF OTOLARYNGOLOGY PROGRESS/FOLLOWUP NOTE - 07/23/2005 S:has had some decreased hearing in the right side at a recent school test. She had tubes inserted about three years ago. She is in good health, otherwise. O:alert, cooperative female in no distress. The right tube is in place and functioning with a high volume and flat tympanogram and normal hearing on the right side. Speech medical reception threshold is 15 decibels in the right side. Examination of theleft ear reveals an old tube sitting in the ear canal which was removed under the microscope without complication revealing fluid in the left middle ear space with an ear drum retraction. The tympanogram on the left side showed small volume and flat. Bothear canals look normal. A: Left serous otitis media with a conductive hearing loss. P: Follow up in 2 months, preferential seating in the classroom. Patient will return sooner if she has troubles. Signed by Jeremy Walker MD 07/27/2005 12:33 Mauro Manzano MD Jeremy Walker MD - Jeremy Walker MD A - [facility] Job ID: [id number] Document ID: [id number] cc: documented in this encounter Plan of Treatment Not on file documented as of this encounter Visit Diagnoses Not on filedocumented in this encounter Care Teams Torch Heater Relationship Specialty Start Date End Date Daniel Mendoza MD [address] [place] [address] PCP - General 12/12/08 documented as of this encounter
--- OUTSIDE RECORDS SUMMARY | 2024-01-05 00:15 | XMS_ITS | Encounter Summary ---
Author Organization [facility] Address [address] [place] [address] Care Team Providers Care Assembly Detailer Name Role Phone Daniel Mendoza MD Primary Care Provider [phone] Encounter Details Date Type Department Care Team (Late st Contact Info) Description 09/24/2005 Before PRISM Converted Visit (Maple) [facility] - Maple conversion [address] [place], [place] [address] Jeremy Walker MD [address] [facility], [address] 4 [place] [address] Social History Tobacco Use Types Packs/Day Years Used Date Smoking Tobacco: Never Assessed Sex and Gender Information Value Date Recorded Sex Assigned at Not on file Gender Identity Not on file Sexual Orientation Not on file documented as of this encounter Progress Notes * Jeremy Walker MD - 05/24/2009 1059 EST DIVISION OF OTOLARYNGOLOGY September 30, 2005 Daniel Mendoza MD [facility] [address], [place] [address] DOS 09/24/[address] Mendoza: Rosaura was seen back in my office on September 24, 2005. Examination at that time revealed fluid in both middle ear spaces. It looks like she has a non functioning right tube also and I have recommendedreinsertion of tubes. Thanks for the referral. Sincerely, Signed by Jeremy Walker MD 10/01/2005 08:45 Mauro Manzano MD Jeremy Walker MD - Jeremy Walker MD P - [facility] Job ID: [id number] Document ID: [id number] cc: Daniel Mendoza MD * Jeremy Walker MD - 05/24/2009 1057 EST DIVISION OF OTOLARYNGOLOGY PROGRESS/FOLLOWUP NOTE - 09/24/2005 S:has had a recent ear infection on the right side. She has not been hearing very well. Mom is concerned. O: Healthy, alert, cooperative female in no distress. The right tube is extruding from the canal and there is fluid in the right middle ear space. The right ear canal is normal. The left ear shows fluid and retraction of the middle ear space. The left ear canal is normal. Oral cavity is normal. Palpation of the neck reveals no adenopathy. Nasal exam is normal with a midline septum and normal turbinates. Heart regular rate and rhythm. Lungs clear in all lung contreras. Abdomen soft and benign with active bowel sounds. A: Serous otitis media, conductive hearing loss. P: Ventilating tube reinsertion. Signed by Jeremy Walker MD 10/01/2005 08:44 Mauro Manzano MD Jeremy Walker MD - Jeremy Walker MD P - [facility] Job ID: [id number] Document ID: [id number] cc: documented in this encounter Plan of Treatment Not on file documented as of this encounter Visit Diagnoses Not on filedocumented in this encounter Care Teams Assembly Detailer Relationship Specialty Start Date End Date Daniel Mendoza MD [address] [place] [address] PCP - General 12/12/08 documented as of this encounter
--- OUTSIDE RECORDS SUMMARY | 2024-01-05 00:15 | XMS_ITS | Encounter Summary ---
Author Organization [facility] Address [address] [place] [address] Care Team Providers Care Switching Clerk Name Role Phone Unavailable Primary Care Provider Unavailabl e Encounter Details Date Type Department Care Team (Late st Contact Info) Description 10/20/2005 8:55 EDT Hospital Encounter [address] [address] Jeremy Walker MD [address] [place] [address], [address] [place] [phone] Social History Tobacco Use Types Packs/Day Years [...]
--- OUTSIDE RECORDS SUMMARY | 2024-01-05 00:15 | XMS_ITS | Encounter Summary ---
Author Organization [facility] Address [address] [place] [address] Care Team Providers Care Data Management Specialist Name Role Phone Unavailable Primary Care Provider Unavailabl e Encounter Details Date Type Department Care Team (Late st Contact Info) Description 10/05/2005 9:56 EDT - 10/05/2005 11:59 EDT Hospital Encounter [facility] Perioperative Services- [address] [phone] Jeremy Walker MD [address] [facility], Level [address] [place] [address] Discharge Disposition: Home or Self [...] or Self Care documented in this encounter OR Notes * OR Surgeon - Felice Cruz MD - 10/05/2005 0000 EDT PROCEDURE REPORT PT TYPE: OPPROC PT LOC: [id number] SERVICE DATE: 10/05/2005 SURGEON: ANA Del Real, Mauro Troy MD TREATMENT TECHNICIAN: Felice Cruz MD PREOPERATIVE DIAGNOSIS: This is a 5-year-old female patient with a preoperative diagnosis of chronic serous otitis media. POSTOPERATIVE DIAGNOSIS: Chronic serous otitis media. PROCEDURE: Bilateral myringotomy and placement of Sienna Activent-type ventilatory tubes. ANESTHESIA: General inhalational anesthesia using a mask. FINDINGS: There was serous fluid in the right middle ear, and there was thick mucoid fluid in the left middle ear. Both had to be suctioned prior to insertion of the tube. On the right side, there was a posterior tympanic membrane perforation, and the tube was placed in the anteroinferior part of the pars tensa. On the left side, there was some tympanosclerosis noted, and the tube was placed successfully. NARRATIVE: After induction of adequate general mask anesthesia, the patient's ears were examined under the operating microscope and an appropriate sized speculum. Cerumen was debrided from each ear bilaterally. membrane was visualized, and an anterior mid-position myringotomy was made bilaterally. The middle ear space was suctioned and a PE tube was placed bilaterally. After assuring that there was no bleeding at the myringotomy sites, the patient was awakened by anesthesia and returned to the recoroom in stable condition. There were no complications. Dr. Walker was present for the eof this case in the OR. Signed by Jeremy Walker MD 10/08/2005 09:11 Shannon Cruz, Mauro Troy MD Dictated by: Felice Cruz MD Jeremy Walker MD - Felice Cruz MD A - cs Job ID: [id number] Document ID: [id number] cc: MD Felice Blackwell MD Timothy Tanner, MD documented in this encounter Plan of Treatment Not on file documented as of this encounter Visit Diagnoses Not on filedocumented in this encounter
--- NOTE | 2024-01-05 08:15 | DI.US_ITS ---
Exam(s) US OB DANIEL WEIGHT EXAM: US OB DANIEL WEIGHT CLINICAL HISTORY: medication exposure,O99.320. TECHNIQUE: Transabdominal obstetrical ultrasound performed. COMPARISON: US POCUS EXAM from 07/15/2023 FINDINGS: Number of fetuses: 1 position: CEPHALIC Placental location: There is limited visualization of the placenta. There is a grade 2 posterior kayy centa. BIOMETRIC DATA: BPD: 8.22cm, 33weeks HC: 29.06cm, 32weeks AC: 27.64cm, 31weeks 5days FL: 6.36cm, 32weeks 6days EFW: 1,923.98g, 4lb 3.81oz, 32.5% Composite Age: 32weeks 3days KAUR: 02/27/2024 Heart Rate: 134bpm Amniotic fluid index: 12.55cm. The largest pocket measures 5.6 cm. IMPRESSION: 1. Single live intrauterine gestation as above. 2. Estimated weight is 1924gms. This is the 33rd percentile. 3. Amniotic fluid index is 12.6 cm. The largest pocket is 5.6 cm. DATA REPOSITORY:
== END ==
PROVIDERS: PCP Family Medicine; Visit Provider Advanced Practice Midwife
DX: Z34.90 Encounter for supervision of normal pregnancy, unspecified, unspecified trimester (principal); O99.320 Drug use complicating pregnancy, unspecified trimester; F11.20 Opioid dependence, uncomplicated
CPT/HCPCS: 76816

== ENCOUNTER 2024-01-28 22:22 | Inpatient (IN) | payer MEDICAID, SELFPAY ==
[2024-01-28] VITALS (10 sets, daily range): BP systolic 124–135; BP diastolic 56–73; PULSE 84–102; RESP 18; TEMP 36.7; O2SAT 89–100
--- OUTSIDE RECORDS SUMMARY | 2024-01-28 21:57 | XMS_ITS | Encounter Summary ---
[place] [address] Care Team Providers Care Implementation Manager Name Role Phone Annamaria Pedraza MD Primary Care Provider [phone] Encounter Details Date Type Department Care Team [...] on filedocumented in this encounter Care Teams Implementation Manager Relationship Specialty Start Date End Date Annamaria Pedraza MD [address] [place] [address] PCP - General Family Medicine 09/06/23 documented as of this encounter
--- OUTSIDE RECORDS SUMMARY | 2024-01-28 21:57 | XMS_ITS | Clinical Summary ---
Author Organization [facility] Address [facility] [place] [address] Care Team Providers Care Farm Mechanic Apprentice Name Role Phone Annamaria Pedraza MD Primary Care Provider [phone] Allergies No known active allergies Medications Medication [...] needed for nausea and vomiting 09/19/2023 Active M-Sasha Plus 27 mg iron- 1 mg [...] EDT Office Visit Obstetrics [place] [address] Tamia Mackay MD Short cervix during in second trimester 10/28/2023 8:30 AM EDT - 10/28/2023 11:59 PM EDT Hospital [place] [address] Yuniel De La Paz MD Obesity affecting in second trimester, unspecified obesity type; Short cervix during in second trimester Discharge Disposition: Home 10/28/2023 Travel from Last 3 Months Social History [...] PAP Smear 2019 Covid-19 Vaccine ( - season) 2023 Influenza (Flu) vaccine (1 o f 1 - Influenza standard series) 02/12/2024 Procedures Procedure Name Priority Date/Time Associated Diagnosis Comments US OB FOLLOW UP Routine 10/28/2023 9:31 AM EDT Obesity affecting in second trimester, unspecified obesity type Short cervix during in second trimester from Last 3 Months Results * US OB Follow Up (10/28/2023 9:31 AM EDT) [employer] WORKSTATION ID [id number] DH RAD Anatomical Region Laterality Modality [...] who have questions, please contact the health adult care manager that requested your imaging first. ?Tamia Mackay, Staff Physician Electronically Signed Final Report ?? 10/28/2023 10:06 am Narrative 10/28/2023 10:07 AM EDT OBSTETRICS REPORT ?(Signed Final 10/28/2023 10:06 am) PATIENT INFO: ID #: ? [id number] ?: ??[birth year] (23 yrs)(F) Name: ? DANNA INGRAM ?Visit Date: 10/28/2023 09:08 am PERFORMED BY: Performed By: ? Daisy Bourne RDMS Attending: ?Thompson GAMA, Tamia Arndt Referred By: ?Yuniel DE LA PAZ Location: ? [facility] SERVICE(S) PROVIDED: UOBFOL - Efw - Growth ??- [place] - [id number] ?[id number] UOBTVCER - Transvaginal ??2nd Trimester - ?20971 Cervical Length - [id number] INDICATIONS: 22 weeks gestation of ?Z3A.22 anatomy [...] 10/28/2023 10:06 am) PATIENT INFO: ID #: [id number] : [id number] (23 yrs)(F) Name: DANNA INGRAM Visit Date: 10/28/2023 09:08 am PERFORMED BY: Performed By: Daisy Bourne RDMS Attending: Tamia Mackay MD Referred By: Yuniel DE LA PAZ Location: [facility] SERVICE(S) PROVIDED: UOBFOL - Efw - Growth - Mancuso - [id number] UOBTVCER - Transvaginal 2nd Trimester - [id number] Cervical Length - [id number] INDICATIONS: 22 weeks gestation of Z3A.22 anatomy [...] who have questions, please contact the health adult care manager that requested your imaging first. Tamia Mackay, Staff Physician Electronically Signed Final Report 10/28/2023 10:06 am E Yeimy De La Paz MD IMG US OB ORDERAB LES from Last 3 Months Care Teams Farm Mechanic Apprentice Relationship Specialty Start Date End Date Annamaria Pedraza MD [address] [place] [address] PCP - General Family Medicine 09/06/23
--- OUTSIDE RECORDS SUMMARY | 2024-01-28 21:57 | XMS_ITS | Encounter Summary ---
[place] [address] Care Team Providers Care Nutritional Health Coach Name Role Phone Annamaria Pedraza MD Primary Care Provider [phone] Encounter Details Date Type Department Care Team [...] on filedocumented in this encounter Care Teams Nutritional Health Coach Relationship Specialty Start Date End Date Annamaria Pedraza MD [address] [place] [address] PCP - General Family Medicine 09/06/23 documented as of this encounter
--- OUTSIDE RECORDS SUMMARY | 2024-01-28 21:57 | XMS_ITS | Encounter Summary ---
Author Organization [facility] Address [facility] [place] [address] Care Team Providers Care Intelligent Systems Engineer Name Role Phone Annamaria Pedraza MD Primary Care Provider [phone] Reason for Visit * Reason Comments Follow-up Encounter Details Date Type Department Care Team (Late st Contact Info) Description 10/28/2023 10:00 AM EDT Office Visit [place]stetrics [place] [address] Larry Collins MD [facility] [address] OBSTETRICS [place] [address] Short cervix during in second trimester Social [...] trimester documented in this encounter Care Teams Intelligent Systems Engineer Relationship Specialty Start Date End Date Annamaria Pedraza MD [address] [place] [address] PCP - General Family Medicine 09/06/23 documented as of this encounter
--- OUTSIDE RECORDS SUMMARY | 2024-01-28 21:57 | XMS_ITS | Encounter Summary ---
[place] [address] Care Team Providers Care Faculty Research Physician Name Role Phone Annamaria Pedraza MD Primary Care Provider [phone] Reason for Visit * Reason Comments Establish Care * Consultation (Routine) - Authorized Specialty Diagnoses / Procedures Referred By Contac t Referred To Contact Obstetrics and Gynecology Diagnoses Hepatitis C virus infection without hepatic coma, unspecified chronicity Family history of genetic disorder Prisca Manuel, [facility] [address] [place] [address] [place] [address] [facility] [place] [address] [place] [address] Referral ID Status Reason Start Date Expiration Date Visits Requested Visits Authorized [id number] Authorized Consult, Test & Treat PCP Updated and/or Approved 09/06/2023 09/05/2024 6 6 Encounter Details Date Type Department Care Team (Late st Contact Info) Description 10/11/2023 3:00 PM EDT Office Visit Obstetrics [place] [address] Yuniel De La Paz MD [facility] DR [place] [address] Obesity affecting in second trimester, [...] hours as needed for nausea and vomiting M- Plus 27 mg iron- 1 mg [...] LA PAZ MD 10/11/2023 Cc: Prisca Manuel, [address] [place] [address] , with copy of ultrasound report 45 minutes were spent on date of visit, including non-face to face time. documented in this encounter Plan of Treatment Not on file documented as of this encounter Results * US OB Follow Up (10/28/2023 9:31 AM EDT) WORKSTATION ID [id number] DH RAD Anatomical Region Laterality Modality [...] who have questions, please contact the health healthcare associate that requested your imaging first. ?Tamia Mackay, Staff Physician Electronically Signed Final Report ?? 10/28/2023 10:06 am Narrative 10/28/2023 10:07 AM EDT OBSTETRICS REPORT ?(Signed Final 10/28/2023 10:06 am) PATIENT INFO: ID #: ? [id number] ?: ??[birth year] (23 yrs)(F) Name: ? DANNAAVELINO INGRAM ?Visit Date: 10/28/2023 09:08 am PERFORMED BY: Performed By: ? Daisy Bourne RDMS Attending: ?Thompson GAMA, Tamia Arndt Referred By: ?Yuniel DE LA PAZ Location: ? [place] SERVICE(S) PROVIDED: UOBFOL - Efw - Growth ??- Mancuso - [id number] ?[id number] UOBTVCER - Transvaginal ??2nd Trimester - ?56641 Cervical Length - [id number] INDICATIONS: 22 weeks gestation of ?Z3A.22 anatomy [...] 10/28/2023 10:06 am) PATIENT INFO: ID #: [id number] : [birth year] (23 yrs)(F) Name: DANNA INGRAM Visit Date: 10/28/2023 09:08 am PERFORMED BY: Performed By: Daisy Bourne RDMS Attending: Tamia Mackay MD Referred By: Yuniel DE LA PAZ Location: [place] SERVICE(S) PROVIDED: UOBFOL - Efw - Growth - Mancuso - [id number] UOBTVCER - Transvaginal 2nd Trimester - 30775 Cervical Length - [id number] INDICATIONS: 22 weeks gestation of Z3A.22 anatomy [...] who have questions, please contact the health healthcare associate that requested your imaging first. Tamia Mackay, [...] trimester documented in this encounter Care Teams Faculty Research Physician Relationship Specialty Start Date End Date Annamaria Pedraza MD [address] [place] [address] PCP - General Family Medicine 09/06/23 documented as of this encounter
--- OUTSIDE RECORDS SUMMARY | 2024-01-28 21:57 | XMS_ITS | Encounter Summary ---
[place] [address] Care Team Providers Care Social Secretary Name Role Phone Annamaria Pedraza MD Primary Care Provider [phone] Reason for Referral * Diagnostic Test (Routine) - Closed Specialty Diagnoses / Procedures Referred By Contac t Referred To Contact Radiology Diagnoses Family hx-allergic disease , unspecified gestational age Antepartum drug dependence Hepatitis C virus infection without hepatic coma, unspecified chronicity Marijuana smoker Tobacco use disorder Body mass index 32.0-32.9, adult Procedures US OB Detailed Morphology Prisca Manuel CNM [address] [place] [address] [address] [place] [address] [place] [address] Referral ID Status Reason Start Date Expiration Date V isits Requested Visits Authorized [id number] Closed Specialty Service Requested 09/07/2023 03/09/2025 1 [...] US OB Detailed Morphology Prisca Manuel CNM [address] [place] [address] [address] [place] [address] [facility] [place] [address] Referral ID Status Reason Start Date Expiration Date V isits Requested Visits Authorized [id number] Closed Specialty Service Requested 09/07/2023 03/09/2025 1 1 Encounter Details Date Type Department Care Team (Latest Contact Info) Description 10/11/2023 12:19 PM EDT - 10/11/2023 11:59 PM EDT Hospital [place] [address] Prisca Manuel [address] [place], [place] [id number] Family hx-allergic disease; , unspecified gestational age; [...] as needed for nausea and vomiting 09/19/2023 M-Sasha Plus 27 mg iron- 1 mg [...] Morphology (10/11/2023 2:58 PM EDT) WORKSTATION ID [id number] RAD Anatomical Region Laterality Modality Pelvis, Abdomen [...] have questions, please contact the health adult caregiver that requested your imaging first. ? Chadwick De La Paz, Staff Physician Electronically Signed Final Report ?? 10/11/2023 03:15 pm Narrative 10/11/2023 3:15 PM EDT OBSTETRICS REPORT ?(Signed Final 10/11/2023 03:15 pm) PATIENT INFO: ID #: ? [id number] ?: ??[birth year] (23 yrs)(F) Name: ? DANNA Riley CHOUT ?Visit Date: 10/11/2023 02:45 pm PERFORMED BY: Performed By: ? Daisy Bourne RDMS Attending: ?Chadwick De La Paz MD Referred By: ?PRISCA MANUEL Location: ? [place] SERVICE(S) PROVIDED: [facility] - Detailed Morphology - [id number] ? [id number] UOBTVCER - Transvaginal ??2nd Trimester - ?35082 Cervical Length - [id number] INDICATIONS: 20 weeks gestation of ?Z3A.20 Fob [...] Not Visualized SVC: ? Not Visualized Cardiac Avinger: ?Visualized Diaphragm: ? Visualized 3 Vessel View: [...] 10/11/2023 03:15 pm) PATIENT INFO: ID #: [id number] : [birth year] (23 yrs)(F) Name: DANNA INGRAM Visit Date: 10/11/2023 02:45 pm PERFORMED BY: Performed By: Daisy Bourne RDMS Attending: Chadwick De La Paz MD Referred By: PRISCA MANUEL Location: [place] SERVICE(S) PROVIDED: [facility] - Detailed Morphology - [id number] 56489 UOBTVCER - Transvaginal 2nd Trimester - 58648 Cervical Length - [id number] INDICATIONS: 20 weeks gestation of Z3A.20 Fob [...] Arch: Not Visualized SVC: Not Visualized Cardiac Avinger: Visualized Diaphragm: Visualized 3 Vessel View: Visualized [...] have questions, please contact the health adult caregiver that requested your imaging first. Chadwick De [...] adult documented in this encounter Care Teams Social Secretary Relationship Specialty Start Date End Date Annamaria Pedraza MD [address] [place] [address] PCP - General Family Medicine 09/06/23 documented as of this encounter
--- OUTSIDE RECORDS SUMMARY | 2024-01-28 21:57 | XMS_ITS | Encounter Summary ---
Author Organization [facility] Address [facility] [place] [address] Care Team Providers Care Ingot Car Operator Name Role Phone Annamaria Pedraza MD Primary Care Provider [phone] Encounter Details Date Type Department Care Team (Latest Contact Info) Description 10/28/2023 8:30 AM EDT - 10/28/2023 11:59 PM EDT Hospital [place] [address] John De La Paz MD [facility] DR OBSTETRICS [place] [address] Obesity affecting in second trimester, unspecified obesity [...] OB Follow Up (10/28/2023 9:31 AM EDT) [employer] WORKSTATION ID [id number] DH RAD Anatomical Region Laterality Modality [...] please contact the health home health care physician that requested your imaging first. ?Tamia Mackay, Staff Physician Electronically Signed Final Report ?? 10/28/2023 10:06 am Narrative 10/28/2023 10:07 AM EDT OBSTETRICS REPORT ?(Signed Final 10/28/2023 10:06 am) PATIENT INFO: ID #: ? [id number] ?: ??[birth year] (23 yrs)(F) Name: ? DANNA INGRAM ?Visit Date: 10/28/2023 09:08 am PERFORMED BY: Performed By: ? Daisy Bourne RDMS Attending: ?Thompson GAMA, Tamia Arndt Referred By: ?John DE LA PAZ Location: ? [place] SERVICE(S) PROVIDED: UOBFOL - Efw - Growth ??- Mancuso - [id number] ?[id number] UOBTVCER - Transvaginal ??2nd Trimester - ?64126 Cervical Length - [id number] INDICATIONS: 22 weeks gestation of ?Z3A.22 anatomy [...] 10/28/2023 10:06 am) PATIENT INFO: ID #: [id number] : [birth year] (23 yrs)(F) Name: DANNA INGRAM Visit Date: 10/28/2023 09:08 am PERFORMED BY: Performed By: Daisy Bourne RDMS Attending: Tamia Mackay MD Referred By: John GAN PSCHIRRER Location: [place] SERVICE(S) PROVIDED: UOBFOL - Efw - Growth - Mancuso - [id number] UOBTVCER - Transvaginal 2nd Trimester - 27543 Cervical Length - [id number] INDICATIONS: 22 weeks gestation of Z3A.22 anatomy [...] please contact the health home health care physician that requested your imaging first. Tamia Mackay, Staff Physician Electronically Signed Final Report 10/28/2023 10:06 am E Yeimy De La Paz MD IMG OB ORDERAB LES documented in this encounter Visit Diagnoses Diagnosis Obesity affecting in second trimester, unspecified obesity type Short cervix during in second trimester documented in this encounter Care Teams Ingot Car Operator Relationship Specialty Start Date End Date Annamaria Pedraza MD [address] [place] [address] PCP - General Family Medicine 09/06/23 documented as of this encounter
--- OUTSIDE RECORDS SUMMARY | 2024-01-28 21:58 | XMS_ITS | Encounter Summary ---
Author Organization [facility] Address [address] [place] [address] Care Team Providers Care Building Maintenance Custodian Name Role Phone Daniel Mendoza MD Primary Care Provider [phone] Encounter Details Date Type Department Care Team (Late st Contact Info) Description 08/12/2023 Lab Requisition [facility] Pathology & Laboratory Medicine - [address] [id number] Outr Resulting Lab, Provider Social History Tobacco [...] RNA Qualitative Undetected Undetected 08/15/2023 11:44 EST [facility] Blood VENOUS BLOOD / Unknown 08/12/2023 15:25 EST 08/12/2023 21:03 EST Narrative [facility] - 08/15/2023 11:44 EST The quantification range of this assay is 15 IU/mL to 100,000,000 IU/mL. Testing was performed using the Vanessa HCV test ([employer] with the vanessa 6800 System. Provider Outr Resulting Lab CHEMISTRY & BLOOD GAS ORDERABLES Performing Organization Address [facility] Co de Phone Number [facility] [address] [place], [place] [address] * HEPATITIS B SURFACE ANTIGEN (08/12/2023 15:25 EST) Hep B Surface Ag Negative Negative 08/12/2023 22:04 EST [facility] Blood VENOUS BLOOD / Unknown 08/12/2023 15:25 EST 08/12/2023 21:03 EST Provider Outr Resulting Lab CHEMISTRY & BLOOD GAS ORDERABLES Performing Organization Address [facility] Co de Phone Number [facility] [address] [place] [address] * (ABNORMAL) HEPATITIS C AB W REFLEX TO HCV RNA BY PCR (08/12/2023 15:25 EST) Hep C Antibody Reactive(A ) Negative 08/12/2023 22:46 EST [facility] Comment: Supplemental testing for HCV RNA is ordered to rule out active HCV infection. Blood VENOUS BLOOD / Unknown 08/12/2023 15:25 EST 08/12/2023 21:03 EST Provider Outr Resulting Lab CHEMISTRY & BLOOD GAS ORDERABLES Performing Organization Address [facility] Co de Phone Number [facility] [address] [place] [phone] documented in this encounter Visit Diagnoses Not on filedocumented in this encounter Care Teams Building Maintenance Custodian Relationship Specialty Start Date End Date Daniel Mendoza MD [address] [place] [address] PCP - General 12/12/08 documented as of this encounter
--- OUTSIDE RECORDS SUMMARY | 2024-01-28 21:58 | XMS_ITS | Encounter Summary ---
Author Organization [facility] Address [address] [place] [address] Care Team Providers Care Service Tech Name Role Phone Daniel Mendoza MD Primary Care Provider [phone] Reason for Visit * Reason Comments Other keloid eval Encounter Details Date Type Department Care Team (Late st Contact Info) Description 09/18/2015 11:15 EDT Office Visit [facility] ENT- [address] [phone] Ninfa Arroyo MD [address] [facility], [address] [place] [address] Incisional pain (Primary Dx) Discharge [...] documented as of this encounter Care Teams Service Tech Relationship Specialty Start Date End Date Daniel Mendoza MD [address] [place] [address] PCP - General 12/12/08 documented as of this encounter
--- OUTSIDE RECORDS SUMMARY | 2024-01-28 21:58 | XMS_ITS | Encounter Summary ---
Author Organization [facility] Address [address] [place] [address] Care Team Providers Care Computing Machine Operator Name Role Phone Daniel Mendoza MD Primary Care Provider [phone] Reason for Visit * Reason Comments Post-OP Follow Up Encounter Details Date Type Department Care Team (Late st Contact Info) Description 03/20/2015 15:15 EDT Office Visit [facility] ENT- Main [address] [phone] Kirk Pablo MD [address] [place] [address] [place] [phone] OME (otitis media with [...] Notes * Kirk Pablo MD - 03/20/2015 5074 EDT Otolaryngology Progress note 03/20/2015 CC: HPI: [...] Primary documented in this encounter Care Teams Computing Machine Operator Relationship Specialty Start Date End Date Daniel Mendoza MD [address] [place] [address] PCP - General 12/12/08 documented as of this encounter
--- OUTSIDE RECORDS SUMMARY | 2024-01-28 21:58 | XMS_ITS | Encounter Summary ---
Author Organization [facility] Address [address] [place] [address] Care Team Providers Care Lobbyist Name Role Phone Daniel Mendoza MD Primary Care Provider [phone] Reason for Visit * Reason Onset Date Comments Requesting Sooner Appointment 05/21/2016 Ear Problem 05/21/2016 Encounter Details Date Type Department Care Team (Late st Contact Info) Description 05/21/2016 Telephone [facility] ENT- [address] [address] Kirk Pablo MD [address] [place] [address] [place] [phone] Requesting Sooner Appointment; Ear [...] on filedocumented in this encounter Care Teams Lobbyist Relationship Specialty Start Date End Date Daniel Mendoza MD [address] [place] [address] PCP - General 12/12/08 documented as of this encounter
--- OUTSIDE RECORDS SUMMARY | 2024-01-28 21:58 | XMS_ITS | Encounter Summary ---
Author Organization [facility] Address [address] [place] [address] Care Team Providers Care Irrigator Sprinkling System Name Role Phone Daniel Mendoza MD Primary Care Provider [phone] Encounter Details Date Type Department Care Team (Late st Contact Info) Description 01/24/2009 12:50 EDT - 01/24/2009 15:34 EDT Hospital Encounter [facility] Perioperative Services- [address] [address] Jeremy Walker MD [address] [facility], [address] [place] [address] Discharge Disposition: Home or Self [...] SERVICE DATE: 01/24/2009 SURGEON: Jeremy Walker MD CHAIN LINK FENCE INSTALLER: None PREOPERATIVE DIAGNOSIS Recurrent otitis media, chronic [...] 01/24/2009 documented in this encounter Care Teams Irrigator Sprinkling System Relationship Specialty Start Date End Date Daniel Mendoza MD [address] [place] [address] PCP - General 12/12/08 documented as of this encounter
--- OUTSIDE RECORDS SUMMARY | 2024-01-28 21:58 | XMS_ITS | Encounter Summary ---
Author Organization [facility] Address [address] [place] [address] Care Team Providers Care Granite Worker Name Role Phone Daniel Mendoza MD Primary Care Provider [phone] Encounter Details Date Type Department Care Team (Late st Contact Info) Description 09/24/[address] [facility] Pathology & Laboratory Medicine - [address] [address] Outr Resulting Lab, Provider Social History Tobacco [...] Note mIU/mL 09/27/2022 10:[address] [facility] Comment: Reference Range for Hep B Surface Ab, Quant: Positive: >= 10.0 mIU/mL Negative: ??< 10.0 mIU/mL Patient is presumed to be immune to infection with Hepatitis B Virus. Hep B Surface Ab, Qualitative Positive See Note 09/27/2022 10:[address] [facility] Comment: Reference Range for Hep B Surface Ab, Qual: Unvaccinated: ??Negative Vaccinated: ??Positive Blood VENOUS BLOOD / Unknown 09/23/2022 10:10 EDT 09/24/2022 17:58 EDT Provider Outr Resulting Lab CHEMISTRY & BLOOD GAS ORDERABLES Performing Organization Address [facility] Co de Phone Number [facility] [address] [place] [address] * HEPATITIS B CORE ANTIBODY (TOTAL) (09/23/2022 10:10 EDT) Hepatitis B Core Ab, Total Negative Negative 09/27/2022 11:[address] [facility] Blood VENOUS BLOOD / Unknown 09/23/2022 10:10 EDT 09/24/2022 17:58 EDT Provider Outr Resulting Lab CHEMISTRY & BLOOD GAS ORDERABLES Performing Organization Address [facility] Co de Phone Number [facility] [address] [place] [address] * HEPATITIS B SURFACE ANTIGEN (09/23/2022 10:10 EDT) Hep B Surface Ag Negative Negative 09/27/2022 11:[address] [facility] Blood VENOUS BLOOD / Unknown 09/23/2022 10:10 EDT 09/24/2022 17:58 EDT Provider Outr Resulting Lab CHEMISTRY & BLOOD GAS ORDERABLES Performing Organization Address City/[facility] Co de Phone Number [facility] [address] [place] [address] documented in this encounter Visit Diagnoses Not on filedocumented in this encounter Care Teams Granite Worker Relationship Specialty Start Date End Date Daniel Mendoza MD [address] [place] [address] PCP - General 12/12/08 documented as of this encounter
--- OUTSIDE RECORDS SUMMARY | 2024-01-28 21:58 | XMS_ITS | Encounter Summary ---
[place] [address] Care Team Providers Care Machine Finisher Name Role Phone Annamaria Pedraza MD Primary Care Provider [phone] Reason for Referral * Consultation (Routine) - Authorized Specialty Diagnoses / Procedures Referred By Vipin figueredo Referred To Contact Obstetrics and Gynecology Diagnoses Hepatitis C virus infection without hepatic coma, unspecified chronicity Family history of genetic disorder [facility] [address] [place] [address] [facility] [address] [address] Referral ID Status Reason Start Date Expiration Date Visits Requested Visits Authorized [id number] Authorized Consult, Test & Treat PCP Updated and/or Approved 09/06/2023 09/05/2024 6 6 Encounter Details Date Type Department Care Team (Late st Contact Info) Description 09/06/2023 Transcribe Orders eDH Incoming Referrals [phone] [facility] [address] [place], [place] [phone] Hepatitis C virus infection without hepatic coma, [...] condition documented in this encounter Care Teams Machine Finisher Relationship Specialty Start Date End Date Annamaria Pedraza MD [address] [place] [address] PCP - General Family Medicine 09/06/23 documented as of this encounter
--- OUTSIDE RECORDS SUMMARY | 2024-01-28 21:58 | XMS_ITS | Encounter Summary ---
Author Organization [facility] Address [address] [place] [address] Care Team Providers Care Channel Rebuilder Name Role Phone Daniel Mendoza MD Primary Care Provider [phone] Reason for Visit * Reason Comments Follow-up Encounter Details Date Type Department Care Team (Late st Contact Info) Description 05/03/2014 15:15 EST Office Visit [facility] ENT- [place] [address] [place] [phone] Kirk Pablo MD [address] [place] [address] [place] [phone] Keloid (Primary Dx); Perforation of tympanic membrane, unspecified Social History Tobacco Use Types Packs/Day Years Used Date Smoking Tobacco: Never Assessed Sex and Gender Information Value Date Recorded Sex Assigned at Not on file Gender Identity Not on file Sexual Orientation Not on file documented as of this encounter Progress Notes * Kirk Pablo MD - 05/03/2014 1445 EST Otolaryngology Progress note 05/03/2014 CC: Recent [...] unspecified documented in this encounter Care Teams Channel Rebuilder Relationship Specialty Start Date End Date Daniel Mendoza MD [address] [place] [address] PCP - General 12/12/08 documented as of this encounter
--- OUTSIDE RECORDS SUMMARY | 2024-01-28 21:58 | XMS_ITS | Encounter Summary ---
Author Organization [facility] Address [address] [place] [address] Care Team Providers Care Matlab Developer Name Role Phone Daniel Mendoza MD Primary Care Provider Encounter Details Date Type Department Care Team (Late st Contact Info) Description 02/26/2011 11:33 EDT - 02/26/2011 18:24 EDT Hospital Encounter [facility] Perioperative Services- [address] [address] Kirk Pablo MD [address] [place] [address] [place] [phone] Discharge Disposition: Home or [...] appointment or reach the clinic, please call [phone]. If you need to reach the office due to a post surgical urgent issue, please call [phone]. documented in this encounter Medications at Time [...] If needs arise after 1500, please call [phone]. Lucía De La Torre CCLS Certified Perfumer Pager: [phone] * Marti Gonsales RN - 02/19/2011 1609 [...] documented in this encounter H&P Notes * Meal Cook, Jose - 02/26/2011 0000 EDT documented in [...] Kirk Pablo MD 04 07 PM / Krik Pablo MD jose Confirmation: [id number] Dictation ID: [id number] cc: Daniel Mendoza MD * Anesthesia Procedure Notes - Meal Cook, Scan - 02/26/2011 0000 EDT * Anesthesia Preprocedure Evaluation - Meal Cook, Scan - 02/26/2011 0000 EDT * OR PreOp - Meal Cook, Scan - 02/26/2011 0000 EDT * OR PreOp - Meal Cook, Scan - 02/26/2011 0000 EDT documented in this encounter Miscellaneous Notes * Brief Op Note - Scott Blanco MD - 02/26/2011 1325 EDT Otolaryngology, Head and Neck Surgery Brief Operative Note Surgeon : Kirk Pablo MD Escort Patients : SCOTT BLANCO MD Preoperative Diagnosis : [...] SCOTT BLANCO MD * Scanned Note-Null - Meal Cook, Scan - 02/26/2011 0000 EDT * Scanned Note-Null - Meal Cook, Scan - 02/26/2011 0000 EDT documented in [...] 02/26/2011 documented in this encounter Care Teams Matlab Developer Relationship Specialty Start Date End Date Daniel Mendoza MD [address] [place] [address] PCP - General 12/12/08 documented as of this encounter
--- OUTSIDE RECORDS SUMMARY | 2024-01-28 21:58 | XMS_ITS | Encounter Summary ---
Author Organization [facility] Address [address] [place] [address] Care Team Providers Care Oracle Database Consultant Name Role Phone Daniel Mendoza MD Primary Care Provider [phone] Encounter Details Date Type Department Care Team (Late st Contact Info) Description 08/13/2023 Lab Requisition [facility] Pathology & Laboratory Medicine - [address] [id number] Outr Resulting Lab, Provider Social History Tobacco [...] gonorrhoeae Result Negative Negative 08/15/2023 15:03 EST [facility] Chlamydia trachomatis Result Negative Negative 08/15/2023 15:03 EST [facility] Swab ENDOCERVICAL STRUCTURE / Unknown 08/12/2023 14:30 EST 08/14/2023 16:53 EST Provider Outr Resulting Lab MICROBIOLOGY - GENERAL ORDERABLES [facility] [address] [place], [place] [phone] documented in this encounter Visit Diagnoses Not on filedocumented in this encounter Care Teams Oracle Database Consultant Relationship Specialty Start Date End Date Daniel Mendoza MD [address] [place] [address] PCP - General 12/12/08 documented as of this encounter
--- OUTSIDE RECORDS SUMMARY | 2024-01-28 21:58 | XMS_ITS | Encounter Summary ---
Author Organization [facility] Address [address] [place] [address] Care Team Providers Care Hoist Operator Name Role Phone Daniel Mendoza MD Primary Care Provider [phone] Reason for Visit * Reason Comments Follow-up Encounter Details Date Type Department Care Team (Late st Contact Info) Description 04/01/2011 11:30 EDT Office Visit [facility] ENT- Main [place] [address] [place] [phone] Kirk Pablo MD [address] [place] [address] [place]UE KIRK [phone] Perforation of tympanic membrane, [...] Primary documented in this encounter Care Teams Hoist Operator Relationship Specialty Start Date End Date Daniel Mendoza MD [address] [place] [address] PCP - General 12/12/08 documented as of this encounter
--- OUTSIDE RECORDS SUMMARY | 2024-01-28 21:58 | XMS_ITS | Encounter Summary ---
[place] [address] Care Team Providers Care Freight Brake Operator Name Role Phone Annamaria Pedraza MD Primary Care Provider [phone] Reason for Visit * Reason Comments Family History Milad (the father of Mile's fetus) has a child with RHT0W-jxopryw developmental disorder. * Consultation (Routine) - Authorized Specialty Diagnoses / Procedures Referred By Contwhitney t Referred To Contact Obstetrics and Gynecology Diagnoses Hepatitis C virus infection without hepatic coma, unspecified chronicity Family history of genetic disorder Prisca Manuel, [facility] [address] [place] [address] [address] [place] [address] [facility] [employer] [address] [place] [address] Referral ID Status Reason Start Date Expiration Date Visits Requested Visits Authorized [id number] Authorized Consult, Test & Treat PCP Updated and/or Approved 09/06/2023 09/05/2024 6 6 Encounter Details Date Type Department Care Team (Late st Contact Info) Description 10/11/2023 1:00 PM EDT Office Visit Obstetrics [place] [address] Van Ball, [facility] [place] [address] Encounter for procreative genetic counseling Social History Tobacco Use Types Packs/Day Years Used Date Smoking Tobacco: Every Day Cigarettes Smokeless Tobacco: Never Estimated Date of Delivery Comme nts Yes 02/27/2024 Sex and Gender Information Value Date Recorded Sex Assigned at Not on file Gender Identity Not on file Sexual Orientation Not on file documented as of this encounter Progress Notes * Van Ball, [facility] - 10/11/2023 1:00 PM EDT Reproductive Genetics Rosaura Ingram is a 23 y.o. female currently at 20w1d gestation. I met with Rosaura fora 30-minute office visit prior to ultrasound and maternal- medicine consult. She was accompanied by her partner, Milad Toribio. Referring Provider: Prisca Manuel [address] [place] [address] Chief Concern Patient presents with Family History Milad (the father of Rosaura's fetus) has a child with IYS9H-tffokjz developmental disorder. Previous Genetic Counseling Visit(s): None Patient History Past Medical History: Diagnosis Date Asthma Hepatitis C antibody test positive IVDU (intravenous drug user) Obesity (BMI 30-39.9) Poor dentition Substance use disorder Tobacco use Partner History Name: Milad Toribio : 03/10/1985 Sex: Male Medical History: Hypertension, childhood heart murmur Family History Neurodevelopmental disorders: No Congenital anomalies: No Recurrent loss or stillbirth: Not assessed Known genetic conditions: Yes, Milad's daughter, Nicci Toribio ( 12/10/2017), has an AFO0Y-gtnizyb developmental disorder. Trio exome sequencing (patient and parents) was ordered due to intrauterine growth restriction and limb (digital) anomalies. 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 Consanguinity: No A pedigree was obtained and will be scanned into Rosaura's electronic medical record. OB History Estimated Date of Delivery: 02/27/2024 based on first-trimester ultrasound dating. Genetic Screening Results Rosaura reports that she had a low-risk Panorama screen for aneuploidy. The report is not availablefor review today. Assessment 1. Family history: Milad's daughter has an XGU5L-ojyprik developmental disorder as the result of a new mutation. The recurrence risk to siblings is estimated to be 1% due to the possibility of germline mosaicism in a parent. testing via amniocentesis would be possible. Kalyan declined amniocentesis. 2. Reproductive carrier screening: Cystic fibrosis carrier screening may have been done locally; the report is not available for review. We discussed the option of expanded carrier screening for common recessive disorders as defined by [facility]. The couple declined to pursue expanded carrier screening today. Plan Detailed morphology ultrasound and maternal- medicine consultation today as scheduled. documented in this encounter Plan of Treatment Not on file documented as of this encounter Visit Diagnoses Diagnosis Encounter for procreative genetic counseling documented in this encounter Care Teams Freight Brake Operator Relationship Specialty Start Date End Date Annamaria Pedraza MD [address] [place] [address] PCP - General Family Medicine 09/06/23 documented as of this encounter
--- OUTSIDE RECORDS SUMMARY | 2024-01-28 21:58 | XMS_ITS | Encounter Summary ---
Author Organization [facility] Address [address] [place] [address] Care Team Providers Care Technical Support Manager Name Role Phone Daniel Mendoza MD Primary Care Provider [phone] Encounter Details Date Type Department Care Team (Late st Contact Info) Description 09/23/2022 Lab Requisition [facility] Pathology & Laboratory Medicine - [address] [address] Elyssa Lynn MD [address] [place] [phone] Amenorrhea, unspecified Social History Tobacco Use Types [...] System with Manual Evaluation 10/04/2022 15:12 EDT [facility] Specimen Adequacy Satisfactory for Evaluation - transformation zone component present 10/04/2022 15:12 EDT [facility] General Categorization Negative for intraepithelial lesion or malignancy 10/04/2022 15:12 EDT [facility] Descriptive Diagnosis Shift in nigel present suggestive of bacterial vaginosis. 10/04/2022 15:12 EDT [facility] Attestation . 10/04/2022 15:12 EDT [facility] at 1512 Clinical History See below 10/05/19 15:12 EDT [facility] Performing Lab [facility] 10/04/2022 15:12 EDT [facility] Scanned Images 10/04/2022 15:12 EDT [facility] Papanicolaou smear specimen (specimen) ENTIRE VAGINA / Unknown 09/23/2022 10:10 EDT 09/24/2022 14:26 EDT Elyssa Lynn MD PATHOLOGY ORDERABLES [facility] [address] [place] [address] * CHLAMYDIA/N. GONORRHOEAE AMPLIFIED RNA, THINPREP (09/23/2022 10:10 EDT) Neisseria gonorrhoeae Result Negative Negative 09/24/2022 13:18 EDT [facility] Chlamydia trachomatis Result Negative Negative 09/24/2022 13:18 EDT [facility] Papanicolaou smear specimen (specimen) CERVIX UTERI STRUCTURE / Unknown 09/23/2022 10:10 EDT 09/24/2022 7:37 EDT Elyssa Lynn MD MICROBIOLOGY - GENER AL ORDERABLES [facility] [address] [place] [address] documented in this encounter Visit Diagnoses Diagnosis Amenorrhea, unspecified documented in this encounter Care Teams Technical Support Manager Relationship Specialty Start Date End Date Daniel Mendoza MD [address] [place] [address] PCP - General 12/12/08 documented as of this encounter
--- OUTSIDE RECORDS SUMMARY | 2024-01-28 21:58 | XMS_ITS | Encounter Summary ---
Author Organization [facility] Address [address] [place] [address] Care Team Providers Care Sales Representative Name Role Phone Unavailable Primary Care Provider Unavailabl e Encounter Details Date Type Department Care Team (Late st Contact Info) Description 05/17/2008 11:32 EST - 05/17/2008 11:59 EST Hospital Encounter [facility] Perioperative Services- [address] [address] Jeremy Walker MD [address] [facility], [address] [place] [phone] Discharge Disposition: Home or Self Care Social [...]
--- OUTSIDE RECORDS SUMMARY | 2024-01-28 21:58 | XMS_ITS | Encounter Summary ---
Author Organization [facility] Address [address] [place] [address] Care Team Providers Care Housing Coordinator Name Role Phone Daniel Mendoza MD Primary Care Provider [phone] Reason for Visit * Reason Comments Follow-up Encounter Details Date Type Department Care Team (Late st Contact Info) Description 12/18/2013 16:00 EDT Office Visit [facility] ENT- Main [place] [address] [place] [phone] Kirk Pablo MD [address] [place] [address] [place]UE KIRK [phone] Perforation of tympanic membrane, unspecified (Primary Dx); SNHL (sensorineural hearing loss) Social History Tobacco Use Types Packs/Day Years Used Date Smoking Tobacco: Never Assessed Sex and Gender Information Value Date Recorded Sex Assigned at Not on file Gender Identity Not on file Sexual Orientation Not on file documented as of this encounter Progress Notes * Kirk Pablo MD - 12/18/2013 0799 EDT Otolaryngology Progress note 12/18/2013 CC: Recent [...] EDT) 01/25/2014 14:3 7 EDT Scan 2 Emergency Medcl Emt PROCEDURE/MINOR BEBA GICAL ORDERABLES documented in this [...] documented as of this encounter Care Teams Housing Coordinator Relationship Specialty Start Date End Date Daniel Mendoza MD [address] [place] [address] PCP - General 12/12/08 documented as of this encounter
--- OUTSIDE RECORDS SUMMARY | 2024-01-28 21:58 | XMS_ITS | Encounter Summary ---
Author Organization [facility] Address [address] [place] [address] Care Team Providers Care Machine Rope Maker Name Role Phone Daniel Mendoza MD Primary Care Provider [phone] Reason for Visit * Reason Comments Post-OP Follow Up Encounter Details Date Type Department Care Team (Late st Contact Info) Description 01/02/2013 14:30 EDT Office Visit [facility] ENT- [address] [address] Edilma Vaz MD [address] [place] [address], [address] [place] [address] Perforation of tympanic membrane, unspecified [...] Primary documented in this encounter Care Teams Machine Rope Maker Relationship Specialty Start Date End Date Daniel Mendoza MD [address] [place] [address] PCP - General 12/12/08 documented as of this encounter
--- OUTSIDE RECORDS SUMMARY | 2024-01-28 21:58 | XMS_ITS | Clinical Summary ---
Author Organization [facility] Address [address] [place] [address] Care Team Providers Care Product Safety Administrator Name Role Phone Daniel Mendoza MD Primary Care Provider [phone] Allergies No known active allergies Medications Medication [...] Department Care Team Description 12/27/2023 Lab Requisition [facility] Pathology & Laboratory Medicine - [facility] [address] [place] [address] Outr Resulting Lab, Provider from Last 3 Months Surgical History Surgery Date Site/Laterality Comments TYMPANOPLASTY 02/26/2011 Right transcanal underlay TYMPANOPLASTY 12/25/2012 Left postauricular underlay graft TYMPANOPLASTY 01/25/2014 Left lateral graft tympanoplasty, removal of hypertrophic scar Medical History Medical History Date Comments Asthma Depression RAD (reactive airway disease) Obesity Seizure ([facility]) Seizure ([facility]) 1998 Social History Tobacco Use Types Packs/Day [...] U Negative <1 ng/mL 12/28/2023 12:07 EDT [facility] Urine URINE / Unknown 12/26/2023 1 5:15 EDT 12/27/2023 17:26 EDT Narrative [facility] - 12/28/2023 12:07 EDT Testing performed by: [facility] [address] [place] [address], [address], [place] [address] Director Of Architecture: Bubba Mesa MD; CLIA # [id number] Provider Outr Resulting Lab URINALYSIS O RDERABLES [facility] [address] [place] [address], [address] [phone] * (ABNORMAL) HEPATITIS C AB W REFLEX TO HCV RNA BY PCR (08/12/2023 15:25 EST) Hep C Antibody Reactive(A ) Negative 08/12/2023 22:46 EST [facility] Comment: Supplemental testing for HCV RNA is ordered to rule out active HCV infection. Blood VENOUS BLOOD / Unknown 08/12/2023 15:25 EST 08/12/2023 21:03 EST Provider Outr Resulting Lab CHEMISTRY & BLOOD GAS ORDERABLES [facility] [address] [place] [id number] from Last 3 Months or Most Recently Relevant to Health Maintenance Care Teams Product Safety Administrator Relationship Specialty Start Date End Date Daniel Mendoza MD [address] [place] [address] PCP - General 12/12/08
--- OUTSIDE RECORDS SUMMARY | 2024-01-28 21:58 | XMS_ITS | Encounter Summary ---
Author Organization [facility] Address [address] [place] [address] Care Team Providers Care Finance Analyst Name Role Phone Daniel Mendoza MD Primary Care Provider [phone] Reason for Visit * Reason Comments Follow-up Encounter Details Date Type Department Care Team (Late st Contact Info) Description 01/12/2011 14:00 EDT Office Visit [facility] ENT- Main [place] [address] [place] [phone] Kirk Pablo MD [address] [place] [address] YUE KIRK [phone] Conductive hearing loss, middle [...] today by Ester Muller reveals a bilateral haiy-ea-plwrxtqr purely conductivehearing loss. Word recognition scores are 100% bilaterally. IMPRESSION: 1. Bilateral tympanic membrane perforations. 2. Bilateral kmrq-xf-uhzkpntn conductive hearing loss. 3. History of recurring [...] - ERIN Job ID: SM Doc ID: [id number] Ext Doc ID: [id number] cc: Daniel Mendoza MD * Kirk Pablo MD - 01/12/2011 1614 EDT This office note has been dictated. # [id number] documented in this encounter Procedure Notes * Coil Winding Supervisor, Jose - 02/12/2011 1245 EDTAssociated Order(s): [...] 02/12/2011 12:4 5 EDT Narrative Procedure Note Coil Winding Supervisor, Scan - 02/12/2011 12:45 EDT Scan Coil Winding Supervisor PROCEDURE/MINOR SURG ICAL ORDERABLES documented in this encounter Visit Diagnoses Diagnosis Conductive hearing loss, middle ear Perforation of tympanic membrane, unspecified documented in this encounter Care Teams Finance Analyst Relationship Specialty Start Date End Date Daniel Mendoza MD [address] [place] [address] PCP - General 12/12/08 documented as of this encounter
--- OUTSIDE RECORDS SUMMARY | 2024-01-28 21:58 | XMS_ITS | Encounter Summary ---
Author Organization [facility] Address [address] [place] [address] Care Team Providers Care Hris Coordinator Name Role Phone Daniel Mendoza MD Primary Care Provider [phone] Encounter Details Date Type Department Care Team (Late st Contact Info) Description 09/25/2009 Abstract Used for ABSTRACTING Data [phone] Daniel Mendoza MD [address] [place] [address] OM (otitis media) Social History Tobacco Use [...] media documented in this encounter Care Teams Hris Coordinator Relationship Specialty Start Date End Date Daniel Mendoza MD [address] [place] [address] PCP - General 12/12/08 documented as of this encounter
--- OUTSIDE RECORDS SUMMARY | 2024-01-28 21:58 | XMS_ITS | Encounter Summary ---
Author Organization [facility] Address [address] [place] [address] Care Team Providers Care Regional Marketing Manager Name Role Phone Daniel Mendoza MD Primary Care Provider [phone] Encounter Details Date Type Department Care Team (Late st Contact Info) Description 09/28/2022 Lab Requisition [facility] Pathology & Laboratory Medicine - [address] [phone] Outr Resulting Lab, Provider Social History Tobacco [...] RNA Qualitative Undetected Undetected 09/29/2022 12:[address] [facility] Blood VENOUS BLOOD / Unknown 09/27/2022 14:20 EDT 09/28/2022 17:[address] [facility] - 09/29/2022 12:03 EDT The quantification range of this assay is 15 IU/mL to 100,000,000 IU/mL. Testing was performed using the Vanessa HCV test ([employer] with the vanessa 6800 System. Provider Outr Resulting Lab CHEMISTRY & BLOOD GAS ORDERABLES Performing Organization Address [facility] Co de Phone Number [facility] [address] [place] [address] * (ABNORMAL) HEPATITIS C AB W REFLEX TO HCV RNA BY PCR (09/27/2022 14:20 EDT) Hep C Antibody Reactive(A ) Negative 09/28/2022 21:[address] [facility] Comment: Supplemental testing for HCV RNA is ordered to rule out active HCV infection. Blood VENOUS BLOOD / Unknown 09/27/2022 14:20 EDT 09/28/2022 17:36 EDT Provider Outr Resulting Lab CHEMISTRY & BLOOD GAS ORDERABLES Performing Organization Address [facility] Co de Phone Number [facility] [address] [place] [address] documented in this encounter Visit Diagnoses Not on filedocumented in this encounter Care Teams Regional Marketing Manager Relationship Specialty Start Date End Date Daniel Mendoza MD [address] [place] [address] PCP - General 12/12/08 documented as of this encounter
--- OUTSIDE RECORDS SUMMARY | 2024-01-28 21:58 | XMS_ITS | Encounter Summary ---
Author Organization [facility] Address [address] [place] [address] Care Team Providers Care Financing Analyst Name Role Phone Daniel Mendoza MD Primary Care Provider [phone] Reason for Visit * Reason Comments Follow-up Encounter Details Date Type Department Care Team (Late st Contact Info) Description 09/03/2010 13:35 EDT Office Visit [facility] ENT- [address] [phone] Jeremy Walker MD [address] [facility], [address] [place] [address] Simple or unspecified chronic serous [...] Walker MD - Jeremy Walker MD - [facility] Job ID: SM Doc ID: [id number] [facility] Doc ID: [id number] cc: Daniel Mendoza MD * Jeremy Walker [...] ear documented in this encounter Care Teams Financing Analyst Relationship Specialty Start Date End Date Daniel Mendoza MD [address] [place] [address] PCP - General 12/12/08 documented as of this encounter
--- OUTSIDE RECORDS SUMMARY | 2024-01-28 21:58 | XMS_ITS | Referral Summary ---
Author Organization [facility] Address [address] [place] [address] Care Team Providers Care Light Adjuster Name Role Phone Daniel Mendoza MD Primary Care Provider Encounters Date Type Department Care Team Description 12/27/2023 Lab Requisition [facility] Pathology & Laboratory Medicine - [address] [address] Outr Resulting Lab, Provider from Last 3 [...] <1 ng/mL 12/28/2023 12:07 EDT [facility] Urine URINE / Unknown 12/26/2023 1 5:15 EDT 12/27/2023 17:26 EDT Narrative [facility] - 12/28/2023 12:07 EDT Testing performed by: [facility] [address] [place] [address], [address], [place] [address] Supervisor Telephone Answering Service: Bubba Mesa MD; CLIA # [id number] Provider Outr Resulting Lab URINALYSIS O RDERABLES [facility] [address] [place] [address], [address] [place] [address], [facility] [phone] * (ABNORMAL) HEPATITIS C AB W REFLEX TO HCV RNA BY PCR (08/12/2023 15:25 EST) Hep C Antibody Reactive(A ) Negative 08/12/2023 22:46 EST [facility] Comment: Supplemental testing for HCV RNA is ordered to rule out active HCV infection. Blood VENOUS BLOOD / Unknown 08/12/2023 15:25 EST 08/12/2023 21:03 EST Provider Outr Resulting Lab CHEMISTRY & BLOOD GAS ORDERABLES [facility] [address] [place] [address] from Last 3 Months or Most Recently Relevant to Health Maintenance Care Teams Light Adjuster Relationship Specialty Start Date End Date Daniel Mendoza MD [address] [place] [address] PCP - General 12/12/08
--- OUTSIDE RECORDS SUMMARY | 2024-01-28 21:58 | XMS_ITS | Encounter Summary ---
Author Organization [facility] Address [address] [place] [address] Care Team Providers Care Senior Java Programmer Name Role Phone Daniel Mendoza MD Primary Care Provider [phone] Encounter Details Date Type Department Care Team (Late st Contact Info) Description 12/25/2012 11:54 EDT - 12/25/2012 20:17 EDT Hospital Encounter [facility] Perioperative Services- [address] [address] Kirk Pablo MD [address] [place] [address] [place] [phone] Discharge Disposition: Home or [...] 99.59% 12/20/2012 140 3 EDT Growth Chart: [facility] (Girls, 2- 20 Years) documented in this [...] appointment or reach the clinic, please call [phone]. If you need to reach the office due to a post surgical urgent issue, please call [phone]. documented in this encounter Medications at Time [...] documented in this encounter H&P Notes * CARROTING MACHINE OPERATOR, SCAN 2 - 12/28/2012 1336 EDT * [...] documented in this encounter Procedure Notes * CARROTING MACHINE OPERATOR, SCAN 2 - 12/28/2012 1336 EDTAssociated Order(s): ECG REPORT - SCANNED documented in this encounter Nursing Notes * CARROTING MACHINE OPERATOR, SCAN 2 - 12/28/2012 1336 EDT documented in this encounter OR Notes * OR PreOp - CARROTING MACHINE OPERATOR, SCAN 2 - 12/28/2012 1336 EDT * OR Surgeon - Kirk Pablo MD - 12/26/2012 5500 EDT OPERATIVE REPORT SERVICE DATE: 12/25/2012 PREOPERATIVE DIAGNOSIS: Left tympanic membrane perforation. POSTOPERATIVE DIAGNOSIS: Left tympanic membrane perforation. SURGEON: Kirk Pablo MD POINT OF CARE TECHNICIAN: Haylee Mckeon MD ANESTHESIA: General. ESTIMATED BLOOD [...] PM / Kirk Pablo MD mn Confirmation: [id number] Dictation ID: [id number] cc:Daniel Mendoza MD * Anesthesia Procedure Notes - CARROTING MACHINE OPERATOR, SCAN 2 - 12/25/2012 1748 EDT * OR PreOp - CARROTING MACHINE OPERATOR, SCAN 2 - 12/25/2012 1748 EDT * Anesthesia Preprocedure Evaluation - CARROTING MACHINE OPERATOR, SCAN 2 - 12/25/2012 1601 EDT documented in this encounter Miscellaneous Notes * Scanned Note-Null - CARROTING MACHINE OPERATOR, SCAN 2 - 12/28/2012 1336 EDT * Scanned Note-Null - CARROTING MACHINE OPERATOR, SCAN 2 - 12/28/2012 1336 EDT * [...] EDT Narrative 12/28/2012 14:07 EDT Procedure Note CARROTING MACHINE OPERATOR, SCAN 2 - 12/28/2012 13:36 EDT Scan 2 Stock Replenisher PROCEDURE/MINOR BEBA GICAL ORDERABLES documented in this [...] 12/25/2012 documented in this encounter Care Teams Senior Java Programmer Relationship Specialty Start Date End Date Daniel Mendoza MD [address] [place] [address] PCP - General 12/12/08 documented as of this encounter
--- OUTSIDE RECORDS SUMMARY | 2024-01-28 21:58 | XMS_ITS | Encounter Summary ---
Author Organization [facility] Address [address] [place] [address] Care Team Providers Care Seed Cutter Name Role Phone Daniel Mendoza MD Primary Care Provider [phone] Reason for Visit * Reason Comments Post-OP Follow Up Encounter Details Date Type Department Care Team (Late st Contact Info) Description 01/31/2014 10:15 EDT Office Visit [facility] ENT- Main [address] [phone] Kirk Pablo MD [address] [place] [address] [place] [phone] Perforation of tympanic membrane, [...] documented as of this encounter Care Teams Seed Cutter Relationship Specialty Start Date End Date Daniel Mendoza MD [address] [place] [address] PCP - General 12/12/08 documented as of this encounter
--- OUTSIDE RECORDS SUMMARY | 2024-01-28 21:58 | XMS_ITS | Encounter Summary ---
Author Organization [facility] Address [address] [place] [address] Care Team Providers Care Grading Clerk Name Role Phone Daniel Mendoza MD Primary Care Provider Encounter Details Date Type Department Care Team (Late st Contact Info) Description 01/25/2014 5:41 EDT - 01/25/2014 13:56 EDT Hospital Encounter [facility] Perioperative Services- [address] [address] Kirk Pablo MD [address] [place] [address] [place] [phone] Discharge Disposition: Home or [...] documented in this encounter Nursing Notes * PIPE CHIPPER, SCAN 2 - 01/30/2014 1217 EDT documented in this encounter OR Notes * OR PreOp - PIPE CHIPPER, SCAN 2 - 01/30/2014 1217 EDT * Anesthesia Procedure Notes - PIPE CHIPPER, SCAN 2 - 01/25/2014 1409 EDT * OR PreOp - PIPE CHIPPER, SCAN 2 - 01/25/2014 1245 EDT * OR Surgeon - Kirk Pablo MD - 01/25/2014 1104 EDT OPERATIVE REPORT SERVICE DATE: 01/25/2014 PREOPERATIVE DIAGNOSIS: Left tympanic membrane perforation. POSTOPERATIVE DIAGNOSIS: Left tympanic membrane perforation. SURGEON: Kirk Pablo MD REMOTE CONTROL MIRROR INSTALLER: Angel Magana MD ANESTHESIA: General. ESTIMATED BLOOD [...] AM / Kirk Pablo MD cn Confirmation: [id number] Dictation ID: [id number] cc: Daniel Mendoza MD * Anesthesia Preprocedure Evaluation - PIPE CHIPPER, SCAN 2 - 01/25/2014 0737 EDT documented in this encounter Miscellaneous Notes * Brief Op Note - Angel Magana MD - 01/25/2014 0712 EDT Otolaryngology, Head & Neck Surgery BRIEF OPERATIVE NOTE Surgeon: Kirk Pablo MD Bay Stocker: Angel Magana MD Pre-Op Diagnosis: Persistent Left [...] EDT) 01/30/2014 12:1 7 EDT Scan 2 Pcmh Specialist PROCEDURE/MINOR BEBA GICAL ORDERABLES * TEST, [...] URINALYSIS ORDERABLE S [facility] [address] [place] [address] documented in this encounter Visit Diagnoses Not [...] 01/11 documented in this encounter Care Teams Grading Clerk Relationship Specialty Start Date End Date Daniel Mendoza MD [address] [place] [address] PCP - General 12/12/08 documented as of this encounter
--- OUTSIDE RECORDS SUMMARY | 2024-01-28 21:58 | XMS_ITS | Encounter Summary ---
Author Organization [facility] Address [address] [place] [address] Care Team Providers Care Self Pay Collector Name Role Phone Daniel Mendoza MD Primary Care Provider [phone] Reason for Visit * Reason Onset Date Comments Tympanic Membrane Perforation 11/15/2012 Otalgia 11/15/2012 Encounter Details Date Type Department Care Team (Late st Contact Info) Description 11/15/2012 Telephone [facility] ENT- [address] [phone] Kirk Pablo MD [address] [place] [address] [place] [phone] Tympanic Membrane Perforation; Otalgia [...] on filedocumented in this encounter Care Teams Self Pay Collector Relationship Specialty Start Date End Date Daniel Mendoza MD [address] [place] [address] PCP - General 12/12/08 documented as of this encounter
--- OUTSIDE RECORDS SUMMARY | 2024-01-28 21:58 | XMS_ITS | Encounter Summary ---
Author Organization [facility] Address [address] [place] [address] Care Team Providers Care Boilermaker Apprentice Name Role Phone Daniel Mendoza MD Primary Care Provider [phone] Encounter Details Date Type Department Care Team (Late st Contact Info) Description 06/11/2008 Before PRISM Converted Visit (Maple) [facility] - [facility] conversion [address] [place] [address] Jeremy Walker MD [address] [facility], [address] [place] [address] Social History Tobacco Use Types [...] clear. An audiogram was normal today. Speech bookkeeper receptionist thresholds (SRT) are at 15 decibels on the right side and 10 decibels on the left side. Testing was done by Andriy Caraballo. ASSESSMENT Normal tube check, normal hearing. PLAN Follow up in six months. Signed by Jeremy Walker MD 06/20/2008 07:19 Jeremy Walker MD - Alan Walker MD - [facility] Job ID: [id number] Doc ID: [id number] cc: Daniel Mendoza MD - Jeremy Walker MD - p Job ID: [id number] Doc ID: [id number] cc: Daniel Mendoza MD documented in this encounter Plan of Treatment Not on file documented as of this encounter Visit Diagnoses Not on filedocumented in this encounter Care Teams Boilermaker Apprentice Relationship Specialty Start Date End Date Daniel Mendoza MD [address] [place] [address] PCP - General 12/12/08 documented as of this encounter
--- OUTSIDE RECORDS SUMMARY | 2024-01-28 21:58 | XMS_ITS | Encounter Summary ---
Author Organization [facility] Address [address] [place] [address] Care Team Providers Care Academic Physician Name Role Phone Daniel Mendoza MD Primary Care Provider [phone] Encounter Details Date Type Department Care Team (Late st Contact Info) Description 12/24/2011 9:08 EDT - 12/24/2011 12:31 EDT Hospital Encounter [facility] Perioperative Services- [address] [address] Jeremy Walker MD [address] [place] [address], [address] [place] [address] Discharge Disposition: Home or Self [...] 99.64% 12/24/2011 101 6 EDT Growth Chart: [facility] [place] (Girls, 2- 20 Years) documented in this [...] appointment or reach the clinic, please call [phone]. If you need to reach the office due to a post surgical urgent issue, please call [phone]. documented in this encounter Medications at Time [...] documented in this encounter H&P Notes * LINE LEADER, YUMIKO 2 - 12/29/2011 0923 EDT * [...] documented in this encounter Nursing Notes * LINE LEADER, YUMIKO 2 - 12/29/2011 0923 EDT documented in this encounter OR Notes * OR PreOp - LINE LEADER, SCAN 2 - 12/29/2011 0923 EDT * Anesthesia Procedure Notes - LINE LEADER, SCAN 2 - 12/24/2011 1114 EDT * OR Surgeon - Jeremy Walker MD - 12/24/2011 1100 EDT PROCEDURE REPORT PT TYPE: OPPROC SERVICE DATE: 12/24/2011 SURGEON: Jeremy Walker MD WIRE PREPARATION MACHINE TENDER: None PREOPERATIVE DIAGNOSIS Obstructive sleep apnea POSTOPERATIVE DIAGNOSIS Same PROCEDURE Tonsillectomy (CPT 13081 ) ANESTHESIA General. FINDINGS Cryptic hypertrophic tonsils [...] to PACU. * Anesthesia Preprocedure Evaluation - LINE LEADER, SCAN 2 - 12/24/2011 1012 EDT documented in this encounter Miscellaneous Notes * Scanned Note-Null - LINE LEADER, SCAN 2 - 12/29/2011 0923 EDT * Scanned Note-Null - LINE LEADER, SCAN 2 - 12/29/2011 0923 EDT * [facility] - 12/24/2011 1141 EDT Post Anesthesia [...] 12/24/2011 documented in this encounter Care Teams Academic Physician Relationship Specialty Start Date End Date Daniel Mendoza MD [address] [place] [address] PCP - General 12/12/08 documented as of this encounter
--- OUTSIDE RECORDS SUMMARY | 2024-01-28 21:58 | XMS_ITS | Encounter Summary ---
Author Organization [facility] Address [address] [place] [address] Care Team Providers Care Donor Support Technician Name Role Phone Daniel Mendoza MD Primary Care Provider Reason for Visit * Reason Comments Follow-up Encounter Details Date Type Department Care Team (Late st Contact Info) Description 12/16/2011 11:00 EDT Office Visit [facility] ENT- Main [place] [address] [place], [place] [phone] Kirk Pablo MD [address] [place] [address] [place] [phone] Perforation of tympanic membrane, [...] documented in this encounter Procedure Notes * DIRECTOR OF VOCATIONAL TRAINING, SCAN 2 - 12/30/2011 1029 EDTAssociated Order(s): PROCEDURE REPORTS - SCANNED documented in this encounter Plan of Treatment Not on file documented as of this encounter Procedures Procedure Name Priority Date/Time Associated Diagnosis Comments PROCEDURE REPORTS - SCANNED 12/30/2011 10:29 EDT documented in this encounter Results * PROCEDURE REPORTS - SCANNED (12/30/2011 10:29 EDT) 12/30/2011 10:2 9 EDT Narrative Transcriptions DIRECTOR OF VOCATIONAL TRAINING, SCAN 2 - 12/30/2011 10:29 EDT Scan 2 Surgery Center Administrator PROCEDURE/MINOR BEBA GICAL ORDERABLES documented in this encounter Visit Diagnoses Diagnosis Perforation of tympanic membrane, unspecified- Primary documented in this encounter Care Teams Donor Support Technician Relationship Specialty Start Date End Date Daniel Mendoza MD [address] [place] [address] PCP - General 12/12/08 documented as of this encounter
--- OUTSIDE RECORDS SUMMARY | 2024-01-28 21:58 | XMS_ITS | Encounter Summary ---
Author Organization [facility] Address [address] [place] [address] Care Team Providers Care Geological Scout Name Role Phone Daniel Mendoza MD Primary Care Provider [phone] Reason for Visit * Reason Comments Otalgia Encounter Details Date Type Department Care Team (Late st Contact Info) Description 01/07/2015 15:15 EDT Office Visit [facility] ENT- Main [place] [address] [place] [phone] Kirk Pablo MD [address] [place] [address] [place] [phone] OME (otitis media with [...] EDT) 01/09/2015 14:1 5 EDT Scan 2 Paramedic Rn PROCEDURE/MINOR BEBA GICAL ORDERABLES documented in this encounter Visit Diagnoses Diagnosis OME (otitis media with effusion), right- Primary CHL (conductive hearing loss) Unspecified conductive hearing loss documented in this encounter Care Teams Geological Scout Relationship Specialty Start Date End Date Daniel Mendoza MD [address] [place] [address] PCP - General 12/12/08 documented as of this encounter
--- OUTSIDE RECORDS SUMMARY | 2024-01-28 21:58 | XMS_ITS | Encounter Summary ---
Author Organization [facility] Address [address] [place] [address] Care Team Providers Care Industrial Safety And Health Manager Name Role Phone Daniel Mendoza MD Primary Care Provider [phone] Reason for Visit * Reason Comments Other consult Encounter Details Date Type Department Care Team (Late st Contact Info) Description 12/16/2011 10:40 EDT Office Visit [facility] [address] [place], [place] [phone] Jeremy Walker MD [address] [facility], [address] [place] [address] Obstructive sleep apnea (adult) (pediatric) (Primary Dx); Hypertrophy of tonsils alone Social History Tobacco Use Types Packs/Day Years Used Date Smoking Tobacco: Never Assessed Sex and Gender Information Value Date Recorded Sex Assigned at Not on file Gender Identity Not on file Sexual Orientation Not on file documented as of this encounter Progress Notes * Jeremy Walker MD - 12/16/2011 6857 EDT CHIEF COMPLAINT: Obstructive sleep apnea. HISTORY [...] documented as of this encounter Care Teams Industrial Safety And Health Manager Relationship Specialty Start Date End Date Daniel Mendoza MD [address] [place] [address] PCP - General 12/12/08 documented as of this encounter
--- OUTSIDE RECORDS SUMMARY | 2024-01-28 21:58 | XMS_ITS | Encounter Summary ---
Author Organization [facility] Address [address] [place] [address] Care Team Providers Care Entertainment & Media Correspondent Name Role Phone Daniel Mendoza MD Primary Care Provider [phone] Reason for Visit * Reason Comments Follow-up hearing issues Encounter Details Date Type Department Care Team (Late st Contact Info) Description 07/23/2010 13:35 EST Office Visit [facility] ENT- [address] [address] Jeremy Walker MD [address] [place] [address], [address] [place] [address] Simple or unspecified chronic serous [...] - DSP Job ID: SM Doc ID: [id number] Ext Doc ID: [id number] cc: Daniel Mendoza MD * Jeremy Walker [...] 12/23/2011 added in this encounter Care Teams Entertainment & Media Correspondent Relationship Specialty Start Date End Date Daniel Mendoza MD [address] [place] [address] PCP - General 12/12/08 documented as of this encounter
--- OUTSIDE RECORDS SUMMARY | 2024-01-28 21:58 | XMS_ITS | Encounter Summary ---
Author Organization [facility] Address [address] [place] [address] Care Team Providers Care Representative Personal Service Name Role Phone Daniel Mendoza MD Primary Care Provider [phone] Encounter Details Date Type Department Care Team (Late st Contact Info) Description 08/13/2023 Lab Requisition [facility] Pathology & Laboratory Medicine - [address] [phone] Outr Resulting Lab, Provider Social History Tobacco [...] U Negative <1 ng/mL 08/15/2023 11:24 EST [facility] Urine URINE / Unknown 08/12/2023 1 4:30 EST 08/13/2023 21:12 EST Narrative [facility] - 08/15/2023 11:24 EST Testing performed by: [facility] [address] [place] [address], [address] [address] Cashier Wrapper: Bubba Mesa MD; CLIA # [id number] Provider Outr Resulting Lab URINALYSIS O RDERABLES [facility] [address] [facility], [address] [place] [address], [facility] [phone] documented in this encounter Visit Diagnoses Not on filedocumented in this encounter Care Teams Representative Personal Service Relationship Specialty Start Date End Date Daniel Mendoza MD [address] [place] [address] PCP - General 12/12/08 documented as of this encounter
--- OUTSIDE RECORDS SUMMARY | 2024-01-28 21:58 | XMS_ITS | Encounter Summary ---
Author Organization [facility] Address [address] [place] [address] Care Team Providers Care Doubler Operator Name Role Phone Daniel Mendoza MD Primary Care Provider [phone] Reason for Visit * Reason Onset Date Comments Ear Drainage 04/07/2015 Otalgia 04/07/2015 Encounter Details Date Type Department Care Team (Late st Contact Info) Description 04/07/2015 Telephone [facility] ENT- Main [address] [address] Kirk Pablo MD [address] [place] [address] [place] [phone] Ear Drainage; Otalgia Social [...] on filedocumented in this encounter Care Teams Doubler Operator Relationship Specialty Start Date End Date Daniel Mendoza MD [address] [place] [address] PCP - General 12/12/08 documented as of this encounter
--- OUTSIDE RECORDS SUMMARY | 2024-01-28 21:58 | XMS_ITS | Encounter Summary ---
Author Organization [facility] Address [address] [place] [address] Care Team Providers Care Global President Name Role Phone Daniel Mendoza MD Primary Care Provider [phone] Reason for Visit * Reason Comments Follow-up Encounter Details Date Type Department Care Team (Late st Contact Info) Description 02/01/2013 13:00 EDT Office Visit [facility] ENT- Main [place] [address] [place] [phone] Kirk Pablo MD [address] [place] [address] [place] [phone] Perforation of tympanic membrane, [...] Primary documented in this encounter Care Teams Global President Relationship Specialty Start Date End Date Daniel Mendoza MD [address] [place] [address] PCP - General 12/12/08 documented as of this encounter
--- OUTSIDE RECORDS SUMMARY | 2024-01-28 21:58 | XMS_ITS | Encounter Summary ---
Author Organization [facility] Address [address] [place] [address] Care Team Providers Care Mushroom Picker Name Role Phone Daniel Mendoza MD Primary Care Provider [phone] Encounter Details Date Type Department Care Team (Late st Contact Info) Description 01/27/2015 5:35 EDT - 01/27/2015 8:52 EDT Hospital Encounter [facility] Perioperative Services- [address] [address] Kirk Pablo MD [address] [place] [address] YUE KIRK [phone] Discharge Disposition: Home or [...] RN - 01/20/2015 1626 EDT Rosaura Lin Walsh has been instructed as follows regarding medication [...] SERVICE DATE: 01/27/2015 SURGEON: Kirk Pablo MD PHOTO STUDIO ASSISTANT: Angel Magana MD PREOPERATIVE DIAGNOSIS Recurrent otitis [...] SPECIMENS None. CULTURES None. DRAINS/PACKS/FOREIGN MATERIALS Right Neumk-V-ohma pressure equalization tubes. COMPLICATIONS None. CONDITION Good [...] 8:05 EDT) 01/30/2015 8:05 EDT Scan 2 Outside Operator PROCEDURE/MINOR BEBA GICAL ORDERABLES * IMPLANT RECORD - SCANNED (01/30/2015 8:05 EDT) 01/30/2015 8:05 EDT Scan 2 Outside Operator PROCEDURE/MINOR BEBA GICAL ORDERABLES * TEST, URINE (01/27/2015 6:10 EDT) Result- Test, Ur Neg Neg 01/27/2015 6:59 EDT [facility] Comment: NOTE: False negative results may occur in women who are beyond 5-8 weeks gestation. Diagnosis of should be based on a correlation of test results with typical clinical signs and symptoms. Urine specimen (specimen) URINE / Unknown 01/27/2015 6:10 EDT 01/27/2015 6:44 EDT Donell Segal MD URINALYSIS ORDERABLE S [facility] [address] [place] [address] documented in this encounter Visit Diagnoses Not [...] 01/11 documented in this encounter Care Teams Mushroom Picker Relationship Specialty Start Date End Date Daniel Mendoza MD [address] [place] [address] PCP - General 12/12/08 documented as of this encounter
--- OUTSIDE RECORDS SUMMARY | 2024-01-28 21:58 | XMS_ITS | Encounter Summary ---
Author Organization [facility] Address [address] [place] [address] Care Team Providers Care Management Development Specialist Name Role Phone Daniel Mendoza MD Primary Care Provider [phone] Reason for Visit * Reason Comments Post-OP Follow Up Encounter Details Date Type Department Care Team (Late st Contact Info) Description 02/22/2012 8:55 EDT Office Visit [facility] ENT- [address] [phone] Jeremy Walker MD [address] [place] [address], [address] 4 [place] [address] Hypertrophy of tonsils alone; Obstructive [...] (pediatric) documented in this encounter Care Teams Management Development Specialist Relationship Specialty Start Date End Date Daniel Mendoza MD [address] [place] [address] PCP - General 12/12/08 documented as of this encounter
--- OUTSIDE RECORDS SUMMARY | 2024-01-28 21:58 | XMS_ITS | Encounter Summary ---
Author Organization [facility] Address [address] [place] [address] Care Team Providers Care Garage Supervisor Name Role Phone Daniel Mendoza MD Primary Care Provider [phone] Reason for Referral * (Routine/Next Available) - Closed Specialty Diagnoses / Procedures Referred By Contwhitney t Referred To Contact Diagnoses Perforation of tympanic membrane, unspecified Procedures HEARING EVALUATION Kirk Pablo MD [address] [place] [address] [place] [phone] Referral ID Status Reason Start Date Expiration Date Visits Re quested Visits Authorized [id number] Closed 11/20/2012 1 1 Reason for Visit * Reason Comments Tympanic Membrane Perforation Otalgia Encounter Details Date Type Department Care Team (Late st Contact Info) Description 11/20/2012 14:30 EDT Office Visit [facility] ENT- Main [place] [address] [place] [address] Kirk Pablo MD [address] [place] [address] [place] [phone] Perforation of tympanic membrane, [...] by our audiology staff on [place] and it demonstrates: On the right, the [...] documented in this encounter Procedure Notes * SUPERVISOR SOLDERING, SCAN 2 - 12/18/2012 0916 EDTAssociated Order(s): [...] EDT Narrative 12/18/2012 10:33 EDT Procedure Note SUPERVISOR SOLDERING, YUMIKO 2 - 12/18/2012 9:16 EDT Scan 2 Mail Clerks Supervisor PROCEDURE/MINOR BEBA GICAL ORDERABLES documented in this encounter Visit Diagnoses Diagnosis Perforation of tympanic membrane, unspecified- Primary Otalgia, unspecified documented in this encounter Care Teams Garage Supervisor Relationship Specialty Start Date End Date Daniel Mendoza MD [address] [place] [address] PCP - General 12/12/08 documented as of this encounter
--- OUTSIDE RECORDS SUMMARY | 2024-01-28 21:58 | XMS_ITS | Encounter Summary ---
Author Organization [facility] Address [address] [place] [address] Care Team Providers Care Peripheral Vascular Tech Name Role Phone Daniel Mendoza MD Primary Care Provider [phone] Reason for Visit * Reason Onset Date Comments Ear Infection (Otitis Media) 11/03/2011 not responding to medication Encounter Details Date Type Department Care Team (Late st Contact Info) Description 11/03/2011 Telephone [facility] ENT- Main [address] [phone] Kirk Pablo MD [address] [place] [address] YUE KRIK [phone] Ear Infection (Otitis Media) (not responding [...] on filedocumented in this encounter Care Teams Peripheral Vascular Tech Relationship Specialty Start Date End Date Daniel Mendoza MD [address] [place] [address] PCP - General 12/12/08 documented as of this encounter
--- OUTSIDE RECORDS SUMMARY | 2024-01-28 21:58 | XMS_ITS | Encounter Summary ---
Author Organization [facility] Address [address] [place] [address] Care Team Providers Care Mate Chief Name Role Phone Daniel Mendoza MD Primary Care Provider [phone] Encounter Details Date Type Department Care Team (Late st Contact Info) Description 12/27/2023 Lab Requisition [facility] Pathology & Laboratory Medicine - [address] [phone] Outr Resulting Lab, Provider Social History Tobacco [...] U Negative <1 ng/mL 12/28/2023 12:07 EDT [facility] Urine URINE / Unknown 12/26/2023 1 5:15 EDT 12/27/2023 17:26 EDT N[facility]ative [email or web address] - 12/28/2023 12:07 EDT Testing performed by: [email or web address] [address] [place] [address], [address], [place] [address] Chief Reservoir Engineering: Bubba Mesa MD; CLIA # [id number] Provider Outr Resulting Lab URINALYSIS O RDERABLES [facility] [address] [facility], [address] [place] [address], [facility] [phone] documented in this encounter Visit Diagnoses Not on filedocumented in this encounter Care Teams Mate Chief Relationship Specialty Start Date End Date Daniel Mendoza MD [address] [place] [address] PCP - General 12/12/08 documented as of this encounter
--- OUTSIDE RECORDS SUMMARY | 2024-01-28 21:58 | XMS_ITS | Encounter Summary ---
Author Organization [facility] Address [address] [place] [address] Care Team Providers Care Baton Teacher Name Role Phone Daniel Mendoza MD Primary Care Provider [phone] Reason for Referral * (Routine/Next Available) - Closed Specialty Diagnoses / Procedures Referred By Contac t Referred To Contact Diagnoses Perforation of tympanic membrane, unspecified Procedures HEARING EVALUATION Kirk Pablo MD [address] [place] [address] YUE KIRK [phone] Referral ID Status Reason Start Date Expiration Date Visits Re quested Visits Authorized [id number] Closed 04/26/2013 1 1 Reason for Visit * Reason Comments Follow-up Encounter Details Date Type Department Care Team (Late st Contact Info) Description 04/26/2013 16:00 EST Office Visit [facility] ENT- Main [place] [address] [place] [address] [phone] Kirk Pablo MD [address] [place] [address] YUE KIRK [phone] Perforation of tympanic membrane, [...] months. Kirk Pablo MD 04/26/2013 19:14 CC: DANILE MENDOZA MD documented in this encounter Plan [...] EST) 05/08/2013 12:2 0 EST Scan 2 Industrial Maintenance Tech PROCEDURE/MINOR BEBA GICAL ORDERABLES documented in this encounter Visit Diagnoses Diagnosis Perforation of tympanic membrane, unspecified- Primary documented in this encounter Care Teams Baton Teacher Relationship Specialty Start Date End Date Daniel Mendoza MD [address] [place] [address] PCP - General 12/12/08 documented as of this encounter
--- OUTSIDE RECORDS SUMMARY | 2024-01-28 21:58 | XMS_ITS | Encounter Summary ---
Author Organization [facility] Address [address] [place] [address] Care Team Providers Care Rehabilitation Nurse Name Role Phone Daniel Mendoza MD Primary Care Provider [phone] Reason for Visit * Reason Comments Follow-up Encounter Details Date Type Department Care Team (Late st Contact Info) Description 05/20/2011 11:30 EST Office Visit [facility] ENT- Main [place] [address] [place] [address] [phone] Kirk Pablo MD [address] [place] [address] YUE KIRK [phone] Perforation of tympanic membrane, unspecified (Primary Dx) [...] documented as of this encounter Care Teams Rehabilitation Nurse Relationship Specialty Start Date End Date Daniel Mendoza MD [address] [place] [address] PCP - General 12/12/08 documented as of this encounter
--- OUTSIDE RECORDS SUMMARY | 2024-01-28 21:58 | XMS_ITS | Encounter Summary ---
Author Organization [facility] Address [address] [place] [address] Care Team Providers Care Superintendent Power Name Role Phone Daniel Mendoza MD Primary Care Provider [phone] Encounter Details Date Type Department Care Team (Late st Contact Info) Description 08/12/2023 Lab Requisition [facility] Pathology & Laboratory Medicine - [address] [phone] Outr Resulting Lab, Provider Social History Tobacco [...] Ab Positive See Note 08/15/2023 11:07 EST [facility] Comment:Presence of detectab le Varicella Zoster virus IgG antibodies. Blood VENOUS BLOOD / Unknown 08/12/2023 15:25 EST 08/12/2023 21:03 EST Provider Outr Resulting Lab IMMUNOLOGY A ND SEROLOGY ORDERABLES Performing Organization Address [facility] Co de Phone Number [facility] [address] [place], [place] [phone] * RUBELLA IGG ANTIBODY (08/12/2023 15:25 EST) Rubella IgG Ab Positive See Note 08/15/2023 11:14 EST [facility] Comment:Positive for IgG ant ibodies to Rubella virus. Blood VENOUS BLOOD / Unknown 08/12/2023 15:25 EST 08/12/2023 21:03 EST Provider Outr Resulting Lab CHEMISTRY & BLOOD GAS ORDERABLES Performing Organization Address [facility] de Phone Number [facility] [address] [place] [address] documented in this encounter Visit Diagnoses Not on filedocumented in this encounter Care Teams Superintendent Power Relationship Specialty Start Date End Date Daniel Mendoza MD [address] [place] [address] PCP - General 12/12/08 documented as of this encounter
--- OUTSIDE RECORDS SUMMARY | 2024-01-28 21:58 | XMS_ITS | Encounter Summary ---
Author Organization [facility] Address [address] [place] [address] Care Team Providers Care Credit Verifier Name Role Phone Daniel Mendoza MD Primary Care Provider [phone] Encounter Details Date Type Department Care Team (Late st Contact Info) Description 08/12/2023 Lab Requisition [facility] Pathology & Laboratory Medicine - [address] [phone] Outr Resulting Lab, Provider Social History Tobacco [...] 4th Generation Negative Negative 08/12/2023 22:48 EST [facility] Comment:If acute HIV-1 infec tion is suspected in a high risk patient, submit plasma specimen for HIV-1 RNA quantitation test. Blood VENOUS BLOOD / Unknown 08/12/2023 15:25 EST 08/12/2023 21:03 EST Narrative [facility] - 08/12/2023 22:48 EST Fourth Generation assay performed on the Siemens Centaur XPT. Provider Outr Resulting Lab IMMUNOLOGY A ND SEROLOGY ORDERABLES [facility] [address] [place], [place] [phone] documented in this encounter Visit Diagnoses Not on filedocumented in this encounter Care Teams Credit Verifier Relationship Specialty Start Date End Date Daniel Mendoza MD [address] [place] [address] PCP - General 12/12/08 documented as of this encounter
--- OUTSIDE RECORDS SUMMARY | 2024-01-28 21:58 | XMS_ITS | Encounter Summary ---
Author Organization [facility] Address [address] [place] [address] Care Team Providers Care Lot Technician Name Role Phone Unavailable Primary Care Provider Unavailabl e Encounter Details Date Type Department Care Team (Late st Contact Info) Description 06/11/2008 16:09 [email or web address] Hospital Encounter [address] [address] Jeremy Walker MD [address] [place] [address], [address] [place] [phone] Discharge Disposition: Auto Discharge Social History Tobacco [...]
--- OUTSIDE RECORDS SUMMARY | 2024-01-28 21:58 | XMS_ITS | Encounter Summary ---
Author Organization [facility] Address [address] [place] [address] Care Team Providers Care Manager Stylist Name Role Phone Daniel Mendoza MD Primary Care Provider [phone] Reason for Visit * Reason Comments Follow-up Encounter Details Date Type Department Care Team (Late st Contact Info) Description 09/18/2015 10:30 EDT Office Visit [facility] ENT- Main [place] [address] [place] [phone] Kirk Pablo MD [address] [place] [address] [place]UE KIRK [phone] Perforation of tympanic membrane, right (Primary Dx) [...] Primary documented in this encounter Care Teams Manager Stylist Relationship Specialty Start Date End Date Daniel Mendoza MD [address] [place] [address] PCP - General 12/12/08 documented as of this encounter
--- OUTSIDE RECORDS SUMMARY | 2024-01-28 21:58 | XMS_ITS | Encounter Summary ---
Author Organization [facility] Address [address] [place] [address] Care Team Providers Care Land Clearer Name Role Phone Daniel Mendoza MD Primary Care Provider [phone] Encounter Details Date Type Department Care Team (Late st Contact Info) Description 09/24/2022 Lab Requisition [facility] Pathology & Laboratory Medicine - [address] [phone] Outr Resulting Lab, Provider Social History Tobacco [...] 4th Generation Negative Negative 09/27/2022 12:05 EDT [facility] Comment:If acute HIV-1 infec tion is suspected in a high risk patient, submit plasma specimen for HIV-1 RNA quantitation test. Blood VENOUS BLOOD / Unknown 09/23/2022 10:10 EDT 09/24/2022 17:41 EDT Narrative [facility] - 09/27/2022 12:05 EDT Fourth Generation assay performed on the Siemens Centaur XPT. Provider Outr Resulting Lab IMMUNOLOGY A ND SEROLOGY ORDERABLES [facility] [address] [place] [address] documented in this encounter Visit Diagnoses Not on filedocumented in this encounter Care Teams Land Clearer Relationship Specialty Start Date End Date Daniel Mendoza MD [address] [place] [address] PCP - General 12/12/08 documented as of this encounter
--- OUTSIDE RECORDS SUMMARY | 2024-01-28 21:58 | XMS_ITS | Encounter Summary ---
Author Organization [facility] Address [address] [place] [address] Care Team Providers Care Security Expert Name Role Phone Daniel Mendoza MD Primary Care Provider [phone] Reason for Visit * Reason Comments Follow-up Encounter Details Date Type Department Care Team (Late st Contact Info) Description 03/18/2016 9:00 EDT Office Visit [facility] ENT- Main [place] [address] [place] [address] [phone] Kirk Pablo MD [address] [place] [address] YUE KIRK [phone] Perforation of tympanic membrane, [...] Primary documented in this encounter Care Teams Security Expert Relationship Specialty Start Date End Date Daniel Mendoza MD [address] [place] [address] PCP - General 12/12/08 documented as of this encounter
--- OUTSIDE RECORDS SUMMARY | 2024-01-28 21:58 | XMS_ITS | Encounter Summary ---
Author Organization [facility] Address [address] [place] [address] Care Team Providers Care Boilermaker Central Steam Plant Name Role Phone Daniel Mendoza MD Primary Care Provider Reason for Visit * Reason Comments Follow-up Encounter Details Date Type Department Care Team (Late st Contact Info) Description 07/03/2015 9:00 EST Office Visit [facility] ENT- Main [place] [address] [place] [phone] Kirk Pablo MD [address] [place] [address] YUE KIRK [phone] Keloid (Primary Dx); Perforation of tympanic membrane, [...] EST) 07/08/2015 14:1 8 EST Scan 2 Heading Repairer PROCEDURE/MINOR BEBA GICAL ORDERABLES documented in this encounter Visit Diagnoses Diagnosis Keloid- Primary Keloid scar Perforation of tympanic membrane, right documented in this encounter Care Teams Boilermaker Central Steam Plant Relationship Specialty Start Date End Date Daniel Mendoza MD [address] [place] [address] PCP - General 12/12/08 documented as of this encounter
--- OUTSIDE RECORDS SUMMARY | 2024-01-28 21:58 | XMS_ITS | Encounter Summary ---
Author Organization [facility] Address [address] [place] [address] Care Team Providers Care Uniform Maker Name Role Phone Daniel Mendoza MD Primary Care Provider [phone] Reason for Visit * Reason Comments Post-OP Follow Up Encounter Details Date Type Department Care Team (Late st Contact Info) Description 03/09/2011 16:00 EDT Office Visit [facility] ENT- Main [address] [phone] Kirk Pablo MD [address] [place] [address] YUE KIRK [phone] Unspecified perforation of tympanic [...] Primary documented in this encounter Care Teams Uniform Maker Relationship Specialty Start Date End Date Daniel Mendoza MD [address] [place] [address] PCP - General 12/12/08 documented as of this encounter
--- OUTSIDE RECORDS SUMMARY | 2024-01-28 21:58 | XMS_ITS | Encounter Summary ---
Author Organization [facility] Address [address] [place] [address] Care Team Providers Care Cone Winder Name Role Phone Daniel Mendoza MD Primary Care Provider [phone] Reason for Visit * Reason Comments Follow-up Encounter Details Date Type Department Care Team (Late st Contact Info) Description 02/21/2014 16:15 EDT Office Visit [facility] ENT- Main [place] [address] [place] [phone] Kirk Pablo MD [address] [place] [address] YUE KIRK [phone] Perforation of tympanic membrane, [...] documented as of this encounter Care Teams Cone Winder Relationship Specialty Start Date End Date Daniel Mendoza MD [address] [place] [address] PCP - General 12/12/08 documented as of this encounter
--- OUTSIDE RECORDS SUMMARY | 2024-01-28 21:58 | XMS_ITS | Encounter Summary ---
Author Organization [facility] Address [address] [place] [address] Care Team Providers Care Route Returner Name Role Phone Daniel Mendoza MD Primary Care Provider [phone] Reason for Visit * Reason Comments Follow-up Encounter Details Date Type Department Care Team (Late st Contact Info) Description 08/18/2011 11:30 EST Office Visit [facility] ENT- Main [place] [address] [place] [phone] Kirk Pablo MD [address] [place] [address] YUE KIRK [phone] Perforation of tympanic membrane, unspecified (Primary Dx) [...] Primary documented in this encounter Care Teams Route Returner Relationship Specialty Start Date End Date Daniel Mendoza MD [address] [place] [address] PCP - General 12/12/08 documented as of this encounter
--- OUTSIDE RECORDS SUMMARY | 2024-01-28 21:59 | XMS_ITS | Encounter Summary ---
Author Organization [facility] Address [address] [place] [address] Care Team Providers Care Dental Director Name Role Phone Unavailable Primary Care Provider Unavailabl e Encounter Details Date Type Department Care Team (Late st Contact Info) Description 07/23/2005 11:17 [facility] Hospital Encounter [address] [address] Jeremy Walker MD [address] [place] [address], [address] [place] [phone] Social History Tobacco Use Types Packs/Day Years [...]
--- OUTSIDE RECORDS SUMMARY | 2024-01-28 21:59 | XMS_ITS | Encounter Summary ---
Author Organization [facility] Address [address] [place] [address] Care Team Providers Care Stretcher And Drier Name Role Phone Unavailable Primary Care Provider Unavailabl e Encounter Details Date Type Department Care Team (Latest Contact Info) Description 04/01/2001 8:38 EDT - 04/01/2001 11:59 EDT Hospital Encounter [facility] Emergency Department - [address] [address] Ronda Campos MD [address] [place] [phone] Discharge Disposition: Home or Self Care [...]
--- OUTSIDE RECORDS SUMMARY | 2024-01-28 21:59 | XMS_ITS | Encounter Summary ---
Author Organization [facility] Address [address] [place] [address] Care Team Providers Care Director Of Admissions Name Role Phone Unavailable Primary Care Provider Unavailabl e Encounter Details Date Type Department Care Team (Latest Contact Info) Description 06/14/2001 9:01 EST - 06/14/2001 11:59 EST Hospital Encounter [facility] - [facility] conversion [address] [place] [address] Scott Hirsch MD [address] [place] [phone] Discharge Disposition: Auto Discharge Social History [...] 06/16/01 T 06/19/01 /domonique Scott Hirsch MD [facility] MAGING ORDERABLES * ANKLE 3 [...]
--- OUTSIDE RECORDS SUMMARY | 2024-01-28 21:59 | XMS_ITS | Encounter Summary ---
Author Organization [facility] Address [address] [place] [address] Care Team Providers Care Dairy Nutrition Consultant Name Role Phone Unavailable Primary Care Provider Unavailabl e Encounter Details Date Type Department Care Team (Late st Contact Info) Description 04/04/2008 14:21 EDT Hospital Encounter [address] [address] Jeremy Walker MD [address] [place] [address], [address] [place] [phone] Discharge Disposition: Auto Discharge Social History Tobacco [...]
--- OUTSIDE RECORDS SUMMARY | 2024-01-28 21:59 | XMS_ITS | Encounter Summary ---
Author Organization [facility] Address [address] [place] [address] Care Team Providers Care Pantograph Operator Name Role Phone Unavailable Primary Care Provider Unavailabl e Encounter Details Date Type Department Care Team (Late st Contact Info) Description 10/05/2005 9:56 EDT - 10/05/2005 11:59 EDT Hospital Encounter [facility] Perioperative Services- [address] [phone] Jeremy Walker MD [address] [facility], [address] [place] [address] Discharge Disposition: Home or Self [...] PROCEDURE REPORT PT TYPE: OPPROC PT LOC: [id number] SERVICE DATE: 10/05/2005 SURGEON: ANA Del Real, Mauro Troy MD LICENSED CUSTOMS BROKER: Felice Cruz MD PREOPERATIVE DIAGNOSIS: This is [...] Cruz MD A - cs Job ID: [id number] Document ID: [id number] cc: MD Felice Blackwell MD Timothy Tanner, MD documented in this encounter Plan of Treatment Not on file documented as of this encounter Visit Diagnoses Not on filedocumented in this encounter
--- OUTSIDE RECORDS SUMMARY | 2024-01-28 21:59 | XMS_ITS | Encounter Summary ---
Author Organization [facility] Address [address] [place] [address] Care Team Providers Care Podiatry Professor Name Role Phone Unavailable Primary Care Provider Unavailabl e Encounter Details Date Type Department Care Team (Late st Contact Info) Description 05/07/2008 14:31 [facility] Hospital Encounter [address] [address] Jeremy Walker MD [address] [place] [address], [address] [place] [phone] Discharge Disposition: Auto Discharge Social History Tobacco [...]
--- OUTSIDE RECORDS SUMMARY | 2024-01-28 21:59 | XMS_ITS | Encounter Summary ---
Author Organization [facility] Address [address] [place] [address] Care Team Providers Care Slab Puller Name Role Phone Daniel Mendoza MD Primary Care Provider [phone] Encounter Details Date Type Department Care Team (Late st Contact Info) Description 09/12/2007 Before PRISM Converted Visit ([place]) [facility] - Maple conversion [address] [place], [place] [address] Jeremy Walker MD [address] [facility], [address] [place] [address] Social History Tobacco Use Types [...] Jeremy Walker MD - PAUL Job ID: [id number] Doc ID: [id number] cc: Daniel Mendoza MD documented in this encounter Plan of Treatment Not on file documented as of this encounter Visit Diagnoses Not on filedocumented in this encounter Care Teams Slab Puller Relationship Specialty Start Date End Date Daniel Mendoza MD [address] [place] [address] PCP - General 12/12/08 documented as of this encounter
--- OUTSIDE RECORDS SUMMARY | 2024-01-28 21:59 | XMS_ITS | Encounter Summary ---
Author Organization [facility] Address [address] [place] [address] Care Team Providers Care Principal Network Architect Name Role Phone Daniel Mendoza MD Primary Care Provider [phone] Encounter Details Date Type Department Care Team (Late st Contact Info) Description 07/23/2005 Before PRISM Converted Visit (Maple) [facility] - Maple conversion [address] [place], [place] [address] Jeremy Walker MD 111 [facility], [address] [place] [address] Social History Tobacco Use Types Packs/Day Years Used Date Smoking Tobacco: Never Assessed Sex and Gender Information Value Date Recorded Sex Assigned at Not on file Gender Identity Not on file Sexual Orientation Not on file documented as of this encounter Progress Notes * Jeremy Walker MD - 08/13/20092032 EST DIVISION OF OTOLARYNGOLOGY July 27, 2005 Daniel Mendoza MD [facility] [address], [place] [address] RE DOS 07/23/[address] Mendoza: very [...] MD - Jeremy Walker MD A - [facility] Job ID: [id number] Document ID: [id number] cc: Daniel Mendoza MD * Jeremy Walker [...] normal hearing on the right side. Speech receptionist/telephone operator threshold is 15 decibels in the right [...] Walker MD A - [facility] Job ID: [id number] Document ID: [id number] cc: documented in this encounter Plan of Treatment Not on file documented as of this encounter Visit Diagnoses Not on filedocumented in this encounter Care Teams Principal Network Architect Relationship Specialty Start Date End Date Daniel Mendoza MD [address] [place] [address] PCP - General 12/12/08 documented as of this encounter
--- OUTSIDE RECORDS SUMMARY | 2024-01-28 21:59 | XMS_ITS | Encounter Summary ---
Author Organization [facility] Address [address] [place] [address] Care Team Providers Care Quality Improvement Consultant Name Role Phone Unavailable Primary Care Provider Unavailabl e Encounter Details Date Type Department Care Team (Late st Contact Info) Description 09/24/2005 8:21 EDT Hospital Encounter [address] [address] Jeremy Walker MD [address] [place] [address], [address] [place] [phone] Social History Tobacco Use Types Packs/Day Years [...]
--- OUTSIDE RECORDS SUMMARY | 2024-01-28 21:59 | XMS_ITS | Encounter Summary ---
Author Organization [facility] Address [address] [place] [address] Care Team Providers Care Digital Marketing Manager Name Role Phone Daniel Mendoza MD Primary Care Provider [phone] Encounter Details Date Type Department Care Team (Late st Contact Info) Description 01/13/2006 Before PRISM Converted Visit (Maple) [facility] - Maple conversion [address] [place] [address] Norbert Harden MD 111 [facility], [address] [place] [address] Social History Tobacco Use Types [...] Harden MD A - [facility] Job ID: [id number] Document ID: [id number] cc: documented in this encounter Plan of Treatment Not on file documented as of this encounter Visit Diagnoses Not on filedocumented in this encounter Care Teams Digital Marketing Manager Relationship Specialty Start Date End Date Daniel Mendoza MD [address] [place] [address] PCP - General 12/12/08 documented as of this encounter
--- OUTSIDE RECORDS SUMMARY | 2024-01-28 21:59 | XMS_ITS | Encounter Summary ---
Author Organization [facility] Address [address] [place] [address] Care Team Providers Care Hypertrichologist Name Role Phone Daniel Mendoza MD Primary Care Provider [phone] Encounter Details Date Type Department Care Team (Late st Contact Info) Description 10/20/2005 Before PRISM Converted Visit (Maple) [facility] - Maple conversion [address] [place] [address] Jeremy Walker MD [address] [facility], [address] [place] [address] Social History Tobacco Use Types [...] and flat bilaterallywith normal hearing today. Speech senior receptionist threshold is 15 decibels on the right side and 10 decibels on the left side. A: Serous otitis media, recurrent otitis media. Normal tube check and normal hearing. P: Follow up in six months. Signed by Jeremy Walker MD 10/20/2005 17:06 Mauro Manzano MD Jeremy Walker MD - Jeremy Walker MD P - wlp Job ID: [id number] Document ID: [id number] cc: documented in this encounter Plan of Treatment Not on file documented as of this encounter Visit Diagnoses Not on filedocumented in this encounter Care Teams Hypertrichologist Relationship Specialty Start Date End Date Daniel Mendoza MD [address] [place] [address] PCP - General 12/12/08 documented as of this encounter
--- OUTSIDE RECORDS SUMMARY | 2024-01-28 21:59 | XMS_ITS | Encounter Summary ---
Author Organization [facility] Address [address] [place] [address] Care Team Providers Care Personal Health Coach Name Role Phone Unavailable Primary Care Provider Unavailabl e Encounter Details Date Type Department Care Team (Late st Contact Info) Description 01/13/2006 15:51 EDT Hospital Encounter [address] [address] Norbert Harden MD [address] [place] [address], [address] [place] [phone] Discharge Disposition: Auto Discharge Social History Tobacco [...]
--- OUTSIDE RECORDS SUMMARY | 2024-01-28 21:59 | XMS_ITS | Encounter Summary ---
Author Organization [facility] Address [address] [place] [address] Care Team Providers Care Web Development Manager Name Role Phone Daniel Mendoza MD Primary Care Provider [phone] Encounter Details Date Type Department Care Team (Late st Contact Info) Description 04/27/2006 Before PRISM Converted Visit (Maple) [facility] - Maple conversion [address] [place], [place] [address] Jeremy Walker MD 111 [facility], [address] [place] [address] Social History Tobacco Use Types [...] flat bilaterally. Audiogram today is normal. Speech guest relations receptionist threshold at 10 decibels in both [...] Walker MD P - k[facility] Job ID: [id number] Document ID: [id number] cc: Daniel Mendoza MD 955 Document ID: [id number] cc: Daniel Mendoza MD documented in this encounter Plan of Treatment Not on file documented as of this encounter Visit Diagnoses Not on filedocumented in this encounter Care Teams Web Development Manager Relationship Specialty Start Date End Date Daniel Mendoza MD [address] [place] [address] PCP - General 12/12/08 documented as of this encounter
--- OUTSIDE RECORDS SUMMARY | 2024-01-28 21:59 | XMS_ITS | Encounter Summary ---
Author Organization [facility] Address [address] [place] [address] Care Team Providers Care Tone Cabinet Assembler Name Role Phone Unavailable Primary Care Provider Unavailabl e Encounter Details Date Type Department Care Team (Late st Contact Info) Description 12/22/2007 10:32 EDT Hospital Encounter [address] [address] Jeremy Walker MD [address] [place] [address], [address] [place] [phone] Social History Tobacco Use Types Packs/Day Years [...]
--- OUTSIDE RECORDS SUMMARY | 2024-01-28 21:59 | XMS_ITS | Encounter Summary ---
Author Organization [facility] Address [address] [place] [address] Care Team Providers Care Bonding Agent Name Role Phone Daniel Mendoza MD Primary Care Provider [phone] Encounter Details Date Type Department Care Team (Late st Contact Info) Description 12/22/2007 Before PRISM Converted Visit (Maple) [facility] [place] [facility] - Maple conversion [address] [place], [place] [address] Jeremy Walker MD 111 [facility], [address] [place] [address] Social History Tobacco Use Types Packs/Day Years Used Date Smoking Tobacco: Never Assessed Sex and Gender Information Value Date Recorded Sex Assigned at Not on file Gender Identity Not on file Sexual Orientation Not on file documented as of this encounter Progress Notes * Jeremy Walker MD - 03/14/2009 1049 EDT DIVISION OF OTOLARYNGOLOGY Daniel Mendoza MD [facility] [address] [place] [address] DOS 12/22/[address] Mendoza: Rosaura Ingram [...] Jeremy Walker MD - W[facility] Job ID: [id number] Doc ID: [id number] Enclosure (audio) cc: Daniel Mendoza MD* * [...] Walker MD - Jeremy Walker MD - [facility] Job ID: [id number] Doc ID: [id number] cc: documented in this encounter Plan of Treatment Not on file documented as of this encounter Visit Diagnoses Not on filedocumented in this encounter Care Teams Bonding Agent Relationship Specialty Start Date End Date Daniel Mendoza MD [address] [place] [address] PCP - General 12/12/08 documented as of this encounter
--- OUTSIDE RECORDS SUMMARY | 2024-01-28 21:59 | XMS_ITS | Encounter Summary ---
Author Organization [facility] Address [address] [place] [address] Care Team Providers Care Oracle Specialist Name Role Phone Unavailable Primary Care Provider Unavailabl e Encounter Details Date Type Department Care Team (Late st Contact Info) Description 01/25/2007 10:55 EDT Hospital Encounter [address] [address] Jeremy Walker MD [address] [place] [address], [address] [place] [phone] Social History Tobacco Use Types Packs/Day Years [...]
--- OUTSIDE RECORDS SUMMARY | 2024-01-28 21:59 | XMS_ITS | Encounter Summary ---
Author Organization [facility] Address [address] [place] [address] Care Team Providers Care Lottery Sales Clerk Name Role Phone Daniel Mendoza MD Primary Care Provider [phone] Encounter Details Date Type Department Care Team (Late st Contact Info) Description 04/04/2008 Before PRISM Converted Visit (Maple) [facility] - Maple conversion [address] [place], [place] [address] Jereym Walker MD 111 [facility], [address] [place] [address] Social History Tobacco Use Types [...] Jeremy Walker MD - [facility] Job ID: [id number] Doc ID: [id number] cc: Daniel Mendoza MD documented in this encounter Plan of Treatment Not on file documented as of this encounter Visit Diagnoses Not on filedocumented in this encounter Care Teams Lottery Sales Clerk Relationship Specialty Start Date End Date Daniel Mendoza MD [address] [place] [address] PCP - General 12/12/08 documented as of this encounter
--- OUTSIDE RECORDS SUMMARY | 2024-01-28 21:59 | XMS_ITS | Encounter Summary ---
Author Organization [facility] Address [address] [place] [address] Care Team Providers Care Bathing Suit Maker Name Role Phone Unavailable Primary Care Provider Unavailabl e Encounter Details Date Type Department Care Team (Late st Contact Info) Description 10/20/2005 8:55 EDT Hospital Encounter [address] [address] Jeremy Walker MD [address] [place] [address], [address] [place] [phone] Social History Tobacco Use Types Packs/Day Years [...]
--- OUTSIDE RECORDS SUMMARY | 2024-01-28 21:59 | XMS_ITS | Encounter Summary ---
Author Organization [facility] Address [address] [place] [address] Care Team Providers Care Experience Design Director Name Role Phone Daniel Mendoza MD Primary Care Provider [phone] Encounter Details Date Type Department Care Team (Late st Contact Info) Description 01/25/2007 Before PRISM Converted Visit (Maple) [facility] - Maple conversion [address] [place] [address] Jeremy Walker MD 111 [facility], [address] [place] [address] Social History Tobacco Use Types Packs/Day Years Used Date Smoking Tobacco: Never Assessed Sex and Gender Information Value Date Recorded Sex Assigned at Not on file Gender Identity Not on file Sexual Orientation Not on file documented as of this encounter Progress Notes * Jeremy Walker MD - 04/18/2009 1752 EST DIVISION OF OTOLARYNGOLOGY PROGRESS/FOLLOWUP NOTE - [...] Jeremy Walker MD - wlp Job ID: [id number] Doc ID: [id number] cc: - Jeremy Walker MD - wlp Job ID: [id number] Doc ID: [id number] cc: documented in this encounter Plan of Treatment Not on file documented as of this encounter Visit Diagnoses Not on filedocumented in this encounter Care Teams Experience Design Director Relationship Specialty Start Date End Date Daniel Mendoza MD [address] [place] [address] PCP - General 12/12/08 documented as of this encounter
--- OUTSIDE RECORDS SUMMARY | 2024-01-28 21:59 | XMS_ITS | Encounter Summary ---
Author Organization [facility] Address [address] [place] [address] Care Team Providers Care Location And Measurement Technician Name Role Phone Daniel Mendoza MD Primary Care Provider [phone] Encounter Details Date Type Department Care Team (Late st Contact Info) Description 02/29/2008 Before PRISM Converted Visit (Maple) [facility] [place] [facility] - Maple conversion [address] [place], [place] [address] Jeremy Walker MD 111 [facility], [address] [place] [address] Social History Tobacco Use Types [...] Alan Walker MD - [facility] Job ID: [id number] Doc ID: [id number] cc: documented in this encounter Consult Notes * Jeremy Walker MD - 01/04/2009 0528 EDT DIVISION OF OTOLARYNGOLOGY CONSULTATION - 02/29/2008 Daniel Mendoza MD [facility] [address] [place] [address] Mendoza: Rosaura was seen back [...] Alan Walker MD - [facility] Job ID: [id number] Doc ID: [id number] cc: Daniel Mendoza MD cc: Daniel Mendoza MD documented in this encounter Plan of Treatment Not on file documented as of this encounter Visit Diagnoses Not on filedocumented in this encounter Care Teams Location And Measurement Technician Relationship Specialty Start Date [place] [address] PCP - General 12/12/08 documented as of this encounter
--- OUTSIDE RECORDS SUMMARY | 2024-01-28 21:59 | XMS_ITS | Encounter Summary ---
Author Organization [facility] Address [address] [place] [address] Care Team Providers Care Grey Iron Molder Name Role Phone Unavailable Primary Care Provider Unavailabl e Encounter Details Date Type Department Care Team (Late st Contact Info) Description 04/27/2006 9:23 [facility] Hospital Encounter [address] [address] Jeremy Walker MD [address] [place] [address], [address] [place] [address] Social History Tobacco Use Types [...]
--- OUTSIDE RECORDS SUMMARY | 2024-01-28 21:59 | XMS_ITS | Encounter Summary ---
Author Organization [facility] Address [address] [place] [address] Care Team Providers Care Shoe Associate Name Role Phone Unavailable Primary Care Provider Unavailabl e Encounter Details Date Type Department Care Team (Latest Contact Info) Description 04/19/2001 9:18 EST - 04/19/2001 11:59 EST Hospital Encounter [facility] - Maple conversion [address] [place] [address] Scott Hirsch MD [address] [place] [phone] Discharge Disposition: Auto Discharge Social History [...]
--- OUTSIDE RECORDS SUMMARY | 2024-01-28 21:59 | XMS_ITS | Encounter Summary ---
Author Organization [facility] Address [address] [place] [address] Care Team Providers Care Professor Of Business Administration Name Role Phone Unavailable Primary Care Provider Unavailabl e Encounter Details Date Type Department Care Team (Late st Contact Info) Description 02/29/2008 13:19 EDT Hospital Encounter [address] [address] Jeremy Walker MD [address] [place] [address], [address] [place] [phone] Social History Tobacco Use Types Packs/Day Years [...]
--- OUTSIDE RECORDS SUMMARY | 2024-01-28 21:59 | XMS_ITS | Encounter Summary ---
Author Organization [facility] Address [address] [place] [address] Care Team Providers Care Infection Control Coordinator Name Role Phone Daniel Mendoza MD Primary Care Provider [phone] Encounter Details Date Type Department Care Team (Late st Contact Info) Description 09/24/2005 Before PRISM Converted Visit (Maple) [facility] - Maple conversion [address] [place], [place] [address] Jeremy Walker MD [address] [facility], [address] [place] [address] Social History Tobacco Use Types Packs/Day Years Used Date Smoking Tobacco: Never Assessed Sex and Gender Information Value Date Recorded Sex Assigned at Not on file Gender Identity Not on file Sexual Orientation Not on file documented as of this encounter Progress Notes * Jeremy Walker MD - 05/24/2009 1059 EST DIVISION OF OTOLARYNGOLOGY September 30, 2005 Daniel Mendoza MD [facility] [address], [place] [address] DOS 09/24/[address] Mendoza: Rosaura was [...] Walker MD P - wlp Job ID: [id number] Document ID: [id number] cc: Daniel Mendoza MD * Jeremy Walker [...] Walker MD P - wlp Job ID: [id number] Document ID: [id number] cc: documented in this encounter Plan of Treatment Not on file documented as of this encounter Visit Diagnoses Not on filedocumented in this encounter Care Teams Infection Control Coordinator Relationship Specialty Start Date End Date Daniel Mendoza MD [address] [place] [address] PCP - General 12/12/08 documented as of this encounter
--- OUTSIDE RECORDS SUMMARY | 2024-01-28 21:59 | XMS_ITS | Encounter Summary ---
Author Organization [facility] Address [address] [place] [address] Care Team Providers Care Print Line Inspector Name Role Phone Unavailable Primary Care Provider Unavailabl e Encounter Details Date Type Department Care Team (Late st Contact Info) Description 09/12/2007 10:42 EDT Hospital Encounter [address] [address] Jeremy Walker MD [address] [place] [address], [address] [place] [address] Social History Tobacco Use Types [...]
--- OUTSIDE RECORDS SUMMARY | 2024-01-28 21:59 | XMS_ITS | Encounter Summary ---
Author Organization [facility] Address [address] [place] [address] Care Team Providers Care Cisco Consultant Name Role Phone Unavailable Primary Care Provider Unavailabl e Encounter Details Date Type Department Care Team (Late st Contact Info) Description 12/21/2002 11:34 EDT - 12/21/2002 11:59 EDT Hospital Encounter [facility] - Other [address] [place] [address] Jeremy Walker MD [address] [facility], [address] [place] [address] Discharge Disposition: Auto Discharge Social History Tobacco [...]
--- OUTSIDE RECORDS SUMMARY | 2024-01-28 21:59 | XMS_ITS | Encounter Summary ---
Author Organization [facility] Address [address] [place] [address] Care Team Providers Care Business Support Coordinator Name Role Phone Unavailable Primary Care Provider Unavailabl e Encounter Details Date Type Department Care Team (Latest Contact Info) Description 06/11/1999 0:34 EST - 06/12/1999 11:59 EST Hospital Encounter [facility] [address] [place] [address] Christy Roach MD [address] [place] [address] Discharge Disposition: Home or Self Care Social [...]
--- NOTE | 2024-01-28 22:31 | HPE_ITS ---
Date of service: 01/28/24 Time of Service: 22:32 Assessment and Plan Assessment and plan (1) premature rupture of membranes, onset of labor within 24 hours of rupture, third trimester: Status: Acute Assessment and plan: 1. Admit to labor and delivery after consulting with Pediatric provider industrial refrigeration mechanic to confirm they are comfortable with 35w5d gestation as well as her co- morbidities, Pediatric provider agrees to baby delivering at [facility] and patient is aware of potential need for baby to need supports after delivery that will lead to baby needing transfer after delivery at any point during 5 day HEATHER stay 2. IV access as patient would like epidural for pain managment 3. CBC, Type and Screen, UDS with Fentanyl and Buprenorphine as well, Hep C with reflex to RNA quant 4. INTERNAL INVESTIGATOR present for epidural placement 5. Dr. Potter notified of [facility] plan of care and patient status and MD agrees with plan 6. Expect NVD (2) Methadone maintenance treatment affecting : Status: Acute Assessment and plan: 1. maintenance dose ordered to continue 2. Patient has been counseled during about HEATHER and has completed the Family Safety Plan 3. UDS with add on Fentanyl and Bupernorphine and metabolites ordered Qualifiers: Trimester: third trimester Qualified Code(s): O99.323 - Drug use complicating , third trimester; F11.20 - Opioid dependence, uncomplicated (3) Hepatitis C virus: Status: Chronic Assessment and plan: 1. viral load undetectable in August, will add to admission labs (4) History of intravenous drug use in remission: Status: Acute Assessment and plan: 1. Continue methadone maintenance 2. UDS as above (5) Marijuana smoker: Status: Acute Assessment and plan: 1. UDS and has been counseled to discontinue marijuana use in (6) Tobacco dependence: Status: Acute Assessment and plan: 1. Will offer nicotine patch if desires for any symptoms of withdrawal. OB-HPI Labor/Delivery History of Present Illness Reason for Visit: PROM at 35w5d Chief Complaint: Suspected Rupture of Membranes , Associated Signs and Symptoms of Suspected ROM: leaking clear fluid vaginally ; Suspected Labor. KAUR Calculator Estimated Delivery Date Method Current WG Current Estimate 02/27/24 Ultrasound #1 35w 5d Other Estimates 02/21/24 LMP (Certain) 36w 4d Comments: Rosaura presented to hospital with complaint of SROM at 2100 and regular contractions beginning shortly after that that were intense. She is accompained by her Mother and her bpyfriend, Milad Toribio. She is requesing epidural when able for pain management. Denies complications other than known shortened cervix throughout and Hep C as well as MAT therapy with Methadone [facility] and daily smoker of tobacco use. She has been able to decrease her smoking from 1/2 PPD to 5-6 cigs daily. Her Hepatitis C viral load in August was undetectable. She does smoke marijuana and has completed a Family Safety Plan during . History of Present Expected Delivery Route/Plan - CNM FOB/boyfriend - Milad Toribio (first baby w/pt, 3 other children) BB yes to circ, Roney Desires epidural for labor Specific Issues/Plan 1. FOB's daughter with MYT1L genetic disorder - small stature and learning disa bled-scheduled level 2 US at [facility] 10/11/23 1a. Found short cvx <2.5 cm @ [facility] scan, recheck in 2 wks, start prometrium 100 mg vag qhs til 34-36 wks 1b. [facility] recheck of cvx length=3.1 cm, pt advised by MFM to continue vaginal progesterone until 36 weeks 2. Opiate dependence & hx IVDA - methadone at [facility], 2a. our Care Notebook provided and will meet with Lucía Nichole at 28 wks 2b. 32 week growth US on 01/05/24: EFW @ 32nd percentile, DANIEL 12.5 3. MJ use, counselled. UDS+ Methadone and THC @ initial, repeat 28 weeks +THC 3a. needs family safety plan, done in September 4. Tobacco use- counselled to quit or cut down use. 1/2 PPD, 11/09- down to 5-6 per day. 5. Hep C ab+, titer undetectable in past current- undetectable 6. cfDNA low risk male, CF declined 7. BMI 32- early GTT 95, 28 weeks GTT-84 8. Increased preeclampsia risk - ASA recommended daily. 9. Poor dentition - referred to her dentist for check-up, Has not scheduled an appointment at 28 weeks. Assessment: History Reviewed & Current Informed Consent Informed Consent: Risk,Benefits,Alternatives Discussed and Other ( [facility], patient prefer to deliver here and if baby needs transfer due to any complications she agrees to that. Pediatric provider industrial refrigeration mechanic was notified and agrees to this plan as well.) Review of Systems All systems reviewed & are unremarkable except as noted in HPI and below PFSH All Active Problems (Updated 01/28/24 @ 22:50 by Prisca Sullivan CNM) premature rupture of membranes, onset of labor within 24 hours of rupture, third trimester (Acute) Short cervix affecting (Acute) Rx prometrium 100 mg vaginally qhs per [facility] MFM until 34-36 wks Methadone maintenance treatment affecting (Acute) Poor dentition (Acute) Anxiety (Chronic) History of intravenous drug use in remission (Acute) Hepatitis C virus (Chronic) titer undetectable Opiate dependence (Acute) methadone treatment at [facility] since summer 2022 Asthma (Chronic) (Acute) BMI 32.0-32.9,adult (Acute) Marijuana smoker (Acute) Tobacco dependence (Acute) Medical History Family history of genetic disorder Father of baby has child with MYT1L disorder Missed menses Dysmenorrhea in adolescent (10/22/15) Hearing loss, left (10/22/15) Dysmenorrhea in adolescent onset of sx 12yo. Started OCPs with improvement. 10/2015 wants Mirena IUD for ease of compliance. 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 Surgical History ear surgery L ear. Family History Father Diabetes on insulin Mother Hypertension Social History Smoking/Tobacco Use Status: Current every day Tobacco Type: cigarettes Smoking packs per day: 0.5 Smoking cigarettes per day: 10.0 Smoking risk assessment performed?: Yes Alcohol Intake: never Drug use: Daily Substance use type: marijuana and heroin Details: smokes marijuana before bed each night Do you feel safe at home: Yes Do you feel safe in your relationship?: Yes History History 1 Para 0 Hx # Term Pregnancies 0 Multiple births 0 Hx # Pregnancies 0 Ectopic pregnancies 0 AB induced 0 Hx Number of Living Children 0 AB spontaneous 0 Meds Allergies and Home Medications Allergies Allergy/AdvReac Type Severity Reaction Status Date / Time No Known Allergies Allergy Unverified 01/28/24 22:42 Home Medications ?Medication ?Instructions ?Recorded ?Confirmed ?Type levalbuterol tartrate 45 15 g inhalation Q4H PRN #1 inh 09/12/13 01/19/24 Rx mcg/actuation aerosol inhaler (Xopenex HFA) aspirin 81 mg tablet,delayed 81 mg PO DAILY #45 tabs 08/12/23 01/19/24 Rx release ferrous sulfate 325 mg (65 mg 325 mg PO DAILY #90 tabs 08/12/23 01/19/24 Rx iron) tablet (Feosol) vitamin#30 30 mg iron-10 1 cap PO DAILY #90 caps 08/12/23 01/19/24 Rx mg iron-folic acid 1 mg-omg3 capsule progesterone micronized 100 mg 100 mg vaginal QHS #90 caps 10/12/23 01/19/24 Rx capsule (Prometrium) methadone 10 mg/5 mL oral solution 140 mg PO DAILY 10/13/23 01/19/24 History ondansetron 4 mg disintegrating 8 mg (2 x 4 mg) PO Q8H PRN nausea 01/05/24 01/19/24 Rx tablet and vomiting #30 tabs Exam Physical Exam Vital signs: Pulse BP 84 135/71 01/28/24 22:23 01/28/24 22:23 Vital Signs Reviewed: Yes Narrative: T 98.1 Constitutional Constitutional: mild distress (labor) Detailed Labor and Delivery Exam Dilation: 3 Effacement (%): 100 station: -1 Position: GERALDINE Cervix position: mid Consistency: soft Maria Score: Cervical Points Exam 0 1 2 3 Dilation Closed 1-2cm 3-4 cm 5-6cm Effacement 0-30% 40-50% 60-70% 80% Consistency Firm Medium Soft Station -3 -2 -1,0 +1,+2 Position Posterior Mid Anterior MARIA Score(Cervical Ripeness Score): 10 Amniotic Membrane Status: Ruptured (PROM clear fluid at 2100 this evening) Rupture Method: Spontaneous Amniotic Fluid: Clear Nitrazine: Positive Monitor Mode: External Contraction Frequency(min): 3-4 Contraction Duration(sec): 60 Contraction Intensity: Moderate Fetus A Heart Rate Baseline: 135 Monitor Decelerations: None Variability: Minimal (1-5 BPM) Presentation: Cephalic Categories: Category II (tracing has only been continuous for 8 minutes will reassess, IV access and fluids given) CategoryII Plan of Care: Continuous Monitoring/Observation Est. Weight: 5 lb 8 oz Date of Membrane Rupture: 01/28/24 Time of Membrane Rupture: 21:00 HEENT Exam HEENT Exam: Normal (poor dentition) Neck Exam Neck Exam: Normal Chest/Brest/Axilla Exam Chest Exam: Normal Breast Exam Breast Exam: Not Done Respiratory Exam Respiratory Exam: Normal Cardiovascular Exam Cardiovascular Exam: Normal Abdominal Exam Abdominal Exam: Normal (gravid uterus, size equals dates) Rectal Exam Rectal Exam: Not Done Exam Exam: Normal (grossly rupture with clear fluid from vagina and on pad under here, nitrazine +) Extremities Exam Extremities Exam: Normal Back/Spine/Pelvis Exam Back Exam: Not Done Pelvis Adequate: Yes Skin Exam Skin Exam: Normal Neurological Exam Neurological Exam: Normal Psychiatric Exam Psychiatric Exam: Normal Results Results Group Beta Strep: Done-Result Unknown Blood Type: A+ Rubella Status: Immune Varicella Immunity: Immune Lab Results: cfDNA LR male, GC CT neg, Hep B neg, Hep C+ quant last done August of 2023 undetectable, GC CT neg, Syphillis IgG AB NR, HIV NR, UDS + Methadone and TCH X 2 in , early glucola 92 and 28 week glucola 84, admission labs pending, last CBC hgb 12.4/hct 38.1 PLT 152 on 12/08/23 Last US 01/05/24 EFW 1923 32.5% DANIEL 12.55 Cephalic Risk Assessment Risk for Shoulder Dystocia Historical/Initial OB: POSITIVE FOR: Pre- BMI>30; NEGATIVE FOR: Pelvic Abnormality, Previous Shoulder Dystocia or Previous Macrosomia Delivery Plan @ 40 wks: NVD risk due to BMI (minimal weight gain in , current BMI 35.5) and Nullipara Risk for Pre-Eclampsia Date Initiated/Initials: KM 08/12/23 Yes, if one or more: NEGATIVE FOR: Hx Pre-E/Gest HTN, Chronic HTN, Multiple Gestation, Pre-gestational DM, Renal Disease, Systemic Lupus or APA Syndrome Yes, if 2 or more: POSITIVE FOR: Nulliparity and BMI>30; NEGATIVE FOR: Age>= 35 yrs, >10yr btwn pregnancies, ethinicty, Mother/Sister w/ Pre-E or Previous IUGR Risk for Post- Hemorrhage Initial: NEGATIVE FOR: Multiple Gestation, Previous PPH, Known Clotting Deficiency, Grand Multiparity or Anticoagulation 40 Weeks: NEGATIVE FOR: Anemia, hgb<10, Low platelets (thrombocytopenia), Gestation HTN or Pre-E, Polyhydraminios or EFW>4500gms Risks Reviewed Risks Reviewed Upon Admission: Yes (low to mod risk for pre-e and PPH due to BMI 35.5)
[2024-01-28 23:04] LABS: HCT 35.7 % (36.0-46.0); HGB 11.7 g/dL (11.2-15.7); MCH 28.7 pg (27.0-33.0); MCHC 32.8 % (32.0-36.0); MCV 88 fL (80-95); MPV 10.3 fL (8.0-11.0); Platelet Count 234 10^3/uL (130-400); RBC 4.08 10^6/uL (3.93-5.22); RDW 12.9 % (11.7-14.6); WBC 12.66 10^3/uL (4.4-10.8)
--- NOTE | 2024-01-28 23:08 | ANES.PREOP_ITS ---
General Info Date of Service Date Performed: 01/28/24 Height: 5 ft 6 in Weight: 99.79 kg Body Mass Index (BMI): 35.5 Meds Allergies and Home Medications Allergies Allergy/AdvReac Type Severity Reaction Status Date / Time No Known Allergies Allergy Unverified 01/28/24 22:42 Home Medication ?Medication ?Instructions ?Recorded levalbuterol tartrate 45 15 g inhalation Q4H PRN #1 inh 09/12/13 mcg/actuation aerosol inhaler (Xopenex HFA) aspirin 81 mg tablet,delayed 81 mg PO DAILY #45 tabs 08/12/23 release ferrous sulfate 325 mg (65 mg 325 mg PO DAILY #90 tabs 08/12/23 iron) tablet (Feosol) vitamin#30 30 mg iron-10 1 cap PO DAILY #90 caps 08/12/23 mg iron-folic acid 1 mg-omg3 capsule progesterone micronized 100 mg 100 mg vaginal QHS #90 caps 10/12/23 capsule (Prometrium) methadone 10 mg/5 mL oral solution 140 mg PO DAILY 10/13/23 ondansetron 4 mg disintegrating 8 mg (2 x 4 mg) PO Q8H PRN nausea 01/05/24 tablet and vomiting #30 tabs Current Visit Medications: Current Medications Generic Name Dose Route Start Last Admin Trade Name Piyush PRN Reason Stop Dose Admin Fentanyl/Ropivacaine 200 ml 01/28/24 22:45 Fentanyl/Ropivacaine 2 Mcg/Ml And 0.1% 200 Ml Cadd Cassette EP DIRECTED [facility] Ringer's Solution 1,000 mls @ 150 mls/hr 01/28/24 22:30 IV INFUSION [facility] IV Miscellaneous Supplies 1 each 01/28/24 22:30 Iv Access IV DIRECTED [facility] Methadone HCl 140 mg 01/29/24 08:30 Methadone Liquid 10 Mg/Ml PO DAILY REJI Sodium Chloride 0 ml 01/28/24 22:22 Normal Saline Flush 10 Ml Syr IVP PRN PRN Sodium Chloride 0 ml 01/29/24 08:30 Normal Saline Flush 10 Ml Syr IVP BID REJI Sodium Chloride 0 ml 01/28/24 22:22 Normal Saline 10 Ml Vial IJ DIRECTED PRN PFSH Active Problems Active Problems: Problem Status Onset Code premature rupture of membranes, onset of labor within 24 hours of rupture, third trimester Acute O42.013 Short cervix affecting Acute O26.879 Methadone maintenance treatment affecting Acute O99.320, F11.20 Poor dentition Acute K08.9 Anxiety Chronic F41.9 History of intravenous drug use in remission Acute F19.91 Hepatitis C virus Chronic B19.20 Opiate dependence Acute F11.20 Asthma Chronic J45.909 Acute Z34.90 BMI 32.0-32.9,adult Acute Z68.32 Marijuana smoker Acute F12.90 Tobacco dependence Acute F17.200 Medical History Medical History Family history of genetic disorder Father of baby has child with MYT1L disorder Missed menses Dysmenorrhea in adolescent (10/22/15) Hearing loss, left (10/22/15) Dysmenorrhea in adolescent onset of sx 12yo. Started OCPs with improvement. 10/2015 wants Mirena IUD for ease of compliance. 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 Surgical History Surgical History ear surgery L ear. Tobacco Smoking/Tobacco Use Status: Current every day Tobacco Type: cigarettes Smoking packs per day: 0.5 Smoking cigarettes per day: 10 Alcohol Alcohol Intake: never Substance Use Substance use: Daily Substance use type: marijuana and heroin Details: smokes marijuana before bed each night Prental History History 2 1 Para 0 Hx # Term Pregnancies 0 Multiple births 0 Hx # Pregnancies 0 Ectopic pregnancies 0 AB induced 0 Hx Number of Living Children 0 AB spontaneous 0 Vital Signs and Lab Results Vital Signs Most Recent Vital Signs in EMR: Most Recent Vital Signs Temp Pulse Resp BP 36.7 C 84 18 135/71 01/28/24 22:23 01/28/24 22:23 01/28/24 22:23 01/28/24 22:23 Lab Results 01/28/24 22:52 Blood Type / Crossmatch: 2 Antibody Screen NEGATIVE 01/28/24 Complete Blood Count: 2 White Blood Count 12.66 10^3/uL (4.4-10.8) H 01/28/24 22:52 Red Blood Count 4.08 10^6/uL (3.93-5.22) 01/28/24 22:52 Hemoglobin 11.7 g/dL (11.2-15.7) 01/28/24 22:52 Hematocrit 35.7 % (36.0-46.0) L 01/28/24 22:52 Platelet Count 234 10^3/uL (130-400) 01/28/24 22:52 Complete Metabolic Panel: 2 No Data to Display Liver Function Panel: 2 No Data to Display Coagulation Panel: 2 No Data to Display Cardiac Panel: 2 No Data to Display Arterial Blood Gas: 2 No Data to Display Venous Blood Gas: 2 No Data to Display Pancreas Panel: 2 No Data to Display Thyroid Panel: 2 No Data to Display Infectious Disease: 2 No Data to Display Blood Cultures: 2 No Data to Display Toxicology Panel: 2 No Data to Display Panel: 2 No Data to Display Anesthesia Assessment and Plan Anesthesia History Personal History: PONV Family History: No Family History of Anesthesia Complications Exercise Tolerance Exercise Tolerance: Metabolic Equivalents>4 Pertinent Negatives Pertinent Negatives: No Symptoms of GERD, No Major Cardiovascular Symptoms or Complaints and No History of CVA/TIA Cardiac & Pulmonary Exam Cardiac Exam: Normal S1/S2 Heart Sounds Pulmonary Exam: Clear Bilateral Breath Sounds Implantable Cardiac Device Does patient have a Pacemaker or an ICD?: No Airway Exam Known Difficult Airway: No Mallampati Class: 1 Mouth Opening: Normal (> 3cm) Thyromental Distance: Greater than 3 cm Neck Range of Motion: Full ROM Neck Circumference: Normal Teeth Condition: Normal Dentition ASA Classification ASA Score: ASA 3 Emergency Case?: No NPO Status NPO Status: Full Stomach Status Status: Confirmed Anesthesia Plan Resuscitation Status: Full Code Anesthesia Technique: Labor Epidural Airway Planned: Natural Airway Monitors Used: Standard Monitors
[2024-01-29] VITALS (61 sets, daily range): BP systolic 105–134; BP diastolic 56–81; PULSE 61–123; RESP 16–17; TEMP 36.6–37.3; O2SAT 96–100; BMI 35.5
--- NOTE | 2024-01-29 00:04 | W.ANESNEU ---
Epidural/Spinal Catheter Date Performed: 01/29/24 Procedure Start: 23:33 Procedure Stop: 00:19 Requesting Provider: Prisca Sullivan Procedure Location: Obstetrics Reason Performed: Labor Epidural Standard Monitors Applied: Blood Pressure, SpO2 and See EMR for corresponding vital signs Patient Position: Sitting Sedation Given (Indicate Dose Given): No Sedation given Patient Mental Status: Awake Sterility: Hand Hygiene, Surgical Cap, Surgical Mask, Sterile Gloves, Sterile Drape/Sheet and Chlorhexidine Procedure Location: L2-L3 Interspace Epidural Needle: Tuohy 18 Gauge Needle Length: 3.5 Inch Needle Approach: Midline Epidural Procedure: Skin Prepped, Sterile Drape Placed, 1% Lidocaine to skin and subcutaneous tissue with 25G needle, Tuohy Needle placed, OIRON to Saline Used, Epidural Catheter Placed, Negative Heme, Negative CSF Flow and Tuohy Needle Removed Catheter Placed?: Catheter Placed Test Dose (Indicate Dose Given): 3ml 1.5% Lidocaine with 1:200K Epinephrine Given and Negative Test Dose Loss of Resistance Depth (cm): 7 Catheter depth at skin (cm): 13 Dressing: Sorbaview Dressing Placed, Mastisol Used and Dressing reinforced with Tape Epidural Provider Bolus (Indicate Dose Given): Total Ropivacaine 0.1% with Fentanyl 2mcg/ml Given from pump. (ml) Dose:: 10 ml and 5ml Additives (Indicate Dose Given ): None Infusion Medication: Medication Infusion Began Medication Infusion: Ropivacaine 0.1% with Fentanyl 2mcg/ml Maintenance Infusion Rate (ml/hour): 10 PCEA Bolus Dose (ml): 5 Post Procedure Pain score (0-10): 2 Block Level: N/A Paresthesia: None Ultrasound: Not Used Number of Attempts (See previous attempts in note section): 1 Procedure Tolerated: No Complications and Patient tolerated well Procedure Outcome: Successful Procedure Comment:: test dose at 2354. Catheter dosed at 10 ml and then 5 ml. After this, patient more comfortable. Discussed PCEA use and answered questions. Able to move legs and 5/5 strength. Performed By: Jasbir Gonzalez
[2024-01-29] MEDS: Penicillin G POT. 5,000,000 UNITS in Normal Saline 100 ML 200 UNITS IVPB (00:11)
[2024-01-29] MEDS: FentaNYL/ROPIvacaine 2 mcg/ml and 0.1% 200 ML CADD Cassette EP (00:13)
[2024-01-29] MEDS: Lactated Ringers 1,000 ML 150 ML IV (00:13)
--- NOTE | 2024-01-29 00:18 | PGE_ITS ---
Date of service: 01/29/24 Time of Service: 00:18 Informed Consent Informed Consent: Risk,Benefits,Alternatives Discussed and Other ( [facility], patient prefer to deliver here and if baby needs transfer due to any complications she agrees to that. Pediatric provider director of teacher education was notified and agrees to this plan as well.) Contractions Monitor Mode: External Contraction Frequency(min): 4 Contraction Duration(sec): 60 Intensity: Moderate Fetus A Monitor: Novii Heart Rate Baseline: 130 Variability: Moderate (6-25 BPM) Accelerations: 10 X 10 Decelerations: Prolonged (prolonged deceleration from 0018 to 0020 once repositioned to laying down after edpidural, resolved spontaneously) Assessment and Plan Assessment and plan (1) premature rupture of membranes, onset of labor within 24 hours of rupture, third trimester: Status: Acute Assessment and plan: 1. epidural in place and is effective 2. support labor and rest if possible 3. if not in active labor at 0600 will augment with pitocin 4. expect NVD Objective Abnormal lab results 01/28/24 Range/Units 22:52 WBC 12.66 H (4.4-10.8) 10^3/uL Hct 35.7 L (36.0-46.0) % Temp Pulse Resp BP Pulse Ox 98.1 F 68 18 114/57 L 99 01/28/24 22:23 01/29/24 00:17 01/28/24 22:23 01/29/24 00:15 01/29/24 00:17 Laboratory Results WBC 12.66 10^3/uL (4.4-10.8) H 01/28/24 22:52 RBC 4.08 10^6/uL (3.93-5.22) 01/28/24 22:52 Hgb 11.7 g/dL (11.2-15.7) 01/28/24 22:52 Hct 35.7 % (36.0-46.0) L 01/28/24 22:52 MCV 88 fL (80-95) 01/28/24 22:52 MCH 28.7 pg (27.0-33.0) 01/28/24 22:52 MCHC 32.8 % (32.0-36.0) 01/28/24 22:52 RDW 12.9 % (11.7-14.6) 01/28/24 22:52 Plt Count 234 10^3/uL (130-400) 01/28/24 22:52 MPV 10.3 fL (8.0-11.0) 01/28/24 22:52 Urine Opiates Screen Cancelled 01/28/24 22:10 Urine Methadone Screen Cancelled 01/28/24 22:10 Ur Barbiturates Screen Cancelled 01/28/24 22:10 Ur Tricyclics Screen Cancelled 01/28/24 22:10 Bupropion Cancelled 01/28/24 Unknown Hydroxybupropion Cancelled 01/28/24 Unknown Ur Amphetamines Screen Cancelled 01/28/24 22:10 U Benzodiazepines Scrn Cancelled 01/28/24 22:10 Urine Cocaine Screen Cancelled 01/28/24 22:10 Ur THC Screen Cancelled 01/28/24 22:10 Reporting Documentation Cancelled 01/28/24 Unknown ABO/Rh A Positive 01/28/24 22:52 Antibody Screen NEGATIVE 01/28/24 22:52 Vital Signs Reviewed: Yes Subjective Interval history since last seen: Becoming much more comfortable since epidural placement. We have started PCN for prevention of possible GBS due to PROM. Will allow to rest and if labor spaces will consider augmentation in morning hours per consultation with Dr. Potter earlier. KH Results Hemoglobin/Hematocrit: Hgb 11.7 g/dL (11.2-15.7) 01/28/24 22:52 Hct 35.7 % (36.0-46.0) L 01/28/24 22:52 Abnormal Lab Findings: Abnormal Labs 01/28/24 22:52 WBC 12.66 H Hct 35.7 L
[2024-01-29 02:13] LABS: *AMPHETAMINES SCREEN URINE Negative (Negative); *BARBITURATES SCREEN URINE Negative (Negative); *BENZODIAZEPINES SCREEN URINE Negative (Negative); Cannabinoids THC Positive (Negative); Cocaine Screen,Urine Negative (Negative); METHADONE URINE SCREEN Positive (Negative); OPIATES URINE SCREEN Negative (Negative)
[2024-01-29 02:18] LABS: Tricyclic Antidepressants Negative (Negative)
[2024-01-29] MEDS: Oxytocin 10 UNITS/ML VIAL IM (03:25)
--- NOTE | 2024-01-29 03:41 | W.OBDELIVERY ---
Date of service: 01/29/24 Time of Service: 03:41 OB Labor/ Delivery Information Baby A Delivery Delivery Method: Spontaneaous Presentation: Cephalic Cephalic Position: Vertex Vertex Position: Right Occipital Anterior Cord Description-Baby A: 3 Vessels and Clamped/Cut (after 3 minutes of delayed cord clamping) Amniotic Fluid: Clear Estimated Blood Loss: 35 Delivery Outcome: Liveborn Infant Complications: none at time of delivery, baby was vigorous Note: Rosaura Ingram and her partner Milad and her Mother presented with complaint of PROM at 2100 on 01/28/2024. Labor began immediately and she was 3/100/-1 on arrival to hospital with grossly ruptured, clear amniotic fluid leaking. FHR tracing was reassuring with baseline in 150's. Rosaura preferred epidural and once IV was able to be obtained STATE EDITOR was notified to attend. GBS was obtained. Pediatric provider was notified that Rosaura was 35w5d and expecting to deliver here at [facility]. Pediatric provider reported that was fine and that if complications occurred in period she would discuss baby transfer. At 0018 she had received her epidural and it was becoming effective for her and she rested. FHR tracing was CAT I most of the time with occasional variable deceleration, non repetitive. At 0215 VE was done due to urge to push and she was ant lip +1 and strong urge to push. She began pushing effectively at 0230 and pushed well. Second stage huddle was held. Low to Mod risk for PPH due to BMI and status and plan was to use IV pitocin per protocol, FHR 150's via doppler as tracing was hard to maintain. She was able to push baby down effectively and delivered a live male over intact perineum at 0320. Baby was vigorous immediately and brought to Mother's abdomen for skin to skin. Cord was clamped and cut by FOB after pulsation stopped at 3 minutes of life. Positive family bonding noted. Placenta delivered at 0325 with maternal pushing effort, intact. Fundus firmed to U-1 with massage. Bi manual exam done and not clots noted in vaginal or lower uterine segment which was firm as well. 10 units Pitocin IM was given after baby delivered as IV was pulled out during pushing. Perineum inspected and 1st degree right labial laceration was noted, it was hemostatic and left unrepaired. Needle and instrument count correct. EBL 35 cc. Rosaura plans to breast feed her son and would like circumcision when able to be done. She will continue her Methadone dose in hospital. Expect normal PP course. Roney weighed 5lb 12oz and had 8 and 9 for scores. Providers Nurse Mobile Heavy Equipment Operator: Prisca Sullivan Labor/Delivery Information Number of Babies in Womb: 1 Steroids Given: None Group Beta Strep: Done-Result Unknown Antibiotics Administered: Yes Number of Doses of Antibiotics: 1 Rubella Status: Immune Blood Type: A+ Varicella Immunity: Immune Maternal Complications: None Shoulder Dystocia: No Stages of Labor Onset of Labor Date: 01/28/24 Onset of Labor Time: 21:00 Complete Dilatation Date: 01/29/24 Complete Dilatation Time: 02:15 Labor - Stage 1 Duration: 5 hours and 15 minutes ROM Baby A: 01/28/24 ROM Baby A: 21:00 Delivery Date-Baby A: 01/29/24 Delivery Time-Baby A: 03:20 Labor Stage 2 Duration: 1 hours and 5 minutes Placenta Delivery Date-Baby A: 01/29/24 Total Length of Labor-Baby A: 6 hours and 20 minutes
[2024-01-29] MEDS: Hamamelis Leaf/Glycerin 100 EACH BOX PR (05:16)
[2024-01-29] MEDS: Dibucaine 1% 28 GM TUBE TP (05:16)
[2024-01-29] MEDS: Ibuprofen 600 MG TAB PO ×2 (05:17→20:47)
[2024-01-29] MEDS: Docusate Sodium 100 MG CAP PO ×2 (05:17→20:47)
[2024-01-29] MEDS: Methadone Liquid 10 MG/ML 140 MG PO (09:41)
--- NOTE | 2024-01-29 17:14 | W.ANESPOSTOP ---
Postoperative Evaluation Date, Time and Location Date Performed: 01/29/24 Time Performed: 17:14 Patient Location: Obstetrics Vital Signs Most Recent Imported Vital Signs: Most Recent Vital Signs Temp Pulse Resp BP Pulse Ox 36.6 C 86 16 126/81 99 01/29/24 08:15 01/29/24 08:15 01/29/24 08:15 01/29/24 08:15 01/29/24 08:15 Assessment Mental Status: Awake (Alert & Oriented to Patient Baseline) Airway and Respiratory Function: Patent airway with normal (patient baseline) respiratory exam Cardiovascular Function: Hemodynamically Stable Hydration Status: Adequately Hydrated Nausea & Vomiting: No Nausea or Vomiting Pain: Pt. Denies Any Pain Peripheral Nerve Block: Patient did not receive a nerve block Postoperative Comments:: Epidural effects worn off. Pt. doing well at baseline.
[2024-01-29] MEDS: Acetaminophen 325 MG TAB 650 MG PO (20:47)
[2024-01-30 00:05] VITALS: BP 131/59; PULSE 71; TEMP 36.9
[2024-01-30 05:11] VITALS: BP 113/56; PULSE 66; TEMP 36.7
[2024-01-30] MEDS: Methadone Liquid 10 MG/ML 140 MG PO (07:40)
[2024-01-30] MEDS: Acetaminophen 325 MG TAB 650 MG PO (07:52)
[2024-01-30 07:54] VITALS: BP 126/85; PULSE 68; RESP 17; TEMP 36.7; O2SAT 99
[2024-01-30 11:45] LABS: Fentanyl Scr w/Rfx Confirm Negative ng/mL (<1)
--- NOTE | 2024-01-30 12:19 | DSE_ITS ---
Date of service: 01/30/24 Time of Service: 12:19 DS: Diagnosis Discharge Diagnosis (1) premature rupture of membranes, onset of labor within 24 hours of rupture, third trimester: Status: Acute Asessment and Plan: Caring for baby independently. Pain is managed well with oral analgesics. Voiding without difficulty. assistance provided and Rosaura is pumping and feeding. Rosaura requests discharge at 24 hours to go home briefly to gather some things she will need for extended hospital stay. Delivery over intact perineum. A - stable mother and baby , Post day 1, delivery. P - Discharge today but will board with her baby for HEATHER assessment for 5 days. Circumcision planned tomorrow and questions answered about that. Routine post instructions. [facility] Discharge Plan Disposition Patient Disposition: Home Condition: Good Discharge Details Reason For Visit: PROM at 35w5d Admit Date/Time: 01/28/24 22:22 Admit Provider: Prisca Sullivan Attending Provider: Prisca Sullivan Primary Care Provider: Annamaria Pedraza Home Meds and New Rx's Prescriptions: No Action ondansetron 4 mg tablet,disintegrating 8 mg PO Q8H PRN (Reason: nausea and vomiting) Qty: 30 3RF aspirin 81 mg tablet,delayed release (DR/EC) 81 mg PO DAILY Qty: 45 7RF Rx Instructions: take 1 tablet every other day alternating with 2 tablets every other day ferrous sulfate [Feosol] 325 mg (65 mg iron) tablet 325 mg PO DAILY Qty: 90 4RF PNV #[id number] 30 mg iron-10 mg iron-1 mg capsule 1 cap PO DAILY Qty: 90 3RF Rx Instructions: may substitute with vitamin covered by medicaid progesterone micronized [Prometrium] 100 mg capsule 100 mg vaginal QHS Qty: 90 1RF Rx Instructions: place vaginally daily until 34-36 weeks of escitalopram oxalate [Lexapro] 10 mg tablet 10 mg PO DAILY Qty: 30 3RF levalbuterol tartrate [Xopenex HFA] 200 PUFF HFA aerosol inhaler 15 g Inhalation Q4H PRN Qty: 1 2RF methadone 10 mg/5 mL solution 140 mg PO DAILY Discharge Instructions Activity:: Activity as Tolerated Equipment/Supplies:: No Equipment Needed Diet:: As Tolerated Discharge Orders Discharge Orders: Discharge Order (Routine); Ordered 01/30/24 Ordered By: Prisca Manuel OB:DS Summary Summary Vaginal Delivery Method: Spontaneaous Episiotomy Description: None Laceration Description: None Laceration Extension: N/A Contraception Discussed Contraception Discussed: Yes Contraceptive Plan: IUD, Infant Gender-Baby A: Male weight: 5 lb 12.418 oz Status at Discharge Functional status at discharge: independent ambulation Overall status at discharge: patient is back to baseline Mental Status: mental status grossly normal Speech and Movement: speech and movement normal Mood: congruent mood Affect: normal affect Quality:SDOH Health Related Social Needs: No Data to Display Exam Physical Exam Vital signs: Temp Pulse Resp BP Pulse Ox 98.1 F 68 17 126/85 99 01/30/24 07:54 01/30/24 07:54 01/30/24 07:54 01/30/24 07:54 01/30/24 07:54 Vital Signs Reviewed: Yes Constitutional Constitutional: no acute distress HEENT Exam HEENT Exam: Normal Respiratory Exam Respiratory Exam: Normal Cardiovascular Exam Cardiovascular Exam: Normal Fundal Exam Fundus: Below Umbilicus and Firm Extremities Exam Extremity Exam: Normal Skin Exam Skin Exam: Normal Psychiatric Exam Psychiatric Exam: Normal PFSH All Active Problems (Updated 01/28/24 @ 22:50 by Prisca Sullivan CNM) premature rupture of membranes, onset of labor within 24 hours of r upture, third trimester (Acute) Short cervix affecting (Acute) Rx prometrium 100 mg vaginally qhs per [facility] MFM until 34-36 wks Methadone maintenance treatment affecting (Acute) Poor dentition (Acute) Anxiety (Chronic) History of intravenous drug use in remission (Acute) Hepatitis C virus (Chronic) titer undetectable Opiate dependence (Acute) methadone treatment at [facility] since summer 2022 Asthma (Chronic) (Acute) BMI 32.0-32.9,adult (Acute) Marijuana smoker (Acute) Tobacco dependence (Acute) Medical History Family history of genetic disorder Father of baby has child with MYT1L disorder Missed menses Dysmenorrhea in adolescent (10/22/15) Hearing loss, left (10/22/15) Dysmenorrhea in adolescent onset of sx 12yo. Started OCPs with improvement. 10/2015 wants Mirena IUD for ease of compliance. 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 Surgical History ear surgery L ear. Family History Father Diabetes on insulin Mother Hypertension Social History Smoking/Tobacco Use Status: Current every day Tobacco Type: cigarettes Smoking packs per day: 0.5 Smoking cigarettes per day: 10.0 Smoking risk assessment performed?: Yes Alcohol Intake: never Drug use: Daily Substance use type: marijuana and heroin Details: smokes marijuana before bed each night Housing: house Do you feel safe at home: Yes Do you feel safe in your relationship?: Yes History History 1 Para 0 Hx # Term Pregnancies 0 Multiple births 0 Hx # Pregnancies 0 Ectopic pregnancies 0 AB induced 0 Hx Number of Living Children 0 AB spontaneous 0 DS: Data Vitals/I&O Vitals and I&O: Vital Signs Temperature 98.1 F 01/30/24 07:54 Temperature Source Oral 01/30/24 07:54 Pulse 68 01/30/24 07:54 Pulse Rhythm Regular 01/30/24 07:19 Respiratory Rate 17 01/30/24 07:54 Respiratory Depth Normal 01/30/24 07:19 Blood Pressure 126/85 01/30/24 07:54 Blood Pressure Mean 98 01/30/24 07:54 Pulse Oximetry 99 01/30/24 07:54 Oxygen Delivery Method Room Air 01/28/24 23:07 Oxygen Flow Rate 0 01/28/24 23:07 Intake & Output 01/29/24 01/30/24 01/30/24 23:59 11:59 23:59 Other: Urine Color Yellow Yellow Data Completed and Pending Labs on day of discharge: 01/28/24 22:10 Perirectal Group B Streptococcus Culture - Pending Preliminary micro results at discharge 01/28/24 22:10 Group B Streptococcus Culture - Pending Perirectal
[2024-01-30 12:39] LABS: Hepatitis C Ab w Rflx HCV PCR Reactive (Negative)
[2024-02-01 13:07] LABS: HCV RNA Qualitative Undetected (Undetected)
[2024-02-04 12:22] LABS: Buprenorphine Negative ng/mL (Cutoff: 5.0)
== END 2024-01-30 16:07 | disposition home or self-care (01) | DRG 806 ==
PROVIDERS: Admitting Provider Advanced Practice Midwife; PCP Family Medicine; Visit Provider Advanced Practice Midwife
DX: O42.013 Preterm premature rupture of membranes, onset of labor within 24 hours of rupture, third trimester (principal); Z37.0 Single live birth; O98.42 Viral hepatitis complicating childbirth; O26.873 Cervical shortening, third trimester; Z3A.35 35 weeks gestation of pregnancy; B19.20 Unspecified viral hepatitis C without hepatic coma; F19.91 Other psychoactive substance use, unspecified, in remission; O99.324 Drug use complicating childbirth; F11.20 Opioid dependence, uncomplicated; F17.210 Nicotine dependence, cigarettes, uncomplicated; F12.90 Cannabis use, unspecified, uncomplicated; B18.2 Chronic viral hepatitis C; O99.334 Smoking (tobacco) complicating childbirth; O99.344 Other mental disorders complicating childbirth; F41.9 Anxiety disorder, unspecified; O99.52 Diseases of the respiratory system complicating childbirth; O76 Abnormality in fetal heart rate and rhythm complicating labor and delivery; O70.0 First degree perineal laceration during delivery; J45.909 Unspecified asthma, uncomplicated
CPT/HCPCS: 80307; 80348; 85027; 86803; 86850; 86900; 86901; 87522; 87081; J2540; J2590

== ENCOUNTER 2024-05-01 08:04 | Outpatient (CLI) | payer MEDICAID, SELFPAY ==
--- NOTE | 2024-05-01 08:00 | RT.EKG_ITS ---
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
== END 2024-05-01 08:05 | disposition home or self-care (01) ==
PROVIDERS: PCP Family Medicine; Visit Provider Family Medicine
DX: Z79.899 Other long term (current) drug therapy (principal)
CPT/HCPCS: 93005; 93010